=== PATIENT | male | born 1960 | race Caucasian/White ===

== ENCOUNTER 2020-08-14 04:05 | Emergency (ER) | payer MEDICARE, MEDICAID, SELFPAY ==
--- NOTE | ~2020-08-14 | XR_ITS ---
EXAMINATION: XR CHEST CLINICAL INFORMATION: Cough COMPARISON: None TECHNIQUE: Frontal view of the chest was obtained. FINDINGS: Right-sided PICC line terminates over the mid SVC. The lungs are well expanded. There is no focal consolidation, edema, or effusion. No pneumothorax. The cardiomediastinal silhouette is within normal limits. No acute osseous abnormality. XR/XR chest 1V IMPRESSION: No acute pulmonary finding.
[2020-08-14 04:16] VITALS: BP 111/75; PULSE 84; RESP 15; TEMP 36.9; O2SAT 98; BMI 25.0
[2020-08-14 04:24] VITALS: BP 111/67; PULSE 83; O2SAT 97
--- NOTE | 2020-08-14 04:46 | ECG_ITS ---
Test Reason : WEAKNESS Blood Pressure : / mmHG Vent. Rate : 082 BPM Atrial Rate : 082 BPM P-R Int : 188 ms QRS Dur : 078 ms QT Int : 360 ms P-R-T Axes : 069 058 069 degrees QTc Int : 420 ms Normal sinus rhythm Septal infarct , age undetermined Abnormal ECG No previous ECGs available Referred By: Kylie Eldridge Electronically Signed By:KAITLIN DARBY
[2020-08-14 05:04] LABS: Basophils Percent Auto 0.2 % (0-2); Eosinophils Percent Auto 0.2 % (0-4); Hematocrit 34.6 % (42-52); Imm Gran Abs Auto 0.03 X10*3/uL (0.00-0.03); Imm Gran Pct Auto 0.6 % (0.0-0.4); Lymphocytes Absolute Auto 1.9 X10*3/uL (1.2-4.9); MANUAL DIFF FLAG NO; Mean Corpuscular HGB Conc 31.8 g/dl (31.0-36.0); Mean Corpuscular Hemoglobin 32.9 pg (27.0-33.0); Mean Corpuscular Volume 103.6 fL (80-98); Mean Platelet Volume 10.6 fL (9.4-12.4); Monocytes Absolute Auto 0.5 X10*3/uL (0.1-1.2); Monocytes Percent Auto 10.2 % (2-11); Neutrophils Absolute Auto 2.7 X10*3/uL (2.0-8.3); Neutrophils Percent Auto 51.8 % (45-73); Platelet Count 225 X10*3/uL (160-400); Red Blood Count 3.34 X10*6/uL (4.60-5.80); Red Cell Distribution Width 13.2 % (11.0-16.0); White Blood Count 5.2 X10*3/uL (4.8-10.8)
[2020-08-14 05:20] LABS: COVID-19 Test Negative (Negative); IDNOW Serial# 9DD0AD1C
[2020-08-14 05:21] LABS: Lactic Acid 0.9 mmol/L (0.5-2.0)
[2020-08-14 05:29] LABS: B Type Natriuretic Peptide 14 pg/mL (<100)
[2020-08-14 05:33] LABS: Anion Gap 12 (12-20); Blood Urea Nitrogen 18 mg/dL (9-16); Calcium 9.1 mg/dL (8.4-10.2); Carbon Dioxide 29 mmol/L (22-29); Chloride 109 mmol/L (96-108); Creatinine Clr Calc Pharmacy 106.4; Estimated Glomerular Filt Rate > 60; Glucose Random 89 mg/dL (60-115); Sodium 145 mmol/L (135-145)
[2020-08-14 05:35] LABS: Lipase 49 U/L (8-78)
--- NOTE | 2020-08-14 06:07 | ED.GENADULT ---
HPI - General Adult General Chief complaint: General Medical Stated complaint: ? Time Seen by Provider: 08/14/20 04:45 Source: patient, EMS and RN notes reviewed Mode of arrival: EMS Limitations: no limitations History of Present Illness HPI narrative: 59-year-old male for a concern from a longterm resident the patient had copious amount of white foamy and frothy sputum from the patient's mouth. Patient has been coughing with white sputum, patient stated that he has had history of pneumonia in the past, denies any fever, no chest pain, no abdominal pain. Related Data Allergies Allergy/AdvReac Type Severity Reaction Status Date / Time amoxicillin [From Augmentin] Allergy Unknown Verified 08/14/20 04:28 clavulanic acid Allergy Unknown Verified 08/14/20 04:28 [From Augmentin] fluoxetine [From Prozac] Allergy Unknown Verified 08/14/20 04:30 perphenazine Allergy Unknown Verified 08/14/20 04:31 shellfish derived Allergy Unknown Verified 08/14/20 04:31 Review of Systems Review of Systems: All other systems are reviewed and are negative Constitutional: Reports as per HPI and Reports no additional constitutional complaints Eyes: Reports as per HPI and Reports no additional eye complaints Reports system reviewed and no additional complaints, except as documented Cardiovascular: Reports as per HPI and Reports no additional cardiovascular complaints Respiratory: Reports as per HPI and Reports no additional respiratory complaints Gastrointestinal: Reports as per HPI and Reports no additional gastrointestinal complaints Genitourinary: Reports no additional female genitourinary complaints Musculoskeletal: Reports no additional musculoskeletal complaints Skin/Breast: Reports system reviewed and no additional complaints, except as docu Psychiatric: Reports no additional psychiatric complaints Endocrine: Reports no additional endocrine complaints Hematologic/Lymphatic: Reports no additional hematologic/lymphatic complaints Allergic/Immunologic: Reports no additional allergic/immunologic complaints Reports system reviewed and no additional complaints, except as documented and Reports Abnormal speech present [facility] Past Medical History Medical History Bulimia Dementia Epilepsy Schizo-affective schizophrenia, chronic condition Sexually transmitted disease Social History Social History Patient Tobacco Use Status: Former Tobacco user Use of substances other than those prescribed or required for medical reasons: No Advance Directives: No Advance Directives Information Provided: No Physical Exam Vital Signs: Vital Signs: Last Vital Signs Temp 98.4 F 08/14/20 04:16 Pulse 84 08/14/20 04:16 Resp 15 08/14/20 04:16 BP 111/75 08/14/20 04:16 Pulse Ox 98 08/14/20 04:16 Body Mass Index 25.0 Vital signs have been reviewed as appeared to be correct. Blood pressure normal. Heart rate normal. Respiration rate normal. Temperature normal. Oxygen saturation normal. Appearance: Alert. No acute distress. Head: Normal external exam. Normocephalic. Atraumatic. No Bey signs noted. No raccoon eyes noted Eyes: PERRLA. EOMI. Conjunctiva and sclera normal. Eyelids normal. ENT: TM's Normal. Pharynx normal. Uvula midline. Moist mucous membranes. No trismus noted. No drooling noted. No muffled voice noted. Neck: Normal inspection. Neck supple. FROM. No adenopathy. Thyroid Normal. No meningeal signs. No neck mass noted. CVS: Normal heart rate and rhythm. Heart sound normal. No murmurs noted. Pulses normal throughout. Respiratory: No respiratory distress. Painless inspiration. Breath sounds normal. No wheezes/rales/rhonchi noted. Chest nontender. No accessory muscle usage noted or decreased air movement noted. Abdomen: Soft and nontender. Bowel sounds normal in all 4 quadrants. No distention noted. No organomegaly noted. No visible injury noted. Back: No CVA tenderness. Full range of motion noted. Skin: Skin warm and dry. Normal skin color. Normal skin turgor. No rashes/lesions/lacerations noted. Extremities: No lower extremity edema. Extremities exhibit normal range of motion. Extremities nontender. Neuro: No motor deficit. No sensory deficit. Reflexes normal. Course Course Course Narrative: Assessment and plan. 59-year-old male from longterm who was sent for evaluation for copious amount of white foamy and frothy sputum from the mouth with patient history of pneumonia. Chest x-ray/physical exam/labs ruled out pneumonia or any other pathology that explain patient's symptoms and longterm concern. Patient is hemodynamically stable with unremarkable physical exam Medical Decision Making Lab Data Lab results reviewed: Yes I reviewed the patient's lab results. Result diagrams: 08/14/20 04:58 08/14/20 04:58 Labs: Lab Results 08/14/20 08/14/20 08/14/20 Range/Units 04:56 04:58 04:58 WBC 5.2 (4.8-10.8) X10*3/uL RBC 3.34 L (4.60-5.80) X10*6/uL Hgb 11.0 L (14.0-18.0) g/dl Hct 34.6 L (42-52) % MCV 103.6 H (80-98) fL MCH 32.9 (27.0-33.0) pg MCHC 31.8 (31.0-36.0) g/dl RDW 13.2 (11.0-16.0) % Plt Count 225 (160-400) X10*3/uL MPV 10.6 (9.4-12.4) fL Immature Gran % (Auto) 0.6 H (0.0-0.4) % Neut % (Auto) 51.8 (45-73) % Lymph % (Auto) 37.0 (20-40) % [place] % (Auto) 10.2 (2-11) % Eos % (Auto) 0.2 (0-4) % Baso % (Auto) 0.2 (0-2) % Lymph # (Auto) 1.9 (1.2-4.9) X10*3/uL [place] # (Auto) 0.5 (0.1-1.2) X10*3/uL Eos # (Auto) 0.0 (0.0-0.4) X10*3/uL Baso # (Auto) 0.0 (0.0-0.2) X10*3/uL Abs Immat Gran (auto) 0.03 (0.00-0.03) X10*3/uL Absolute Neuts (auto) 2.7 (2.0-8.3) X10*3/uL Absolute Nucleated RBC 0.000 (0.0-0.012) X10*3/uL Nucleated RBC % (auto) 0.0 (0.0-0.2) /100WBC Sodium 145 (135-145) mmol/L Potassium 5.0 (3.3-5.1) mmol/L Chloride 109 H (96-108) mmol/L Carbon Dioxide 29 (22-29) mmol/L Anion Gap 12 (12-20) BUN 18 H (9-16) mg/dL Creatinine 0.80 (0.5-1.4) mg/dL Estim Creat Clear Calc 106.4 Estimated GFR > 60 Random Glucose 89 (60-115) mg/dL Lactic Acid (0.5-2.0) mmol/L Calcium 9.1 (8.4-10.2) mg/dL B-Natriuretic Peptide (<100) pg/mL Lipase (8-78) U/L COVID-19 (TR) Negative (Negative) COVID-19 Clin Com See Note 08/14/20 08/14/20 08/14/20 Range/Units 04:58 04:58 05:02 WBC (4.8-10.8) X10*3/uL RBC (4.60-5.80) X10*6/uL Hgb (14.0-18.0) g/dl Hct (42-52) % MCV (80-98) fL MCH (27.0-33.0) pg MCHC (31.0-36.0) g/dl RDW (11.0-16.0) % Plt Count (160-400) X10*3/uL MPV (9.4-12.4) fL Immature Gran % (Auto) (0.0-0.4) % Neut % (Auto) (45-73) % Lymph % (Auto) (20-40) % [place] % (Auto) (2-11) % Eos % (Auto) (0-4) % Baso % (Auto) (0-2) % Lymph # (Auto) (1.2-4.9) X10*3/uL [place] # (Auto) (0.1-1.2) X10*3/uL Eos # (Auto) (0.0-0.4) X10*3/uL Baso # (Auto) (0.0-0.2) X10*3/uL Abs Immat Gran (auto) (0.00-0.03) X10*3/uL Absolute Neuts (auto) (2.0-8.3) X10*3/uL Absolute Nucleated RBC (0.0-0.012) X10*3/uL Nucleated RBC % (auto) (0.0-0.2) /100WBC Sodium (135-145) mmol/L Potassium (3.3-5.1) mmol/L Chloride (96-108) mmol/L Carbon Dioxide (22-29) mmol/L Anion Gap (12-20) BUN (9-16) mg/dL Creatinine (0.5-1.4) mg/dL Estim Creat Clear Calc Estimated GFR Random Glucose (60-115) mg/dL Lactic Acid 0.9 (0.5-2.0) mmol/L Calcium (8.4-10.2) mg/dL B-Natriuretic Peptide 14 (<100) pg/mL Lipase 49 (8-78) U/L COVID-19 (TR) (Negative) COVID-19 Clin Com Imaging Data Chest x-ray: Radiologist's impression: No acute pulmonary finding. Discharge Plan Discharge Clinical Impression: Cough Dementia Qualifiers: Dementia type: unspecified type Patient Disposition: Xfer LTC Instructions: Dementia (ED) Additional Instructions: X-ray, blood workup, physical exam of the patient not suggesting pneumonia continue with suction of the excessive saliva secretions. Referrals: Dolly Díaz MD [Primary Care Provider] - 2 days Interventions: ED Discharge Assessment Last Done: 08/14/20 05:37
== END 2020-08-14 06:46 ==
PROVIDERS: Emergency Provider Emergency Medicine; PCP Internal Medicine
DX: R05 Cough (principal); F03.90 Unspecified dementia, unspecified severity, without behavioral disturbance, psychotic disturbance, mood disturbance, and anxiety; Z20.822 Contact with and (suspected) exposure to COVID-19
CPT/HCPCS: 36415; 71045; 80048; 83605; 83690; 83880; 85025; 87040; 87635; 93005; 99283; 99284

== ENCOUNTER 2020-09-15 11:30 | Emergency (ER) | payer MEDICARE, MEDICAID, SELFPAY ==
[2020-09-15 11:52] VITALS: BP 110/71; BP 138/76; PULSE 84; PULSE 90; RESP 16; TEMP 36.9; O2SAT 100; O2SAT 96; BMI 28.3
--- NOTE | 2020-09-15 11:53 | ECG_ITS ---
Test Reason : PSYCH Blood Pressure : / mmHG Vent. Rate : 088 BPM Atrial Rate : 088 BPM P-R Int : 168 ms QRS Dur : 080 ms QT Int : 372 ms P-R-T Axes : 076 084 079 degrees QTc Int : 450 ms Normal sinus rhythm Normal ECG When compared with ECG of 14-AUG-2020 04:54, No significant change was found Referred By: Claribel Mcgraw Electronically Signed By:JAZ PATTON MD
[2020-09-15 12:42] LABS: MANUAL DIFF FLAG NO
[2020-09-15 12:51] LABS: Basophils Percent Auto 0.2 % (0-2); Eosinophils Percent Auto 0.2 % (0-4); Hematocrit 36.5 % (42-52); Hemoglobin 11.7 g/dl (14.0-18.0); Imm Gran Abs Auto 0.02 X10*3/uL (0.00-0.03); Imm Gran Pct Auto 0.4 % (0.0-0.4); Lymphocytes Percent Auto 35.3 % (20-40); Mean Corpuscular HGB Conc 32.1 g/dl (31.0-36.0); Mean Corpuscular Volume 99.7 fL (80-98); Mean Platelet Volume 11.6 fL (9.4-12.4); Monocytes Absolute Auto 0.3 X10*3/uL (0.1-1.2); Monocytes Percent Auto 5.6 % (2-11); Neutrophils Absolute Auto 3.2 X10*3/uL (2.0-8.3); Neutrophils Percent Auto 58.3 % (45-73); Platelet Count 233 X10*3/uL (160-400); Red Blood Count 3.66 X10*6/uL (4.60-5.80); Red Cell Distribution Width 13.1 % (11.0-16.0); White Blood Count 5.5 X10*3/uL (4.8-10.8)
[2020-09-15 12:57] LABS: Prothrombin Time 11.1 SEC (9.9-13.0)
[2020-09-15 13:16] LABS: Ethanol < 10 mg/dL
[2020-09-15 13:18] LABS: Magnesium 2.1 mg/dL (1.6-2.6)
[2020-09-15 13:36] LABS: Alanine Aminotransferase 11 U/L (0-40); Albumin Level 4.2 g/dL (3.5-5.0); Alkaline Phosphatase 84 U/L (39-117); Anion Gap 14 (12-20); Aspartate Amino Transferase 15 U/L (5-37); Bilirubin Total 0.4 mg/dL (0.0-1.0); Blood Urea Nitrogen 26 mg/dL (9-16); Calcium 9.6 mg/dL (8.4-10.2); Carbon Dioxide 24 mmol/L (22-29); Chloride 110 mmol/L (96-108); Estimated Glomerular Filt Rate > 60; Glucose Random 112 mg/dL (60-115); Potassium 4.7 mmol/L (3.3-5.1); Sodium 143 mmol/L (135-145); Total Protein 7.1 g/dL (6.5-8.0)
--- NOTE | 2020-09-15 13:49 | ED.PSYCH ---
HPI - Psych General Chief Complaint: Psychiatric Symptoms Stated Complaint: si Time Seen by Provider: 09/15/20 11:52 Source: patient and EMS Mode of arrival: EMS History of Present Illness HPI Narrative: 59-year-old male with a past medical history of dementia, epilepsy, schizoaffective schizophrenia disorder, bulimia with G tube in place with multiple other comorbidities presenting to the ED via EMS after being sent from [facility] in [place] for increased depression with SI statements/attempt where he was found with the call mcmullen cord around his neck. Per correction staff they report that the patient is at baseline. patient immediately had a one-to-one sitter at bedside and he was talking to the one-to-one sitter although when I went to evaluate the patient he pretended that he could not speak or move his hands or legs. He was trying to mouth talk without using any words and put his hands around his neck basically saying that he wanted to choke himself from what I interpreted. Although he was laughing throughout my exam . Once I left the room he started to speak again and started to move all his extremities. MD complaint: suicidal ideation and feels depressed Onset (ago): hour(s) Duration: constant and getting worse History of same: Yes Relieving factors: none Exacerbating factors: none Associated psychiatric symptoms: none Associated symptoms: denies other symptoms Treatments prior to arrival: none If self harm: admits thoughts of self harm, has plan and has acted on plan Related Data Allergies Allergy/AdvReac Type Severity Reaction Status Date / Time amoxicillin [From Augmentin] Allergy Unknown Verified 09/15/20 11:52 clavulanic acid Allergy Unknown Verified 09/15/20 11:52 [From Augmentin] fluoxetine [From Prozac] Allergy Unknown Verified 09/15/20 11:52 perphenazine Allergy Unknown Verified 09/15/20 11:52 shellfish derived Allergy Unknown Verified 09/15/20 11:52 Review of Systems Review of Systems: Constitutional : No Fever, No Chills ENT/Mouth : No Ear Pain, No Nasal Congestion, No sore throat Eyes: No Eye Pain, No Swelling, No Redness Cardiovascular : No Chest Pain, No SOB Respiratory : No Cough, No Sputum, No Dyspnea Gastrointestinal : No ingestions, No Nausea, No Vomiting, No Diarrhea, No Hematochezia, No Melena Genitourinary : No Dysuria, No Urinary Frequency, No Hematuria Musculoskeletal : No Myalgias Skin : No Skin Lesions, No rash Neuro : No Weakness, No Numbness, No Paresthesias, No Dizziness, No Headache Psych : + Anxiety, + Depression, + SI, + thoughts of self injury, No HI, No AVH, Heme/Lymph: No Lymphadenopathy Endocrine : No Polyuria, No Polydipsia Yes all other systems are reviewed and are negative [facility] Past Medical History Attestation statement: The following information was validated with the patient. Medical History Bulimia Dementia Epilepsy Schizo-affective schizophrenia, chronic condition Sexually transmitted disease Social History Social History Patient Tobacco Use Status: Former Tobacco user Advance Directives: Yes Advance Directives Information Provided: Yes Advance Directives on File: No Physical Exam Vital Signs: Vital Signs: Last Vital Signs Temp 98.5 F 09/15/20 11:52 Pulse 84 09/15/20 11:52 Resp 16 09/15/20 11:52 BP 110/71 09/15/20 11:52 Pulse Ox 100 09/15/20 11:52 Body Mass Index 28.3 vital signs have been reviewed as normal and appeared to be correct. Blood pressure normal. Heart rate normal. Respiration rate normal. Temperature normal. Oxygen saturation normal. Appearance: Alert. Oriented X3. No acute distress. Head: Normal external exam. Normocephalic. Atraumatic. Eyes: PERRLA. EOMI. Conjunctiva and sclera normal. Eyelids normal. ENT: Pharynx normal. Uvula midline. Moist mucous membranes. Neck: Normal inspection. Neck supple. FROM. No adenopathy. Thyroid Normal. No meningeal signs. No neck mass noted. CVS: Normal heart rate and rhythm. Heart sound normal. No murmurs noted. Pulses normal throughout. Respiratory: No respiratory distress. Painless inspiration. Breath sounds normal. No wheezes/rales/rhonchi noted. Chest nontender. No accessory muscle usage noted or decreased air movement noted. Abdomen: Soft and nontender. Bowel sounds normal in all 4 quadrants. No distention noted. No organomegaly noted. No visible injury noted. G tube in place. Back: Full range of motion noted. Skin: Skin warm and dry. Normal skin color. Normal skin turgor. No rashes/lesions/lacerations noted. Extremities: No lower extremity edema. Extremities exhibit normal range of motion. Extremities nontender. Neuro: Oriented X 3. No motor deficit. No sensory deficit. Reflexes normal. Psych: Appearance grossly normal, well-kept, mental status normal, speech and movement normal, speech clear, normal affect/mood. Is cooperative. Normal thought process. Normal thought content. Normal good insight. Judgment good. Course Course Course Narrative: 14pm - 59-year-old male Presenting to the ED via EMS after being sent from [facility] [place] for increased depression with SI statement /a temper he was found with call mcmullen cord around his neck although per correction staff this is his baseline and he has done this in the past. although on my exam patient denies any SI/HI/ auditory visual hallucinations or thoughts of self injury is actually smiling and laughing throughout the entire exam very goal orientated. - Labs obtained and patient with a mild baseline anemia similar when compared to prior although improved. BUN 26. Lipase 120. Otherwise all other labs are within normal limits. - Therefore patient is medically cleared at this time placing physician observation because the patient is more time to be evaluated by crisis. At this time patient remains at baseline no focal neuro deficits are noted. Lungs clear to auscultation. CV RRR. Abdomen is soft nontender. Will continue to monitor as patient awakes crisis evaluation. Reevaluation(s) Reevaluation #1: - Labs return and labs at baseline for patient. - Patient was evaluated by the care team And patient continued to deny any SI/HI / auditory visual hallucinations or thoughts of self injury. Therefore patient was cleared medically and by the care team/crisis and we spoke to the retirement facility to the DOA and they are willing to take the patient back to the retirement facility Time: 16:11 [facility] - Psych Medical Records Attestation: I reviewed the patient's medical records. Lab Data Attestation: I reviewed the patient's lab results. Result diagrams: 09/15/20 12:24 09/15/20 12:24 Labs: Lab Results 09/15/20 09/15/20 09/15/20 Range/Units 12:24 12:24 12:24 WBC 5.5 (4.8-10.8) X10*3/uL RBC 3.66 L (4.60-5.80) X10*6/uL Hgb 11.7 L (14.0-18.0) g/dl Hct 36.5 L (42-52) % MCV 99.7 H (80-98) fL MCH 32.0 (27.0-33.0) pg MCHC 32.1 (31.0-36.0) g/dl RDW 13.1 (11.0-16.0) % Plt Count 233 (160-400) X10*3/uL MPV 11.6 (9.4-12.4) fL Immature Gran % (Auto) 0.4 (0.0-0.4) % Neut % (Auto) 58.3 (45-73) % Lymph % (Auto) 35.3 (20-40) % [place] % (Auto) 5.6 (2-11) % Eos % (Auto) 0.2 (0-4) % Baso % (Auto) 0.2 (0-2) % Lymph # (Auto) 2.0 (1.2-4.9) X10*3/uL [place] # (Auto) 0.3 (0.1-1.2) X10*3/uL Eos # (Auto) 0.0 (0.0-0.4) X10*3/uL Baso # (Auto) 0.0 (0.0-0.2) X10*3/uL Abs Immat Gran (auto) 0.02 (0.00-0.03) X10*3/uL Absolute Neuts (auto) 3.2 (2.0-8.3) X10*3/uL Absolute Nucleated RBC 0.000 (0.0-0.012) X10*3/uL Nucleated RBC % (auto) 0.0 (0.0-0.2) /100WBC PT 11.1 (9.9-13.0) SEC INR 1.0 (0.9-1.1) Sodium (135-145) mmol/L Potassium (3.3-5.1) mmol/L Chloride (96-108) mmol/L Carbon Dioxide (22-29) mmol/L Anion Gap (12-20) BUN (9-16) mg/dL Creatinine (0.5-1.4) mg/dL Estim Creat Clear Calc Estimated GFR Random Glucose (60-115) mg/dL Calcium (8.4-10.2) mg/dL Magnesium 2.1 (1.6-2.6) mg/dL Total Bilirubin (0.0-1.0) mg/dL AST (5-37) U/L ALT (0-40) U/L Alkaline Phosphatase (39-117) U/L Total Protein (6.5-8.0) g/dL Albumin (3.5-5.0) g/dL Lipase (8-78) U/L Ethyl Alcohol mg/dL 09/15/20 09/15/20 Range/Units 12:24 12:24 WBC (4.8-10.8) X10*3/uL RBC (4.60-5.80) X10*6/uL Hgb (14.0-18.0) g/dl Hct (42-52) % MCV (80-98) fL MCH (27.0-33.0) pg MCHC (31.0-36.0) g/dl RDW (11.0-16.0) % Plt Count (160-400) X10*3/uL MPV (9.4-12.4) fL Immature Gran % (Auto) (0.0-0.4) % Neut % (Auto) (45-73) % Lymph % (Auto) (20-40) % [place] % (Auto) (2-11) % Eos % (Auto) (0-4) % Baso % (Auto) (0-2) % Lymph # (Auto) (1.2-4.9) X10*3/uL [place] # (Auto) (0.1-1.2) X10*3/uL Eos # (Auto) (0.0-0.4) X10*3/uL Baso # (Auto) (0.0-0.2) X10*3/uL Abs Immat Gran (auto) (0.00-0.03) X10*3/uL Absolute Neuts (auto) (2.0-8.3) X10*3/uL Absolute Nucleated RBC (0.0-0.012) X10*3/uL Nucleated RBC % (auto) (0.0-0.2) /100WBC PT (9.9-13.0) SEC INR (0.9-1.1) Sodium 143 (135-145) mmol/L Potassium 4.7 (3.3-5.1) mmol/L Chloride 110 H (96-108) mmol/L Carbon Dioxide 24 (22-29) mmol/L Anion Gap 14 (12-20) BUN 26 H (9-16) mg/dL Creatinine 0.77 (0.5-1.4) mg/dL Estim Creat Clear Calc 90.0 Estimated GFR > 60 Random Glucose 112 (60-115) mg/dL Calcium 9.6 (8.4-10.2) mg/dL Magnesium (1.6-2.6) mg/dL Total Bilirubin 0.4 (0.0-1.0) mg/dL AST 15 (5-37) U/L ALT 11 (0-40) U/L Alkaline Phosphatase 84 (39-117) U/L Total Protein 7.1 (6.5-8.0) g/dL Albumin 4.2 (3.5-5.0) g/dL Lipase 120 H (8-78) U/L Ethyl Alcohol < 10 mg/dL ECG Data Attestation: I personally reviewed and interpreted this ECG as follows: ECG interpretation date: 09/15/20 ECG interpretation time: 12:04 Interpretation: Normal sinus rhythm and circulated lady with a normal [place] interval normal QRS duration and QT/QTC interval. No acute ischemic changes are noted. Discharge Plan Discharge Clinical Impression: Dementia, Schizo-affective schizophrenia, chronic condition Patient Disposition: er LTC Instructions: Dementia (ED) Referrals: [facility] [Outside] - 2 days
[2020-09-15 13:53] LABS: Lipase 120 U/L (8-78)
--- NOTE | 2020-09-15 14:32 | MHC.CARE ---
Pt is a 59yro single male who arrived to [facility] ED from the SNF he lives in ([facility]) due to reported SI with behavior of wrapping the call mcmullen cord around his neck at the [facility]. Pt was transferred to [facility] from [facility] where he lived since 2005. Pt carries a historical dx of frontotem dementia. Per CARE team call with SW at [facility] ([phone]) Concepcion who was pts SW at [facility] as well. Pt reportedly was sent to [facility] today due to pts behavior and c/o that pt was feeling suicidal. She added the following baseline info for pt who presents with communication issues ( talks in code ) and for several weeks reported that he feels but could not explain how he felt and staff questioned that pt was not medically cleared. Pt admitted to wrapping cord on his neck. CARE did a consult interview with pt to assess risk. Pt was medically cleared, located in room 6 in the ED with a 1:1 present. Pt was resting quietly in bed. Pt appears neatly groomed, reported he had a recent hair cut and trimmed his nails and wearing clean clothes. Pt initially did not speak, and mouthed words and pointed to his tongue and sticking his tongue out. Within a few moments pt was able to speak when t/w suggested when he preferred to speak CARE would return. Pt stated he knew he would come here if he did that referring to his suicidal statements. Pt stated he does not recall where he lives but does remember wrapping the cord on his neck. Pt then denied feeling suicidal and did not intend to end his life. Pt then added that he thinks he is referring to medical issues. Pt presented as fixated on give me an IV . Pt was medically cleared and per ED provider did not require IV fluids. When asked how pt was feeling he stated he feels he needs medical help despite being medically cleared and pt does not recall meeting with the ED provider. When asked about his suicidal thinking or self harm pt stated he does not feel like killing myself and I need my meds through my feeding tube you know that right . Pt denied having thoughts about hurting himself or ending his life and smiled and laughed stating he did that just to get here . Pt appears to present with limited memory recall and could be result of pre-existing dementia diagnosis. Pt denied having thoughts of hurting others and denied aggressive urges. Pt is hoping to return to the SNF, is medically cleared and did not state acute reasons to require referral to crisis assessment based on current presentation and current denial of suicidal ideation, plan or intent. Should pts presentation change or become acute pt can be referred for crisis assessment if needed. CARE team relayed info to CM in effort to support pts goal of returning to SNF and based on current presentation. CM to speak with DON at SNF. Please contact CARE team as needed [phone].
--- NOTE | 2020-09-15 15:49 | MHC.CM.ED ---
Spoke with BARBARA Cervantes of [facility]. Explained patient seen by CARE team and found not to be SI/HI, therefore not requiring a higher level of care. Per Billy, patient can return to the facility. Action BLAlf booked. Med nec with chart. Patient, Leonel MICHAELS and Claribel ALEGRE aware. Continue to monitor for d/c needs.
== END 2020-09-15 20:06 ==
PROVIDERS: Physician Assistant Medical; Emergency Provider Emergency Medicine Emergency Medical Services
DX: F03.90 Unspecified dementia, unspecified severity, without behavioral disturbance, psychotic disturbance, mood disturbance, and anxiety (principal); F20.9 Schizophrenia, unspecified; R45.851 Suicidal ideations; D64.9 Anemia, unspecified; F50.2 Bulimia nervosa; Z68.28 Body mass index [BMI] 28.0-28.9, adult; Z93.1 Gastrostomy status
CPT/HCPCS: 36415; 80053; 82077; 83690; 83735; 85025; 85610; 93005; 99283; 99285

== ENCOUNTER 2021-04-17 23:47 | Inpatient (IN) | payer MEDICARE, MEDICAID, SELFPAY ==
--- NOTE | ~2021-04-17 | XR_ITS ---
EXAMINATION: XR CHEST CLINICAL INFORMATION: Shortness of breath, hypoxia, Covid positive COMPARISON: 08/14/2020 TECHNIQUE: Frontal view of the chest was obtained. FINDINGS: Lung volumes are symmetric. There are mild patchy bibasilar opacities. No evidence of pneumothorax or significant pleural effusion. The cardiomediastinal contour is unremarkable. No acute osseous findings are seen. XR/XR chest 1V IMPRESSION: Mild patchy bibasilar opacities suspicious for sequelae of Covid pneumonia given the clinical history.
--- NOTE | ~2021-04-17 | CT_ITS ---
EXAMINATION: CT ANGIOGRAM OF THE CHEST WITH AND WITHOUT CONTRAST (CT PULMONARY ANGIOGRAM FOR PE) CLINICAL INFORMATION: Reason for Exam r/o PE, covid + COMPARISON: Chest x-ray 04/18/2021 TECHNIQUE: Prior to contrast administration, noncontrast localization images were obtained. Subsequently, multidetector volumetric imaging was performed from the thoracic inlet to below the diaphragms following the administration of 65 mL Omnipaque 350 intravenous contrast. No contrast reaction reported Sagittal, coronal, and MIP oblique sagittal reformatted images were obtained on the CT workstation, uploaded to PACS, and reviewed. This CT examination was performed using dose optimization techniques as appropriate, variously including the following: *Automated exposure control *Adjustment of mA and/or kV according to patient size (this includes techniques or standardized protocols for targeted exams where dose is matched to indication/reason for exam; i.e. extremities or head) *Use of iterative reconstruction technique Total exam dose-length product 462 mGy-cm FINDINGS: QUALITY OF STUDY/CONTRAST BOLUS: Suboptimal. PULMONARY ARTERIES: No central pulmonary embolus is seen. However, there is extensive respiratory motion artifact which significantly limits evaluation of the segmental and subsegmental vasculature bilaterally. THORACIC AORTA: No aneurysm or dissection. LUNG: Detailed parenchymal evaluation is limited due to extensive respiratory motion artifact. There is a region of heterogeneous consolidation in the inferior right upper lobe. Dependent opacities are present in the basilar lower lobes, right greater than left which could represent a combination of atelectasis and consolidation. There is suggestion of somewhat tree-in-bud type nodularity favored to be infectious/inflammatory within the right upper lobe. PLEURA: No pleural effusion or pneumothorax. MEDIASTINUM: The visualized thyroid gland is unremarkable. Mildly prominent bilateral hilar lymph nodes are noted, which may be reactive. Cardiac size is within normal limits; no pericardial effusion. Coronary artery calcifications are present. CHEST WALL/AXILLA: No axillary or internal mammary lymphadenopathy. OSSEOUS STRUCTURES: Scattered degenerative changes are present in the spine. UPPER ABDOMEN: Cholelithiasis is noted. Percutaneous gastrostomy tube is present. No reflux of contrast into the hepatic veins to suggest elevated right heart pressures. CT/CT angio chest PE protocol IMPRESSION: 1. Though no central pulmonary embolus is seen, there is inadequate assessment of the segmental and subsegmental vessels due to extensive respiratory motion artifact, and therefore emboli at these levels cannot be excluded. 2. Regions of opacity in the basilar lower lobes and right middle lobe, at least some of which is favored to reflect consolidation/pneumonia in the setting of Covid positive status. Component of atelectasis may also be present. 3. Coronary artery calcifications. Correlation with cardiac risk factors is recommended. VTE: negative
--- NOTE | ~2021-04-17 | XR_ITS ---
EXAMINATION: XR ABDOMEN KUB CLINICAL INDICATION: PEG tube placement COMPARISON: CTA chest exam 04/18/2021 TECHNIQUE: AP view of the abdomen. FINDINGS: There is a gastrostomy tube visualized in the left upper quadrant. A small probe is seen overlying the pelvis likely within the urinary bladder. The bowel gas pattern is nonspecific. No organomegaly. There is a calcified density in the right upper quadrant consistent with gallstone XR/XR KUB IMPRESSION: A G-tube is seen in the left upper quadrant as seen on CTA chest exam 04/18/2021
--- NOTE | 2021-04-17 23:52 | ECG_ITS ---
Test Reason : SOB Blood Pressure : / mmHG Vent. Rate : 131 BPM Atrial Rate : 000 BPM P-R Int : 000 ms QRS Dur : 068 ms QT Int : 268 ms P-R-T Axes : 000 113 109 degrees QTc Int : 395 ms Artifact in tracing Probable sinus tachycardia Septal infarct , age undetermined Nonspecific ST and T wave abnormality Abnormal ECG When compared with ECG of 15-SEP-2020 12:04, Vent. rate has increased BY [address] and T wave abnormality seen Referred By: Ashtyn Oliveira Electronically Signed By:KAITLIN DARBY
[2021-04-18] VITALS (19 sets, daily range): BP systolic 94–160; BP diastolic 50–80; PULSE 62–140; RESP 10–30; TEMP 36.4–40.2; O2SAT 86–100; BMI 23.6
--- NOTE | 2021-04-18 00:13 | ED_ITS ---
HPI - SOB/Dyspnea General Chief Complaint: Upper Respiratory Symptoms Stated Complaint: sob Time Seen by Provider: 04/17/21 23:48 Source: EMS Mode of arrival: EMS Limitations: altered mental status and other (Advanced dementia) History of Present Illness HPI Narrative: [facility]. Patient is known to be COVID positive. During nursing rounds at the facility, patient was found to be hypoxic, barely arousable. At baseline, patient is nonverbal, but he is usually alert. EMS reports that on their arrival, patient's oxygen saturation was 65% on room air. Patient was started on a non- rebreather, oxygen saturation improved to the low 90s. According to the staff at the [place] [facility], patient had temp Oral fever of 103. Per EMS report, patient has had 2 vaccinations for COVID-19 and a booster MD elicited complaint: shortness of breath Related Data Allergies Allergy/AdvReac Type Severity Reaction Status Date / Time amoxicillin [From Allergy Unknown Verified 09/15/20 11:52 Augmentin] clavulanic acid Allergy Unknown Verified 09/15/20 11:52 [From Augmentin] fluoxetine [From Prozac] Allergy Unknown Verified 09/15/20 11:52 perphenazine Allergy Unknown Verified 09/15/20 11:52 shellfish derived Allergy Unknown Verified 09/15/20 11:52 Review of Systems Verdana 4l Review of Systems: Yes Unobtainable due to mental Verdana 4d condition and Unobtainable due to mental status PMFSH Past Medical History Medical History Bulimia Dementia Epilepsy Schizo-affective schizophrenia, chronic condition Sexually transmitted disease Social History Social History Patient Tobacco Use Status: Former Tobacco user Advance Directives: No Physical Exam Verdana 4l Vital Signs: Verdana 4d Verdana 4d Vital Signs: Verdana 4d Verdana 4Bd Last Vital Signs Verdana 4d Investigation Lieutenant New 4d Investigation Lieutenant New 4d Temp 102.4 F H 04/18/21 02:36 Investigation Lieutenant New 4d Pulse 97 04/18/21 02:13 Investigation Lieutenant New 4d Resp 14 04/18/21 02:13 BP 112/58 L 04/18/21 02:13 Pulse Ox 100 04/18/21 02:13 Oxygen Flow Rate 15 04/18/21 00:05 BMI result Body Mass Index 23.6 Course Course Course Narrative: On arrival, patient's oxygen saturation was low 90s on 15 L. Patient was switched to a high-flow nasal cannula. Oxygen saturation remains above 90%. Per patient's MOLDs form, he is DNR DNI, ok to use CPAP/BiPAP At this time, 02:20, patient's blood pressure is 112 systolic, heart rate 90, temperature 102 degrees. Patient's lactic acid is 2.1 likely secondary to prolonged hypoxia rather than sepsis. Patient's white blood cell count within normal limits, blood pressure stable. Viral infection secondary to COVID suspected. At this time patient will not be given 30 mL/kilogram. Patient did receive 2 L of normal saline. Patient was empirically covered with Levaquin CTA negative for PE I discussed the patient with Dr. Doll, patient being admitted MDM - SOB/Dyspnea Lab Data Result diagrams: 04/18/21 00:16 04/18/21 00:16 Labs: Lab Results 04/18/21 04/18/21 04/18/21 Range/Units 00:16 00:16 00:16 WBC 6.9 (4.8-10.8) X10*3/uL RBC 3.91 L (4.60-5.80) X10*6/uL Hgb 12.7 L (14.0-18.0) g/dl Hct 40.0 L (42.0-52.0) % MCV 102.3 H (80.0-98.0) fL MCH 32.5 (27.0-33.0) pg MCHC 31.8 (31.0-36.0) g/dl RDW 13.8 (11.0-16.0) % Plt Count 151 L (160-400) X10*3/uL MPV 10.9 (9.4-12.4) fL Immature Gran % (Auto) 0.7 H (0.0-0.4) % Neut % (Auto) 70.0 (45-73) % Lymph % (Auto) 21.3 (20-40) % [place] % (Auto) 7.7 (2-11) % Eos % (Auto) 0.0 (0-4) % Baso % (Auto) 0.3 (0-2) % Lymph # (Auto) 1.5 (1.2-4.9) X10*3/uL [place] # (Auto) 0.5 (0.1-1.2) X10*3/uL Eos # (Auto) 0.0 (0.0-0.4) X10*3/uL Baso # (Auto) 0.0 (0.0-0.2) X10*3/uL Abs Immat Gran (auto) 0.05 H (0.00-0.03) X10*3/uL Absolute Neuts (auto) 4.8 (2.0-8.3) x10*3/uL Absolute Nucleated RBC 0.080 H (0.0-0.012) X10*3/uL Nucleated RBC % (auto) 1.2 H (0.0-0.2) /100WBC Smear Tech's Comments VERIFIED D-Dimer High Sensitivty NG/ML Sodium 142 (135-145) mmol/L Potassium 4.2 (3.3-5.1) mmol/L Chloride 109 H (96-108) mmol/L Carbon Dioxide 24 (22-29) mmol/L Anion Gap 13 (12-20) BUN 22 H (9-16) mg/dL Creatinine 1.03 (0.5-1.4) mg/dL Estim Creat Clear Calc 76.7 Estimated GFR > 60 Random Glucose 125 H (60-115) mg/dL Lactic Acid 2.1 H* (0.5-2.0) mmol/L Calcium 8.9 D (8.4-10.2) mg/dL Total Bilirubin 0.4 (0.0-1.0) mg/dL Direct Bilirubin 0.2 (0.0-0.5) mg/dL AST 29 D (5-37) U/L ALT 10 (0-40) U/L Alkaline Phosphatase 61 D (39-117) U/L Troponin I High Sens (<3.5-35.0) ng/L B-Natriuretic Peptide (<100) pg/mL Total Protein 7.3 (6.5-8.0) g/dL Albumin 4.1 (3.5-5.0) g/dL Urine Color Urine Appearance Urine pH (5.0-8.0) Ur Specific [place] (1.005-1.025) Urine Protein (NEG-TRACE) MG/DL Urine Glucose (UA) (NEG) MG/DL Urine Ketones (NEG) MG/DL Urine Blood (NEG) Urine Nitrite (NEG) Ur Leukocyte Esterase (NEG) Urine RBC (0) /HPF Urine WBC (0-4) /HPF Ur Squamous Epith Cells /LPF Urine Bacteria /LPF COVID-19 (TR) (Negative) COVID-19 Clin Com 04/18/21 04/18/21 04/18/21 Range/Units 00:16 00:16 00:16 WBC (4.8-10.8) X10*3/uL RBC (4.60-5.80) X10*6/uL Hgb (14.0-18.0) g/dl Hct (42.0-52.0) % MCV (80.0-98.0) fL MCH (27.0-33.0) pg MCHC (31.0-36.0) g/dl RDW (11.0-16.0) % Plt Count (160-400) X10*3/uL MPV (9.4-12.4) fL Immature Gran % (Auto) (0.0-0.4) % Neut % (Auto) (45-73) % Lymph % (Auto) (20-40) % [place] % (Auto) (2-11) % Eos % (Auto) (0-4) % Baso % (Auto) (0-2) % Lymph # (Auto) (1.2-4.9) X10*3/uL [place] # (Auto) (0.1-1.2) X10*3/uL Eos # (Auto) (0.0-0.4) X10*3/uL Baso # (Auto) (0.0-0.2) X10*3/uL Abs Immat Gran (auto) (0.00-0.03) X10*3/uL Absolute Neuts (auto) (2.0-8.3) x10*3/uL Absolute Nucleated RBC (0.0-0.012) X10*3/uL Nucleated RBC % (auto) (0.0-0.2) /100WBC Smear Tech's Comments D-Dimer High Sensitivty NG/ML Sodium (135-145) mmol/L Potassium (3.3-5.1) mmol/L Chloride (96-108) mmol/L Carbon Dioxide (22-29) mmol/L Anion Gap (12-20) BUN (9-16) mg/dL Creatinine (0.5-1.4) mg/dL Estim Creat Clear Calc Estimated GFR Random Glucose (60-115) mg/dL Lactic Acid (0.5-2.0) mmol/L Calcium (8.4-10.2) mg/dL Total Bilirubin (0.0-1.0) mg/dL Direct Bilirubin (0.0-0.5) mg/dL AST (5-37) U/L ALT (0-40) U/L Alkaline Phosphatase (39-117) U/L Troponin I High Sens 11.6 (<3.5-35.0) ng/L B-Natriuretic Peptide 110 H (<100) pg/mL Total Protein (6.5-8.0) g/dL Albumin (3.5-5.0) g/dL Urine Color Urine Appearance Urine pH (5.0-8.0) Ur Specific [place] (1.005-1.025) Urine Protein (NEG-TRACE) MG/DL Urine Glucose (UA) (NEG) MG/DL Urine Ketones (NEG) MG/DL Urine Blood (NEG) Urine Nitrite (NEG) Ur Leukocyte Esterase (NEG) Urine RBC (0) /HPF Urine WBC (0-4) /HPF Ur Squamous Epith Cells /LPF Urine Bacteria /LPF COVID-19 (TR) Positive A (Negative) COVID-19 Clin Com See Note 04/18/21 04/18/21 Range/Units 00:16 00:23 WBC (4.8-10.8) X10*3/uL RBC (4.60-5.80) X10*6/uL Hgb (14.0-18.0) g/dl Hct (42.0-52.0) % MCV (80.0-98.0) fL MCH (27.0-33.0) pg MCHC (31.0-36.0) g/dl RDW (11.0-16.0) % Plt Count (160-400) X10*3/uL MPV (9.4-12.4) fL Immature Gran % (Auto) (0.0-0.4) % Neut % (Auto) (45-73) % Lymph % (Auto) (20-40) % [place] % (Auto) (2-11) % Eos % (Auto) (0-4) % Baso % (Auto) (0-2) % Lymph # (Auto) (1.2-4.9) X10*3/uL [place] # (Auto) (0.1-1.2) X10*3/uL Eos # (Auto) (0.0-0.4) X10*3/uL Baso # (Auto) (0.0-0.2) X10*3/uL Abs Immat Gran (auto) (0.00-0.03) X10*3/uL Absolute Neuts (auto) (2.0-8.3) x10*3/uL Absolute Nucleated RBC (0.0-0.012) X10*3/uL Nucleated RBC % (auto) (0.0-0.2) /100WBC Smear Tech's Comments D-Dimer High Sensitivty 267 NG/ML Sodium (135-145) mmol/L Potassium (3.3-5.1) mmol/L Chloride (96-108) mmol/L Carbon Dioxide (22-29) mmol/L Anion Gap (12-20) BUN (9-16) mg/dL Creatinine (0.5-1.4) mg/dL Estim Creat Clear Calc Estimated GFR Random Glucose (60-115) mg/dL Lactic Acid (0.5-2.0) mmol/L Calcium (8.4-10.2) mg/dL Total Bilirubin (0.0-1.0) mg/dL Direct Bilirubin (0.0-0.5) mg/dL AST (5-37) U/L ALT (0-40) U/L Alkaline Phosphatase (39-117) U/L Troponin I High Sens (<3.5-35.0) ng/L B-Natriuretic Peptide (<100) pg/mL Total Protein (6.5-8.0) g/dL Albumin (3.5-5.0) g/dL Urine Color YELLOW Urine Appearance CLEAR Urine pH 6.0 (5.0-8.0) Ur Specific [place] 1.010 (1.005-1.025) Urine Protein 1+ H (NEG-TRACE) MG/DL Urine Glucose (UA) NEG (NEG) MG/DL Urine Ketones NEG (NEG) MG/DL Urine Blood TRACE (NEG) Urine Nitrite NEG (NEG) Ur Leukocyte Esterase 3+ H (NEG) Urine RBC 5-9 H (0) /HPF Urine WBC 50-75 H (0-4) /HPF Ur Squamous Epith Cells TRACE /LPF Urine Bacteria 2+ /LPF COVID-19 (TR) (Negative) COVID-19 Clin Com Imaging Data Chest x-ray: Radiologist's impression: FINDINGS: Lung volumes are symmetric. There are mild patchy bibasilar opacities. No evidence of pneumothorax or significant pleural effusion. The cardiomediastinal contour is unremarkable. No acute osseous findings are seen. XR/XR chest 1V IMPRESSION: Mild patchy bibasilar opacities suspicious for sequelae of Covid pneumonia given the clinical history Critical Care Time Critical Care Time Critical Care Time: Yes Total Critical Care Time: 50 Attestation: 50 minutes were spent in direct patient care and stabilization Discharge Plan Discharge Clinical Impression: COVID-19, Hypoxic Patient Disposition: Admitted As Inpatient
[2021-04-18 00:24] LABS: Basophils Percent Auto 0.3 % (0-2); Hemoglobin 12.7 g/dl (14.0-18.0); Imm Gran Abs Auto 0.05 X10*3/uL (0.00-0.03); Imm Gran Pct Auto 0.7 % (0.0-0.4); Lymphocytes Absolute Auto 1.5 X10*3/uL (1.2-4.9); Lymphocytes Percent Auto 21.3 % (20-40); Mean Corpuscular HGB Conc 31.8 g/dl (31.0-36.0); Mean Corpuscular Hemoglobin 32.5 pg (27.0-33.0); Mean Corpuscular Volume 102.3 fL (80.0-98.0); Mean Platelet Volume 10.9 fL (9.4-12.4); Monocytes Absolute Auto 0.5 X10*3/uL (0.1-1.2); Monocytes Percent Auto 7.7 % (2-11); Neutrophils Absolute Auto 4.8 x10*3/uL (2.0-8.3); Platelet Count 151 X10*3/uL (160-400); Red Blood Count 3.91 X10*6/uL (4.60-5.80); Red Cell Distribution Width 13.8 % (11.0-16.0); White Blood Count 6.9 X10*3/uL (4.8-10.8)
[2021-04-18 00:35] LABS: D Dimer High Sensitivity 267 NG/ML
[2021-04-18 00:36] LABS: Appearance Urine CLEAR; Color Urine YELLOW; Glucose Urine UA NEG (NEG); Leukocyte Esterase Urine 3+ (NEG); Nitrite Urine NEG (NEG); UACC Culture Trigger YES; Urine Blood TRACE (NEG); Urine Ketones NEG (NEG); Urine Protein 1+ MG/DL (NEG-TRACE)
[2021-04-18] MEDS: 0.9 % Sodium Chloride 2,000 ML 999 ML IVCONT (00:36)
[2021-04-18 00:37] LABS: MANUAL DIFF FLAG SCAN; NRBC Pct Auto 1.2 /100WBC (0.0-0.2)
[2021-04-18 00:38] LABS: Alanine Aminotransferase 10 U/L (0-40); Albumin Level 4.1 g/dL (3.5-5.0); Alkaline Phosphatase 61 U/L (39-117); Anion Gap 13 (12-20); Aspartate Amino Transferase 29 U/L (5-37); Bilirubin Direct 0.2 mg/dL (0.0-0.5); Bilirubin Total 0.4 mg/dL (0.0-1.0); Blood Urea Nitrogen 22 mg/dL (9-16); Calcium 8.9 mg/dL (8.4-10.2); Carbon Dioxide 24 mmol/L (22-29); Chloride 109 mmol/L (96-108); Creatinine Clr Calc Pharmacy 76.7; Estimated Glomerular Filt Rate > 60; Glucose Random 125 mg/dL (60-115); Potassium 4.2 mmol/L (3.3-5.1); Sodium 142 mmol/L (135-145); Total Protein 7.3 g/dL (6.5-8.0)
[2021-04-18 00:42] LABS: B Type Natriuretic Peptide 110 pg/mL (<100); Lactic Acid 2.1 mmol/L (0.5-2.0)
[2021-04-18 00:42] LABS: WBC Urine 50-75 /HPF (0-4)
[2021-04-18 00:43] LABS: Bacteria Urine 2+ /LPF; Squamous Epithelial Cell Urine TRACE /LPF
[2021-04-18 00:43] LABS: SLIDE REVIEW VERIFIED; Troponin-I High Sensitivity 11.6 ng/L (<3.5-35.0)
[2021-04-18] MEDS: dexAMETHasone sod phosphate 4 MG/ML VIAL 6 MG IVPUSH ×2 (00:43→07:50)
[2021-04-18] MEDS: levoFLOXacin/D5W 500 MG/100 ML PIGGYBACK 100 MG IV (00:43)
[2021-04-18] MEDS: Acetaminophen Supp 650 MG SUPP.RECT PR (00:57)
--- NOTE | 2021-04-18 01:01 | PC.NURSE ---
critical lactic 2.1 report to BRANDO pereira and Provider Dr. Marquez. Medication ordered.
[2021-04-18 01:02] LABS: COVID-19 Test Positive (Negative)
[2021-04-18] MEDS: iohexoL 350 MG/ML 100 ML INFUS..BTL 65 ML IV (02:11)
[2021-04-18 02:20] LABS: Reflex Lactate? Lactic Acid Added
--- NOTE | 2021-04-18 02:46 | P.HPHOSP_ITS ---
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 I spoke to the patient's RN has her at the [facility] -who mentioned that patient mostly sleeps during the night, but the ER today he started all of fever; has been receiving few doses of Ativan with no significant change in his fever; followed by at night after she gave the medications when the [employer] went to check on the patient patient noted to be visibly short of breath; followed by patient oxygenation noted to be 68%; EMS was called in and patient was sent to the hospital for further management. Mentioned that patient is due to get a chest x-ray, blood cultures at the care home. Patient was already started on Z-Kyle. Mentions that patient has most 1 that she is do not resuscitate do not intubate and has a guardian. Per RN patient at baseline not she has had for questions Like pain. Review of all other systems is limited. ER course: Per ER team patient was on non-rebreather on presentation; with oxygen saturation in low 90s; followed with patient was placed on high-flow oxygenation improvement. CT chest was done which showed no evidence of pulmonary embolism but noted COVID-19 pneumonia. Given levofloxacin. Admitted to the hospital for further management [facility] Medical History Bulimia Dementia Epilepsy Schizo-affective schizophrenia, chronic condition Sexually transmitted disease Social History Patient Tobacco Use Status: Former Tobacco user Advance Directives: No Meds Allergies Allergy/AdvReac Type Severity Reaction Status Date / Time amoxicillin [From Allergy Unknown Verified 09/15/20 11:52 Augmentin] clavulanic acid Allergy Unknown Verified 09/15/20 11:52 [From Augmentin] fluoxetine [From Prozac] Allergy Unknown Verified 09/15/20 11:52 perphenazine Allergy Unknown Verified 09/15/20 11:52 shellfish derived Allergy Unknown Verified 09/15/20 11:52 Home Medications Medication Instructions Recorded Confirmed Last Taken Type atorvastatin 10 1 tab FEEDING 04/18/21 04/18/21 Unknown History mg tablet TUBE BEDTIME clonazepam 1 mg 1 tab FEEDING 04/18/21 04/18/21 Unknown History tablet TUBE BID clozapine 100 mg 2.5 tab PO 04/18/21 04/18/21 Unknown History tablet BEDTIME clozapine 25 mg 1 tab FEEDING 04/18/21 04/18/21 Unknown History tablet TUBE DAILY levothyroxine 112 1 tab FEEDING 04/18/21 04/18/21 Unknown History mcg tablet TUBE DAILY lidocaine 5 % 1 patch TOPICAL 04/18/21 04/18/21 Unknown History topical patch DAILY (Lidoderm) lithium carbonate 1 cap FEEDING 04/18/21 04/18/21 Unknown History 300 mg capsule TUBE BID omeprazole 20 mg FEEDING 04/18/21 04/18/21 Unknown History magnesium 10 mg TUBE DAILY oral suspension,delaye d release (Prilosec) trazodone 50 mg 1 tab FEEDING 04/18/21 04/18/21 Unknown History tablet TUBE BEDTIME valproic acid (as 1,000 mg FEEDING 04/18/21 04/18/21 Unknown History sodium salt) 250 TUBE DAILY mg/5 mL oral solution valproic acid (as 2,000 mg FEEDING 04/18/21 04/18/21 Unknown History sodium salt) 250 TUBE BEDTIME mg/5 mL oral solution Physical Exam Verdana 4l Vital Signs and Narrative: Verdana 4d Verdana 4d Vital Signs: Verdana 4d Verdana 4Bd Last Vital Signs Verdana 4d Population Health Manager New 4d Population Health Manager New 4d Temp 102.4 F H 04/18/21 02:36 Population Health Manager New 4d Pulse 97 04/18/21 02:13 Population Health Manager New 4d Resp 14 04/18/21 02:13 BP 112/58 L 04/18/21 02:13 Pulse Ox 100 04/18/21 02:13 Oxygen Flow Rate 15 04/18/21 00:05 BMI result Body Mass Index 23.6 Gen: Appears be in no acute distress. Patient on high-flow oxygen. Blood pressure on the soft side. HEENT: NCAT, Moist mucosa. Pulmonary: Coarse breath sounds. CVS: Normal S1-S2 Abdomen: BS+, Soft, Nontender. Peg tube in place. Peg site appears clear. Extremities: Warm well perfused Neuro: drowsy/ lethargic. Opens his eyes to verbal commands. Not following any commands Currently.. Results Labs CBC and Chem 7: 04/18/21 00:16 04/18/21 00:16 Labs: Laboratory Results - last 24 hr 04/18/21 04/18/21 04/18/21 00:16 00:16 00:16 MCV 102.3 H MCH 32.5 MCHC 31.8 RDW 13.8 Plt Count 151 L MPV 10.9 Immature Gran % (Auto) 0.7 H Neut % (Auto) 70.0 Lymph % (Auto) 21.3 [place] % (Auto) 7.7 Eos % (Auto) 0.0 Baso % (Auto) 0.3 Lymph # (Auto) 1.5 [place] # (Auto) 0.5 Eos # (Auto) 0.0 Baso # (Auto) 0.0 Abs Immat Gran (auto) 0.05 H Absolute Neuts (auto) 4.8 Absolute Nucleated RBC 0.080 H Nucleated RBC % (auto) 1.2 H Smear Tech's Comments VERIFIED D-Dimer High Sensitivty Anion Gap 13 Estim Creat Clear Calc 76.7 Estimated GFR > 60 Random Glucose 125 H Lactic Acid 2.1 H* Calcium 8.9 D Total Bilirubin 0.4 Direct Bilirubin 0.2 AST 29 D ALT 10 Alkaline Phosphatase 61 D Troponin I High Sens B-Natriuretic Peptide Total Protein 7.3 Albumin 4.1 Urine Color Urine Appearance Urine pH Ur Specific [place] Urine Protein Urine Glucose (UA) Urine Ketones Urine Blood Urine Nitrite Ur Leukocyte Esterase Urine RBC Urine WBC Ur Squamous Epith Cells Urine Bacteria COVID-19 (TR) COVID-19 Clin Com 04/18/21 04/18/21 04/18/21 00:16 00:16 00:16 MCV MCH MCHC RDW Plt Count MPV Immature Gran % (Auto) Neut % (Auto) Lymph % (Auto) [place] % (Auto) Eos % (Auto) Baso % (Auto) Lymph # (Auto) [place] # (Auto) Eos # (Auto) Baso # (Auto) Abs Immat Gran (auto) Absolute Neuts (auto) Absolute Nucleated RBC Nucleated RBC % (auto) Smear Tech's Comments D-Dimer High Sensitivty Anion Gap Estim Creat Clear Calc Estimated GFR Random Glucose Lactic Acid Calcium Total Bilirubin Direct Bilirubin AST ALT Alkaline Phosphatase Troponin I High Sens 11.6 B-Natriuretic Peptide 110 H Total Protein Albumin Urine Color Urine Appearance Urine pH Ur Specific [place] Urine Protein Urine Glucose (UA) Urine Ketones Urine Blood Urine Nitrite Ur Leukocyte Esterase Urine RBC Urine WBC Ur Squamous Epith Cells Urine Bacteria COVID-19 (TR) Positive A COVID-19 Clin Com See Note 04/18/21 04/18/21 00:16 00:23 MCV MCH MCHC RDW Plt Count MPV Immature Gran % (Auto) Neut % (Auto) Lymph % (Auto) [place] % (Auto) Eos % (Auto) Baso % (Auto) Lymph # (Auto) [place] # (Auto) Eos # (Auto) Baso # (Auto) Abs Immat Gran (auto) Absolute Neuts (auto) Absolute Nucleated RBC Nucleated RBC % (auto) Smear Tech's Comments D-Dimer High Sensitivty 267 Anion Gap Estim Creat Clear Calc Estimated GFR Random Glucose Lactic Acid Calcium Total Bilirubin Direct Bilirubin AST ALT Alkaline Phosphatase Troponin I High Sens B-Natriuretic Peptide Total Protein Albumin Urine Color YELLOW Urine Appearance CLEAR Urine pH 6.0 Ur Specific [place] 1.010 Urine Protein 1+ H Urine Glucose (UA) NEG Urine Ketones NEG Urine Blood TRACE Urine Nitrite NEG Ur Leukocyte Esterase 3+ H Urine RBC 5-9 H Urine WBC 50-75 H Ur Squamous Epith Cells TRACE Urine Bacteria 2+ COVID-19 (TR) COVID-19 Clin Com Imaging Radiologist's Impressions: Impressions Chest X-Ray 04/18/21 00:13 IMPRESSION: Mild patchy bibasilar opacities suspicious for sequelae of Covid pneumonia given the clinical history. Chest CTA 04/18/21 02:10 IMPRESSION: 1. Though no central pulmonary embolus is seen, there is inadequate assessment of the segmental and subsegmental vessels due to extensive respiratory motion artifact, and therefore emboli at these levels cannot be excluded. 2. Regions of opacity in the basilar lower lobes and right middle lobe, at least some of which is favored to reflect consolidation/pneumonia in the setting of Covid positive status. Component of atelectasis may also be present. 3. Coronary artery calcifications. Correlation with cardiac risk factors is recommended. 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 Admitted to the hospital for following conditions Altered mental status: toxic metabolic encephalopathy. Supportive care. Strict NPO. at baseline patient nods his head to simple questions as per the RN at care home. Currently patient is drowsy lethargic. Exam limited. Patient received IV contrast-unable to do CT head currently. Acute hypoxic respiratory failure: Likely in the setting of COVID-[address] chest showed no evidence of pulmonary embolism. patient also has a history of recurrent aspiration pneumonias. Patient currently on high-flow oxygen. Pulmonology follow-up [place] noninvasive ventilation as needed to maintain oxygen saturation above 90. COVID-19 pneumonia: Patient was COVID-19 vaccinated with Pfizer vaccine in March 2020. continue Decadron Continue Levaquin Id consult History of severe oropharyngeal dysphagia: Patient on atropine drops to hold secretions. 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 -Continued on lithium, Klonopin, Geodon, clozapine via PEG tube. History of cutaneous herpes: Patient on Valtrex via PEG tube. For Diet: Patient on tube feeds Via PEG tube Nutrition consult. At care home patient on Jevity 1.2 KL / 280 mL via PEG -70 cc/hour -off from 1:00 a.m. to 5:00 a.m.. Also receives forearms on thickened water via have table spoon sips per shift if requested. Allergic to sea food. DVT prophylaxis: Lovenox Code status: DNR / DNI. Patient has MOLST form. I spoke to patient's guardian: Chepe Davidander [phone] on phone; expl ained plan of care in detail. Quality Stroke Does the patient have a stroke diagnosis?: No VTE Prior VTE?: No VTE Risk Level:: Medical - moderate - high VTE Device Contraindication: Treatment Not Indicated VTE Drug Contraindication: N/A - Med Ordered
[2021-04-18 02:57] LABS: ~Lactic Acid-LAB USE ONLY 1.1 mmol/L (0.5-2.0)
--- NOTE | 2021-04-18 03:31 | PC.NURSE ---
dr padilla present and made aware of low bp 88/52/64 temp 101.3 request for iv fever gas singer. bp retaken and now 94/53/69
[2021-04-18] MEDS: Enoxaparin Sodium 40 MG/0.4 ML SYRINGE SUBCUT (04:53)
--- NOTE | 2021-04-18 06:32 | PC.NURSE ---
0630 medication not available in [facility] will bring.
[2021-04-18 06:49] LABS: MANUAL DIFF FLAG NO
[2021-04-18 06:53] LABS: Basophils Percent Auto 0.1 % (0-2); Hematocrit 34.3 % (42.0-52.0); Hemoglobin 10.9 g/dl (14.0-18.0); Imm Gran Abs Auto 0.04 X10*3/uL (0.00-0.03); Imm Gran Pct Auto 0.4 % (0.0-0.4); Lymphocytes Absolute Auto 1.2 X10*3/uL (1.2-4.9); Lymphocytes Percent Auto 12.5 % (20-40); Mean Corpuscular HGB Conc 31.8 g/dl (31.0-36.0); Mean Corpuscular Hemoglobin 32.8 pg (27.0-33.0); Mean Corpuscular Volume 103.3 fL (80.0-98.0); Mean Platelet Volume 11.6 fL (9.4-12.4); Monocytes Absolute Auto 0.4 X10*3/uL (0.1-1.2); Monocytes Percent Auto 4.3 % (2-11); NRBC Pct Auto 0.3 /100WBC (0.0-0.2); Neutrophils Absolute Auto 7.7 x10*3/uL (2.0-8.3); Neutrophils Percent Auto 82.7 % (45-73); Platelet Count 151 X10*3/uL (160-400); Red Blood Count 3.32 X10*6/uL (4.60-5.80); Red Cell Distribution Width 13.9 % (11.0-16.0); White Blood Count 9.3 X10*3/uL (4.8-10.8)
[2021-04-18 07:26] LABS: Blood Urea Nitrogen 18 mg/dL (9-16); Creatinine Clr Calc Pharmacy 94.1; Estimated Glomerular Filt Rate > 60; Glucose Random 153 mg/dL (60-115)
[2021-04-18 07:40] LABS: Anion Gap 11 (12-20); Carbon Dioxide 23 mmol/L (22-29); Chloride 116 mmol/L (96-108); Potassium 4.9 mmol/L (3.3-5.1); Sodium 145 mmol/L (135-145)
[2021-04-18] MEDS: cloZAPine 25 MG TABLET G-TUBE (07:50)
[2021-04-18] MEDS: Lidocaine 4 % Patch ADH..PATCH 1 PATCH TRANSDERMA (07:50)
[2021-04-18] MEDS: Lithium Carbonate 300 MG CAPSULE G-TUBE ×2 (07:50→20:49)
[2021-04-18] MEDS: clonazePAM 1 MG TABLET PO ×2 (07:50→20:53)
[2021-04-18] MEDS: Levothyroxine Sodium 112 MCG TABLET G-TUBE (07:50)
[2021-04-18] MEDS: 0.9 % Sodium Chloride Flush 3 ML SYRINGE IVFLUSH ×2 (07:51→17:22)
--- NOTE | 2021-04-18 08:28 | PC.NURSE ---
0730: contact made to day covering hospitalist regarding pt's urine output being 150ml/hr along with NPO status. Questionting at this time need for Maintainence IVF. Awaiting orders at this time.
--- NOTE | 2021-04-18 08:59 | PC.NURSE ---
DNR/DNI found in paperwork. Plan per hospitalist: Bolus fluids throught PEG
--- NOTE | 2021-04-18 10:26 | MHC.CM.PN ---
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 PT IS BED BOUND AND NONVERBAL AT BASELINE PT HAS A LEGAL GUARDIAN, RAHUL HUNG ([phone]) A VM WAS LEFT FOR DILLAN HUNG REVIEWING PTS MEDICARE RIGHTS A COPY WAS EMAILED TO DILLAN HUNG: [email or web address] A COPY WAS ALSO SENT TO [employer] CURRENT DC PLAN IS RETURN TO [facility]IA S
--- NOTE | 2021-04-18 10:37 | P.EN_ITS ---
Event Note Date of Service: 04/18/21 Event Note: 58-year-old with a past medical history seizure disorder bed-bound nonverbal severe dysphagia with recurrent aspiration pneumonias status post PEG tube? 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, long-term care resident; COVID-19 vaccinated with Pfizer vaccine in March of 2020; tested positive for COVID-19 on 04/16/2021; presented to the hospital today with a chief complaint of fever/hypoxia.?Admitted to the hospital for following conditions. vaccinated with Pfizer vaccine in March 2020. toxic metabolic encephalopathy.? Supportive care.? Strict NPO.? at baseline patient nods his head to simple questions as per the RN at half-way.? Currently patient is drowsy lethargic. Exam limited. Acute hypoxic respiratory failure Likely in the setting of COVID-[address] chest showed no evidence of pulmonary embolism. patient also has a history of recurrent aspiration pneumonia Patient currently on high-flow oxygen. Pulmonology follow-up Escalate noninvasive ventilation as needed to maintain oxygen saturation above 90. continue Decadron, Levaquin Id consult History of severe oropharyngeal dysphagia. Patient on atropine drops to hold secretions. Hypothyroidism: Continue levothyroxine Dementia/ neuro syphilis/ his affective disorder Patient is follows with psych as outpatient.? -Continued on lithium, Klonopin, Geodon, clozapine via PEG tube. History of cutaneous herpes: Patient on Valtrex via PEG tube.? For Diet? Patient on tube feeds ?Via PEG tube? Nutrition consult. At half-way patient on Jevity 1.2 KL / 280 mL via PEG -70 cc/hour -off from 1:00 a.m. to 5:00 a.m..? Also receives forearms on thickened water via have table spoon sips per shift if requested.? Allergic to sea food. DVT prophylaxis: Lovenox Code status: DNR / DNI.? Patient has MOLST form. I spoke to??patient's guardian:? Chepe Bhatti Ph-[phone]?on phone; explained plan of care in detail Attending Dr. Gomez
--- NOTE | 2021-04-18 12:06 | MHC.CLN ---
RE: CONSULT HT 70 WT 165# PT IS 99% IBW INDICATES ADEQUATE WT FOR HT BMI 23.7 WNL ESTIMATED NUTRITION NEEDS (ENN): 1886KCALS, 75-97G PROTEIN, 2250-2625ML FLUID R/T FEVER LABS /: BUN 18, RG 153, ALBUMIN 4.1 MEDS: DECADRON, SYNTHROID DIET RX: NPO PT RELIES ON TF FOR NUTRITION SUPPORT; RECOMMEND JEVITY 1.0 CONTINUOUS AT MAX GOAL RATE 75ML/HR WITH 250CC FREE WATER FLUSHES Q SHIFT TO PROVIDE 1908KCALS (25KCALS/KG), 80G PROTEIN (1.06G/KG), 2223CC TOTAL WATER FROM FORMULA AND FLUSHES (30ML/KG) START TF AT 20ML/HR AND INCREASE BY 10ML Q 4HRS UNTIL MAX GOAL IS ACHIEVED MONITOR TOLERANCE, RESIDUALS AND LYTES ADJUST WATER FLUSHES NEEDED R/T FEVER (WATCH SERUM NA)
[2021-04-18] MEDS: cloZAPine 25 MG TABLET 250 MG PO (20:50)
[2021-04-18] MEDS: traZODone HCL 50 MG TABLET G-TUBE (20:53)
--- NOTE | 2021-04-18 22:32 | W.PM.IDCN ---
History of Present Illness Data of Consult Service Date: 04/18/21 Requesting physician: Phoebe Perez Primary Care Provider: Unknown Physician HPI Reason for consult: shortness of breath He presents with lethargy from his home. He has seizure disorder and is bedbound,Gtube. He has had temperature to 103 and hypoxia to 65% He is COVID positive. Review of Systems Review of Systems: Yes Unobtainable due to mental status PMFSH Past Medical History Medical History Acute respiratory failure due to COVID-19 Bulimia Dementia Epilepsy Pneumonia Schizo-affective schizophrenia, chronic condition Sexually transmitted disease Family History Family history: reviewed and not pertinent Social History Social History Household Members: Other Housing: Assisted Living Facility Do you presently have visiting nurse or other home services: Yes Patient Tobacco Use Status: Former Tobacco user Advance Directives Date on File: 04/18/21 service: No Current occupational status: disabled Meds Allergies Allergy/AdvReac Type Severity Reaction Status Date / Time amoxicillin [From Augmentin] Allergy Unknown Verified 09/15/20 11:52 clavulanic acid Allergy Unknown Verified 09/15/20 11:52 [From Augmentin] fluoxetine [From Prozac] Allergy Unknown Verified 09/15/20 11:52 perphenazine Allergy Unknown Verified 09/15/20 11:52 shellfish derived Allergy Unknown Verified 09/15/20 11:52 Active Medications: Current Medications Acetaminophen (Acetaminophen 325 Mg Tablet) 650 mg PO Q6H PRN PRN Reason: Pain, Mild (Pain Scale 1-3) Clonazepam (Clonazepam 1 Mg Tablet) 1 mg PO BID [facility] Last Admin: 04/18/21 20:53 Dose: 1 mg Documented by: Clozapine (Clozapine 25 Mg Tablet) 25 mg G-TUBE DAILY [facility] Last Admin: 04/18/21 07:50 Dose: 25 mg Documented by: Clozapine (Clozapine 25 Mg Tablet) 250 mg PO BEDTIME [facility] Last Admin: 04/18/21 20:50 Dose: 250 mg Documented by: Dexamethasone Sodium Phosphate (Dexamethasone Sod Phosphate 4 Mg/Ml Vial) 6 mg IVPUSH DAILY [facility] Last Admin: 04/18/21 07:50 Dose: 6 mg Documented by: Enoxaparin Sodium (Enoxaparin Sodium 40 Mg/0.4 Ml Syringe) 40 mg SUBCUT Q24H [facility] Last Admin: 04/18/21 04:53 Dose: 40 mg Documented by: Levofloxacin (Levofloxacin 750 Mg Tablet) 750 mg PO Q24H [facility] Levothyroxine Sodium (Levothyroxine Sodium 112 Mcg Tablet) 112 mcg G-TUBE DAILY@0630 [facility] Last Admin: 04/18/21 07:50 Dose: 112 mcg Documented by: Lidocaine (Lidocaine 4 % Patch Adh..Patch) 1 patch TRANSDERMA DAILY [facility] Last Admin: 04/18/21 07:50 Dose: 1 patch Documented by: [place] Carbonate ([place] Carbonate 300 Mg Capsule) 300 mg G-TUBE BID [facility] Last Admin: 04/18/21 20:49 Dose: 300 mg Documented by: Melatonin (Melatonin 3 Mg Tablet) 6 mg PO BEDTIME PRN PRN Reason: Insomnia Morphine Sulfate (Morphine Sulfate 2 Mg/Ml Cartridge) 1 mg IVPUSH Q4H PRN; Protocol PRN Reason: Pain, SOB Omeprazole (Omeprazole 20 Mg/10 Ml Susp.Recon) 20 mg G-TUBE DAILY@629 [facility] Last Admin: 04/18/21 07:50 Dose: 20 mg Documented by: Senna (Sennosides 8.6 Mg Tablet) 17.2 mg PO BEDTIME PRN PRN Reason: Constipation Sodium Chloride (0.9 % Sodium Chloride Flush 3 Ml Syringe) 3 ml IVFLUSH QSHIFT [facility] Last Admin: 04/18/21 17:22 Dose: 3 ml Documented by: Trazodone HCl (Trazodone Hcl 50 Mg Tablet) 50 mg G-TUBE BEDTIME [facility] Last Admin: 04/18/21 20:53 Dose: 50 mg Documented by: Valproic Acid (Valproic Acid (As Sodium Salt) 250 Mg/5 Ml Solution) 1,000 mg G-TUBE DAILY [facility] Last Admin: 04/18/21 07:51 Dose: 1,000 mg Documented by: Valproic Acid (Valproic Acid (As Sodium Salt) 250 Mg/5 Ml Solution) 2,000 mg G-TUBE BEDTIME [facility] Last Admin: 04/18/21 20:54 Dose: 2,000 mg Documented by: Home Medications Medication Instructions Recorded Confirmed Last Taken Type acetaminophen 500 mg tablet 1,000 mg FEEDING TUBE TID 04/18/21 04/18/21 Unknown History atorvastatin 10 mg tablet 1 tab FEEDING TUBE BEDTIME 04/18/21 04/18/21 Unknown History atropine 1 % eye drops 2 drp SUBLINGUAL DAILY@0500 04/18/21 04/18/21 Unknown History cholecalciferol (vitamin D3) 125 50,000 unit FEEDING TUBE QMONTH 04/18/21 04/18/21 04/04/21 History mcg (5,000 unit) tablet (Vitamin D3) clonazepam 1 mg tablet 1 tab FEEDING TUBE BID@1200,1800 04/18/21 04/18/21 Unknown History clozapine 100 mg tablet 2.5 tab FEEDING TUBE BEDTIME 04/18/21 04/18/21 04/18/21 History clozapine 25 mg tablet 1 tab FEEDING TUBE DAILY 04/18/21 04/18/21 Unknown History erythromycin 5 mg/gram (0.5 %) eye 0.5 inch OPHTHALMIC (EYE) QID 04/18/21 04/18/21 Unknown History ointment fluticasone propionate 50 1 spray INTRANASAL DAILY@1200 04/18/21 04/18/21 Unknown History mcg/actuation nasal spray,suspension levothyroxine 112 mcg tablet 1 tab FEEDING TUBE DAILY 04/18/21 04/18/21 Unknown History lidocaine 5 % topical patch 1 patch TOPICAL DAILY 04/18/21 04/18/21 Unknown History (Lidoderm) lithium carbonate 300 mg capsule 1 cap FEEDING TUBE BID 04/18/21 04/18/21 Unknown History omeprazole magnesium 10 mg oral 20 mg FEEDING TUBE DAILY 04/18/21 04/18/21 Unknown History suspension,delayed release (Prilosec) polyethylene glycol 3350 8.5 gram 8.5 g FEEDING TUBE Q OTHER DAY 04/18/21 04/18/21 Unknown History oral powder packet sennosides 8.6 mg tablet (senna) 8.6 mg FEEDING TUBE DAILY@1200 04/18/21 04/18/21 Unknown History trazodone 50 mg tablet 1 tab FEEDING TUBE BEDTIME 04/18/21 04/18/21 Unknown History valacyclovir 500 mg tablet 1 tab FEEDING TUBE DAILY@1200 04/18/21 04/18/21 Unknown History valproic acid (as sodium salt) 250 1,000 mg FEEDING TUBE DAILY 04/18/21 04/18/21 Unknown History mg/5 mL oral solution valproic acid (as sodium salt) 250 2,000 mg FEEDING TUBE BEDTIME 04/18/21 04/18/21 Unknown History mg/5 mL oral solution ziprasidone HCl 80 mg capsule 1 cap BIDWM 04/18/21 04/18/21 Unknown History Physical Exam Vital Signs: Vital Signs: Last Vital Signs Temp 99.2 F 04/18/21 19:12 Pulse 125 H 04/18/21 19:12 Resp 18 04/18/21 21:50 BP 139/76 04/18/21 19:12 Pulse Ox 100 04/18/21 19:12 Oxygen Flow Rate 15 04/18/21 00:05 BMI result Body Mass Index 23.6 Const: General: no acute distress HENMT: Mouth: Normal oral and palatal mucosa present Resp: Effort & Inspection: decreased respiratory effort Cardio: Rate: regular rate Rhythm: regular rhythm GI: Palpation (GI): Soft to palpation and nontender Skin: General skin exam: no rashes or lesions noted Results Labs CBC & Chem 7: 04/22/21 06:30 04/23/21 06:25 Labs: Short CBC 04/18/21 04/18/21 Range/Units 00:16 06:39 WBC 6.9 9.3 (4.8-10.8) X10*3/uL Hgb 12.7 L 10.9 L (14.0-18.0) g/dl Hct 40.0 L 34.3 L (42.0-52.0) % Plt Count 151 L 151 L (160-400) X10*3/uL BMP 04/18/21 04/18/21 00:16 06:39 Sodium 142 145 Potassium 4.2 4.9 Chloride 109 H 116 H Carbon Dioxide 24 23 BUN 22 H 18 H Creatinine 1.03 0.84 Calcium 8.9 D 8.0 L D Liver Function 04/18/21 Range/Units 00:16 Total Bilirubin 0.4 (0.0-1.0) mg/dL Direct Bilirubin 0.2 (0.0-0.5) mg/dL AST 29 D (5-37) U/L ALT 10 (0-40) U/L Alkaline Phosphatase 61 D (39-117) U/L Albumin 4.1 (3.5-5.0) g/dL Urine 04/18/21 Range/Units 00:23 Urine Color YELLOW Urine Appearance CLEAR Urine pH 6.0 (5.0-8.0) Ur Specific [place] 1.010 (1.005-1.025) Urine Protein 1+ H (NEG-TRACE) MG/DL Urine Glucose (UA) NEG (NEG) MG/DL Assessment and Plan (1) COVID-19: He likely has all viral pneumonia There isnt a heavy lobar pneumonia All-Augmentin (2) Hypoxic: Status: Resolved (3) Epilepsy: Plan Would check procalcitonin although think all viral sepsis Would stop Levaquin Continue Dexamethasone Oxygen as needed If high flow Baricitinib likely
[2021-04-19] VITALS (13 sets, daily range): BP systolic 107–160; BP diastolic 71–89; PULSE 75–97; RESP 16–20; TEMP 36.1–36.8; O2SAT 95–100; BMI 23.6
[2021-04-19 00:08] LABS: Procalcitonin 0.92 ng/mL
[2021-04-19] MEDS: 0.9 % Sodium Chloride Flush 3 ML SYRINGE IVFLUSH ×3 (01:12→21:11)
[2021-04-19] MEDS: Enoxaparin Sodium 40 MG/0.4 ML SYRINGE SUBCUT (04:38)
[2021-04-19] MEDS: Levothyroxine Sodium 112 MCG TABLET G-TUBE (06:05)
[2021-04-19] MEDS: dexAMETHasone sod phosphate 4 MG/ML VIAL 6 MG IVPUSH (09:09)
[2021-04-19] MEDS: cloZAPine 25 MG TABLET G-TUBE (09:10)
[2021-04-19] MEDS: Lithium Carbonate 300 MG CAPSULE G-TUBE ×2 (09:10→20:59)
[2021-04-19] MEDS: Lidocaine 4 % Patch ADH..PATCH 1 PATCH TRANSDERMA (09:10)
[2021-04-19] MEDS: clonazePAM 1 MG TABLET PO ×2 (09:10→21:00)
--- NOTE | 2021-04-19 09:46 | P.CONPL_ITS ---
History of Present Illness History of Present Illness Consult date: 04/19/21 Chief complaint: Hypoxia; Covid positive Narrative: This was an inpatient pulmonary consultation. The patient is a 58-year-old with a past medical history seizure disorder bed-bound nonverbal severe dysphagia with recurrent aspiration pneumonias status post PEG tube? 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 vaccine in March of 2020; tested positive for COVID-19 on 04/16/2021; presented to the hospital today with a chief complaint of fever/hypoxia.?In the ER today he started all of fever; has been receiving few doses of Ativan with no significant change in his fever; followed by at night after she gave the medications when the DIAMOND SAW OPERATOR went to check on the patient patient noted to be visibly short of breath; followed by patient oxygenation noted to be 68% patient was on non-rebreather on presentation; with oxygen saturation in low 90s; followed with patient was sushma jimi on high-flow oxygenation improvement.? CT chest was done which showed no evidence of pulmonary embolism but noted COVID-19 pneumonia.? Review of Systems Verdana 4l Review of Systems: Verdana 4d Verdana 4d Constitutional : No Fever, No Chills ENT/Mouth : No Ear Pain, No Nasal Congestion, No sore throat Eyes: No Eye Pain, No Swelling, No Redness Cardiovascular : No Chest Pain, No SOB Respiratory : No Cough, No Sputum, No Dyspnea GastrointestinalGastrointestinal : No ingestions, No Nausea, No Vomiting, No Diarrhea, No Hematochezia, No Melena Genitourinary : No Dysuria, No Urinary Frequency, No Hematuria Musculoskeletal : No Myalgias Skin : No Skin Lesions, No rash Neuro : No Weakness, No Numbness, No Paresthesias, No Dizziness, No Headache Psych : + Anxiety, + Depression, + SI, + thoughts of self injury, No HI, No AVH, Heme/Lymph: No Lymphadenopathy Endocrine : No Polyuria, No Polydipsia Yes all other systems are reviewed and are negative [facility] Past Medical History Medical History (Updated 04/19/21 @ 09:50 by Marco Antonio Perez MD) Acute respiratory failure due to COVID-19 Bulimia Dementia Epilepsy Pneumonia Schizo-affective schizophrenia, chronic condition Sexually transmitted disease Family History Family history: reviewed and not pertinent Social History Social History Household Members: Other Housing: Assisted Living Facility Do you presently have visiting nurse or other home services: Yes Patient Tobacco Use Status: Former Tobacco user Advance Directives Date on File: 04/18/21 service: No Current occupational status: disabled Meds Allergies Allergy/AdvReac Type Severity Reaction Status Date / Time amoxicillin [From Allergy Unknown Verified 09/15/20 11:52 Augmentin] clavulanic acid Allergy Unknown Verified 09/15/20 11:52 [From Augmentin] fluoxetine [From Prozac] Allergy Unknown Verified 09/15/20 11:52 perphenazine Allergy Unknown Verified 09/15/20 11:52 shellfish derived Allergy Unknown Verified 09/15/20 11:52 Active Medications: Current Medications Acetaminophen (Acetaminophen 325 Mg Tablet) 650 mg PO Q6H PRN PRN Reason: Pain, Mild (Pain Scale 1-3) Baricitinib (Baricitinib 2 Mg Tablet) 4 mg PO Q24H [facility] Stop: 05/02/21 09:01 Last Admin: 04/19/21 09:10 Dose: 4 mg Documented by: Clonazepam (Clonazepam 1 Mg Tablet) 1 mg PO BID [facility] Last Admin: 04/19/21 09:10 Dose: 1 mg Documented by: Clozapine (Clozapine 25 Mg Tablet) 25 mg G-TUBE DAILY [facility] Last Admin: 04/19/21 09:10 Dose: 25 mg Documented by: Clozapine (Clozapine 25 Mg Tablet) 250 mg PO BEDTIME [facility] Last Admin: 04/18/21 20:50 Dose: 250 mg Documented by: Dexamethasone Sodium Phosphate (Dexamethasone Sod Phosphate 4 Mg/Ml Vial) 6 mg IVPUSH DAILY [facility] Last Admin: 04/19/21 09:09 Dose: 6 mg Documented by: Enoxaparin Sodium (Enoxaparin Sodium 40 Mg/0.4 Ml Syringe) 40 mg SUBCUT Q24H [facility] Last Admin: 04/19/21 04:38 Dose: 40 mg Documented by: Levothyroxine Sodium (Levothyroxine Sodium 112 Mcg Tablet) 112 mcg G-TUBE DAILY@0630 [facility] Last Admin: 04/19/21 06:05 Dose: 112 mcg Documented by: Lidocaine (Lidocaine 4 % Patch Adh..Patch) 1 patch TRANSDERMA DAILY [facility] Last Admin: 04/19/21 09:10 Dose: 1 patch Documented by: [place] Carbonate ([place] Carbonate 300 Mg Capsule) 300 mg G-TUBE BID [facility] Last Admin: 04/19/21 09:10 Dose: 300 mg Documented by: Melatonin (Melatonin 3 Mg Tablet) 6 mg PO BEDTIME PRN PRN Reason: Insomnia Morphine Sulfate (Morphine Sulfate 2 Mg/Ml Cartridge) 1 mg IVPUSH Q4H PRN; Protocol PRN Reason: Pain, SOB Omeprazole (Omeprazole 20 Mg/10 Ml Susp.Recon) 20 mg G-TUBE DAILY@629 [facility] Last Admin: 04/19/21 06:04 Dose: 20 mg Documented by: Senna (Sennosides 8.6 Mg Tablet) 17.2 mg PO BEDTIME PRN PRN Reason: Constipation Sodium Chloride (0.9 % Sodium Chloride Flush 3 Ml Syringe) 3 ml IVFLUSH QSHIFT [facility] Last Admin: 04/19/21 09:10 Dose: 3 ml Documented by: Trazodone HCl (Trazodone Hcl 50 Mg Tablet) 50 mg G-TUBE BEDTIME [facility] Last Admin: 04/18/21 20:53 Dose: 50 mg Documented by: Valproic Acid (Valproic Acid (As Sodium Salt) 250 Mg/5 Ml Solution) 1,000 mg G- TUBE DAILY [facility] Last Admin: 04/19/21 09:09 Dose: 1,000 mg Documented by: Valproic Acid (Valproic Acid (As Sodium Salt) 250 Mg/5 Ml Solution) 2,000 mg G-TUBE BEDTIME [facility] Last Admin: 04/18/21 20:54 Dose: 2,000 mg Documented by: Home Medications Medication Instructions Recorded Confirmed Last Taken Type acetaminophen 500 1,000 mg FEEDING 04/18/21 04/18/21 Unknown History mg tablet TUBE TID atorvastatin 10 1 tab FEEDING 04/18/21 04/18/21 Unknown History mg tablet TUBE BEDTIME atropine 1 % eye 2 drp SUBLINGUAL 04/18/21 04/18/21 Unknown History drops DAILY@0500 azithromycin 250 250 mg PO 04/18/21 04/18/21 Unknown History mg tablet DAILY@1800 (Zithromax) cholecalciferol 50,000 unit 04/18/21 04/18/21 04/04/21 History (vitamin D3) 125 FEEDING TUBE QMONTH mcg (5,000 unit) tablet (Vitamin D3) clonazepam 1 mg 1 tab FEEDING 04/18/21 04/18/21 Unknown History tablet TUBE BID@1200,1800 clozapine 100 mg 2.5 tab FEEDING 04/18/21 04/18/21 04/18/21 History tablet TUBE BEDTIME clozapine 25 mg 1 tab FEEDING 04/18/21 04/18/21 Unknown History tablet TUBE DAILY erythromycin 5 0.5 inch 04/18/21 04/18/21 Unknown History mg/gram (0.5 %) OPHTHALMIC (EYE) eye QID ointment fluticasone 1 spray 04/18/21 04/18/21 Unknown History propionate 50 INTRANASAL DAILY@1200 mcg/actuation nasal spray,suspension levothyroxine 112 1 tab FEEDING 04/18/21 04/18/21 Unknown History mcg tablet TUBE DAILY lidocaine 5 % 1 patch TOPICAL 04/18/21 04/18/21 Unknown History topical patch DAILY (Lidoderm) lithium carbonate 1 cap FEEDING 04/18/21 04/18/21 Unknown History 300 mg capsule TUBE BID omeprazole 20 mg FEEDING 04/18/21 04/18/21 Unknown History magnesium 10 mg TUBE DAILY oral suspension,delaye d release (Prilosec) polyethylene 8.5 g FEEDING 04/18/21 04/18/21 Unknown History glycol 3350 8.5 TUBE Q OTHER DAY gram oral powder packet sennosides 8.6 mg 8.6 mg FEEDING 04/18/21 04/18/21 Unknown History tablet (senna) TUBE DAILY@1200 trazodone 50 mg 1 tab FEEDING 04/18/21 04/18/21 Unknown History tablet TUBE BEDTIME valacyclovir 500 1 tab FEEDING 04/18/21 04/18/21 Unknown History mg tablet TUBE DAILY@1200 valproic acid (as 1,000 mg FEEDING 04/18/21 04/18/21 Unknown History sodium salt) 250 TUBE DAILY mg/5 mL oral solution valproic acid (as 2,000 mg FEEDING 04/18/21 04/18/21 Unknown History sodium salt) 250 TUBE BEDTIME mg/5 mL oral solution ziprasidone HCl 1 cap BIDWM 04/18/21 04/18/21 Unknown History 80 mg capsule Physical Exam Verdana 4l Vital Signs: Verdana 4d Verdana 4d Vital Signs: Verdana 4d Verdana 4Bd Last Vital Signs Verdana 4d Life Skills Educator New 4d Life Skills Educator New 4d Temp 97.0 F 04/19/21 08:00 Life Skills Educator New 4d Pulse 91 04/19/21 08:00 Life Skills Educator New 4d Resp 20 04/19/21 08:24 BP 127/77 04/19/21 08:00 Pulse Ox 100 04/19/21 08:00 Oxygen Flow Rate 15 04/18/21 00:05 BMI result Body Mass Index 23.6 Const: General: alert Neck: Neck: Yes normal visual inspection, Yes full ROM and Yes no lymphadenopathy Chest: Chest palpation & inspection: normal inspection of the chest Resp: Auscultation: diminished lung sounds Cardio: Rate: regular rate Rhythm: regular rhythm Heart sounds: S1 normal heart sound present and S2 normal heart sound present GI: Palpation (GI): Soft to palpation and nontender Auscultation: normal bowel sounds Skin: General skin exam: rashes and/or lesions noted Results Laboratory Findings CBC and BMP: 04/18/21 06:39 04/18/21 06:39 Abnormal lab findings: Abnormal Labs 04/18/21 04/18/21 04/18/21 00:16 00:16 00:16 RBC 3.91 L Hgb 12.7 L Hct 40.0 L MCV 102.3 H Plt Count 151 L Immature Gran % (Auto) 0.7 H Neut % (Auto) Lymph % (Auto) Abs Immat Gran (auto) 0.05 H Absolute Nucleated RBC 0.080 H Nucleated RBC % (auto) 1.2 H Chloride 109 H Anion Gap BUN 22 H Random Glucose 125 H Lactic Acid 2.1 H* Calcium B-Natriuretic Peptide Urine Protein Ur Leukocyte Esterase Urine RBC Urine WBC COVID-19 (TR) 04/18/21 04/18/21 04/18/21 00:16 00:16 00:23 RBC Hgb Hct MCV Plt Count Immature Gran % (Auto) Neut % (Auto) Lymph % (Auto) Abs Immat Gran (auto) Absolute Nucleated RBC Nucleated RBC % (auto) Chloride Anion Gap BUN Random Glucose Lactic Acid Calcium B-Natriuretic Peptide 110 H Urine Protein 1+ H Ur Leukocyte Esterase 3+ H Urine RBC 5-9 H Urine WBC 50-75 H COVID-19 (TR) Positive A 04/18/21 04/18/21 06:39 06:39 RBC 3.32 L Hgb 10.9 L Hct 34.3 L MCV 103.3 H Plt Count 151 L Immature Gran % (Auto) Neut % (Auto) 82.7 H Lymph % (Auto) 12.5 L Abs Immat Gran (auto) 0.04 H Absolute Nucleated RBC 0.030 H Nucleated RBC % (auto) 0.3 H Chloride 116 H Anion Gap 11 L BUN 18 H Random Glucose 153 H Lactic Acid Calcium 8.0 L D B-Natriuretic Peptide Urine Protein Ur Leukocyte Esterase Urine RBC Urine WBC COVID-19 (TR) Microbiology: Microbiology 04/18/21 00:23 Blood - Venous Blood Culture - Preliminary No growth after 24 hours. 04/18/21 00:23 Blood - Venous Blood Culture - Preliminary No growth after 24 hours. Assessment and Plan (1) COVID-19: Status: Acute (2) Acute respiratory failure due to COVID-19: Status: Acute (3) Pneumonia: Status: Acute Plan continue high-flow to keep pulse ox above 90% Should start Remdisivir continue decadron Procaltonin elevated, agree with antibiotics Procedures Date of Service Date of Service: 04/19/21
--- NOTE | 2021-04-19 09:46 | PM.CNPUL ---
History of Present Illness History of Present Illness Consult date: 04/19/21 Chief complaint: Hypoxia; Covid positive Narrative: This was an inpatient pulmonary consultation. The patient is a 58-year-old with a past medical history seizure disorder bed-bound nonverbal severe dysphagia with recurrent aspiration pneumonias status post PEG tube? 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, osteoarthritis, depression, history of bacteremia, history of L3 osteomyelitis/diskitis, dementia, long-term care resident; COVID-19 vaccinated with [employer] vaccine in March of 2020; tested positive for COVID-19 on 04/16/2021; presented to the hospital today with a chief complaint of fever/hypoxia.?In the ER today he started all of fever; has been receiving few doses of Ativan with no significant change in his fever; followed by at night after she gave the medications when the [employer] went to check on the patient patient noted to be visibly short of breath; followed by patient oxygenation noted to be 68% patient was on non-rebreather on presentation; with oxygen saturation in low 90s; followed with patient was placed on high-flow oxygenation improvement.? CT chest was done which showed no evidence of pulmonary embolism but noted COVID-19 pneumonia.? Review of Systems Review of Systems: Constitutional : No Fever, No Chills ENT/Mouth : No Ear Pain, No Nasal Congestion, No sore throat Eyes: No Eye Pain, No Swelling, No Redness Cardiovascular : No Chest Pain, No SOB Respiratory : No Cough, No Sputum, No Dyspnea Gastrointestinal : No ingestions, No Nausea, No Vomiting, No Diarrhea, No Hematochezia, No Melena Genitourinary : No Dysuria, No Urinary Frequency, No Hematuria Musculoskeletal : No Myalgias Skin : No Skin Lesions, No rash Neuro : No Weakness, No Numbness, No Paresthesias, No Dizziness, No Headache Psych : + Anxiety, + Depression, + SI, + thoughts of self injury, No HI, No AVH, Heme/Lymph: No Lymphadenopathy Endocrine : No Polyuria, No Polydipsia Yes all other systems are reviewed and are negative PMFSH Past Medical History Medical History (Updated 04/19/21 @ 09:50 by Marco Antonio Perez MD) Acute respiratory failure due to COVID-19 Bulimia Dementia Epilepsy Pneumonia Schizo-affective schizophrenia, chronic condition Sexually transmitted disease Family History Family history: reviewed and not pertinent Social History Social History Household Members: Other Housing: Assisted Living Facility Do you presently have visiting nurse or other home services: Yes Patient Tobacco Use Status: Former Tobacco user Advance Directives Date on File: 04/18/21 service: No Current occupational status: disabled Meds Allergies Allergy/AdvReac Type Severity Reaction Status Date / Time amoxicillin [From Augmentin] Allergy Unknown Verified 09/15/20 11:52 clavulanic acid Allergy Unknown Verified 09/15/20 11:52 [From Augmentin] fluoxetine [From Prozac] Allergy Unknown Verified 09/15/20 11:52 perphenazine Allergy Unknown Verified 09/15/20 11:52 shellfish derived Allergy Unknown Verified 09/15/20 11:52 Active Medications: Current Medications Acetaminophen (Acetaminophen 325 Mg Tablet) 650 mg PO Q6H PRN PRN Reason: Pain, Mild (Pain Scale 1-3) Baricitinib (Baricitinib 2 Mg Tablet) 4 mg PO Q24H [facility] Stop: 05/02/21 09:01 Last Admin: 04/19/21 09:10 Dose: 4 mg Documented by: Clonazepam (Clonazepam 1 Mg Tablet) 1 mg PO BID [facility] Last Admin: 04/19/21 09:10 Dose: 1 mg Documented by: Clozapine (Clozapine 25 Mg Tablet) 25 mg G-TUBE DAILY [facility] Last Admin: 04/19/21 09:10 Dose: 25 mg Documented by: Clozapine (Clozapine 25 Mg Tablet) 250 mg PO BEDTIME [facility] Last Admin: 04/18/21 20:50 Dose: 250 mg Documented by: Dexamethasone Sodium Phosphate (Dexamethasone Sod Phosphate 4 Mg/Ml Vial) 6 mg IVPUSH DAILY [facility] Last Admin: 04/19/21 09:09 Dose: 6 mg Documented by: Enoxaparin Sodium (Enoxaparin Sodium 40 Mg/0.4 Ml Syringe) 40 mg SUBCUT Q24H [facility] Last Admin: 04/19/21 04:38 Dose: 40 mg Documented by: Levothyroxine Sodium (Levothyroxine Sodium 112 Mcg Tablet) 112 mcg G-TUBE DAILY@0630 [facility] Last Admin: 04/19/21 06:05 Dose: 112 mcg Documented by: Lidocaine (Lidocaine 4 % Patch Adh..Patch) 1 patch TRANSDERMA DAILY [facility] Last Admin: 04/19/21 09:10 Dose: 1 patch Documented by: [place] Carbonate ([place] Carbonate 300 Mg Capsule) 300 mg G-TUBE BID [facility] Last Admin: 04/19/21 09:10 Dose: 300 mg Documented by: Melatonin (Melatonin 3 Mg Tablet) 6 mg PO BEDTIME PRN PRN Reason: Insomnia Morphine Sulfate (Morphine Sulfate 2 Mg/Ml Cartridge) 1 mg IVPUSH Q4H PRN; Protocol PRN Reason: Pain, SOB Omeprazole (Omeprazole 20 Mg/10 Ml Susp.Recon) 20 mg G-TUBE DAILY@0630 [facility] Last Admin: 04/19/21 06:04 Dose: 20 mg Documented by: Senna (Sennosides 8.6 Mg Tablet) 17.2 mg PO BEDTIME PRN PRN Reason: Constipation Sodium Chloride (0.9 % Sodium Chloride Flush 3 Ml Syringe) 3 ml IVFLUSH QSHIFT [facility] Last Admin: 04/19/21 09:10 Dose: 3 ml Documented by: Trazodone HCl (Trazodone Hcl 50 Mg Tablet) 50 mg G-TUBE BEDTIME [facility] Last Admin: 04/18/21 20:53 Dose: 50 mg Documented by: Valproic Acid (Valproic Acid (As Sodium Salt) 250 Mg/5 Ml Solution) 1,000 mg G-TUBE DAILY [facility] Last Admin: 04/19/21 09:09 Dose: 1,000 mg Documented by: Valproic Acid (Valproic Acid (As Sodium Salt) 250 Mg/5 Ml Solution) 2,000 mg G-TUBE BEDTIME [facility] Last Admin: 04/18/21 20:54 Dose: 2,000 mg Documented by: Home Medications Medication Instructions Recorded Confirmed Last Taken Type acetaminophen 500 mg tablet 1,000 mg FEEDING TUBE TID 04/18/21 04/18/21 Unknown History atorvastatin 10 mg tablet 1 tab FEEDING TUBE BEDTIME 04/18/21 04/18/21 Unknown History atropine 1 % eye drops 2 drp SUBLINGUAL DAILY@0500 04/18/21 04/18/21 Unknown History azithromycin 250 mg tablet 250 mg PO DAILY@1800 04/18/21 04/18/21 Unknown History (Zithromax) cholecalciferol (vitamin D3) 125 50,000 unit FEEDING TUBE QMONTH 04/18/21 04/18/21 04/04/21 History mcg (5,000 unit) tablet (Vitamin D3) clonazepam 1 mg tablet 1 tab FEEDING TUBE BID@1200,1800 04/18/21 04/18/21 Unknown History clozapine 100 mg tablet 2.5 tab FEEDING TUBE BEDTIME 04/18/21 04/18/21 04/18/21 History clozapine 25 mg tablet 1 tab FEEDING TUBE DAILY 04/18/21 04/18/21 Unknown History erythromycin 5 mg/gram (0.5 %) eye 0.5 inch OPHTHALMIC (EYE) QID 04/18/21 04/18/21 Unknown History ointment fluticasone propionate 50 1 spray INTRANASAL DAILY@1200 04/18/21 04/18/21 Unknown History mcg/actuation nasal spray,suspension levothyroxine 112 mcg tablet 1 tab FEEDING TUBE DAILY 04/18/21 04/18/21 Unknown History lidocaine 5 % topical patch 1 patch TOPICAL DAILY 04/18/21 04/18/21 Unknown History (Lidoderm) lithium carbonate 300 mg capsule 1 cap FEEDING TUBE BID 04/18/21 04/18/21 Unknown History omeprazole magnesium 10 mg oral 20 mg FEEDING TUBE DAILY 04/18/21 04/18/21 Unknown History suspension,delayed release (Prilosec) polyethylene glycol 3350 8.5 gram 8.5 g FEEDING TUBE Q OTHER DAY 04/18/21 04/18/21 Unknown History oral powder packet sennosides 8.6 mg tablet (senna) 8.6 mg FEEDING TUBE DAILY@1200 04/18/21 04/18/21 Unknown History trazodone 50 mg tablet 1 tab FEEDING TUBE BEDTIME 04/18/21 04/18/21 Unknown History valacyclovir 500 mg tablet 1 tab FEEDING TUBE DAILY@1200 04/18/21 04/18/21 Unknown History valproic acid (as sodium salt) 250 1,000 mg FEEDING TUBE DAILY 04/18/21 04/18/21 Unknown History mg/5 mL oral solution valproic acid (as sodium salt) 250 2,000 mg FEEDING TUBE BEDTIME 04/18/21 04/18/21 Unknown History mg/5 mL oral solution ziprasidone HCl 80 mg capsule 1 cap BIDWM 04/18/21 04/18/21 Unknown History Physical Exam Vital Signs: Vital Signs: Last Vital Signs Temp 97.0 F 04/19/21 08:00 Pulse 91 04/19/21 08:00 Resp 20 04/19/21 08:24 BP 127/77 04/19/21 08:00 Pulse Ox 100 04/19/21 08:00 Oxygen Flow Rate 15 04/18/21 00:05 BMI result Body Mass Index 23.6 Const: General: alert Neck: Neck: Yes normal visual inspection, Yes full ROM and Yes no lymphadenopathy Chest: Chest palpation & inspection: normal inspection of the chest Resp: Auscultation: diminished lung sounds Cardio: Rate: regular rate Rhythm: regular rhythm Heart sounds: S1 normal heart sound present and S2 normal heart sound present GI: Palpation (GI): Soft to palpation and nontender Auscultation: normal bowel sounds Skin: General skin exam: rashes and/or lesions noted Results Laboratory Findings CBC and BMP: 04/18/21 06:39 04/18/21 06:39 Abnormal lab findings: Abnormal Labs 04/18/21 04/18/21 04/18/21 00:16 00:16 00:16 RBC 3.91 L Hgb 12.7 L Hct 40.0 L MCV 102.3 H Plt Count 151 L Immature Gran % (Auto) 0.7 H Neut % (Auto) Lymph % (Auto) Abs Immat Gran (auto) 0.05 H Absolute Nucleated RBC 0.080 H Nucleated RBC % (auto) 1.2 H Chloride 109 H Anion Gap BUN 22 H Random Glucose 125 H Lactic Acid 2.1 H* Calcium B-Natriuretic Peptide Urine Protein Ur Leukocyte Esterase Urine RBC Urine WBC COVID-19 (TR) 04/18/21 04/18/21 04/18/21 00:16 00:16 00:23 RBC Hgb Hct MCV Plt Count Immature Gran % (Auto) Neut % (Auto) Lymph % (Auto) Abs Immat Gran (auto) Absolute Nucleated RBC Nucleated RBC % (auto) Chloride Anion Gap BUN Random Glucose Lactic Acid Calcium B-Natriuretic Peptide 110 H Urine Protein 1+ H Ur Leukocyte Esterase 3+ H Urine RBC 5-9 H Urine WBC 50-75 H COVID-19 (TR) Positive A 04/18/21 04/18/21 06:39 06:39 RBC 3.32 L Hgb 10.9 L Hct 34.3 L MCV 103.3 H Plt Count 151 L Immature Gran % (Auto) Neut % (Auto) 82.7 H Lymph % (Auto) 12.5 L Abs Immat Gran (auto) 0.04 H Absolute Nucleated RBC 0.030 H Nucleated RBC % (auto) 0.3 H Chloride 116 H Anion Gap 11 L BUN 18 H Random Glucose 153 H Lactic Acid Calcium 8.0 L D B-Natriuretic Peptide Urine Protein Ur Leukocyte Esterase Urine RBC Urine WBC COVID-19 (TR) Microbiology: Microbiology 04/18/21 00:23 Blood - Venous Blood Culture - Preliminary No growth after 24 hours. 04/18/21 00:23 Blood - Venous Blood Culture - Preliminary No growth after 24 hours. Assessment and Plan (1) COVID-19: Status: Acute (2) Acute respiratory failure due to COVID-19: Status: Acute (3) Pneumonia: Status: Acute Plan continue high-flow to keep pulse ox above 90% Should start Remdisivir continue decadron Procaltonin elevated, agree with antibiotics Procedures Date of Service Date of Service: 04/19/21
[2021-04-19 09:55] LABS: Hematocrit 38.1 % (42.0-52.0); Hemoglobin 11.7 g/dl (14.0-18.0); Mean Corpuscular HGB Conc 30.7 g/dl (31.0-36.0); Mean Corpuscular Hemoglobin 31.8 pg (27.0-33.0); Mean Corpuscular Volume 103.5 fL (80.0-98.0); Mean Platelet Volume 11.5 fL (9.4-12.4); Platelet Count 161 X10*3/uL (160-400); Red Blood Count 3.68 X10*6/uL (4.60-5.80); White Blood Count 12.4 X10*3/uL (4.8-10.8)
--- NOTE | 2021-04-19 10:02 | PM.EVENT ---
Event Note Date of Service: 04/19/21 Event Note: Labs ordered this a.m., for claws a role level, lithium level, ammonia level, valproic acid level. optics technical officer aware, RN aware. RN held meds until after lab draw. Provider Dr. Jason alvarado as well.
[2021-04-19 10:15] LABS: Valproate 62.3 mcg/mL (50.0-100.0)
[2021-04-19 10:17] LABS: Ammonia 61 umol/L (13-55)
[2021-04-19 10:25] LABS: Anion Gap 13 (12-20); Blood Urea Nitrogen 24 mg/dL (9-16); Carbon Dioxide 26 mmol/L (22-29); Chloride 117 mmol/L (96-108); Creatinine Clr Calc Pharmacy 109.8; Estimated Glomerular Filt Rate > 60; Glucose Random 121 mg/dL (60-115); Potassium 4.7 mmol/L (3.3-5.1); Sodium 151 mmol/L (135-145)
[2021-04-19 10:29] LABS: Procalcitonin 0.78 ng/mL
[2021-04-19 10:31] LABS: D Dimer High Sensitivity 328 NG/ML
--- NOTE | 2021-04-19 11:59 | HO.PM.IMPN ---
Subjective Subjective Date of Service: 04/19/21 Interval History: seen and examined this AM talking and knows hes in the hospital emotional and started crying, but unable say what was bothering him Physical Exam Vital Signs: Vital Signs: Last Vital Signs Temp 97.3 F 04/19/21 11:46 Pulse 89 04/19/21 11:46 Resp 16 04/19/21 11:46 BP 134/80 04/19/21 11:46 Pulse Ox 100 04/19/21 11:46 Oxygen Flow Rate 15 04/18/21 00:05 BMI result Body Mass Index 23.6 Const: Other: Gen - NAD, Emotional CVS - S1S2, no edema Lungs - dim sounds, comfortable on HFNC, no tachypnea Abd - soft, NT; +BS; PEG in place Neuro - awake and alert, talking; knows hes at a hospital, but not sure why Psych - labile emotionally Objective Data Active Medications Acetaminophen (Acetaminophen 325 Mg Tablet) 650 mg PO Q6H PRN PRN Reason: Pain, Mild (Pain Scale 1-3) Baricitinib (Baricitinib 2 Mg Tablet) 4 mg PO Q24H [facility] Stop: 05/02/21 09:01 Last Admin: 04/19/21 09:10 Dose: 4 mg Documented by: TWYLA Clonazepam (Clonazepam 1 Mg Tablet) 1 mg PO BID [facility] Last Admin: 04/19/21 09:10 Dose: 1 mg Documented by: TWYLA Clozapine (Clozapine 25 Mg Tablet) 25 mg G-TUBE DAILY [facility] Last Admin: 04/19/21 09:10 Dose: 25 mg Documented by: TWYLA Clozapine (Clozapine 25 Mg Tablet) 250 mg PO BEDTIME [facility] Last Admin: 04/18/21 20:50 Dose: 250 mg Documented by: RICCARDO Dexamethasone Sodium Phosphate (Dexamethasone Sod Phosphate 4 Mg/Ml Vial) 6 mg IVPUSH DAILY [facility] Last Admin: 04/19/21 09:09 Dose: 6 mg Documented by: TWYLA Enoxaparin Sodium (Enoxaparin Sodium 40 Mg/0.4 Ml Syringe) 40 mg SUBCUT Q24H [facility] Last Admin: 04/19/21 04:38 Dose: 40 mg Documented by: RICCARDO Levothyroxine Sodium (Levothyroxine Sodium 112 Mcg Tablet) 112 mcg G-TUBE DAILY@0630 [facility] Last Admin: 04/19/21 06:05 Dose: 112 mcg Documented by: RICCARDO Lidocaine (Lidocaine 4 % Patch Adh..Patch) 1 patch TRANSDERMA DAILY [facility] Last Admin: 04/19/21 09:10 Dose: 1 patch Documented by: TWYLA [place] Carbonate ([place] Carbonate 300 Mg Capsule) 300 mg G-TUBE BID [facility] Last Admin: 04/19/21 09:10 Dose: 300 mg Documented by: TWYLA Melatonin (Melatonin 3 Mg Tablet) 6 mg PO BEDTIME PRN PRN Reason: Insomnia Morphine Sulfate (Morphine Sulfate 2 Mg/Ml Cartridge) 1 mg IVPUSH Q4H PRN; Protocol PRN Reason: Pain, SOB Omeprazole (Omeprazole 20 Mg/10 Ml Susp.Recon) 20 mg G-TUBE DAILY@629 [facility] Last Admin: 04/19/21 06:04 Dose: 20 mg Documented by: RICCARDO Senna (Sennosides 8.6 Mg Tablet) 17.2 mg PO BEDTIME PRN PRN Reason: Constipation Sodium Chloride (0.9 % Sodium Chloride Flush 3 Ml Syringe) 3 ml IVFLUSH QSHIFT [facility] Last Admin: 04/19/21 09:10 Dose: 3 ml Documented by: TWYLA Trazodone HCl (Trazodone Hcl 50 Mg Tablet) 50 mg G-TUBE BEDTIME [facility] Last Admin: 04/18/21 20:53 Dose: 50 mg Documented by: RICCARDO Valproic Acid (Valproic Acid (As Sodium Salt) 250 Mg/5 Ml Solution) 1,000 mg G-TUBE DAILY [facility] Last Admin: 04/19/21 09:09 Dose: 1,000 mg Documented by: TWYLA Valproic Acid (Valproic Acid (As Sodium Salt) 250 Mg/5 Ml Solution) 2,000 mg G-TUBE BEDTIME [facility] Last Admin: 04/18/21 20:54 Dose: 2,000 mg Documented by: RICCARDO Labs CBC & Chem 7: 04/19/21 09:27 04/19/21 09:27 Labs: Laboratory Results - last 24 hr 04/18/21 04/19/21 04/19/21 23:25 09:27 09:27 MCV 103.5 H MCH 31.8 MCHC 30.7 L RDW 14.0 Plt Count 161 MPV 11.5 Absolute Nucleated RBC 0.000 Nucleated RBC % (auto) 0.0 D-Dimer High Sensitivty 328 Anion Gap Estim Creat Clear Calc Estimated GFR Random Glucose Calcium Ammonia C-Reactive Protein Procalcitonin 0.92 Valproic Acid [place] 04/19/21 04/19/21 04/19/21 09:27 09:27 09:27 MCV MCH MCHC RDW Plt Count MPV Absolute Nucleated RBC Nucleated RBC % (auto) D-Dimer High Sensitivty Anion Gap 13 Estim Creat Clear Calc 109.8 Estimated GFR > 60 Random Glucose 121 H Calcium 9.0 D Ammonia C-Reactive Protein 14.30 H Procalcitonin 0.78 Valproic Acid 62.3 [place] 04/19/21 04/19/21 09:27 09:28 MCV MCH MCHC RDW Plt Count MPV Absolute Nucleated RBC Nucleated RBC % (auto) D-Dimer High Sensitivty Anion Gap Estim Creat Clear Calc Estimated GFR Random Glucose Calcium Ammonia 61 H C-Reactive Protein Procalcitonin Valproic Acid [place] 0.70 Microbiology Microbiology Results: Microbiology 04/18/21 00:23 Blood Culture - Preliminary Blood - Venous No growth after 24 hours. 04/18/21 00:23 Blood Culture - Preliminary Blood - Venous No growth after 24 hours. Assessment and Plan (1) Acute respiratory failure due to COVID-19: Status: Acute Plan 58-year-old with a past medical history seizure disorder bed-bound repoted nonverbal, but talking this AM, severe dysphagia with recurrent aspiration pneumonias status post PEG tube? 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 vaccinated with Pfizer vaccine in March 2020. Acute hypoxic respiratory failure due to COVID-19 pneumonia on HFNC PCT elevated and some R middle lobe filtrates -- could all be realted to covid, but will empiric give levaquin 5d given O2 requirements (on HFNC) -- start baricitinib ID/Pulm input appreciated Acute toxic/metabolic encephalopathy.? due to above appears to be improving today HyperNa due to decreased intake; start D5W x 1L; increase flushes to q6 hours; repeat SNa tomorrow AM History of severe oropharyngeal dysphagia. Patient on atropine drops to hold secretions. Hypothyroidism synthroid Dementia/ neuro syphilis/ his affective disorder Patient is follows with psych as outpatient.? -Continued on lithium, Klonopin, Geodon, clozapine via PEG tube. History of cutaneous herpes valtrex for prophylaxis at snf, continue DVT pptx, Lovenox DNR/DNI Quality Stroke Does the patient have a stroke diagnosis?: No VTE Prior VTE?: No VTE Risk Level:: Medical - moderate - high VTE Device Contraindication: Treatment Not Indicated VTE Drug Contraindication: N/A - Med Ordered
[2021-04-19 13:15] LABS: MRSA Nasal PCR NEGATIVE (Negative); SA Nasal PCR NEGATIVE (Negative)
[2021-04-19] MEDS: Dextrose 5 % 1,000 ML 80 ML IVCONT (13:18)
[2021-04-19] MEDS: levoFLOXacin/D5W 750 MG/150 ML PIGGYBACK 100 MG IV (14:44)
[2021-04-19] MEDS: cloZAPine 25 MG TABLET 250 MG G-TUBE (20:55)
[2021-04-19] MEDS: Melatonin 3 MG TABLET 6 MG PO (21:00)
[2021-04-19] MEDS: traZODone HCL 50 MG TABLET G-TUBE (21:01)
[2021-04-19] MEDS: Atorvastatin Calcium 10 MG TABLET G-TUBE (21:01)
[2021-04-19] MEDS: Ziprasidone 80 MG CAPSULE G-TUBE (21:02)
[2021-04-19] MEDS: Erythromycin Base 0.5% Oph Oin 1 GM TUBE 1.27 CM EYE-BOTH (21:12)
[2021-04-20] VITALS (8 sets, daily range): BP systolic 111–130; BP diastolic 49–71; PULSE 76–99; RESP 18–20; TEMP 36.2–36.7; O2SAT 90–100
[2021-04-20] MEDS: Enoxaparin Sodium 40 MG/0.4 ML SYRINGE SUBCUT (03:13)
[2021-04-20] MEDS: Levothyroxine Sodium 112 MCG TABLET G-TUBE (06:44)
[2021-04-20 08:03] LABS: Anion Gap 13 (12-20); Blood Urea Nitrogen 26 mg/dL (9-16); Calcium 8.9 mg/dL (8.4-10.2); Carbon Dioxide 27 mmol/L (22-29); Chloride 115 mmol/L (96-108); Creatinine Clr Calc Pharmacy 109.8; Estimated Glomerular Filt Rate > 60; Glucose Random 117 mg/dL (60-115); Potassium 4.5 mmol/L (3.3-5.1); Sodium 150 mmol/L (135-145)
[2021-04-20] MEDS: dexAMETHasone sod phosphate 4 MG/ML VIAL 6 MG IVPUSH (09:41)
[2021-04-20] MEDS: Lidocaine 4 % Patch ADH..PATCH 1 PATCH TRANSDERMA (09:41)
[2021-04-20] MEDS: Lithium Carbonate 300 MG CAPSULE G-TUBE ×2 (09:42→21:43)
[2021-04-20] MEDS: Ziprasidone 80 MG CAPSULE G-TUBE ×2 (09:42→17:32)
[2021-04-20] MEDS: cloZAPine 25 MG TABLET G-TUBE (09:42)
[2021-04-20] MEDS: Acetaminophen 325 MG TABLET 650 MG G-TUBE (09:42)
[2021-04-20] MEDS: clonazePAM 1 MG TABLET PO ×2 (09:42→21:36)
[2021-04-20] MEDS: 0.9 % Sodium Chloride Flush 3 ML SYRINGE IVFLUSH ×2 (09:43→17:32)
[2021-04-20] MEDS: Erythromycin Base 0.5% Oph Oin 1 GM TUBE 1.27 CM EYE-BOTH ×3 (09:43→21:44)
--- NOTE | 2021-04-20 10:52 | P.PNIM_ITS ---
Subjective Subjective Date of Service: 04/20/21 Interval History: seen and examined this AM no new issues reported reports trouble breathing reports chronic generalized pain asked him the month and after thinking about it for some time -- reported I have a lot of brain damage Review of Systems negative except interval history Physical Exam Verdana 4l Vital Signs: Verdana 4d Verdana 4d Vital Signs: Verdana 4d Verdana 4Bd Last Vital Signs Verdana 4d Customer Success Advocate New 4d Customer Success Advocate New 4d Temp 97.2 F 04/20/21 07:45 Customer Success Advocate New 4d Pulse 84 04/20/21 07:45 Customer Success Advocate New 4d Resp 20 04/20/21 08:05 BP 130/71 04/20/21 07:45 Pulse Ox 100 04/20/21 07:45 Oxygen Flow Rate 15 04/18/21 00:05 BMI result Body Mass Index 23.6 Const: Other: Gen - NAD, Emotional CVS - S1S2, no edema Lungs - dim sounds, comfortable on HFNC, no tachypnea Abd - soft, NT; +BS; PEG in place Neuro - awake and alert, talking; oriented to self Psych - labile emotionally Objective Data Active Medications Acetaminophen (Acetaminophen 325 Mg Tablet) 650 mg G-TUBE Q6H PRN PRN Reason: Pain, Mild (Pain Scale 1-3) Last Admin: 04/20/21 09:42 Dose: 650 mg Documented by: JEZ Atorvastatin Calcium (Atorvastatin Calcium 10 Mg Tablet) 10 mg G-TUBE BEDTIME [facility] Last Admin: 04/19/21 21:01 Dose: 10 mg Documented by: RICCARDO Atropine Sulfate (Atropine Sulfate 1 % Oph Erin 2 Ml Bottle) 2 drop SUBLINGUAL DAILY@0500 [facility] Last Admin: 04/20/21 09:44 Dose: Not Given Documented by: JEZ Non-Admin Reason: Med Not Available Baricitinib (Baricitinib 2 Mg Tablet) 4 mg G-TUBE Q24H [facility] Stop: 05/02/21 09:01 Last Admin: 04/20/21 09:42 Dose: 4 mg Documented by: JEZ Clonazepam (Clonazepam 1 Mg Tablet) 1 mg PO BID [facility] Last Admin: 04/20/21 09:42 Dose: 1 mg Documented by: JEZ Clozapine (Clozapine 25 Mg Tablet) 25 mg G-TUBE DAILY [facility] Last Admin: 04/20/21 09:42 Dose: 25 mg Documented by: JEZ Clozapine (Clozapine 25 Mg Tablet) 250 mg G-TUBE BEDTIME [facility] Last Admin: 04/19/21 20:55 Dose: 250 mg Documented by: RICCARDO Dexamethasone Sodium Phosphate (Dexamethasone Sod Phosphate 4 Mg/Ml Vial) 6 mg IVPUSH DAILY [facility] Last Admin: 04/20/21 09:41 Dose: 6 mg Documented by: JEZ Enoxaparin Sodium (Enoxaparin Sodium 40 Mg/0.4 Ml Syringe) 40 mg SUBCUT Q24H [facility] Last Admin: 04/20/21 03:13 Dose: 40 mg Documented by: RICCARDO Erythromycin (Erythromycin Base 0.5% Oph Oin 1 Gm Tube) 1.27 cm EYE-BOTH QID [facility] Last Admin: 04/20/21 09:43 Dose: 1.27 cm Documented by: JEZ Levofloxacin (Levaquin) 750 mg in 150 mls @ 100 mls/hr IV Q24H [facility] Stop: 04/22/21 15:29 Last Infusion: 04/19/21 16:23 Dose: 0 mls/hr Documented by: TWYLA Levothyroxine Sodium (Levothyroxine Sodium 112 Mcg Tablet) 112 mcg G-TUBE DAILY@629 [facility] Last Admin: 04/20/21 06:44 Dose: 112 mcg Documented by: RICCARDO Lidocaine (Lidocaine 4 % Patch Adh..Patch) 1 patch TRANSDERMA DAILY [facility] Last Admin: 04/20/21 09:41 Dose: 1 patch Documented by: JEZ Patrick Carbonate (Patrick Carbonate 300 Mg Capsule) 300 mg G-TUBE BID [facility] Last Admin: 04/20/21 09:42 Dose: 300 mg Documented by: JEZ Melatonin (Melatonin 3 Mg Tablet) 6 mg PO BEDTIME PRN PRN Reason: Insomnia Last Admin: 04/19/21 21:00 Dose: 6 mg Documented by: RICCARDO Morphine Sulfate (Morphine Sulfate 2 Mg/Ml Cartridge) 1 mg IVPUSH Q4H PRN; Protocol PRN Reason: Pain, SOB Omeprazole (Omeprazole 20 Mg/10 Ml Susp.Recon) 20 mg G-TUBE DAILY@30 [facility] Last Admin: 04/20/21 06:44 Dose: 20 mg Documented by: RICCARDO Senna (Sennosides 8.6 Mg Tablet) 17.2 mg PO BEDTIME PRN PRN Reason: Constipation Sodium Chloride (0.9 % Sodium Chloride Flush 3 Ml Syringe) 3 ml IVFLUSH QSHIFT [facility] Last Admin: 04/20/21 09:43 Dose: 3 ml Documented by: JEZ Trazodone HCl (Trazodone Hcl 50 Mg Tablet) 50 mg G-TUBE BEDTIME [facility] Last Admin: 04/19/21 21:01 Dose: 50 mg Documented by: RICCARDO Valacyclovir HCl (Valacycyclovir Hcl 500 Mg Tablet) 500 mg G-TUBE DAILY@1200 [facility] Last Admin: 04/20/21 09:44 Dose: 500 mg Documented by: JEZ Valproic Acid (Valproic Acid (As Sodium Salt) 250 Mg/5 Ml Solution) 1,000 mg G- TUBE DAILY [facility] Last Admin: 04/20/21 09:41 Dose: 1,000 mg Documented by: JEZ Valproic Acid (Valproic Acid (As Sodium Salt) 250 Mg/5 Ml Solution) 2,000 mg G- TUBE BEDTIME [facility] Last Admin: 04/19/21 21:03 Dose: 2,000 mg Documented by: RICCARDO Ziprasidone (Ziprasidone 80 Mg Capsule) 80 mg G-TUBE BIDWM [facility] Last Admin: 04/20/21 09:42 Dose: 80 mg Documented by: JEZ Labs CBC & Chem 7: 04/19/21 09:27 04/20/21 06:53 Labs: Laboratory Results - last 24 hr 04/19/21 04/20/21 11:50 06:53 Anion Gap 13 Estim Creat Clear Calc 109.8 Estimated GFR > 60 Random Glucose 117 H Calcium 8.9 Nasal Screen MRSA (PCR) NEGATIVE Nasal S. aureus Screen NEGATIVE Nasal MRSA/S.aureus Interp SEE NOTE Microbiology Microbiology Results: Microbiology 04/18/21 Unknown Urine Culture - Final Urine Catheterized - Ackerman Catheter Providencia stuartii 04/18/21 00:23 Blood Culture - Preliminary Blood - Venous No growth after 48 hours. 04/18/21 00:23 Blood Culture - Preliminary Blood - Venous No growth after 48 hours. Assessment and Plan (1) Acute respiratory failure due to COVID-19: Status: Acute Plan 58-year-old with a past medical history seizure disorder bed-bound repoted nonverbal, but talking this AM, severe dysphagia with recurrent aspiration pneumonias status post PEG tube? 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 vaccinated with Pfizer vaccine in March 2020. Acute hypoxic respiratory failure due to COVID-19 pneumonia on HFNC - wean as tolerated PCT elevated and some R middle lobe filtrates -- could all be realted to covid, but will empiric give levaquin 5d on baricitinib ID/Pulm input appreciated trend inflammatory biomakers tomorrow Acute toxic/metabolic encephalopathy? due to above ammonia is slightly elevated -- ? related to depakote use (no reported history of liver disease); will give lactulose x 2 doses; reeat tomorrow. HyperNa slight improvement in SNa will give another L D5W; Water flushes in G-tube q6h increased to 300 History of severe oropharyngeal dysphagia. 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 -Continued on lithium, Klonopin, Geodon, clozapine via PEG tube. History of cutaneous herpes valtrex for prophylaxis at snf, continue DVT pptx, Lovenox DNR/DNI Quality Stroke Does the patient have a stroke diagnosis?: No VTE Prior VTE?: No VTE Risk Level:: Medical - moderate - high VTE Device Contraindication: Treatment Not Indicated VTE Drug Contraindication: N/A - Med Ordered
[2021-04-20 11:40] LABS: Ammonia 59 umol/L (13-55)
--- NOTE | 2021-04-20 11:50 | MHC.CM.PN ---
Per ROUNDS discussion, Patient is not yet medically cleared for dc (IV Decadron, IV Levaquin, High Flow O2); returning to LTC @ [facility] is the goal for dc and CM will continue to follow.
--- NOTE | 2021-04-20 12:49 | P.CNPS_ITS ---
History of Present Illness Date of Service: 04/20/21 Chief Complaint: Hypoxia; Covid positive Reason for Consult: Covid19,non-verbal, multiple psychiatric medications. Requesting physician: Phoebe Perez Discussed with referring provider: No (discussed with attending provider, Dr. Turner) Sources of Information: patient interviewed and chart reviewed HPI Narrative: Patient is a 58-year-old male with PMH of seizure disorder, bed-bound, severe dysphagia with recurrent aspiration pneumonias, SP PEG tube. 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 Patient had presented to this hospital with chief complaint of fever/hypoxia. Patient was admitted for further care and treatment. As per chart review, Patient has guardian, Chepe Bhatti. Patient also has a MOLST. Has a DNR/DNI in place. This writer producer requested lab work to be completed yesterday, including clozapine level, valproic acid level, lithium level, ammonia level. EKG dated 04/18/2021 showed QTC of 395. Results from lab work came back as lithium level 0.70, sodium 151, ammonia 61, valproic acid level 62.3. Patient was pleasant upon approach this morning. Resting in bed, in NAD. Supine position. Alert and oriented X2, including self and situation. Able to converse, answered questions appropriately. He describes his mood today as ?I feel okay today ?. Reports, ?better than yesterday ?. States that he misses having Mountain Dew soda. Denies any thoughts of harm to self or others. He states that he used to have frequent SI, but has not had any for some time. He does report having auditory and visual hallucinations at times. He describes them as benign, and is not frightened by them. When asked if he feels safe, he replied yes . He became tearful at 1 p oint, telling me about a brother that , that he misses. He states that at times he feels sad due to fact that he is disabled. Overall though, he reports that he feels his mood is stable, and that his psychiatric medications are working well. Past Psychiatric History: Patient carries diagnosis of schizoaffective disorder, also takes multiple psychiatric medications. Medical Evaluation Reviewed: Yes Personal & Social History: Has several brothers, 1 of which is . Has a guardian. Has an outpatient psychiatric provider. Resides at [facility]. Review of Systems Review of Systems Reports feeling overall improved. Constitutional: Reports as per HPI and Reports no additional constitutional complaints Eyes: Reports as per HPI and Reports no additional eye complaints Reports as per HPI and Reports Normal hearing present Cardiovascular: Reports as per HPI and Reports no additional cardiovascular complaints Respiratory: Reports as per HPI and Reports no additional respiratory complaints Gastrointestinal: Reports as per HPI Genitourinary: Reports as per HPI Musculoskeletal: Reports no additional musculoskeletal complaints and Reports as per HPI Skin/Breast: Reports as per HPI Reports Normal hearing present and Reports Abnormal speech present (garbled at times, although mostly coherent. ) Psychiatric: Reports anxiety, Reports auditory hallucinations and Reports visual hallucinations Comments: Some mood lability, teaful at times. Endocrine: Reports no additional endocrine complaints and Reports as per HPI Hematologic/Lymphatic: Reports no additional hematologic/lymphatic complaints and Reports as per HPI Allergic/Immunologic: Reports as per HPI [facility] Medical History Acute respiratory failure due to COVID-19 Bulimia Dementia Epilepsy Pneumonia Schizo-affective schizophrenia, chronic condition Sexually transmitted disease Family History: Has several brothers, 1 of which is . No other i nformation available. Social History: Long history of chronic schizoaffective disorder, resides at [facility]. Has a guardian. Substance History: Unknown. Trauma History: Unknown. Diagnostics Vital Signs (24Hr): Vital Signs - 24 hr 04/19/21 15:14 04/19/21 16:29 04/19/21 19:11 Temperature 97.0 F 98.0 F Pulse Rate 80 91 Respiratory Rate 20 20 18 Blood Pressure 136/77 134/73 Pulse Oximetry 99 100 04/19/21 21:36 04/19/21 23:02 04/19/21 23:50 Temperature 97.8 F Pulse Rate 83 Respiratory Rate 18 20 20 Blood Pressure 107/71 Pulse Oximetry 100 04/20/21 03:20 04/20/21 04:44 04/20/21 07:45 Temperature 97.5 F 97.2 F Pulse Rate 84 84 Respiratory Rate 18 18 20 Blood Pressure 120/49 L 130/71 Pulse Oximetry 100 100 04/20/21 08:05 04/20/21 11:32 Temperature 97.2 F Pulse Rate 88 Respiratory Rate 20 18 Blood Pressure 111/61 Pulse Oximetry 95 BMI result Verdana 4 Body Mass Index Verdana 4 23.6 Verdana 4 Verdana 4 Labs Results: 04/19/21 09:27 04/20/21 06:53 Labs: Laboratory Results - last 48 hr 04/18/21 04/19/21 04/19/21 23:25 09:27 09:27 WBC 12.4 H RBC 3.68 L Hgb 11.7 L Hct 38.1 L MCV 103.5 H MCH 31.8 MCHC 30.7 L RDW 14.0 Plt Count 161 MPV 11.5 Absolute Nucleated RBC 0.000 Nucleated RBC % (auto) 0.0 D-Dimer High Sensitivty 328 Sodium Potassium Chloride Carbon Dioxide Anion Gap BUN Creatinine Estim Creat Clear Calc Estimated GFR Random Glucose Calcium Ammonia C-Reactive Protein Procalcitonin 0.92 Nasal Screen MRSA (PCR) Nasal S. aureus Screen Nasal MRSA/S.aureus Interp Valproic Acid [place] 04/19/21 04/19/21 04/19/21 09:27 09:27 09:27 WBC RBC Hgb Hct MCV MCH MCHC RDW Plt Count MPV Absolute Nucleated RBC Nucleated RBC % (auto) D-Dimer High Sensitivty Sodium 151 H Potassium 4.7 Chloride 117 H Carbon Dioxide 26 Anion Gap 13 BUN 24 H Creatinine 0.72 Estim Creat Clear Calc 109.8 Estimated GFR > 60 Random Glucose 121 H Calcium 9.0 D Ammonia C-Reactive Protein 14.30 H Procalcitonin 0.78 Nasal Screen MRSA (PCR) Nasal S. aureus Screen Nasal MRSA/S.aureus Interp Valproic Acid 62.3 [place] 04/19/21 04/19/21 04/19/21 09:27 09:28 11:50 WBC RBC Hgb Hct MCV MCH MCHC RDW Plt Count MPV Absolute Nucleated RBC Nucleated RBC % (auto) D-Dimer High Sensitivty Sodium Potassium Chloride Carbon Dioxide Anion Gap BUN Creatinine Estim Creat Clear Calc Estimated GFR Random Glucose Calcium Ammonia 61 H C-Reactive Protein Procalcitonin Nasal Screen MRSA (PCR) NEGATIVE Nasal S. aureus Screen NEGATIVE Nasal MRSA/S.aureus Interp SEE NOTE Valproic Acid [place] 0.70 04/20/21 04/20/21 06:53 11:25 WBC RBC Hgb Hct MCV MCH MCHC RDW Plt Count MPV Absolute Nucleated RBC Nucleated RBC % (auto) D-Dimer High Sensitivty Sodium 150 H Potassium 4.5 Chloride 115 H Carbon Dioxide 27 Anion Gap 13 BUN 26 H Creatinine 0.72 Estim Creat Clear Calc 109.8 Estimated GFR > 60 Random Glucose 117 H Calcium 8.9 Ammonia 59 H C-Reactive Protein Procalcitonin Nasal Screen MRSA (PCR) Nasal S. aureus Screen Nasal MRSA/S.aureus Interp Valproic Acid [place] [facility] Radiology Impressions: ITS Impressions Chest X-Ray 04/18/21 00:13 IMPRESSION: Mild patchy bibasilar opacities suspicious for sequelae of Covid pneumonia given the clinical history. Chest CTA 04/18/21 02:10 IMPRESSION: 1. Though no central pulmonary embolus is seen, there is inadequate assessment of the segmental and subsegmental vessels due to extensive respiratory motion artifact, and therefore emboli at these levels cannot be excluded. 2. Regions of opacity in the basilar lower lobes and right middle lobe, at least some of which is favored to reflect consolidation/pneumonia in the setting of Covid positive status. Component of atelectasis may also be present. 3. Coronary artery calcifications. Correlation with cardiac risk factors is recommended. VTE: negative KUB X-Ray 04/19/21 16:39 IMPRESSION: A G-tube is seen in the left upper quadrant as seen on CTA chest exam 04/18/2021 Mental Status Exam Mental Status Exam Narrative: Well-developed, well-nourished male, in NAD. Resting comfortably, wearing hospital garb. No tics/tremors noted. Grooming, fair. appears fatigued. Able to converse fully during encounter, although speech garbled at times. Reports that he does have auditory and visual hallucinations on a regular basis, but states they are not ?scary ?. Denies any active or passive SI at this time. Patient Appearance: Fatigued, Disheveled and Appropriate Patient Orientation: Person and Situation Level of Consciousness: Awake, Appropriate and Alert Patient Behavior: Appropriate, Cooperative and Anxious Mood Description: Appropriate and Cheerful (describes mood as I feel okay today . better than yesterday . ) Affect Description: Appropriate and Labile (Labile at times, became tearful when speaking of his brother that .) Patient Cognition Impaired: Yes Ability to Follow Directions: Good Speech Pattern: Appropriate, Garbled (Appeared garbled at times, appeared mechanical rather than any other cause.) and Coherent Memory Description: Normal for Patient Hallucinations: Auditory and Visual Delusions: Not Present Thought Process: Intact Thought Content: positive for Intact Depressive Symptoms: Increased Anxiety and Crying Spells (tearful at times, grieving loss of brother) Judgement: Fair Medications Medications Current Medications Acetaminophen (Acetaminophen 325 Mg Tablet) 650 mg G-TUBE Q6H PRN PRN Reason: Pain, Mild (Pain Scale 1-3) Last Admin: 04/20/21 09:42 Dose: 650 mg Documented by: Atorvastatin Calcium (Atorvastatin Calcium 10 Mg Tablet) 10 mg G-TUBE BEDTIME [facility] Last Admin: 04/19/21 21:01 Dose: 10 mg Documented by: Atropine Sulfate (Atropine Sulfate 1 % Ophth Erin 2 Ml Bottle) 2 drop SUBLINGUAL DAILY@0500 [facility] Last Admin: 04/20/21 09:44 Dose: Not Given Documented by: Baricitinib (Baricitinib 2 Mg Tablet) 4 mg G-TUBE Q24H [facility] Stop: 05/02/21 09:01 Last Admin: 04/20/21 09:42 Dose: 4 mg Documented by: Clonazepam (Clonazepam 1 Mg Tablet) 1 mg PO BID [facility] Last Admin: 04/20/21 09:42 Dose: 1 mg Documented by: Clozapine (Clozapine 25 Mg Tablet) 25 mg G-TUBE DAILY [facility] Last Admin: 04/20/21 09:42 Dose: 25 mg Documented by: Clozapine (Clozapine 25 Mg Tablet) 250 mg G-TUBE BEDTIME [facility] Last Admin: 04/19/21 20:55 Dose: 250 mg Documented by: Dexamethasone Sodium Phosphate (Dexamethasone Sod Phosphate 4 Mg/Ml Vial) 6 mg IVPUSH DAILY [facility] Last Admin: 04/20/21 09:41 Dose: 6 mg Documented by: Enoxaparin Sodium (Enoxaparin Sodium 40 Mg/0.4 Ml Syringe) 40 mg SUBCUT Q24H [facility] Last Admin: 04/20/21 03:13 Dose: 40 mg Documented by: Erythromycin (Erythromycin Base 0.5% Oph Oin 1 Gm Tube) 1.27 cm EYE-BOTH QID [facility] Last Admin: 04/20/21 09:43 Dose: 1.27 cm Documented by: Levofloxacin (Levaquin) 750 mg in 150 mls @ 100 mls/hr IV Q24H [facility] Stop: 04/22/21 15:29 Last Infusion: 04/19/21 16:23 Dose: Infused Documented by: Dextrose (D5w) 1,000 mls @ 100 mls/hr IVCONT .Q10H [facility] Stop: 04/20/21 21:14 Lactulose (Lactulose 20 Gm/30 Ml Solution) 20 gm PO BID [facility] Stop: 04/20/21 21:01 Levothyroxine Sodium (Levothyroxine Sodium 112 Mcg Tablet) 112 mcg G-TUBE DAILY@0630 [facility] Last Admin: 04/20/21 06:44 Dose: 112 mcg Documented by: Lidocaine (Lidocaine 4 % Patch Adh..Patch) 1 patch TRANSDERMA DAILY [facility] Last Admin: 04/20/21 09:41 Dose: 1 patch Documented by: [place] Carbonate ([place] Carbonate 300 Mg Capsule) 300 mg G-TUBE BID [facility] Last Admin: 04/20/21 09:42 Dose: 300 mg Documented by: Melatonin (Melatonin 3 Mg Tablet) 6 mg PO BEDTIME PRN PRN Reason: Insomnia Last Admin: 04/19/21 21:00 Dose: 6 mg Documented by: Morphine Sulfate (Morphine Sulfate 2 Mg/Ml Cartridge) 1 mg IVPUSH Q4H PRN; Protocol PRN Reason: Pain, SOB Omeprazole (Omeprazole 20 Mg/10 Ml Susp.Recon) 20 mg G-TUBE DAILY@0630 [facility] Last Admin: 04/20/21 06:44 Dose: 20 mg Documented by: Senna (Sennosides 8.6 Mg Tablet) 17.2 mg PO BEDTIME PRN PRN Reason: Constipation Sodium Chloride (0.9 % Sodium Chloride Flush 3 Ml Syringe) 3 ml IVFLUSH QSHIFT [facility] Last Admin: 04/20/21 09:43 Dose: 3 ml Documented by: Trazodone HCl (Trazodone Hcl 50 Mg Tablet) 50 mg G-TUBE BEDTIME [facility] Last Admin: 04/19/21 21:01 Dose: 50 mg Documented by: Valacyclovir HCl (Valacycyclovir Hcl 500 Mg Tablet) 500 mg G-TUBE DAILY@1200 [facility] Last Admin: 04/20/21 09:44 Dose: 500 mg Documented by: Valproic Acid (Valproic Acid (As Sodium Salt) 250 Mg/5 Ml Solution) 1,000 mg G- TUBE DAILY [facility] Last Admin: 04/20/21 09:41 Dose: 1,000 mg Documented by: Valproic Acid (Valproic Acid (As Sodium Salt) 250 Mg/5 Ml Solution) 2,000 mg G- TUBE BEDTIME [facility] Last Admin: 04/19/21 21:03 Dose: 2,000 mg Documented by: Ziprasidone (Ziprasidone 80 Mg Capsule) 80 mg G-TUBE BIDWM [facility] Last Admin: 04/20/21 09:42 Dose: 80 mg Documented by: Allergies Allergies Allergy/AdvReac Type Severity Reaction Status Date / Time amoxicillin [From Allergy Unknown Verified 09/15/20 11:52 Augmentin] clavulanic acid Allergy Unknown Verified 09/15/20 11:52 [From Augmentin] fluoxetine [From Prozac] Allergy Unknown Verified 09/15/20 11:52 perphenazine Allergy Unknown Verified 09/15/20 11:52 shellfish derived Allergy Unknown Verified 09/15/20 11:52 Assessment & Plan Assessment & Plan (1) Schizo-affective schizophrenia, chronic condition: Status: Acute Code(s): F25.9 - Schizoaffective disorder, unspecified Assessment and Plan: Patient overall appears stable with current medications, appears to be within good behavioral control at this time. [place] level, valproic acid level within normal limits. Clozapine level pending. Ammonia level elevated, which could be contributing towards confusion at times. Patient does have auditory and visual hallucinations. He reports that he has had these intermittently for some time, and does not feel threatened by them in any way. He denies any SI/HI at this time. He reports that he has had suicidal ideation but states he currently does not. He reports that he feels safe. Plan It appears that patient is currently psychiatrically stable at this time. Recommend continuing current medication regimen. This was shared with provider, Dr. Rhett Gomez, directly, while on unit. Thank you for this consultation. If you have any further questions or concerns, please do not hesitate to contact Psychiatry Service. I spent minutes with the patient and/or on the patient floor today, greater than?50% of which was spent counseling/coordinating care.
[2021-04-20] MEDS: Dextrose 5 % 1,000 ML 100 ML IVCONT (13:48)
[2021-04-20] MEDS: Lactulose 20 GM/30 ML SOLUTION PO ×2 (13:49→21:42)
[2021-04-20] MEDS: levoFLOXacin/D5W 750 MG/150 ML PIGGYBACK 100 MG IV (13:49)
--- NOTE | 2021-04-20 14:59 | MHC.CLN ---
F/U TEMP WNL NOTED SERUM NA-D5W PER MD PT RECEIVING JEVITY 1.0 CONTINUOUS AT MAX GOAL RATE 75ML/HR WITH 300CC FREE WATER FLUSHES Q 6HRS PROVIDES 1908KCALS (25KCALS/KG), 80G PROTEIN (1.06G/KG), 2703CC TOTAL WATER FROM FORMULA AND FLUSHES (36ML/KG) MONITOR TOLERANCE, RESIDUALS AND LYTES ADJUST WATER FLUSHES NEEDED (WATCH SERUM NA)
[2021-04-20] MEDS: traZODone HCL 50 MG TABLET G-TUBE (21:42)
[2021-04-20] MEDS: Atorvastatin Calcium 10 MG TABLET G-TUBE (21:43)
[2021-04-20] MEDS: cloZAPine 25 MG TABLET 250 MG G-TUBE (21:44)
[2021-04-21] MEDS: 0.9 % Sodium Chloride Flush 3 ML SYRINGE IVFLUSH ×3 (00:59→16:50)
[2021-04-21 03:08] VITALS: BP 109/67; PULSE 80; RESP 20; TEMP 36.7; O2SAT 99
[2021-04-21] MEDS: Enoxaparin Sodium 40 MG/0.4 ML SYRINGE SUBCUT (04:39)
[2021-04-21] MEDS: Levothyroxine Sodium 112 MCG TABLET G-TUBE (05:47)
[2021-04-21] MEDS: Atropine Sulfate 1 % Ophth Sol 2 ML BOTTLE 2 DROP SUBLINGUAL (05:47)
[2021-04-21 07:19] LABS: Hematocrit 37.3 % (42.0-52.0); Hemoglobin 11.3 g/dl (14.0-18.0); Mean Corpuscular HGB Conc 30.3 g/dl (31.0-36.0); Mean Corpuscular Hemoglobin 32.2 pg (27.0-33.0); Mean Corpuscular Volume 106.3 fL (80.0-98.0); Mean Platelet Volume 11.3 fL (9.4-12.4); Platelet Count 154 X10*3/uL (160-400); Red Blood Count 3.51 X10*6/uL (4.60-5.80)
[2021-04-21 07:31] VITALS: BP 119/72; PULSE 85; RESP 17; TEMP 36.1; O2SAT 92
[2021-04-21 07:37] LABS: Anion Gap 11 (12-20); Blood Urea Nitrogen 22 mg/dL (9-16); C Reactive Protein 1.88 mg/dL (< or = 0.50); Carbon Dioxide 27 mmol/L (22-29); Chloride 115 mmol/L (96-108); Creatinine Clr Calc Pharmacy 108.3; Estimated Glomerular Filt Rate > 60; Glucose Random 104 mg/dL (60-115); Potassium 4.2 mmol/L (3.3-5.1); Sodium 149 mmol/L (135-145)
[2021-04-21 07:48] LABS: D Dimer High Sensitivity < 150 NG/ML
[2021-04-21 07:57] LABS: Procalcitonin 0.17 ng/mL
[2021-04-21] MEDS: dexAMETHasone sod phosphate 4 MG/ML VIAL 6 MG IVPUSH (08:59)
[2021-04-21] MEDS: Erythromycin Base 0.5% Oph Oin 1 GM TUBE 1.27 CM EYE-BOTH ×4 (09:00→21:04)
[2021-04-21] MEDS: cloZAPine 25 MG TABLET G-TUBE (09:04)
[2021-04-21] MEDS: Ziprasidone 80 MG CAPSULE G-TUBE ×2 (09:04→16:49)
[2021-04-21] MEDS: Lidocaine 4 % Patch ADH..PATCH 1 PATCH TRANSDERMA (09:04)
[2021-04-21] MEDS: Lithium Carbonate 300 MG CAPSULE G-TUBE ×2 (09:04→21:04)
[2021-04-21] MEDS: clonazePAM 1 MG TABLET PO ×2 (09:04→21:03)
[2021-04-21 11:38] VITALS: BP 124/82; PULSE 85; RESP 17; TEMP 36.6; O2SAT 97
--- NOTE | 2021-04-21 11:47 | HO.PM.IMPN ---
Subjective Subjective Date of Service: 04/21/21 Review of Systems no new issues reported reports chronic generalized pain asked him the month and after thinking about it for some time -- reported I have a lot of brain damage Physical Exam Vital Signs: Vital Signs: Last Vital Signs Temp 97.9 F 04/21/21 11:38 Pulse 85 04/21/21 11:38 Resp 17 04/21/21 11:38 BP 124/82 04/21/21 11:38 Pulse Ox 97 04/21/21 11:38 Oxygen Flow Rate 15 04/18/21 00:05 BMI result Body Mass Index 23.6 Appearing in no acute distress lung sounds are clear to auscultation heart regular rate rhythm, clear S1, S2 positive bowel sounds, abdomen is soft, nontender neuro patient is alert, chronic slow speech, hx of brain damage Objective Data Active Medications Acetaminophen (Acetaminophen 325 Mg Tablet) 650 mg G-TUBE Q6H PRN PRN Reason: Pain, Mild (Pain Scale 1-3) Last Admin: 04/20/21 09:42 Dose: 650 mg Documented by: JEZ Atorvastatin Calcium (Atorvastatin Calcium 10 Mg Tablet) 10 mg G-TUBE BEDTIME [facility] Last Admin: 04/20/21 21:43 Dose: 10 mg Documented by: NA Atropine Sulfate (Atropine Sulfate 1 % Ophth Erin 2 Ml Bottle) 2 drop SUBLINGUAL DAILY@0500 [facility] Last Admin: 04/21/21 05:47 Dose: 2 drop Documented by: CARLITA Baricitinib (Baricitinib 2 Mg Tablet) 4 mg G-TUBE Q24H [facility] Stop: 05/02/21 09:01 Last Admin: 04/21/21 09:04 Dose: 4 mg Documented by: MINERVA Clonazepam (Clonazepam 1 Mg Tablet) 1 mg PO BID [facility] Last Admin: 04/21/21 09:04 Dose: 1 mg Documented by: MINERVA Clozapine (Clozapine 25 Mg Tablet) 25 mg G-TUBE DAILY [facility] Last Admin: 04/21/21 09:04 Dose: 25 mg Documented by: MINERVA Clozapine (Clozapine 25 Mg Tablet) 250 mg G-TUBE BEDTIME [facility] Last Admin: 04/20/21 21:44 Dose: 250 mg Documented by: NA Dexamethasone Sodium Phosphate (Dexamethasone Sod Phosphate 4 Mg/Ml Vial) 6 mg IVPUSH DAILY [facility] Last Admin: 04/21/21 08:59 Dose: 6 mg Documented by: MINERVA Enoxaparin Sodium (Enoxaparin Sodium 40 Mg/0.4 Ml Syringe) 40 mg SUBCUT Q24H [facility] Last Admin: 04/21/21 04:39 Dose: 40 mg Documented by: CARLITA Erythromycin (Erythromycin Base 0.5% Oph Oin 1 Gm Tube) 1.27 cm EYE-BOTH QID [facility] Last Admin: 04/21/21 09:00 Dose: 1.27 cm Documented by: MINERVA Levofloxacin (Levaquin) 750 mg in 150 mls @ 100 mls/hr IV Q24H [facility] Stop: 04/22/21 15:29 Last Infusion: 04/20/21 17:42 Dose: 0 mls/hr Documented by: NA Levothyroxine Sodium (Levothyroxine Sodium 112 Mcg Tablet) 112 mcg G-TUBE DAILY@629 [facility] Last Admin: 04/21/21 05:47 Dose: 112 mcg Documented by: CARLITA Lidocaine (Lidocaine 4 % Patch Adh..Patch) 1 patch TRANSDERMA DAILY [facility] Last Admin: 04/21/21 09:04 Dose: 1 patch Documented by: MINERVA [place] Carbonate ([place] Carbonate 300 Mg Capsule) 300 mg G-TUBE BID [facility] Last Admin: 04/21/21 09:04 Dose: 300 mg Documented by: MINERVA Melatonin (Melatonin 3 Mg Tablet) 6 mg PO BEDTIME PRN PRN Reason: Insomnia Last Admin: 04/19/21 21:00 Dose: 6 mg Documented by: RICCARDO Morphine Sulfate (Morphine Sulfate 2 Mg/Ml Cartridge) 1 mg IVPUSH Q4H PRN; Protocol PRN Reason: Pain, SOB Omeprazole (Omeprazole 20 Mg/10 Ml Susp.Recon) 20 mg G-TUBE DAILY@629 [facility] Last Admin: 04/21/21 05:47 Dose: 20 mg Documented by: CARLITA Senna (Sennosides 8.6 Mg Tablet) 17.2 mg PO BEDTIME PRN PRN Reason: Constipation Sodium Chloride (0.9 % Sodium Chloride Flush 3 Ml Syringe) 3 ml IVFLUSH QSHIFT [facility] Last Admin: 04/21/21 09:00 Dose: 3 ml Documented by: MINERVA Trazodone HCl (Trazodone Hcl 50 Mg Tablet) 50 mg G-TUBE BEDTIME [facility] Last Admin: 04/20/21 21:42 Dose: 50 mg Documented by: NA Valacyclovir HCl (Valacycyclovir Hcl 500 Mg Tablet) 500 mg G-TUBE DAILY@1200 [facility] Last Admin: 04/20/21 09:44 Dose: 500 mg Documented by: JEZ Valproic Acid (Valproic Acid (As Sodium Salt) 250 Mg/5 Ml Solution) 1,000 mg G-TUBE DAILY [facility] Last Admin: 04/21/21 09:04 Dose: 1,000 mg Documented by: MINERVA Valproic Acid (Valproic Acid (As Sodium Salt) 250 Mg/5 Ml Solution) 2,000 mg G-TUBE BEDTIME [facility] Last Admin: 04/20/21 21:41 Dose: 2,000 mg Documented by: NA Ziprasidone (Ziprasidone 80 Mg Capsule) 80 mg G-TUBE BIDWM [facility] Last Admin: 04/21/21 09:04 Dose: 80 mg Documented by: MINERVA Labs CBC & Chem 7: 04/21/21 06:53 04/21/21 06:53 Labs: Laboratory Results - last 24 hr 04/21/21 04/21/21 04/21/21 06:53 06:53 06:53 MCV 106.3 H MCH 32.2 MCHC 30.3 L RDW 14.0 Plt Count 154 L MPV 11.3 Absolute Nucleated RBC 0.000 Nucleated RBC % (auto) 0.0 D-Dimer High Sensitivty < 150 Anion Gap 11 L Estim Creat Clear Calc 108.3 Estimated GFR > 60 Random Glucose 104 Calcium 9.0 C-Reactive Protein 1.88 H Procalcitonin 04/21/21 04/21/21 06:53 06:53 MCV MCH MCHC RDW Plt Count MPV Absolute Nucleated RBC Nucleated RBC % (auto) D-Dimer High Sensitivty Anion Gap Estim Creat Clear Calc Estimated GFR Random Glucose Calcium C-Reactive Protein Cancelled Procalcitonin 0.17 Microbiology Microbiology Results: Microbiology 04/18/21 Unknown Urine Culture - Final Urine Catheterized - Ackerman Catheter Providencia stuartii Assessment and Plan (1) Acute respiratory failure due to COVID-19: Status: Acute Plan 58-year-old with a past medical history seizure disorder bed-bound repoted nonverbal, but talking this AM, severe dysphagia with recurrent aspiration pneumonias status post PEG tube? 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 vaccinated with Pfizer vaccine in March 2020. Acute hypoxic respiratory failure due to COVID-19 pneumonia weaned off high flow, now on NC empiric Levaquin 5d on baricitinib ID/Pulm rec continue steroids and abx trend inflammatory biomakers tomorrow Acute toxic/metabolic encephalopathy? due to above ammonia trending down ? related to depakote use (no reported history of liver disease);lactulose x 2 doses given HyperNa slight improvement in SNa after D5W Water flushes in G-tube q6h increased to 300 History of severe oropharyngeal dysphagia. 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 -Continued on lithium, Klonopin, Geodon, clozapine via PEG tube. History of cutaneous herpes valtrex for prophylaxis at snf, continue DVT pptx, Lovenox DNR/DNI Attending Dr. Masters Quality Stroke Does the patient have a stroke diagnosis?: No VTE Prior VTE?: No VTE Risk Level:: Medical - moderate - high VTE Device Contraindication: Treatment Not Indicated VTE Drug Contraindication: N/A - Med Ordered
[2021-04-21] MEDS: levoFLOXacin/D5W 750 MG/150 ML PIGGYBACK 100 MG IV (14:20)
[2021-04-21 15:08] VITALS: BP 144/80; PULSE 78; RESP 20; TEMP 36.7; O2SAT 94
[2021-04-21 19:05] VITALS: BP 119/81; PULSE 77; RESP 20; TEMP 36.7; O2SAT 99
[2021-04-21] MEDS: cloZAPine 25 MG TABLET 250 MG G-TUBE (21:03)
[2021-04-21] MEDS: traZODone HCL 50 MG TABLET G-TUBE (21:04)
[2021-04-21] MEDS: Atorvastatin Calcium 10 MG TABLET G-TUBE (21:04)
[2021-04-21 23:28] VITALS: BP 104/73; PULSE 84; RESP 17; TEMP 36.1; O2SAT 99
[2021-04-22] MEDS: 0.9 % Sodium Chloride Flush 3 ML SYRINGE IVFLUSH ×4 (00:24→22:40)
[2021-04-22 03:31] VITALS: BP 136/76; PULSE 86; RESP 18; TEMP 36.4; O2SAT 98
[2021-04-22] MEDS: Levothyroxine Sodium 112 MCG TABLET G-TUBE (05:22)
[2021-04-22] MEDS: Enoxaparin Sodium 40 MG/0.4 ML SYRINGE SUBCUT (05:22)
[2021-04-22] MEDS: Atropine Sulfate 1 % Ophth Sol 2 ML BOTTLE 2 DROP SUBLINGUAL (05:24)
[2021-04-22 07:06] LABS: Hematocrit 36.9 % (42.0-52.0); Hemoglobin 11.3 g/dl (14.0-18.0); Mean Corpuscular HGB Conc 30.6 g/dl (31.0-36.0); Mean Corpuscular Hemoglobin 31.7 pg (27.0-33.0); Mean Corpuscular Volume 103.7 fL (80.0-98.0); Platelet Count 156 X10*3/uL (160-400); Red Blood Count 3.56 X10*6/uL (4.60-5.80); Red Cell Distribution Width 13.5 % (11.0-16.0)
[2021-04-22 07:14] LABS: Anion Gap 10 (12-20); Blood Urea Nitrogen 21 mg/dL (9-16); Calcium 8.8 mg/dL (8.4-10.2); Carbon Dioxide 28 mmol/L (22-29); Chloride 112 mmol/L (96-108); Creatinine Clr Calc Pharmacy 114.6; Estimated Glomerular Filt Rate > 60; Glucose Random 142 mg/dL (60-115); Potassium 4.1 mmol/L (3.3-5.1); Sodium 146 mmol/L (135-145)
[2021-04-22 07:39] VITALS: PULSE 81; RESP 17; TEMP 36.2; O2SAT 98
[2021-04-22] MEDS: Erythromycin Base 0.5% Oph Oin 1 GM TUBE 1.27 CM EYE-BOTH ×4 (09:48→22:39)
[2021-04-22] MEDS: dexAMETHasone sod phosphate 4 MG/ML VIAL 6 MG IVPUSH (09:48)
[2021-04-22] MEDS: Lidocaine 4 % Patch ADH..PATCH 1 PATCH TRANSDERMA (09:49)
[2021-04-22] MEDS: Lithium Carbonate 300 MG CAPSULE G-TUBE ×2 (09:50→22:39)
[2021-04-22] MEDS: Ziprasidone 80 MG CAPSULE G-TUBE ×2 (09:50→16:43)
[2021-04-22] MEDS: clonazePAM 1 MG TABLET PO ×2 (09:50→22:39)
[2021-04-22] MEDS: cloZAPine 25 MG TABLET G-TUBE (09:50)
--- NOTE | 2021-04-22 09:54 | P.PNIM_ITS ---
Subjective Subjective Date of Service: 04/22/21 Review of Systems no new issues reported reports chronic generalized pain asked him the month and after thinking about it for some time -- reported I have a lot of brain damage Physical Exam Verdana 4l Vital Signs: Verdana 4d Verdana 4d Vital Signs: Verdana 4d Verdana 4Bd Last Vital Signs Verdana 4d Spool Fixer New 4d Spool Fixer New 4d Temp 97.1 F 04/22/21 07:39 Spool Fixer New 4d Pulse 81 04/22/21 07:39 Spool Fixer New 4d Resp 17 04/22/21 07:39 BP 136/76 04/22/21 03:31 Pulse Ox 98 04/22/21 07:39 Oxygen Flow Rate 15 04/18/21 00:05 BMI result Body Mass Index 23.6 Appearing in no acute distress lung sounds are clear to auscultation heart regular rate rhythm, clear S1, S2 positive bowel sounds, abdomen is soft, nontender neuro patient is alert x3, no focal deficits Objective Data Active Medications Acetaminophen (Acetaminophen 325 Mg Tablet) 650 mg G-TUBE Q6H PRN PRN Reason: Pain, Mild (Pain Scale 1-3) Last Admin: 04/20/21 09:42 Dose: 650 mg Documented by: JEZ Atorvastatin Calcium (Atorvastatin Calcium 10 Mg Tablet) 10 mg G-TUBE BEDTIME [facility] Last Admin: 04/21/21 21:04 Dose: 10 mg Documented by: SANTIAGO Atropine Sulfate (Atropine Sulfate 1 % Ophth Erin 2 Ml Bottle) 2 drop SUBLINGUAL DAILY@0500 [facility] Last Admin: 04/22/21 05:24 Dose: 2 drop Documented by: CARLITA Baricitinib (Baricitinib 2 Mg Tablet) 4 mg G-TUBE Q24H [facility] Stop: 05/02/21 09:01 Last Admin: 04/22/21 09:50 Dose: 4 mg Documented by: MINERVA Clonazepam (Clonazepam 1 Mg Tablet) 1 mg PO BID [facility] Last Admin: 04/22/21 09:50 Dose: 1 mg Documented by: MINERVA Clozapine (Clozapine 25 Mg Tablet) 25 mg G-TUBE DAILY [facility] Last Admin: 04/22/21 09:50 Dose: 25 mg Documented by: MINERVA Clozapine (Clozapine 25 Mg Tablet) 250 mg G-TUBE BEDTIME [facility] Last Admin: 04/21/21 21:03 Dose: 250 mg Documented by: SANTIAGO Dexamethasone Sodium Phosphate (Dexamethasone Sod Phosphate 4 Mg/Ml Vial) 6 mg IVPUSH DAILY [facility] Last Admin: 04/22/21 09:48 Dose: 6 mg Documented by: MINERVA Enoxaparin Sodium (Enoxaparin Sodium 40 Mg/0.4 Ml Syringe) 40 mg SUBCUT Q24H [facility] Last Admin: 04/22/21 05:22 Dose: 40 mg Documented by: CARLITA Erythromycin (Erythromycin Base 0.5% Oph Oin 1 Gm Tube) 1.27 cm EYE-BOTH QID SC H Last Admin: 04/22/21 09:48 Dose: 1.27 cm Documented by: MINERVA Levofloxacin (Levaquin) 750 mg in 150 mls @ 100 mls/hr IV Q24H [facility] Stop: 04/22/21 15:29 Last Infusion: 04/21/21 16:35 Dose: 0 mls/hr Documented by: MINERVA Levothyroxine Sodium (Levothyroxine Sodium 112 Mcg Tablet) 112 mcg G-TUBE DAILY@30 [facility] Last Admin: 04/22/21 05:22 Dose: 112 mcg Documented by: CARLITA Lidocaine (Lidocaine 4 % Patch Adh..Patch) 1 patch TRANSDERMA DAILY [facility] Last Admin: 04/22/21 09:49 Dose: 1 patch Documented by: MINERVA [place] Carbonate ([place] Carbonate 300 Mg Capsule) 300 mg G-TUBE BID [facility] Last Admin: 04/22/21 09:50 Dose: 300 mg Documented by: MINERVA Melatonin (Melatonin 3 Mg Tablet) 6 mg PO BEDTIME PRN PRN Reason: Insomnia Last Admin: 04/19/21 21:00 Dose: 6 mg Documented by: RICCARDO Morphine Sulfate (Morphine Sulfate 2 Mg/Ml Cartridge) 1 mg IVPUSH Q4H PRN; Protocol PRN Reason: Pain, SOB Omeprazole (Omeprazole 20 Mg/10 Ml Susp.Recon) 20 mg G-TUBE DAILY@0630 [facility] Last Admin: 04/22/21 05:22 Dose: 20 mg Documented by: CARLITA Senna (Sennosides 8.6 Mg Tablet) 17.2 mg PO BEDTIME PRN PRN Reason: Constipation Sodium Chloride (0.9 % Sodium Chloride Flush 3 Ml Syringe) 3 ml IVFLUSH QSHIFT [facility] Last Admin: 04/22/21 09:51 Dose: 3 ml Documented by: MINERVA Trazodone HCl (Trazodone Hcl 50 Mg Tablet) 50 mg G-TUBE BEDTIME [facility] Last Admin: 04/21/21 21:04 Dose: 50 mg Documented by: SANTIAGO Valacyclovir HCl (Valacycyclovir Hcl 500 Mg Tablet) 500 mg G-TUBE DAILY@1200 [facility] Last Admin: 04/21/21 13:00 Dose: 500 mg Documented by: MINERVA Valproic Acid (Valproic Acid (As Sodium Salt) 250 Mg/5 Ml Solution) 1,000 mg G- TUBE DAILY [facility] Last Admin: 04/22/21 09:50 Dose: 1,000 mg Documented by: MINERVA Valproic Acid (Valproic Acid (As Sodium Salt) 250 Mg/5 Ml Solution) 2,000 mg G- TUBE BEDTIME [facility] Last Admin: 04/21/21 21:01 Dose: 2,000 mg Documented by: SANTIAGO Ziprasidone (Ziprasidone 80 Mg Capsule) 80 mg G-TUBE BIDWM [facility] Last Admin: 04/22/21 09:50 Dose: 80 mg Documented by: MINERVA Labs CBC & Chem 7: 04/22/21 06:30 04/22/21 06:30 Labs: Laboratory Results - last 24 hr 04/22/21 04/22/21 06:30 06:30 MCV 103.7 H MCH 31.7 MCHC 30.6 L RDW 13.5 Plt Count 156 L MPV 12.0 Absolute Nucleated RBC 0.000 Nucleated RBC % (auto) 0.0 Anion Gap 10 L Estim Creat Clear Calc 114.6 Estimated GFR > 60 Random Glucose 142 H D Calcium 8.8 Assessment and Plan (1) Acute respiratory failure due to COVID-19: Status: Acute Plan 58-year-old with a past medical history seizure disorder bed-bound repoted nonverbal, but talking this AM, severe dysphagia with recurrent aspiration pneumonias status post PEG tube? 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 vaccinated with Pfizer vaccine in March 2020. Acute hypoxic respiratory failure due to COVID-19 pneumonia weaned off high flow, now on NC empiric Levaquin 5d completed on baricitinib ID/Pulm rec continue steroids and abx Acute toxic/metabolic encephalopathy? due to above ammonia trending down ? related to depakote use (no reported history of liver disease);lactulose x 2 doses given HyperNa slight improvement in SNa after D5W Water flushes in G-tube q6h increased to 300 History of severe oropharyngeal dysphagia. 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 -Continued on lithium, Klonopin, Geodon, clozapine via PEG tube. History of cutaneous herpes valtrex for prophylaxis at snf, continue DISPO [facility] DVT pptx, Lovenox DNR/DNI Attending Dr. Turner Quality Stroke Does the patient have a stroke diagnosis?: No VTE Prior VTE?: No VTE Risk Level:: Medical - moderate - high VTE Device Contraindication: Treatment Not Indicated VTE Drug Contraindication: N/A - Med Ordered
[2021-04-22 11:00] VITALS: BP 121/71; PULSE 86; RESP 19; TEMP 36.9; O2SAT 97
[2021-04-22] MEDS: levoFLOXacin/D5W 750 MG/150 ML PIGGYBACK 100 MG IV (14:30)
[2021-04-22 16:00] VITALS: BP 109/89; PULSE 84; RESP 18; TEMP 36.5; O2SAT 96
[2021-04-22 18:00] VITALS: O2SAT 95
[2021-04-22 19:13] VITALS: BP 101/52; PULSE 82; RESP 16; TEMP 36.5; O2SAT 95
[2021-04-22] MEDS: cloZAPine 25 MG TABLET 250 MG G-TUBE (22:38)
[2021-04-22] MEDS: Atorvastatin Calcium 10 MG TABLET G-TUBE (22:39)
[2021-04-22] MEDS: traZODone HCL 50 MG TABLET G-TUBE (22:39)
[2021-04-22 23:37] LABS: Strep Pneumo Ag urine Not Detected (Not Detected)
[2021-04-23] VITALS: BP 111/64; PULSE 82; RESP 18; TEMP 37.1; O2SAT 92
[2021-04-23 04:00] VITALS: BP 106/58; PULSE 78; RESP 18; TEMP 36.1; O2SAT 94
[2021-04-23] MEDS: Levothyroxine Sodium 112 MCG TABLET G-TUBE (06:29)
[2021-04-23] MEDS: Atropine Sulfate 1 % Ophth Sol 2 ML BOTTLE 2 DROP SUBLINGUAL (06:29)
[2021-04-23] MEDS: Enoxaparin Sodium 40 MG/0.4 ML SYRINGE SUBCUT (06:29)
[2021-04-23 07:14] LABS: Anion Gap 10 (12-20); Blood Urea Nitrogen 21 mg/dL (9-16); Calcium 8.7 mg/dL (8.4-10.2); Carbon Dioxide 27 mmol/L (22-29); Chloride 112 mmol/L (96-108); Creatinine Clr Calc Pharmacy 112.9; Estimated Glomerular Filt Rate > 60; Glucose Random 95 mg/dL (60-115); Potassium 4.2 mmol/L (3.3-5.1); Sodium 145 mmol/L (135-145)
[2021-04-23 07:54] VITALS: BP 117/82; PULSE 76; RESP 18; TEMP 36.5; O2SAT 93
--- NOTE | 2021-04-23 10:15 | P.DS_ITS ---
DS: Providers Provider Date of Service: 04/23/21 Date of admission: 04/18/21 02:40 Primary care physician: Unknown Physician Consults: 04/18/21 02:44 Consult to Infectious Diseases Routine Consulting Provider: Janessa Ordonez Reason for consultation: COVID PNA 04/18/21 05:26 Consult to Pulmonology Routine Consulting Provider: Angela Chairez Reason for consultation: Resp failure; COVID PNA. 04/18/21 16:11 Consult to Psychiatry Routine Consulting Provider: Psych Covering Reason for consultation: covid 19, non verbal, multiple psych medications Has provider been notified: No Attending physician on discharge: Rhett Gomez Discharging clinician: Phoebe Perez DS: Diagnosis Discharge Diagnosis (1) Acute respiratory failure due to COVID-19: Status: Acute (2) Pneumonia: Status: Acute (3) Schizo-affective schizophrenia, chronic condition: Status: Acute DS: Summary Hospital Course Hospital Course: Hp as per admitting provider 58-year-old with a past medical history seizure disorder bed-bound nonverbal severe dysphagia with recurrent aspiration pneumonias status post PEG tube? 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, osteoarthritis, depression, history of bacteremia, history of L3 osteomyelitis/diskitis, dementia, long-term care resident; COVID-19 vaccinated with Pfizer vaccine in March of 2020; tested positive for COVID-19 on 04/16/2021; presented to the hospital today with a chief complaint of fever/hypoxia.?I spoke to the patient's RN has her at the [facility] -who mentioned that patient mostly sleeps during the night, but the ER today he started all of fever; has been receiving few doses of Ativan with no significant change in his fever; followed by at night after she gave the medications when the CUSTOMER CARE COORDINATOR went to check on the patient patient noted to be visibly short of breath; followed by patient oxygenation noted to be 68%; EMS was called in and patient was sent to the hospital for further management.? Mentioned that patient is due to get a chest x-ray, blood cultures at the [facility].? Patient was already started on Z-Kyle.?Mentions that patient has most 1 that she is do not resuscitate do not intubate and has a guardian.?Per RN patient at baseline not she has had for questions ?Like pain.Review of all other systems is limited.?ER course: Per ER team patient was on non-rebreather on presentation; with oxygen saturation in low 90s; followed with patient was placed on high-flow oxygenation improvement.? CT chest was done which showed no evidence of pulmonary embolism but noted COVID-19 pneumonia.? Given levofloxacin.? Admitted to the hospital for further management Acute hypoxic respiratory failure due to COVID-19 pneumonia weaned off high flow, now on NC empiric Levaquin 5d completed on baricitinib while inpatient, no need for outpatient tx, complete total 10 days steroid treatment Acute toxic/metabolic encephalopathy. more awake and aware due to above ammonia trending down ? related to depakote use (no reported history of liver disease);lactulose x 2 doses given HyperNa. improved with IV fluids and GTube flushed UTI cx grew Providencia stuartii continue 7 days of Cefdinir Time Spent with Patient Time attestation: Total time spent providing and/or coordinating discharge services: Discharge coordination time: Greater than 30 minutes Quality: Stroke Does the patient have a stroke diagnosis?: No Physical Exam Vital Signs: Vital Signs: Last Vital Signs Temp 97.7 F 04/23/21 07:54 Pulse 76 04/23/21 07:54 Resp 18 04/23/21 07:54 BP 117/82 04/23/21 07:54 Pulse Ox 93 04/23/21 07:54 Oxygen Flow Rate 15 04/18/21 00:05 BMI result Body Mass Index 23.6 Appearing in no acute distress head is normocephalic atraumatic eyes pupils are PERRLA sclera is anicteric mouth throat mucous membranes are intact and moist neck is supple no lymphadenopathy, no JVD noted lung sounds are clear to auscultation heart regular rate rhythm, clear S1, S2 positive bowel sounds, abdomen is soft, nontender neuro patient is alert x3, no focal deficits, TBI DS: Data Data Completed and Pending Labs on day of discharge: Laboratory Results - last 24 hr 04/19/21 04/23/21 11:50 06:25 Sodium 145 Potassium 4.2 Chloride 112 H Carbon Dioxide 27 Anion Gap 10 L BUN 21 H Creatinine 0.70 Estim Creat Clear Calc 112.9 Estimated GFR > 60 Random Glucose 95 Calcium 8.7 Ur Strep pneumoniae Ag Not Detected Discharge Plan Discharge Anticipated Discharge Date/Time: 04/23/21 10:13 Patient Disposition: Xfer LTC Discharge Diagnosis: Acute hypoxic respiratory failure due to COVID-19 pneumonia Acute toxic/metabolic encephalopathy. Referrals: [facility] [Other] - 1 Week Physician,Unknown J [Primary Care Provider] - 1 Week Discharge Medications: New dexamethasone [Decadron] 6 mg tablet 6 mg feeding tube DAILY Qty: 4 0RF cefdinir 300 mg capsule 300 mg PO BID Qty: 14 0RF Continued atorvastatin 10 mg tablet 1 tab feeding tube BEDTIME 0RF clonazepam 1 mg tablet 1 tab feeding tube BID@1200,1800 0RF clozapine 25 mg tablet 1 tab feeding tube DAILY 0RF clozapine 100 mg tablet 2.5 tab feeding tube BEDTIME 0RF Prilosec 10 mg Susp,Delayed Release For Recon 20 mg feeding tube DAILY 0RF levothyroxine 112 mcg tablet 1 tab feeding tube DAILY 0RF lidocaine [Lidoderm] 5 % Adhesive Patch,Medicated 1 patch TOPICAL DAILY 0RF Rx Instructions: LT KNEE lithium carbonate 300 mg capsule 1 cap feeding tube BID 0RF trazodone 50 mg tablet 1 tab feeding tube BEDTIME 0RF valproic acid (as sodium salt) 250 mg/5 mL solution 1,000 mg feeding tube DAILY 0RF valproic acid (as sodium salt) 250 mg/5 mL solution 2,000 mg feeding tube BEDTIME 0RF cholecalciferol (vitamin D3) [Vitamin D3] 125 mcg (5,000 unit) Tablet 50,000 unit feeding tube QMONTH 0RF Rx Instructions: administer on of ziprasidone HCl 80 mg capsule 1 cap BIDWM 0RF valacyclovir 500 mg tablet 1 tab feeding tube DAILY@1200 0RF atropine 1 % drops 2 drp sublingual DAILY@0500 0RF acetaminophen 500 mg Tablet 1,000 mg feeding tube TID 0RF polyethylene glycol 3350 8.5 gram Powder In Packet 8.5 g feeding tube Q OTHER DAY 0RF sennosides [senna] 8.6 mg Tablet 8.6 mg feeding tube DAILY@1200 0RF erythromycin 5 mg/gram (0.5 %) Ointment 0.5 inch OPHTHALMIC (EYE) QID 0RF Rx Instructions: x 7 days fluticasone propionate 50 mcg/actuation [place],Suspension 1 spray INTRANASAL DAILY@1200 0RF Rx Instructions: administer into each nostril Discontinued azithromycin [Zithromax] 250 mg Tablet 250 mg PO DAILY@1800 0RF Rx Instructions: start on day 2 of therapy Discharge Orders: Discharge Order (Routine); Ordered 04/23/21 Ordered By: Phoebe Perez Diet: advance to usual diet Activity on Discharge: As tolerated Stand Alone Forms: Patient Portal Discharge page Care Plan Goals: Resolution of symptoms Health Concerns: Acute hypoxic respiratory failure due to COVID-19 pneumonia Acute toxic/metabolic encephalopathy. Plan of Treatment: Continue steroids for a few more days no need for anymore antibiotics Assessment: See discharge summary
[2021-04-23] MEDS: 0.9 % Sodium Chloride Flush 3 ML SYRINGE IVFLUSH (10:38)
[2021-04-23] MEDS: Lidocaine 4 % Patch ADH..PATCH 1 PATCH TRANSDERMA (10:39)
[2021-04-23] MEDS: Ziprasidone 80 MG CAPSULE G-TUBE (10:43)
[2021-04-23] MEDS: dexAMETHasone sod phosphate 4 MG/ML VIAL 6 MG IVPUSH (10:43)
[2021-04-23] MEDS: cloZAPine 25 MG TABLET G-TUBE (10:43)
[2021-04-23] MEDS: Erythromycin Base 0.5% Oph Oin 1 GM TUBE 1.27 CM EYE-BOTH (10:44)
[2021-04-23] MEDS: Lithium Carbonate 300 MG CAPSULE G-TUBE (10:45)
--- NOTE | 2021-04-23 11:35 | MHC.CM.PN ---
Patient has been medically cleared for dc to LTC today. Patient will return to LTC at [facility] today at 1 PM, via [facility]. CM has left a detailed message for Guardian/Chepe Tan @ [phone], informing him of the dc plan and addressing IMM (original IMM to be emailed to Guardian and a copy has been placed on the chart).
[2021-04-23 12:00] VITALS: RESP 20
[2021-04-23 12:06] LABS: Norclozapine 196 mcg/L (25-400)
--- NOTE | 2021-04-23 12:18 | MHC.CLN ---
F/U PT PENDING D/C BACK TO SNF TODAY PT RECEIVING JEVITY 1.0 CONTINUOUS AT MAX GOAL RATE 75ML/HR WITH 300CC FREE WATER FLUSHES Q 6HRS PROVIDES 1908KCALS (25KCALS/KG), 80G PROTEIN (1.06G/KG), 2703CC TOTAL WATER FROM FORMULA AND FLUSHES (36ML/KG) MONITOR TOLERANCE, RESIDUALS AND LYTES RECOMMEND DECREASING WATER FLUSHES TO 240ML Q 6HRS FOR MAINTENANCE FLUID GOALS (2463ML TOTAL WATER; 33ML/KG) ADJUST WATER FLUSHES NEEDED (WATCH SERUM NA)
--- NOTE | 2021-04-23 12:36 | MHC.INPTTRAN ---
sky feedings, No residual. 02 now on 4L via N/C. Has occ congested cough. repos for comfort. Denies pain. remains NPO Ackerman patent.
[2021-04-23 13:10] LABS: Clozapine (Clozaril) 1012
--- NOTE | 2021-04-23 15:10 | P.EN_ITS ---
Event Note Date of Service: 04/23/21 Event Note: I was Contacted earlier today by provider Phoebe Perez SAS ADMINISTRATOR, about clozapine level of 1012 on 04/19/2021. Norclozapine level was 196 at that time. Patient has no symptoms of clozapine toxicity at this time. I placed a call to patient's RN at [facility], and instructed them to monitor clozapine levels closely. They stated that they would do so.
[2021-04-23 15:26] VITALS: BP 120/70; PULSE 78; RESP 18; TEMP 36.6; O2SAT 97
== END 2021-04-23 17:30 | DRG 177 ==
LOC: HO.ED 04-18 02:41 → HO.EDOVER 04-18 02:58 → HO.IMC 04-18 15:17
PROVIDERS: Family Medicine; Hospitalist; Internal Medicine; Nurse Practitioner Psychiatric/Mental Health; Admitting Provider Hospitalist; Emergency Provider Emergency Medicine; Visit Provider Nurse Practitioner Acute Care
DX: U07.1 COVID-19 (principal); J12.82 Pneumonia due to coronavirus disease 2019; J96.01 Acute respiratory failure with hypoxia; G92.8 Other toxic encephalopathy; B00.89 Other herpesviral infection; A52.3 Neurosyphilis, unspecified; E87.0 Hyperosmolality and hypernatremia; F25.9 Schizoaffective disorder, unspecified; E03.9 Hypothyroidism, unspecified; F03.90 Unspecified dementia, unspecified severity, without behavioral disturbance, psychotic disturbance, mood disturbance, and anxiety; R13.12 Dysphagia, oropharyngeal phase; G40.909 Epilepsy, unspecified, not intractable, without status epilepticus; Z74.01 Bed confinement status; Z93.1 Gastrostomy status; Z87.440 Personal history of urinary (tract) infections; Z87.891 Personal history of nicotine dependence; Z88.0 Allergy status to penicillin; Z79.51 Long term (current) use of inhaled steroids; Z79.890 Hormone replacement therapy; Z79.899 Other long term (current) drug therapy; Z66 Do not resuscitate
CPT/HCPCS: 36415; 71045; 71275; 74018; 80048; 80076; 80159; 80164; 80178; 81001; 82140; 83605; 83880; 84145; 84484; 85025; 85027; 85379; 86140; 87040; 87086; 87088; 87186; 87635; 87640; 87641; 87899; 93005; 94799; 96361; 96374; 96375; 99285; 99291; J1100; J1650; J1956; Q9967

== ENCOUNTER 2022-10-18 02:20 | Emergency (ER) | payer MEDICARE, MEDICAID, SELFPAY ==
--- NOTE | ~2022-10-18 | XR_ITS ---
EXAMINATION: XR CHEST CLINICAL INFORMATION: Vomiting. Aspiration. COMPARISON: 04/18/2021 TECHNIQUE: Frontal view of the chest was obtained. FINDINGS: Chronic lung markings. Streaky opacities in the lower lungs bilaterally could reflect multifocal infiltrate or aspiration in keeping with the provided history. Normal heart size and pulmonary vascularity. No acute osseous abnormalities. XR/XR chest 1V IMPRESSION: Streaky opacities in the lower lungs bilaterally could reflect multifocal infiltrate or aspiration in keeping with the provided history.
[2022-10-18 02:32] VITALS: BP 101/53; BP 96/50; PULSE 78; PULSE 82; RESP 18; TEMP 36.8; O2SAT 97; O2SAT 98; BMI 24.3
--- OUTSIDE RECORDS SUMMARY | 2022-10-18 03:17 | XMS_ITS | Continuity of Care Document ---
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 Name Role Phone Dolly Díaz MD Primary Care Physician [phone] Encounter [facility] Date(s): 02/08/22 - 02/11/[address] [id number] Discharge Disposition: A-Transfer SNF Attending Physician: Anthony Lainez MD Admitting Physician: Blayne Salazar MD Referring Physician: Not on Staff, Referring MD Allergies, Adverse Reactions, Alerts Substance Reaction Severity Status perphenazine Active Prozac Active Augmentin Active Seafood Active Immunizations Given and Recorded Vaccine Date Status Refusal Reason Influenza Virus Vaccine (oldterm) 1 12/20/19 Recor ded Diphth-Tetanus Toxoids Adsorbed(oldterm) 2 08/26/07 Given pneumococcal 23-valent vaccine 3 03/28/07 Given 1Result Comment: Info from RN at [facility] on 01/06/20 2[facility] cueto,leighann 3Admin Note: info from [facility] Medications acetaminophen 500 mg oral tablet 2 tablet = 1,000 mg, G Tube, 3 times a day, Maintenance, 07/25/20 12:21:00 EDT, Partial fill upon patient request if the prescription is for a schedule II opioid drug. Start Date: 07/25/20 Status: Ordered Artificial Tears preserved solution 2 drops, Eyes, Both, 4 times a day, PRN for dry eyes, Maintenance, 02/07/22 11:10:00 EST, Solution,Partial fill upon patient request if the prescription is for a schedule II opioid drug. Start Date: 02/07/22 Status: Ordered Atropine Sulfate, Ophthalmic 2 drops, Sublingual, Every 15 minutes, PRN secretions, 0 Refills, Maintenance, 11/02/19 0:29:00 EDT Start Date: 11/02/19 Status: Ordered Bactrim DS Tablet 1, tablet, G Tube, 2 times a day, Maintenance, 02/11/22 10:43:00 EST Start Date: 02/11/22 Stop Date: 02/14/22 Status: Ordered bisacodyl 10 mg rectal suppository 1 supp = 10 mg, Rectally, Daily, PRN for constipation, 0 Refills, Maintenance, 08/31/11 6:28:16 EDT, Suppository Start Date: 08/31/11 Status: Ordered clozapine 200 mg oral tablet 1 tablet = 200 mg, G Tube, Daily, in the evening with 50mg tablet for a total dose of 250mg, 0 Refills, Maintenance, 07/25/20 12:23:00 EDT, Partial fill upon patient request if the prescription is for a schedule II opioid drug. Start Date: 07/25/20 Status: Ordered clozapine 25 mg oral tablet 3 tablet = 75 mg, G Tube, Daily in AM, Maintenance, 07/25/20 12:24:00 EDT, Partial fill upon patient request if the prescription is for a schedule II opioid drug. Start Date: 07/25/20 Status: Ordered clozapine 50 mg oral tablet 1 tablet = 50 mg, By Mouth, Daily, in the evening with 200mg tablet for a total dose of 250mg, Maintenance, 02/07/22 11:14:00 EST, Tablet, Partial fill upon patient request if the prescription is fora schedule II opioid drug. Start Date: 02/07/22 Status: Ordered Colace sodium 100 mg oral capsule 100 mg, 1, capsule, G Tube, 2 times a day, Refills 0, Maintenance, 02/11/22 10:43:00 EST, Partial fill upon patient request if the prescription is for a schedule II opioid drug. Start Date: 02/11/22 Status: Ordered Fleet Enema 19 gm-7 gm rectal enema 1 each, Rectally, Once, PRN for constipation, Maintenance, 02/07/22 11:10:00 EST, Enema, Partial fill upon patient request if the prescription is for a schedule II opioid drug. Start Date: 02/07/22 Status: Ordered Geodon 80 mg oral capsule 1 capsule = 80 mg, G Tube, 2 times a day, must give with meal, 0 Refills, Maintenance, 11/02/19 0:51:00 EDT Start Date: 11/02/19 Status: Ordered guaiFENesin 100 mg/5 mL oral liquid 10 mL = 200 mg, G Tube, Every 4 hours, PRN for cough, 0 Refills, Maintenance, 07/24/20 21:36:00 EDT, Liquid, Partial fill upon patient request if the prescription is for a schedule II opioid drug. Start Date: 07/24/20 Status: Ordered KlonoPIN 1 mg oral tablet 1 tablet = 1 mg, G Tube, 2 times a day, 0 Refills, Maintenance, 11/02/19 1:01:00 EDT Start Date: 11/02/19 Status: Ordered levothyroxine 0.1 mg oral tablet 1 tablet = 100 mcg, G Tube, Daily, Maintenance, 02/07/22 10:53:00 EST, Tablet, Partial fill upon patient request if the prescription is for a schedule II opioid drug. Start Date: 02/07/22 Status: Ordered lidocaine 5% topical film 1 patch, Topically, Daily, PRN Pain , Mild, tp LEFT knee. remove after 12 hours, Maintenance, 02/07/22 10:53:00 EST, Film, Partial fill upon patient request if the prescription is for a schedule II opioid drug. Start Date: 02/07/22 Status: Ordered lithium 300 mg oral tablet 1 tablet = 300 mg, G Tube, 2 times a day, Maintenance, 02/07/22 10:54:00 EST, Tablet, Partial fill upon patient request if the prescription is for a schedule II opioid drug. Start Date: 02/07/22 Status: Ordered Milk of Magnesia 8% oral suspension 30 mL = 2.4 Gm, G Tube, Daily, PRN for constipation, Maintenance, 07/25/20 12:41:00 EDT, Suspension, Partial fill upon patient request if the prescription is for a schedule II opioid drug. Start Date: 07/25/20 Status: Ordered Mylanta Liquid 30 mL, G Tube, 4 times a day, as needed for heartburn., 0 Refills, Maintenance, 03/23/18 20:53:16 EST Start Date: 03/23/18 Status: Ordered omeprazole 20 mg oral enteric coated capsule 1 capsule = 20 mg, G Tube, Daily, Maintenance, 02/07/22 10:55:00 EST, EC Capsule, Partial fill uponpatient request if the prescription is for a schedule II opioid drug. Start Date: 02/07/22 Status: Ordered polyethylene glycol 3350 oral powder for reconstitution = 17 Gm, G Tube, Daily at bedtime, dissolve in water before taking, Maintenance, 07/25/20 12:28:00 EDT, REC Powder, Partial fill upon patient request if the prescription is for a schedule II opioid drug. Start Date: 07/25/20 Status: Ordered Preparation H 1 suppository, Rectally, Every 6 hours, PRN Hemorrhoids, Maintenance, 02/07/22 11:07:00 EST, Partial fill upon patient request if the prescription is for a schedule II opioid drug. Start Date: 02/07/22 Status: Ordered Senna 8.6 mg oral tablet 8.6 mg, 1, tablet, G Tube, Daily, Maintenance, 02/07/22 10:56:00 EST, Partial fill upon patient request if the prescription is for a schedule II opioid drug. Start Date: 02/07/22 Status: Ordered Trazodone 1.25 ml/12.5mg, G Tube, Every 6 hours, PRN Agitation, Maintenance, 02/07/22 11:11:00 EST, Partial fill upon patient request if the prescription is for a schedule II opioid drug. Start Date: 02/07/22 Status: Ordered traZODone 100 mg oral tablet 100 mg, 1, tablet, G Tube, Daily at bedtime, Maintenance, 02/07/22 10:57:00 EST, Partial fill upon patient request if the prescription is for a schedule II opioid drug. Start Date: 02/07/22 Status: Ordered valACYclovir 500 mg oral tablet 500 mg, 1, tablet, G Tube, Daily, Refills 0, Maintenance, 04/16/16 19:39:27 EST Start Date: 04/16/16 Status: Ordered valproic acid 250 mg/5 mL oral syrup 40 mL = 2,000 mg, G Tube, Daily at bedtime, Maintenance, 02/07/22 10:58:00 EST, Partial fill upon patient request if the prescription is for a schedule II opioid drug. Start Date: 02/07/22 Status: Ordered valproic acid 250 mg/5 mL oral syrup 20 mL = 1,000 mg, G Tube, Daily, 0 Refills, Maintenance, 07/24/20 21:34:00 EDT, Syrup, Partial fillupon patient request if the prescription is for a schedule II opioid drug. Start Date: 07/24/20 Status: Ordered Vitamin D3 50,000 intl units oral capsule 1 capsule = 50,000 International_Units, G Tube, on the of each month., Maintenance, 07/25/20 12:30:00 EDT, Capsule, Partial fill upon patient request if the prescription is for a schedule II opioid drug. Start Date: 07/25/20 Status: Ordered Problem List Condition Confirmation Course Effective Dates Status H ealth Status Informant Dementia Confirmed Active Gastrostomy tube dependent Confirmed Active Hypothyroidism Confirmed Active Schizoaffective disorder Confirmed Active Seizures Confirmed Active Results Orders for Microbiology Reports Name Date Blood Culture 02/07/22 Blood Culture #2 02/07/22 Urine Culture (URINE CULTURE) 02/07/22 Microbiology Reports TEST:Blood Culture STATUS:Unauthenticated BODY SITE: SOURCE:Blood COLLECTED DATE/TIME:02/07/22 9:05 AM Blood Culture SPECIMEN DESCRIPTION : BLOOD LHAND SPECIAL REQUESTS : NONE CULTURE : NO GROWTH 4 DAYS REPORT STATUS : PRELIMINARY REPORT TEST:Blood Culture, Second Order STATUS:Unauthenticated BODY SITE: SOURCE:Blood COLLECTED DATE/TIME:02/07/22 9:05 AM Blood Culture, Second Order SPECIMEN DESCRIPTION : BLOOD RHAND SPECIAL REQUESTS : NONE CULTURE : NO GROWTH 4 DAYS REPORT STATUS : PRELIMINARY REPORT TEST:Urine Culture STATUS:Auth (Verified) BODY SITE: SOURCE:URINE COLLECTED DATE/TIME:02/07/22 5:37 AM Urine Culture SPECIMEN DESCRIPTION : URINE SPECIAL REQUESTS : NONE CULTURE : >100,000 COL/ML PROVIDENCIA STUARTII This isolate was identified using Maldi-TOF system These AST results were performed on the SHAPEcan ID and AST system REPORT STATUS : FINAL 02/09/2022 ORGANISM >100,000 COL/ML PROVIDENCIA STUARTII This isolate was identified using Maldi-TOF system These AST results were performed on the SHAPEcan ID and AST system METHOD MIN. INHIB. CONC. (MCG/ML) AMIKACIN SUSCEPTIBLE AMPICILLIN RESISTANT AMPICILLIN/SULBACTAM INTERMEDIATE AMOXICILLIN/CLAVULAN RESISTANT CEFAZOLIN RESISTANT CEFTRIAXONE RESISTANT CIPROFLOXACIN RESISTANT ERTAPENEM SUSCEPTIBLE GENTAMICIN RESISTANT LEVOFLOXACIN RESISTANT MEROPENEM SUSCEPTIBLE NITROFURANTOIN RESISTANT PIPERACILLIN/TAZOBAC SUSCEPTIBLE TOBRAMYCIN RESISTANT TRIMETH/SULFAMETHOX SUSCEPTIBLE TETRACYCLINE RESISTANT Radiology Reports * Exam Date Time Procedure Performing Provider Status 02/07/22 12:[address] Abd/Pelvis W/ IV Contrast Only Gertrudis Scheafer; Samy (Verified) Notes: (CT Abd/Pelvis W/ IV Contrast Only) Reason For Exam: LLQ abdominal pain;Other: RESULT: CT Abd/Pelvis W/ IV Contrast Only CT Abd/Pelvis W/ IV Contrast Only Hx of Present Illness: Left abdominal pain. Reason: LLQ abdominal pain; Clinical Question(s): Obstruction. TECHNIQUE: Spiral CT through the abdomen and pelvis with IV contrast formatted in 3 planes. 100 cc of Omnipaque 300 was administered intravenously. This study was performed without oral contrast. Weight-based protocol using automatic tube modulation was used to optimize exposure parameters. CTDIvol Body: 13.33 mGy, DLP Body: 1274 mGy*cm. COMPARISON: Multiple prior exams, most recent CTA chest with abdomen/pelvis 01/05/2020 CT abdomen/pelvis 07/24/2020 FINDINGS: Butter Grader View Findings, Lines and Tubes: None. Visualized Chest: Diffuse tree-in-bud opacities are seen in the left greater than right lung bases.Similar appearance of bibasilar pleural parenchymal scarring. No pleural effusion. The heart is normal in size. No pericardial effusion. Diaphragm: Normal. Liver: Normal. Gallbladder: Cholelithiasis without evidence of acute cholecystitis. Bile ducts: No biliary ductal dilation. Spleen: Normal. Pancreas: Normal. Adrenal glands: Normal. Kidneys and ureters: Similar appearance of known left parapelvic cysts. Unchanged mild prominence of the bilateral ureters. Similar nonspecific mild urothelial enhancement of the left proximal ureter. No marc hydronephrosis, stones, or suspicious masses. Bladder: Urinary bladder is mildly distended with diffuse trabeculation of the urinary bladder wall, unchanged. Reproductive organs: Unchanged prostatomegaly with prominent prostatic urethra also seen on multiple prior examinations. Stomach, small bowel, and large bowel: A G-tube appears well positioned in the stomach. No evidenceof a bowel obstruction. No inflammatory changes. Marked fecal burden throughout the colon with a large stool bolus in the rectum measuring 9.3 cm in diameter. Appendix: No evidence of acute appendicitis. Peritoneum and retroperitoneum: No ascites or pneumoperitoneum. No omental or mesenteric lesions. Lymph nodes: No enlarged lymph nodes. Blood vessels: Normal. No aneurysm. No evidence of venous thrombosis. Abdominal and pelvic wall: Ring-enhancing fluid collection inferior and posterior to the left ischial tuberosity measuring 4.4 x 3.5 x 2.3 cm. Bones: No acute abnormality. IMPRESSION: Marked fecal burden throughout the colon with a large stool bolus in the rectum measuring 9.3 cm indiameter. No evidence of an acute bowel obstruction. Left greater than right diffuse tree-in-bud opacities are nonspecific and can be seen with aspiration or atypical infectious process. Rim-enhancing fluid collection adjacent to the left initial tuberosity, may represent a source of acute infection. Recommend clinical correlation. A critical result message ([place]) has been communicated via the Tekmi system on 02/07/2022 7:04 AM, Message ID [id number]. I have personally reviewed the images and I agree with this report. WSN: [id number] Ordering Physician: Bryant Hi Dictated By: Joaquina Mata DO Dictated Date/Time: 02/07/22 7:04 am Reviewed By: Lionel Rodríguez MD Signed By: Lionel Rodríguez MD Signed Date/Time: 02/07/22 7:09 am Transcribed By: MORENO Transcribed Date/Time: 02/07/22 0:35 am Vital Signs Most recent to oldest [Reference Range]: 1 2 3 Weight 70.57 kg (02/07/22 9:52 PM) Oxygen Saturation [94-100 %] 96 % (02/11/22 12:43 PM) 94 % (02/11/22 7:00 AM) 94 % (02/11/22 4:00 AM) Pulse Rate [55-90 bpm] 97 bpm *H* (02/11/22 12:43 PM) 95 bpm *H* (02/11/22 7:00 AM) 101 bpm *H* (02/11/22 4:00 AM) Blood Pressure [90-138/55-84 mm Hg] 113/65mm Hg (02/11/22 12:43 PM) 109/66mm Hg (02/11/22 7:00 AM) 102/53mm Hg (02/11/22 4:00 AM) Respiratory Rate [16-30 br/min] 20 br/min (02/11/22 12:43 PM) 24 br/min (02/11/22 7:00 AM) 19 br/min (02/11/22 4:00 AM) Temperature [96.8-100.4 DegF] 98.5 DegF (02/11/22 12:43 PM) 98.8 DegF (02/11/22 7:00 AM) 99.7 DegF (02/11/22 4:00 AM) Mode of Delivery (Oxygen) Room air (02/11/22 12:43 PM) Room air (02/11/22 7:00 AM) Room air (02/11/22 4:00 AM) Blood pressure sites Arm, left (02/11/22 12:43 PM) Arm, left (02/11/22 7:00 AM) Arm, left (02/11/22 4:00 AM) Temperature Route Oral (02/11/22 12:43 PM) Oral (02/11/22 7:00 AM) Oral (02/11/22 4:00 AM) Weight Obtained Via Bed scale (02/07/22 9:52 PM) Social History Social History Type Response Smoking Status Former smoker entered on: 02/18/14 Sex Admission evaluation note * Seema ELLIS, Dee Luz: MODIFY, MODIFY, MODIFY, MODIFY, PERFORM, MODIFY, MODIFY, MODIFY Event Display: Admission Note Authored Date: Patient: ??JONATHAN LOPEZ ? Age:??61 Years?Sex:??Male?:??1960?? Chief Complaint/Reason for Consultation Abdominal pain, distenion. History of Present Illness The patient is a 61-year-old male with a past medical history significant for dementia secondary toneurosyphilis, schizoaffective disorder, hypothyroidism, seizure disorder,, anxiety/depression, diabetes, diverticulitis, GERD, G-tube dependency, who presents from [facility],??to the emergency apartment with reported worsening abdominal distention and abdominal pain.?? Due to patient's baseline dementia, he is unable to??provide much by way of history.?? He currently denies abdominal pain, chest pain or shortness of breath.? In the ED, the patient is afebrile with stable vital signs.?Labs are unremarkable.?? CT abdomen and pelvis shows??large stool bolus in the rectum measuring 9.3 cm in diameter, no evidence of an acute bowel obstruction, left greater than right diffuse tree-in-bud opacities, which??are nonspecificand can be seen with aspiration or atypical infectious process, and rim-enhancing fluid collection adjacent to the left ischial tuberosity, which may represent a source of acute infection. Urinalysissuggests UTI.?? Blood cultures are pending.?? The patient was given Cefepime and Vancomycin in the ED,.?? He is admitted for UTI and further evaluation of abnormal CT findings, left ischial tuberosity fluid collection. Review of Systems Unable to obtain due to underlying cognitive impairment.?? Denies any pain. Objective Vital Signs?? Temperature: 98.3 DegF (02/07/22 10:37:00) Temperature Route: Oral (02/07/22 10:37:00) Pulse Rate: 85 bpm (02/07/22 18:39:00) Respiratory Rate: 16 br/min (02/07/22 18:39:00) Systolic Blood Pressure: 118 mm Hg (02/07/22 18:39:00) Diastolic Blood Pressure: 78 mm Hg (02/07/22 18:39:00) Blood pressure sites: Arm, left (02/07/22 18:39:00) Mean Arterial Pressure: 91 mm Hg (02/07/22 18:39:00) Pulse Pressure: 40 mm Hg (02/07/22 18:39:00) Oxygen Saturation: 98 % (02/07/22 18:39:00) Mode of Delivery (Oxygen): Room air (02/07/22 18:39:00) Early Warning Score: 0 (02/07/22 21:23:19) ? Intake/Output? No Data Available ? Physical Exam Constitutional: Alert, in no distress. Mental Status: Oriented to person. Head: Normocephalic. Eyes: Pupils are equal, round and reactive to light. Extraocular muscles intact. Ear, Nose and Throat: Oropharynx clear, mucous membranes moist. Ears and nose without masses, lesions or deformities. Trachea midline. Neck: Supple, Full range of motion. Respiratory: Clear to auscultation. No wheezing, rales or rhonchi. Cardiovascular: S1 S2 regular. No murmurs, rubs or gallops. Gastrointestinal: Abdomen soft, non-tender, distended.?Normal??bowel sounds. No pulsatile mass. No hepatosplenomegaly. Genitourinary: No costovertebral angle tenderness. Neurologic: Cranial nerves II-XII grossly intact. No focal neurological deficits. Flexor plantar response. Moves all extremities spontaneously. Sensation intact bilaterally. Skin: No rashes or lesions. No petechiae or purpura.?? Musculoskeletal: No cyanosis or clubbing. No gross deformities. Normal range of motion. Heme/Lymphatics/Immun: Palpation of neck reveals no swelling or tenderness of neck nodes. Palpationof groin reveals no swelling or tenderness of groin nodes. Psychiatric: Cooperative. Assessment/Plan Assessment:??The patient is a 61-year-old male with a past medical history significant for dementiasecondary to neurosyphilis, schizoaffective disorder, hypothyroidism, seizure disorder,, anxiety/depression, diabetes, diverticulitis, GERD, G-tube dependency, who presents from [facility], to the emergency apartment with reported worsening abdominal distention and abdominal pain. Due to patient's baseline dementia, he is unable to provide much by way of history. He currently denies abdominal pain, chest pain or shortness of breath. ?? In the ED, the patient is afebrile with stable vital signs. Labs are unremarkable. CT abdomen and pelvis shows large stool bolus in the rectum measuring 9.3 cm in diameter, no evidence of an acute bowel obstruction, left greater than right diffuse tree-in-bud opacities, which are nonspecific and can be seen with aspiration or atypical infectious process, and rim-enhancing fluid collection adjacent to the left ischial tuberosity, which may represent a source of acute infection. Urinalysis suggests UTI. Blood cultures are pending. The patient was given Cefepime and Vancomycin in the ED,. He is admitted for UTI and further evaluation of?? abnormal CT findings, left ischial tuberosity fluid collection. ?? Abdominal pain, distension, UTI: CT abdomen and pelvis shows large stool bolus in the rectum measuring 9.3 cm in diameter, no evidence of an acute bowel obstruction, left greater than right diffuse tree-in-bud opacities, which are nonspecific and can be seen with aspiration or atypical infectious process, and rim-enhancing fluid collection adjacent to the left ischial tuberosity, which may represent a source of acute infection.?? Patient passed stool in the ED.?? Clinically, patient does not appear to have pneumonia.?? Patientwas started on Cefepime and Vancomycin in the ED for UTI and rim-enhancing fluid collection adjacent to ischial tuberosity. -Continue Cefepime and Vancomycin pending blood cultures. -Discussed with Ortho, who will see patient tomorrow. -ESR, CRP added on. -May need IR drainage. ?? Hypothyroidism:? Continue levothyroxine ?? Seizures:? Continue valproic acid. ?? Schizoaffective disorder, Anxiety, Depression:? Continue ziprasidone??, lithium, clonazepam, trazadone. Clozapine is nonformulary ?? Diabetes: -Monitor glucose POC every 6 hours. -KWASI based on POC. ?? Diet: Gastrostomy tube dependent:? -Tube feeds ordered. ?? DVT prophylaxis:?? Pneumatic compression boots.?? Heparin S.? Code Status:?? DNR/DNI,?? Noninvasive ventilation??acceptable. ? Discharge Planning:?D'c back to SNF in 2-3 days. ?? Histories Allergies Allergies ?(Active and Proposed Allergies Only) Augmentin? (Severity: Unknown severity, Onset: Unknown) Seafood? (Severity: Unknown severity, Onset: Unknown) Prozac? (Severity: Unknown severity, Onset: Unknown) perphenazine? (Severity: Unknown severity, Onset: Unknown) ? Past Medical History/Problem List Active Problems??(5) Dementia Gastrostomy tube dependent Hypothyroidism Schizoaffective disorder Seizures ? Past Surgical History Esophagogastroduodenoscopy: 04/08/18 ? Social History Tobacco Details:??Former smoker ? Psychosocial History ? Family History No family history recorded. ? Medications Home Medications Acetaminophen (acetaminophen 500 mg oral tablet)?2?tab(s)?1,000?Milligram?G Tube?3 times a day Al Hydroxide/Mg Hydroxide/Simethicone (Mylanta Liquid)?30?Milliliter?G Tube?4 times a day?as needed for heartburn. Atropine Ophthalmic (Atropine Sulfate, Ophthalmic)?2?Drops?Sublingual?Every 15 minutes?PRN secretions Bisacodyl (bisacodyl 10 mg rectal suppository)?1?suppository(ies)?10?Milligram?Rectal ly?Daily?as needed?for constipation Cholecalciferol (Vitamin D3 50,000 intl units oral capsule)?1?capsule?50,000?International Unit?G Tube?on the of each month. Clonazepam (KlonoPIN 1 mg oral tablet)?1?tab(s)?1?Milligram?G Tube?2 times a day Clozapine (clozapine 200 mg oral tablet)?1?tab(s)?200?Milligram?G Tube?Daily?in the evening with 50mg tablet for a total dose of 250mg Clozapine (clozapine 25 mg oral tablet)?3?tab(s)?75?Milligram?G Tube?Daily in AM Clozapine (clozapine 50 mg oral tablet)?1?tab(s)?50?Milligram?By Mouth?Daily?in the evening with 200mg tablet for a total dose of 250mg Guaifenesin (guaiFENesin 100 mg/5 mL oral liquid)?10?Milliliter?200?Milligram?G Tube?Every 4 hours?as needed?for cough Levothyroxine (levothyroxine 0.1 mg oral tablet)?1?tab(s)?100?Microgram?G Tube?Daily Lidocaine Topical (lidocaine 5% topical film)?1?patch(es)?Topically?Daily?as needed?Pain , Mild?tp LEFT knee. remove after 12 hours Ferron (lithium 300 mg oral tablet)?1?tab(s)?300?Milligram?G Tube?2 times a day Milk of Magnesia (Milk of Magnesia 8% oral suspension)?30?Milliliter?2.4?gram?G Tube?Daily?as needed?for constipation mineral oil/petrolatum/phenylephrine topical (Preparation H)?1 suppository?Rectally?Every 6 hours?as needed?Hemorrhoids Ocular Lubricant (Artificial Tears preserved solution)?2?Drops?Eyes, Both?4 times a day?as needed?for dry eyes Omeprazole (omeprazole 20 mg oral enteric coated capsule)?1?capsule?20?Milligram?G Tube?Daily Polyethylene Glycol 3350 (polyethylene glycol 3350 oral powder for reconstitution)?17?gram?G Tube?Daily at bedtime?dissolve in water before taking Senna (Senna 8.6 mg oral tablet)?8.6?Milligram?1?tab(s)?G Tube?Daily Sodium Biphosphate-Sodium Phosphate (Fleet Enema 19 gm-7 gm rectal enema)?1?Each?Rectally?Once?as needed?for constipation Trazodone (traZODone 100 mg oral tablet)?100?Milligram?1?tablet?G Tube?Daily at bedtime Trazodone?1.25 ml/12.5mg?G Tube?Every 6 hours?as needed?Agitation ValACYclovir (valACYclovir 500 mg oral tablet)?500?Milligram?1?tablet?G Tube?Daily Valproic Acid (valproic acid 250 mg/5 mL oral syrup)?20?Milliliter?1,000?Milligram?GTube?Daily Valproic Acid (valproic acid 250 mg/5 mL oral syrup)?40?Milliliter?2,000?Milligram?GTube?Daily at bedtime Ziprasidone (Geodon 80 mg oral capsule)?1?capsule?80?Milligram?G Tube?2 times a day?must give with meal ? Inpatient Medications Medications (26) Active SCHEDULED: (16) Atorvastatin 20 mg Tablet (atorvastatin 20 mg oral tablet) ??20 mg, G Tube, Daily at bedtime Cefepime 2 Gm Inj (Cefepime Extended IVPB) ??2,000 mg, IVPB, Every 8 hours Clonazepam 1 mg Tablet (KlonoPIN 1 mg oral tablet) ??1 mg, G Tube, 2 times a day Clozapine 25 mg Tablet (Clozapine Tablet) ??250 mg, G Tube, Daily at bedtime Clozapine 25 mg Tablet (Clozapine Tablet) ??75 mg, G Tube, Daily Levothyroxine 100 mcg Tablet (levothyroxine 0.1 mg oral tablet) ??100 mcg, G Tube, Daily Ferron 300 mg Tablet (LITHium Tablet) ??300 mg, G Tube, 2 times a day NaCl 0.9% Flush 3ml (NaCL 0.9% Flush) ??3 mL, IV Push, Every 8 hours Polyethylene Glycol 17 Gm Powder (MiraLax Powder) ??17 Gm 1 pack/packet, G Tube, Daily at bedtime Senna Tablet (Senna 8.6 mg oral tablet) ??8.6 mg 1 tablet, G Tube, Daily Trazodone 50 mg Tablet (traZODone 50 mg oral tablet) ??100 mg, G Tube, Daily at bedtime ValACYclovir 500 mg Tablet (valACYclovir 500 mg oral tablet) ??500 mg, G Tube, Daily Valproic Acid 250 mg/5 mL Syrup UD (Valproic Acid Liquid) ??1,000 mg 20 mL, G Tube, Daily Valproic Acid 250 mg/5 mL Syrup UD (Valproic Acid Liquid) ??2,000 mg 40 mL, G Tube, Daily at bedtime Vancomycin 1250 mg Inj (Vancomycin IVPB) ??1.25 Gm, IVPB, Every 12 hours Ziprasidone 80mg Capsule (Geodon 80 mg oral capsule) ??80 mg, G Tube, 2 times a day CONTINUOUS: (0) PRN: (10) Acetaminophen 160 mg/5 mL Susp UD (Acetaminophen 160 mg / 5 mL Liquid) ??1,000 mg 31.25 mL, G Tube,3 times a day Al Hydroxide/Mg Hydroxide/Simethicone (Maalox Plus Liquid) ??30 mL, G Tube, 4 times a day Bisacodyl 10 mg Suppository (Bisacodyl Supp) ??10 mg 1 supp, Rectally, Daily Guaifenesin 200mg/10mL Syrup UD (GuaiFENEsin Liquid) ??200 mg 10 mL, G Tube, Every 4 hours Insulin Lispro 100 units/mL Inj (3mL) (Insulin LISPRO Scale) ??2-10 units, Subcutaneous Injection, Every 6 hours Lidocaine Topical (Lidocaine 5% Topical) ??1 film, Topically, Daily Magnesium Hydroxide 8% Susp UD (Milk of Magnesia Liquid) ??30 mL, G Tube, Daily NaCl 0.9% Flush 3ml (NaCL 0.9% Flush) ??3 mL, IV Push, Every 8 hours Polyvinyl Alcohol 1.4% Opthalmic Solution/Artificial Tears (Artificial Tears 1.4%) ??2 drops, Eyes,Both, 4 times a day Trazodone (traZODone 50 mg oral tablet) ??12.5 mg, G Tube, Every 6 hours ? Results Recent Labs BLOOD COUNT & DIFF WBC 9.0 k/mm3 ()?? 02/06/2022 22:30 RBC 3.39 m/mm3 (Low)?? 02/06/2022 22:30 Hgb 11.0 Gm/dL (Low)?? 02/06/2022 22:30 Hct 35.4 % (Low)?? 02/06/2022 22:30 MCV 104.4 femtoliters (High)?? 02/06/2022 22:30 MCH 32.4 pg ()?? 02/06/2022 22:30 MCHC 31.1 g/dL (Low)?? 02/06/2022 22:30 Platelet Count 216 k/mm3 ()?? 02/06/2022 22:30 RDW-SD 56.0 femtoliters (High)?? 02/06/2022 22:30 MPV 12.5 femtoliters (High)?? 02/06/2022 22:30 Nucleated RBC (Automated) 0.0 #/100 WBC'S ()?? 02/06/2022 22:30 Abs. NRBC 0.0 k/mm3 ()?? 02/06/2022 22:30 Abs. Neut 6.6 k/mm3 ()?? 02/06/2022 22:30 Abs. Lymph 1.8 k/mm3 ()?? 02/06/2022 22:30 Abs. Barron 0.6 k/mm3 ()?? 02/06/2022 22:30 Abs. Eo 0.0 k/mm3 ()?? 02/06/2022 22:30 Abs. Baso 0.0 k/mm3 ()?? 02/06/2022 22:30 Neut % 73.8 % ()?? 02/06/2022 22:30 Lymph % 19.4 % ()?? 02/06/2022 22:30 Barron % 6.1 % ()?? 02/06/2022 22:30 Eos % 0.0 % ()?? 02/06/2022 22:30 Baso % 0.1 % ()?? 02/06/2022 22:30 Imm Gran 0.6 % ()?? 02/06/2022 22:30 Abs. Imm Gran 0.1 k/mm3 ()?? 02/06/2022 22:30 ?? CHEM GENERAL Sodium 143 mmol/L ()?? 02/06/2022 22:30 Potassium 4.9 mmol/L ()?? 02/06/2022 22:30 Chloride 106 mmol/L ()?? 02/06/2022 22:30 Bicarbonate Level 27 mmol/L ()?? 02/06/2022 22:30 Anion Gap 10 ()?? 02/06/2022 22:30 Glucose Level 88 mg/dL ()?? 02/06/2022 22:30 Glucose, POC 88 mg/dL ()?? 02/07/2022 17:36 BUN 25 mg/dL (High)?? 02/06/2022 22:30 Creatinine-Blood 0.7 mg/dL ()?? 02/06/2022 22:30 Estimated GFR Creatinine 102 ML/MIN/1.73 M2 ()?? 02/06/2022 22:30 Calcium 9.5 mg/dL ()?? 02/06/2022 22:30 Calcium, Ionized pH Corrected 1.25 mmol/L ()?? 02/06/2022 22:30 Magnesium 2.5 mg/dL (High)?? 02/06/2022 22:30 Protein, Total 6.7 Gm/dL ()?? 02/06/2022 22:30 Albumin 3.8 Gm/dL ()?? 02/06/2022 22:30 AG Ratio 1.3 ()?? 02/06/2022 22:30 Alkaline Phosphatase 80 units/L ()?? 02/06/2022 22:30 Lipase 47 units/L ()?? 02/06/2022 22:30 AST (SGOT) 23 units/L ()?? 02/06/2022 22:30 ALT (SGPT) 7 units/L ()?? 02/06/2022 22:30 Bilirubin, Total 0.2 mg/dL ()?? 02/06/2022 22:30 Lactate 0.7 mmol/L ()?? 02/07/2022 20:06 ?? ENDOCRINE/TUMOR MARKER TSH 0.32 uIU/mL (Low)?? 02/06/2022 22:30 Free T4 1.08 ng/dL ()?? 02/06/2022 22:30 ?? HEME OTHER Sed Rate 23 mm/hr (High)?? 02/07/2022 20:55 Hold Lavender Top SPECIMEN DISCARDED AFTER 24 HOURS. ()?? 02/07/2022 20:06 ?? UA/URINALYSIS Appear/Color, Urine LIGHT YELLOW ()?? 02/07/2022 05:05 Specific Neely, Urine 1.027 ()?? 02/07/2022 05:05 pH, Urine 8.0 ()?? 02/07/2022 05:05 Albumin, Urine NEGATIVE ()?? 02/07/2022 05:05 Glucose, Urine NEGATIVE ()?? 02/07/2022 05:05 Ketones, Urine NEGATIVE ()?? 02/07/2022 05:05 Bilirubin, Urine NEGATIVE ()?? 02/07/2022 05:05 Hemoglobin, Urine NEGATIVE ()?? 02/07/2022 05:05 Nitrite, Urine POSITIVE (Abnormal)?? 02/07/2022 05:05 Leukocyte, Urine 3+ (Abnormal)?? 02/07/2022 05:05 Urobilinogen NORMAL mg/dL ()?? 02/07/2022 05:05 WBC's, Urine 70 /HPF (High)?? 02/07/2022 05:05 RBC's, Urine 1 /HPF ()?? 02/07/2022 05:05 Bacteria SLIGHT HPF (Abnormal)?? 02/07/2022 05:05 Squamous Epith <1 /HPF ()?? 02/07/2022 05:05 Hold Urine Culture Testing available 48 hours from time of collection. ()?? 02/07/2022 05:05 ?? VIROLOGY COVID-19 by RT-PCR NEGATIVE ()?? 02/06/2022 22:11 ? Hospital Progress note * Heather Corea RN: PERFORM, SIGN, VERIFY Event Display: Progress Note Hospital Authored Date: Patient: JONATHAN LOPEZ Age: 61 years Sex: Male : 1960 Associated Diagnoses: None Author: Heather Corea RN Pt alert and oriented to person only. Bolus tube feeding, water and medications administered per order. Pt left floor at this time to go to S3 to be discharged back to SNF. No complaints of pain and no questions or concerns voiced from pt. * Jessica Pascal RN: PERFORM, SIGN, VERIFY Event Display: Progress Note Hospital Authored Date: Patient: JONATHAN LOPEZ Age: 61 years Sex: Male : 1960 Associated Diagnoses: None Author: Jessica Pascal RN Findings Narrative/Incidental Pt is alert, oriented to self. Denies pain. VSS. Follows commands appropriately. Tolerating tube feeds overnight. [place] cath draining conc yellow urine. He is resting comfortably. Wet prod cough noted. Rounding hourly to ensure needs met and safety maintained. . * Annamarie Francois: PERFORM, SIGN, VERIFY Event Display: Progress Note Hospital Authored Date: Patient: JONATHAN LOPEZ Age: 61 years Sex: Male : 1960 Associated Diagnoses: None Author: Annamarie Francois Findings Pt oriented to self only, appropriate and follows commands. Tube feeds/water flushes completed Q6. Pt tolerated bolus tube feeds, no N/V. Continues to have productive cough - remains afebrile, no CXRindicated per MD when made aware. Inc of bowel and bladder, multiple BM this shift. Bilat heels blanchable, mepliex drsg applied and BLE floated on pillows. T/R frequently - offloading w pillows, z-guard applied w inc care. Bed alarm remains on w the wheels locked in the lowest position, safety rounds frequently performed. Note * Lillian Sol RN: PERFORM Event Display: Discharge/Transfer Note Hospital Authored Date: [id number] Nursing Discharge Note Entered On: 02/11/2022 13:14 EST Performed On: 02/11/2022 13:13 EST by Lillian Sol RN Nursing Discharge Note 2 Discharge Time : 02/11/2022 13:15 EST Discharge Level of Care at Discharge : [facility] facility Discharge Nursing Homes/Rehab Facilities : [facility] Patient Left Unit Via : Ambulance Patient Accompanied Off Unit with : Ambulance/Chair Van Personnel Handover Given to Transport Personnel : Yes DC Instructions Provided & Signed by Pt : Yes Patient Understands D/C Instructions : Yes Patient Instructions Discharge Signed : Yes Discharge Comments : Iv dc'd with the tip intact Did Pt have Specialty Bed or Wound Vac : No Lillian Sol RN - 02/11/2022 13:13 EST * Anthony Lainez MD: PERFORM Event Display: Discharge/Transfer Note Hospital Authored Date: [id number] Patient: ??JONATHAN LOPEZ ? Age:??61 Years?Sex:??Male?:??1960?? Patient Information Discharge Location: Primary Care Physician: Dolly Díaz MD Admit Date/Time: 02/08/22 11:25 Discharge Disposition Discharge Disposition: Custodial Facility/Rehab Discharge Diagnosis ??Abdomen pain due to constipation and UTI Urinary tract infection Constipation due to slow transit Left hip fluid collection History of hypothyroidism?? history of seizure ?? _ Discharge Medications Acetaminophen (acetaminophen 500 mg oral tablet)?2?tab(s)?1,000?Milligram?G Tube?3 times a day Al Hydroxide/Mg Hydroxide/Simethicone (Mylanta Liquid)?30?Milliliter?G Tube?4 times a day?as needed for heartburn. Atropine Ophthalmic (Atropine Sulfate, Ophthalmic)?2?Drops?Sublingual?Every 15 minutes?PRN secretions Bisacodyl (bisacodyl 10 mg rectal suppository)?1?suppository(ies)?10?Milligram?Rectal ly?Daily?as needed?for constipation Cholecalciferol (Vitamin D3 50,000 intl units oral capsule)?1?capsule?50,000?International Unit?G Tube?on the of each month. Clonazepam (KlonoPIN 1 mg oral tablet)?1?tab(s)?1?Milligram?G Tube?2 times a day Clozapine (clozapine 200 mg oral tablet)?1?tab(s)?200?Milligram?G Tube?Daily?in the evening with 50mg tablet for a total dose of 250mg Clozapine (clozapine 25 mg oral tablet)?3?tab(s)?75?Milligram?G Tube?Daily in AM Clozapine (clozapine 50 mg oral tablet)?1?tab(s)?50?Milligram?By Mouth?Daily?in the evening with 200mg tablet for a total dose of 250mg Docusate (Colace sodium 100 mg oral capsule)?100?Milligram?1?capsule?G Tube?2 times a day Guaifenesin (guaiFENesin 100 mg/5 mL oral liquid)?10?Milliliter?200?Milligram?G Tube?Every 4 hours?as needed?for cough Levothyroxine (levothyroxine 0.1 mg oral tablet)?1?tab(s)?100?Microgram?G Tube?Daily Lidocaine Topical (lidocaine 5% topical film)?1?patch(es)?Topically?Daily?as needed?Pain , Mild?tp LEFT knee. remove after 12 hours Ferron (lithium 300 mg oral tablet)?1?tab(s)?300?Milligram?G Tube?2 times a day Milk of Magnesia (Milk of Magnesia 8% oral suspension)?30?Milliliter?2.4?gram?G Tube?Daily?as needed?for constipation mineral oil/petrolatum/phenylephrine topical (Preparation H)?1 suppository?Rectally?Every 6 hours?as needed?Hemorrhoids Ocular Lubricant (Artificial Tears preserved solution)?2?Drops?Eyes, Both?4 times a day?as needed?for dry eyes Omeprazole (omeprazole 20 mg oral enteric coated capsule)?1?capsule?20?Milligram?G Tube?Daily Polyethylene Glycol 3350 (polyethylene glycol 3350 oral powder for reconstitution)?17?gram?G Tube?Daily at bedtime?dissolve in water before taking Senna (Senna 8.6 mg oral tablet)?8.6?Milligram?1?tab(s)?G Tube?Daily Sodium Biphosphate-Sodium Phosphate (Fleet Enema 19 gm-7 gm rectal enema)?1?Each?Rectally?Once?as needed?for constipation Sulfamethoxazole/Trimethoprim (Bactrim DS Tablet)?1?tablet?G Tube?2 times a day?for 3?Days Trazodone (traZODone 100 mg oral tablet)?100?Milligram?1?tablet?G Tube?Daily at bedtime Trazodone?1.25 ml/12.5mg?G Tube?Every 6 hours?as needed?Agitation ValACYclovir (valACYclovir 500 mg oral tablet)?500?Milligram?1?tablet?G Tube?Daily Valproic Acid (valproic acid 250 mg/5 mL oral syrup)?20?Milliliter?1,000?Milligram?GTube?Daily Valproic Acid (valproic acid 250 mg/5 mL oral syrup)?40?Milliliter?2,000?Milligram?GTube?Daily at bedtime Ziprasidone (Geodon 80 mg oral capsule)?1?capsule?80?Milligram?G Tube?2 times a day?must give with meal ? Medications Started Colace, Bactrim Medications Discontinued ?? None? Doses Changed None??none?? Allergies Allergies ?(Active and Proposed Allergies Only) Augmentin? (Severity: Unknown severity, Onset: Unknown) Seafood? (Severity: Unknown severity, Onset: Unknown) Prozac? (Severity: Unknown severity, Onset: Unknown) perphenazine? (Severity: Unknown severity, Onset: Unknown) ? PCP Follow-Up/Heads-Up ??follow-up on severe constipation, UTI Hospital Course ? 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 Due to patient's baseline dementia,??unable to obtain more history.?? On admission??,??denies abdominal pain, chest pain or shortness of breath.?? Found to have??UTI,?? severe constipation??by CT abdomen??and Ring-enhancing fluid collection inferior and posterior to the left ischial tuberosity measuring 4.4 x 3.5 x 2.3 cm??by CT abdomen. ??Patient ??treated with antibiotic,??status post??digital ??disimpaction, currently??moving bowels well. ??Patient had 2 episodes of vomiting yesterday,??resolved completely?? . ??Currently awake, not in pain or distress, on G-tube feeding boluses. ??No signs of aspiration pneumonia,??no fever, no leukocytosis.? Patient being discharged back to his facility??with??Bactrim for UTI and Colace for constipation, no home ??medication changes.??just ??Called his legal guardian,RAHUL HUNG??went to voice message,, left message with an update??after discharge plan to short-term rehab,??waiting for callback. ? Abdominal pain, distension???resolved Urinary tract infection- PROVIDENCIA STUARTII? Severe constipation???status post digital disimpaction???02/08 CT abdomen and pelvis shows large stool bolus in the rectum measuring 9.3 cm in diameter, no evidence of an acute bowel obstruction,?? Clinically, patient does not appear to have pneumonia.? started on Cefepime and Vancomycin in the ED for UTI and rim-enhancing fluid collection adjacent toischial tuberosity-until Ortho consult Constipation resolved, had multiple bowel movements in last 24 hours???02/09 Per Ortho,??no septic arthritis on left hip Antibiotic downgraded to Bactrim per sensitivity-total completed 4 days of antibiotic inpatient Good bowel movements with stool softeners Plan: Continue 3 more days of Bactrim to complete total 7 days of antibiotic Continue stool softeners ? Fluid collection to left hip:??Most likely??chronic CT abdomen???Ring-enhancing fluid collection inferior and posterior to the left ischial tuberosity measuring 4.4 x 3.5 x 2.3 cm??by CT abdomen No fever, not looking septic, ??no leukocytosis on admission CRP 1.8, ESR 23 Does not look like??acute??infection??clinically?? Blood culture negative Ortho consult -``This does not appear to be a septic etiology. ??Could possibly be an ischial bursitis. ??No treatment necessary at this time``-02/08 Plan: No??treatment per Ortho, no need of needle aspiration unless??clinical sign of septic arthritis WBAT LLE ? Hypothyroidism:? Continue levothyroxine TSH???0.32,??slightly low. ?? Follow-up??TSH in??6 weeks ?? Seizures:? Continue valproic acid??1 g in a.m., 2 g p.m. ?? Schizoaffective disorder, Anxiety, Depression:? Continue ziprasidone??, lithium, clonazepam, trazadone. Clozapine? Diabetes: Listed as diabetes on history and physical,but not on any medications [id number] all over, less than 180 No need of sliding scale ? Diet: Gastrostomy tube dependent:? Dysphagia WBC slightly went up???14-5, most likely aspiration-02/09 Aspiration precaution No fever, no leukocytosis,??no sign of aspiration??pneumonia WBC back to normal?? continue G-tube feeding as before ? Objective Assessment and Plan ? Vital Signs?? Temperature: 99.7 DegF (02/11/22 04:00:00) Temperature Route: Oral (02/11/22 04:00:00) Pulse Rate:??101 bpm??High (02/11/22 04:00:00) Respiratory Rate: 19 br/min (02/11/22 04:00:00) Systolic Blood Pressure: 102 mm Hg (02/11/22 04:00:00) Diastolic Blood Pressure:??53 mm Hg??Low (02/11/22 04:00:00) Blood pressure sites: Arm, left (02/11/22 04:00:00) Pulse Pressure: 41 mm Hg (02/10/22 16:00:00) Oxygen Saturation: 94 % (02/11/22 04:00:00) Mode of Delivery (Oxygen): Room air (02/11/22 04:00:00) Early Warning Score: 3 (02/11/22 05:59:53) ? . Physical Exam ?? General:?dementia, awake, not in?? acute cardiopulmonary distress.?? Gurgly?? throat-?? Good cough reflex, currently n.p.o.??does not know his location ?Respiratory:??Bilateral crackles at the bases, better on??gurgly throat,??on room air ?Cardiovascular:??Heart sounds normal. Regular rate and rhythm, no murmurs ?Gastrointestinal:??Abdomen soft, non-tender, non-distended. Normal bowel sounds.?? G-tube in place ?Genitourinary:??Status post digital disimpaction???02/08, ??crushed a ball of??stool in the rectum ?Neurologic:??Demented, follows command,??cranial nerves II-XII grossly intact. No focal neurological deficits.?Skin:??No rashes or lesions. No edema. ?Musculoskeletal:??No cyanosis or clubbing. No gross deformities. Consultants none Pending Results Add On Lab Order ordered on 02/07/2022 Blood Culture ordered on 02/07/2022 Blood Culture #2 ordered on 02/07/2022 COVID-19 (2019 Novel Coronavirus) PCR ordered on 02/11/2022 Hold Gel Top Tube ordered on 02/07/2022 Follow-Up Appointments Added Follow Up ?Time Frame ?Comments Dolly Díaz MD?1 to 2 weeks?Follow-up with PCP/??MD at the facility for constipation, UTI as needed Post Discharge Care Diet: Tube feeding Activity: ?? HOB 30 to 45 Degrees Code Status: ?? No Resuscitation Condition: Stable Prognosis: Fair Discharge ?02/11/22 10:46:00 EST Discharge Prescriptions ?Written, ??02/11/22 10:46:00 EST Home Health Face to Face ^[facility] Results Discharge Labs BLOOD COUNT & DIFF WBC 8.9 k/mm3 ()?? 02/10/2022 08:42 RBC 3.52 m/mm3 (Low)?? 02/10/2022 08:42 Hgb 11.5 Gm/dL (Low)?? 02/10/2022 08:42 Hct 36.5 % (Low)?? 02/10/2022 08:42 MCV 103.7 femtoliters (High)?? 02/10/2022 08:42 MCH 32.7 pg ()?? 02/10/2022 08:42 MCHC 31.5 g/dL (Low)?? 02/10/2022 08:42 Platelet Count 221 k/mm3 ()?? 02/10/2022 08:42 RDW-SD 55.1 femtoliters (High)?? 02/10/2022 08:42 MPV 11.8 femtoliters ()?? 02/10/2022 08:42 Nucleated RBC (Automated) 0.0 #/100 WBC'S ()?? 02/10/2022 08:42 Abs. NRBC 0.0 k/mm3 ()?? 02/10/2022 08:42 Abs. Neut 3.3 k/mm3 ()?? 02/08/2022 07:13 Abs. Lymph 1.5 k/mm3 ()?? 02/08/2022 07:13 Abs. Barron 0.4 k/mm3 ()?? 02/08/2022 07:13 Abs. Eo 0.0 k/mm3 ()?? 02/08/2022 07:13 Abs. Baso 0.0 k/mm3 ()?? 02/08/2022 07:13 Neut % 63.1 % ()?? 02/08/2022 07:13 Lymph % 28.8 % ()?? 02/08/2022 07:13 Barron % 7.3 % ()?? 02/08/2022 07:13 Eos % 0.0 % ()?? 02/08/2022 07:13 Baso % 0.2 % ()?? 02/08/2022 07:13 Imm Gran 0.6 % ()?? 02/08/2022 07:13 Abs. Imm Gran 0.0 k/mm3 ()?? 02/08/2022 07:13 ?? CHEM GENERAL Sodium 145 mmol/L ()?? 02/10/2022 08:42 Potassium 4.3 mmol/L ()?? 02/10/2022 08:42 Chloride 113 mmol/L (High)?? 02/10/2022 08:42 Bicarbonate Level 25 mmol/L ()?? 02/10/2022 08:42 Anion Gap 7 ()?? 02/10/2022 08:42 Glucose Level 88 mg/dL ()?? 02/06/2022 22:30 Glucose, POC 156 mg/dL (High)?? 02/11/2022 05:55 BUN 25 mg/dL (High)?? 02/06/2022 22:30 Creatinine-Blood 0.5 mg/dL (Low)?? 02/09/2022 08:50 Estimated GFR Creatinine 113 ML/MIN/1.73 M2 ()?? 02/09/2022 08:50 Calcium 9.5 mg/dL ()?? 02/06/2022 22:30 Calcium, Ionized pH Corrected 1.25 mmol/L ()?? 02/06/2022 22:30 Magnesium 2.5 mg/dL (High)?? 02/06/2022 22:30 Protein, Total 6.7 Gm/dL ()?? 02/06/2022 22:30 Albumin 3.8 Gm/dL ()?? 02/06/2022 22:30 AG Ratio 1.3 ()?? 02/06/2022 22:30 Alkaline Phosphatase 80 units/L ()?? 02/06/2022 22:30 Lipase 47 units/L ()?? 02/06/2022 22:30 AST (SGOT) 23 units/L ()?? 02/06/2022 22:30 ALT (SGPT) 7 units/L ()?? 02/06/2022 22:30 Bilirubin, Total 0.2 mg/dL ()?? 02/06/2022 22:30 Lactate 0.7 mmol/L ()?? 02/07/2022 20:06 C-Reactive Protein 1.2 mg/dL (High)?? 02/10/2022 08:42 ? ENDOCRINE/TUMOR MARKER TSH 0.32 uIU/mL (Low)?? 02/06/2022 22:30 Free T4 1.08 ng/dL ()?? 02/06/2022 22:30 ?? HEME OTHER Sed Rate 83 mm/hr (High)?? 02/09/2022 08:50 Hold Lavender Top SPECIMEN DISCARDED AFTER 24 HOURS. ()?? 02/07/2022 20:06 ?? UA/URINALYSIS Appear/Color, Urine LIGHT YELLOW ()?? 02/07/2022 05:05 Specific Neely, Urine 1.027 ()?? 02/07/2022 05:05 pH, Urine 8.0 ()?? 02/07/2022 05:05 Albumin, Urine NEGATIVE ()?? 02/07/2022 05:05 Glucose, Urine NEGATIVE ()?? 02/07/2022 05:05 Ketones, Urine NEGATIVE ()?? 02/07/2022 05:05 Bilirubin, Urine NEGATIVE ()?? 02/07/2022 05:05 Hemoglobin, Urine NEGATIVE ()?? 02/07/2022 05:05 Nitrite, Urine POSITIVE (Abnormal)?? 02/07/2022 05:05 Leukocyte, Urine 3+ (Abnormal)?? 02/07/2022 05:05 Urobilinogen NORMAL mg/dL ()?? 02/07/2022 05:05 WBC's, Urine 70 /HPF (High)?? 02/07/2022 05:05 RBC's, Urine 1 /HPF ()?? 02/07/2022 05:05 Bacteria SLIGHT HPF (Abnormal)?? 02/07/2022 05:05 Squamous Epith <1 /HPF ()?? 02/07/2022 05:05 Hold Urine Culture Testing available 48 hours from time of collection. ()?? 02/07/2022 05:05 ?? VIROLOGY COVID-19 by RT-PCR NEGATIVE ()?? 02/06/2022 22:11 ? Microbiology ?? COVID-19 (Novel Coronavirus), Rapid PCR?? Completed?? Source: Nasal Body Site: Nose Collected Dt/Tm: 02/06/2022 22:11 Last Updated Dt/Tm: 02/07/2022 00:03 ? Imaging(s) ?CT Abd/Pelvis W/ IV Contrast Only ?? 02/07/2022 00:10??by Lionel Rodríguez MD ? Marked fecal burden throughout the colon with a large stool bolus in the rectum measuring 9.3 cm indiameter. No evidence of an acute bowel obstruction. ?? Left greater than right diffuse tree-in-bud opacities are nonspecific and can be seen with aspiration or atypical infectious process. ?? Rim-enhancing fluid collection adjacent to the left initial tuberosity, may represent a source of acute infection. Recommend clinical correlation. ? 35_ minutes spent on discharge * Mara Bullard RN: PERFORM, SIGN, VERIFY Event Display: Case Management Discharge Plan Authored Date: Patient: JONATHAN LOPEZ Age: 61 years Sex: Male : 1960 Associated Diagnoses: None Author: Mara Bullard RN Discharge Plan Case Management Discharge Plan : Case Management Discharge Plan Data 02/11/2022 10:56 EST Discharge Level of Care at Discharge [facility] facility Discharge Nursing Homes/Rehab Facilities [facility] Discharge Transportation Arranged [facility] [address] [facility] [phone] Discharge Arranged Transport Date/Time 02/11/2022 13:00 Mode of Transportation Arranged Ambulance Name of Agency #1 [facility] Agency Clinical Transformation Specialist #1 intake Service Categories #1 Occupational Therapy, Physical Therapy, Custodial Service Comments #1 An ambulance has been arranged through [facility] to transport patient to [facility] today @ 1pm Name of Person Notified of Transfer Patient's legal guardian Lillian Mahajan RN: PERFORM Event Display: Patient Education/Instruction Authored Date: [id number] Inpatient Adult Discharge Instructions [address] [address] Name: JONATHAN LOPEZ : 1960 Visit: 02/08/2022 11:25:00 Current Date: 02/11/2022 12:36 Account: [id number] Inpatient Adult Discharge Instructions We would like to thank you for allowing us to assist you with your healthcare needs. The following includes patient education materials and information regarding your injury/illness. Our entire staffstrives to provide an excellent experience for our patients and their families. PLEASE ENSURE YOU FOLLOW-UP PER THE INSTRUCTIONS BELOW! ?? YOUR OPINION IS IMPORTANT TO US! Please complete the survey you may receive by mail or email. Your feedback will be used to make improvements to the healthcare experiences of our patients and their families. Surveys are administered by [employer] ?? If further treatment with your primary care physician or another doctor is recommended, it is important for you to keep the appointment. Call your primary care physician or return to the Emergency Department immediately if your condition worsens, fails to improve, or new symptoms develop. If you need to find a doctor, you can call [facility] [employer] for a referral at [phone] or toll free at [phone] or log in to [email or web address].. ?? You can view and manage your care through the patient portal or by using a health care clyde of your choosing. [employer] is a website that allows you to securely view your medical information including your hospital discharge summary, office visit summaries, medications and follow-up visits. You can also request appointments, renew medications, and request access to your medical information using a health care clyde of your choosing, or just ask a question. You can enroll at [email or web address] or register during your next office visit. You have been discharged from [facility], Patient Care Unit: S3. If you have any questions regarding these instructions after you leave, please call us and we will be happy to assist you. [facility] Your Care Team Attending Physician Migel BEY, Anthony Consulting Providers Toribio BEY, Anthony Cerda MD Discharging Providers Anthony Lainez MD Reason for Admission Abdominal pain, distenion. Your Diagnosis UTI ABDOMINAL PAIN Tests Performed Below is a partial list of the tests performed during your hospitalization. You may have had other tests and procedures not included in this list. Please discuss all test results with your provider. C-REACTIVE PROTEIN CBC w/ Differential COMPLETE BLOOD COUNT Comprehensive Metabolic Panel COVID-19 (Novel Coronavirus), Rapid PCR Creatinine CRP ELECTROLYTES ESR FREE T4 GLUCOSE POC HOLD LAVENDER TUBE Ionized Calcium Lactate Level Lipase Lytes Mg Level TSH with T4 Reflex (Adults Only) Urinalysis w/hold for Urine Culture CT Abd/Pelvis W/ IV Contrast Only Primary Care Provider Dolly Díaz MD Advance Directive Health Care Proxy on File Yes - MOLST No qualifying data available. Discharge Vitals Temperature: 98.8 DegF Weight: 70.57 kg Pulse Rate:??95 bpm??High ?? Respiratory Rate: 24 br/min ?? Systolic Blood Pressure: 109 mm Hg ?? Diastolic Blood Pressure: 66 mm Hg ?? Oxygen Saturation: 94 % ?? Studies Pending All tests and labs ordered during this hospital stay have been completed unless listed below. Please discuss all pending results with your provider listed above in these instructions. ?? Add On Lab Order Blood Culture Blood Culture #2 COVID-19 (2019 Novel Coronavirus) PCR Hold Gel Top Tube (HOLD GEL TUBE) What to do next Instructions From Your Doctor Discharge Orders Diet:??Tube feeding Activity:?? HOB 30 to 45 Degrees Code Status:?? No Resuscitation Condition:??Stable Prognosis:??Fair You Need to Schedule the Following Appointments Follow Up with??Dolly Díaz MD When??Within 1 to 2 weeks Why: Follow-up with PCP/??MD at the facility for constipation, UTI as needed Where: [address] [place] [address] [place] [address]- Discharge Medications JONATHAN LOPEZ :1960 Visit Date:02/08/2022 Medications: Please continue your medications until treatment is completed or stopped by your provider. Medications not listed below should be discontinued. Discuss any questions related to medications with your provider. What How Much When Instructions Next Dose New Docusate (Colace sodium 100 mg oral capsule) 1 capsule Gastrostomy/PEG Tube Twice a day 02/11 PM New Sulfamethoxazole/ Trimethoprim (Bactrim DS Tablet) 1 tab(s) Gastrostomy/PEG Tube Twice a day Duration: 3 Days 02/11 PM Unchanged Acetaminophen (acetaminophen 500 mg oral tablet) 2 tab(s) Gastrostomy/PEG Tube 3 times a day 02/11 PM Unchanged Al Hydroxide/ Mg Hydroxide/ Simethicone (Mylanta Liquid) 30 Milliliter Gastrostomy/PEG Tube 4 times a day as needed for heartburn. ?? as needed Unchanged Atropine Ophthalmic (Atropine Sulfate, Ophthalmic) 2 Drops Sublingual Every 15 minutes PRN secretions ?? as needed Unchanged Bisacodyl (bisacodyl 10 mg rectal suppository) 1 suppository(ies) Per rectum Daily as needed for for constipation as needed Unchanged Cholecalciferol (Vitamin D3 50,000 intl units oral capsule) 1 capsule Gastrostomy/PEG Tube on the of each month. ?? regular schedule Unchanged Clonazepam (KlonoPIN 1 mg oral tablet) 1 tab(s) Gastrostomy/PEG Tube Twice a day 02/11 PM Unchanged Clozapine (clozapine 200 mg oral tablet) 1 tab(s) Gastrostomy/PEG Tube Daily in the evening with 50mg tablet for a total dose of 250mg ?? 02/11 evening Unchanged Clozapine (clozapine 25 mg oral tablet) 3 tab(s) Gastrostomy/PEG Tube Daily in the morning 02/12 AM Unchanged Clozapine (clozapine 50 mg oral tablet) 1 tab(s) Oral Daily in the evening with 200mg tablet for a total dose of 250mg ?? 02/11 evening Unchanged Guaifenesin (guaiFENesin 100 mg/ 5 mL oral liquid) 10 Milliliter Gastrostomy/PEG Tube Every 4 hours as needed for for cough as needed Unchanged Levothyroxine (levothyroxine 0.1 mg oral tablet) 1 tab(s) Gastrostomy/PEG Tube Daily 02/12 AM Unchanged Lidocaine Topical (lidocaine 5% topical film) 1 patch(es) Topically Daily as needed for Pain , Mild tp LEFT knee. remove after 12 hours ?? as needed Unchanged Ferron (lithium 300 mg oral tablet) 1 tab(s) Gastrostomy/PEG Tube Twice a day 02/11 PM Unchanged Milk of Magnesia (Milk of Magnesia 8% oral suspension) 30 Milliliter Gastrostomy/PEG Tube Daily as needed for for constipation as needed Unchanged mineral oil/ petrolatum/ phenylephrine topical (Preparation H) 1 suppository Per rectum Every 6 hours as needed for Hemorrhoids as needed Unchanged Ocular Lubricant (Artificial Tears preserved solution) 2 Drops Both eyes 4 times a day as needed for for dry eyes as needed Unchanged Omeprazole (omeprazole 20 mg oral enteric coated capsule) 1 capsule Gastrostomy/PEG Tube Daily 02/12 AM Unchanged Polyethylene Glycol 3350 (polyethylene glycol 3350 oral powder for reconstitution) 17 gram Gastrostomy/PEG Tube Daily at Bedtime dissolve in water before taking ?? 02/11 at bedtime Unchanged Senna (Senna 8.6 mg oral tablet) 1 tab(s) Gastrostomy/PEG Tube Daily 02/12 AM Unchanged Sodium Biphosphate-Sodium Phosphate (Fleet Enema 19 gm-7 gm rectal enema) 1 Each Per rectum Once as needed for for constipation as needed Unchanged Trazodone 1.25 ml/12.5mg Gastrostomy/PEG Tube Every 6 hours as needed for Agitation as needed Unchanged Trazodone (traZODone 100 mg oral tablet) 1 tab(s) Gastrostomy/PEG Tube Daily at Bedtime 02/11 at bedtime Unchanged ValACYclovir (valACYclovir 500 mg oral tablet) 1 tab(s) Gastrostomy/PEG Tube Daily 02/12 AM Unchanged Valproic Acid (valproic acid 250 mg/ 5 mL oral syrup) 20 Milliliter Gastrostomy/PEG Tube Daily 02/12 AM Unchanged Valproic Acid (valproic acid 250 mg/ 5 mL oral syrup) 40 Milliliter Gastrostomy/PEG Tube Daily at Bedtime 02/11 at bedtime Unchanged Ziprasidone (Geodon 80 mg oral capsule) 1 capsule Gastrostomy/PEG Tube Twice a day must give with meal ?? 02/11 PM Test Results Below is a partial list of the most recent Laboratory test results done prior to this discharge. You may have had other tests and procedures not included in this list. Please discuss all test resultswith your provider. C-REACTIVE PROTEIN (02/10/2022) ???C-Reactive Protein - 1.2 mg/dL CBC w/ Differential (02/08/2022) ???WBC - 5.2 k/mm3???RBC - 3.32 m/mm3???Hgb - 10.9 Gm/dL???Hct - 35.0 %???MCV - 105.4 femtoliters???MCH - 32.8 pg???MCHC - 31.1 g/dL???Platelet Count - 196 k/mm3???RDW-SD - 56.8 femtoliters???MPV - 11.8 femtoliters???Nucleated RBC (Automated) - 0.0 #/100 WBC'S???Abs. NRBC - 0.0 k/mm3???Abs. Neut - 3.3 k/mm3???Abs. Lymph - 1.5 k/mm3???Abs. Barron - 0.4 k/mm3???Abs. Eo - 0.0 k/mm3???Abs. Baso - 0.0 k/mm3???Neut % - 63.1 %???Lymph % - 28.8 %???Barron % - 7.3 %???Eos % - 0.0 %???Baso % - 0.2 %???Imm Gran - 0.6 %???Abs. Imm Gran - 0.0 k/mm3 COMPLETE BLOOD COUNT (02/10/2022) ???WBC - 8.9 k/mm3???RBC - 3.52 m/mm3???Hgb - 11.5 Gm/dL???Hct - 36.5 %???MCV - 103.7 femtoliters???MCH - 32.7 pg???MCHC - 31.5 g/dL???Platelet Count - 221 k/mm3???RDW-SD - 55.1 femtoliters???MPV - 11.8 femtoliters???Nucleated RBC (Automated) - 0.0 #/100 WBC'S???Abs. NRBC - 0.0 k/mm3 Comprehensive Metabolic Panel (02/06/2022) ???Sodium - 143 mmol/L???Potassium - 4.9 mmol/L???Chloride - 106 mmol/L???Bicarbonate Level - 27 mmol/L???Anion Gap - 10???Glucose Level - 88 mg/dL???BUN - 25 mg/dL???Creatinine-Blood - 0.7 mg/dL???Estimated GFR Creatinine - 102 ML/MIN/1.73 M2???Calcium - 9.5 mg/dL???Protein, Total - 6.7 Gm/dL???Alb umin - 3.8 Gm/dL???AG Ratio - 1.3???Alkaline Phosphatase - 80 units/L???AST (SGOT) - 23 units/L???ALT (SGPT) - 7 units/L???Bilirubin, Total - 0.2 mg/dL COVID-19 (Novel Coronavirus), Rapid PCR (02/06/2022) ???COVID-19 by RT-PCR - NEGATIVE Creatinine (02/09/2022) ???Creatinine-Blood - 0.5 mg/dL???Estimated GFR Creatinine - 113 ML/MIN/1.73 M2 CRP (02/09/2022) ???C-Reactive Protein - 1.6 mg/dL ELECTROLYTES (02/10/2022) ???Sodium - 145 mmol/L???Potassium - 4.3 mmol/L???Chloride - 113 mmol/L???Bicarbonate Level - 25 mmol/L???Anion Gap - 7 ESR (02/09/2022) ???Sed Rate - 83 mm/hr FREE T4 (02/06/2022) ???Free T4 - 1.08 ng/dL GLUCOSE POC (02/11/2022) ???Glucose, POC - 163 mg/dL HOLD LAVENDER TUBE (02/07/2022) ???Hold Lavender Top - SPECIMEN DISCARDED AFTER 24 HOURS. Ionized Calcium (02/06/2022) ???Calcium, Ionized pH Corrected - 1.25 mmol/L Lactate Level (02/07/2022) ???Lactate - 0.7 mmol/L Lipase (02/06/2022) ???Lipase - 47 units/L Lytes (02/09/2022) ???Sodium - 137 mmol/L???Potassium - 4.6 mmol/L???Chloride - 98 mmol/L???Bicarbonate Level - 28 mmol/L???Anion Gap - 11 Mg Level (02/06/2022) ???Magnesium - 2.5 mg/dL TSH with T4 Reflex (Adults Only) (02/06/2022) ???TSH - 0.32 uIU/mL Urinalysis w/hold for Urine Culture (02/07/2022) ???Appear/Color, Urine - LIGHT YELLOW???Specific Neely, Urine - 1.027???pH, Urine - 8.0???Albumin, Urine - NEGATIVE???Glucose, Urine - NEGATIVE???Ketones, Urine - NEGATIVE???Bilirubin, Urine - NEGATIVE???Hemoglobin, Urine - NEGATIVE???Nitrite, Urine - POSITIVE???Leukocyte, Urine - 3+???Urobilinogen - NORMAL? ?WBC's, Urine - 70 /HPF? ?RBC's, Urine - 1 /HPF? ?Bacteria - SLIGHT? ?Squamous Epith - <1 /HPF???Hold Urine Culture - Testing available 48 hours from time of collection. Allergies (NKA means No Known Allergies) Augmentin Prozac Seafood perphenazine Problems Active Problems??(5) Dementia?? Gastrostomy tube dependent?? Hypothyroidism?? Schizoaffective disorder?? Seizures?? Education Materials Below is the list of Educational Leaflet Providered with your Discharge Instructions. Valuables and Belongings I fully understand and agree that [facility] accepts no responsibility for all my personal property including clothing, toilet articles, radios, jewelry, dentures, hearing aids, rings, money, or any other property that is in my possession or is brought to me after admission. I understand certain valuables may be placed in a hospital safe for a short period of time. I understand that the hospital is not liable for loss or damage due to accident, fire, or other natural occurrence while said property is in the safe. I accept full responsibility for any personal property that I keep with me, and will not hold the hospital responsible in case of loss or disappearance. I acknowledge that i have been encouraged to send valuables and belongings home. ?? No Valuables/Belongings: No valuables/belongings present Review of Valuable and Belonging List: With patient Date for Pt to Sign Valuables/Belongings: 02/07/22 21:51:00 ?? Other Discharge Information ? Case Management Discharge Plan?? Discharge Plan?? Discharge Agency Information?? Discharge Level of Care at Discharge: [facility] facility Name of Agency #1: [facility] Discharge Transportation Arranged: [facility] [id number] [phone] Agency Clinical Transformation Specialist #1: intake Mode of Transportation Arranged: Ambulance Service Categories #1: Occupational Therapy, Physical Therapy, Custodial Discharge Arranged Transport Date/Time: 02/11/22 13:00:00 Service Comments #1: An ambulance has been arranged through [facility] to transport patient to [facility] today @ 1pm Discharge Nursing Homes/Rehab Facilities: [facility] Name of Person Notified of Transfer: Patient's legal guardian Rahul ?? Pulmonary Rehab Status?? Pulmonary Rehab Discharge Status?? Respiratory Rate: 24 br/min ? Common Emergency Awareness Tips IS IT A STROKE? Act FAST and Check for these signs: FACE Does the face look uneven? ARM Does one arm drift down? SPEECH Does their speech sound strange? TIME Call at any sign of stroke ?? Heart Attack Signs Chest discomfort: Most heart attacks involve discomfort in the center of the chest and lasts more than a few minutes, or goes away and comes back. It can feel like uncomfortable pressure, squeezing, fullness or pain. Discomfort in upper body: Symptoms can include pain or discomfort in one or both arms, back, neck, jaw or stomach. Shortness of breath: With or without discomfort. Other signs: Breaking out in a cold sweat, nausea, or lightheaded. Remember, MINUTES DO MATTER. If you experience any of these heart attack warning signs, call to get immediate medical attention! ?? Smoking can increase your chances of developing chronic health problems and can cause harmful effects to other family members in your house. If you smoke, you are strongly encouraged to quit. Please call [employer] [facility] at [phone] or [phone] (9470) or log in to [email or web address] for referrals to smoking cessation programs. ?? The National Suicide Prevention Hotline is available 07/10 if you or someone you know needs to find a reason to keep living. By calling 3-854-522-[employer] (7898) you'll be connected to a skilled, trained counselor at a crisis center in your area. INPATIENT DISCHARGE INSTRUCTIONS SIGNATURE PAGE JONATHAN LOPEZ Location:[facility] Registration Date and Time:02/08/2022 11:25 EST Primary Care Physician: Bre BEY Dolly, I JONATHAN LOPEZ, have received the above patient education materials/instructions and have verbalized understanding. If ambulance or transport services are being used I further acknowledge being given a choice of service. ?? If you need to contact me, please call me at this number: . Patient/Binder Lockstitch Name: Patient/Binder Lockstitch Signature: Relationship to Patient: Witness Name/Signature: Date: * Annamarie Francois: PERFORM Event Display: Discharge/Transfer Note Hospital Authored Date: [id number] Discharge Planning Nursing Entered On: 02/10/2022 11:25 EST Performed On: 02/10/2022 11:25 EST by Annamarie Francois Discharge Planning Nursing Anticipated discharge : [facility] facility Annamarie Francois - 02/10/2022 11:[address] Abdomen and Pelvis W contrast IV * HUMAIRA Osman S: Lionel Barrios MD: VERIFY Mata DO Joaquina: SIGN Event Display: Result: Authored Date: [id number] CT Abd/Pelvis W/ IV Contrast Only Hx of Present Illness: Left abdominal pain. Reason: LLQ abdominal pain; Clinical Question(s): Obstruction. TECHNIQUE: Spiral CT through the abdomen and pelvis with IV contrast formatted in 3 planes. 100 cc of Omnipaque 300 was administered intravenously. This study was performed without oral contrast. Weight-based protocol using automatic tube modulation was used to optimize exposure parameters. CTDIvol Body: 13.33 mGy, DLP Body: 1274 mGy*cm. COMPARISON: Multiple prior exams, most recent CTA chest with abdomen/pelvis 01/05/2020 CT abdomen/pelvis 07/24/2020 FINDINGS: Butter Grader View Findings, Lines and Tubes: None. Visualized Chest: Diffuse tree-in-bud opacities are seen in the left greater than right lung bases.Similar appearance of bibasilar pleural parenchymal scarring. No pleural effusion. The heart is normal in size. No pericardial effusion. Diaphragm: Normal. Liver: Normal. Gallbladder: Cholelithiasis without evidence of acute cholecystitis. Bile ducts: No biliary ductal dilation. Spleen: Normal. Pancreas: Normal. Adrenal glands: Normal. Kidneys and ureters: Similar appearance of known left parapelvic cysts. Unchanged mild prominence of the bilateral ureters. Similar nonspecific mild urothelial enhancement of the left proximal ureter. No marc hydronephrosis, stones, or suspicious masses. Bladder: Urinary bladder is mildly distended with diffuse trabeculation of the urinary bladder wall, unchanged. Reproductive organs: Unchanged prostatomegaly with prominent prostatic urethra also seen on multiple prior examinations. Stomach, small bowel, and large bowel: A G-tube appears well positioned in the stomach. No evidenceof a bowel obstruction. No inflammatory changes. Marked fecal burden throughout the colon with a large stool bolus in the rectum measuring 9.3 cm in diameter. Appendix: No evidence of acute appendicitis. Peritoneum and retroperitoneum: No ascites or pneumoperitoneum. No omental or mesenteric lesions. Lymph nodes: No enlarged lymph nodes. Blood vessels: Normal. No aneurysm. No evidence of venous thrombosis. Abdominal and pelvic wall: Ring-enhancing fluid collection inferior and posterior to the left ischial tuberosity measuring 4.4 x 3.5 x 2.3 cm. Bones: No acute abnormality. IMPRESSION: Marked fecal burden throughout the colon with a large stool bolus in the rectum measuring 9.3 cm indiameter. No evidence of an acute bowel obstruction. Left greater than right diffuse tree-in-bud opacities are nonspecific and can be seen with aspiration or atypical infectious process. Rim-enhancing fluid collection adjacent to the left initial tuberosity, may represent a source of acute infection. Recommend clinical correlation. A critical result message ([place]) has been communicated via the [employer] system on 02/07/2022 7:04 AM, Message ID [id number]. I have personally reviewed the images and I agree with this report. WSN: [id number] Ordering Physician: Bryant Hi Dictated By: Joaquina Mata DO Dictated Date/Time: 02/07/22 7:04 am Reviewed By: Lionel Rodríguez MD Signed By: Lionel Rodríguez MD Signed Date/Time: 02/07/22 7:09 am Transcribed By: MORENO Transcribed Date/Time: 02/07/22 0:35 am Patient Care team information Care Team Personnel Name: Miroslava Batres Position: [facility] RN Member Role: Primary Care Nurse Name: Verónica Dougherty RN Position: S RN Member Role: Primary Care Nurse Name: Jonathan Youssef RN Position: [facility] RN Supv Member Role: Primary Care Nurse Name: Angelica Matthews Position: S RN Member Role: Primary Care Nurse Name: Megan Emery RN Position: S RN Member Role: Primary Care Nurse Name: Aliyah May Position: S RN Member Role: Primary Care Nurse Name: Kristen Nunes RN Position: S RN Member Role: Primary Care Nurse Name: Heather Corea RN Position: S RN Member Role: Primary Care Nurse Name: Yoselin Aragon RN Position: S RN Member Role: Primary Care Nurse Name: Dolly Díaz MD Position: S Outreach Member Role: PCP Address: Address: [address] [place] [address] [place], [place] [address] Name: *Kei VICK Attending Position: [facility] ED Medicine Name: Clemencia Alcala RN Position: [facility] ED RN W/OE and Tasks Member Role: Patient Care Provider Name: Miriam Aguilar Position: [facility] ED TA [facility] Member Role: Track Repair Supervisor Name: Tess Wagner RN Position: [facility] ED RN W/OE and Tasks Member Role: Patient Care Provider Care Team Related Persons Name: CHAS [place]OPEZ Address: [place] [address] Name: ANDREW LOPEZ Name: RAHUL HUNG Address: home [address] [place] [address]
--- OUTSIDE RECORDS SUMMARY | 2022-10-18 03:17 | XMS_ITS | Continuity of Care Document ---
Author Name Unknown Organization [facility] ter Address [address] [place] [id number]- Care Team Providers Care Manufacturing Technology Professor Name Role Phone Dolly Díaz MD Primary Care Physician Encounter [facility] Date(s): 08/24/21 - 08/24/[address] [address]- Encounter Diagnosis Dislodged gastrostomy tube(Final) - 08/24/21 Discharge Disposition: A-Transfer SNF Attending Physician: Timbo Buckner DO Admitting Physician: Timbo Buckner DO Referring Physician: Not on Staff, Referring MD Allergies, Adverse Reactions, Alerts Substance Reaction Severity Status perphenazine Active Prozac Active Augmentin Active Seafood Active Immunizations Given and Recorded Vaccine Date Status Refusal Reason Influenza Virus Vaccine (oldterm) 1 12/20/19 Recor ded Diphth-Tetanus Toxoids Adsorbed(oldterm) 2 08/26/07 Given pneumococcal 23-valent vaccine 3 03/28/07 Given 1Result Comment: Info from RN at [facility] on 01/06/20 [facility] 3Admin Note: info from [facility] Medications acetaminophen 500 mg oral tablet 2 tablet = 1,000 mg, G Tube, 3 times a day, Maintenance, 07/25/20 12:21:00 EDT, Partial fill upon patient request if the prescription is for a schedule II opioid drug. Start Date: 07/25/20 Status: Ordered Atropine Sulfate, Ophthalmic 2 drops, Sublingual, Every 15 minutes, PRN secretions, 0 Refills, Maintenance, 11/02/19 0:29:00 EDT Start Date: 11/02/19 Status: Ordered bisacodyl 10 mg rectal suppository 1 supp = 10 mg, Rectally, Daily, PRN for constipation, # 10 supp, 0 Refills, Maintenance, 08/31/11 6:28:16 EDT, Suppository Start Date: 08/31/11 Status: Ordered ceftriaxone 2 gm injectable powder for injection = 2 Gm, IV Infusion, Daily, # 76 each, 0 Refills, Maintenance, 07/27/20 13:59:00 EDT, Partial fill upon patient request if the prescription is for a schedule II opioid drug. Start Date: 07/27/20 Status: Ordered clozapine 200 mg oral tablet 1 tablet = 200 mg, G Tube, Daily, in the evening with 25mg tablet., 0 Refills, Maintenance, 07/25/20 12:23:00 EDT, Partial fill upon patient request if the prescription is for a schedule II opioid drug. Start Date: 07/25/20 Status: Ordered clozapine 25 mg oral tablet 1 tablet = 25 mg, G Tube, Daily, in the evening with 200mg tablet., Maintenance, 07/25/20 12:24:00 EDT, Partial fill upon patient request if the prescription is for a schedule II opioid drug. Start Date: 07/25/20 Status: Ordered FIRST Omeprazole 2 mg/mL oral suspension 10 mL = 20 mg, G Tube, Daily, Maintenance, 07/25/20 12:25:00 EDT, Partial fill upon patient requestif the prescription is for a schedule II opioid drug. Start Date: 07/25/20 Status: Ordered Flonase 50 mcg/inh nasal spray 1 sprays, Nares, Both, 2 times a day, PRN Congestion, # 16 Gm, 0 Refills, Maintenance, 05/10/14 4:59:41 EST, [place] Start Date: 05/10/14 Status: Ordered Geodon 80 mg oral capsule 1 capsule = 80 mg, G Tube, 2 times a day, must give with meal, 0 Refills, Maintenance, 11/02/19 0:51:00 EDT Start Date: 11/02/19 Status: Ordered guaiFENesin 100 mg/5 mL oral liquid 10 mL = 200 mg, G Tube, Every 4 hours, PRN for cough, # 600 mL, 0 Refills, Maintenance, 07/24/20 21:36:00 EDT, Liquid, Partial fill upon patient request if the prescription is for a schedule II opioid drug. Start Date: 07/24/20 Status: Ordered HydroCORTisone 2.5% Topical 1 application, Topically, 3 times a day, PRN Other, hemmorhoids, (apply in a thin film to the affected skin and rub in gently and completely), # 20 Gm, 0 Refills, Maintenance, 08/31/11 13:59:16 EDT, Cream Start Date: 08/31/11 Status: Ordered KlonoPIN 1 mg oral tablet 1 tablet = 1 mg, G Tube, 2 times a day, 0 Refills, Maintenance, 11/02/19 1:01:00 EDT Start Date: 11/02/19 Status: Ordered levothyroxine 112 mcg (0.112 mg) oral capsule 1 capsule = 112 mcg, G Tube, Daily, # 30 capsule, 0 Refills, Maintenance, 05/10/14 3:05:53 EST, Capsule Start Date: 05/10/14 Status: Ordered lithium 300 mg oral capsule 1 capsule = 300 mg, G Tube, 2 times a day, 0 Refills, Maintenance, 07/24/20 21:33:00 EDT, Capsule, Partial fill upon patient request if the prescription is for a schedule II opioid drug. Start Date: 07/24/20 Status: Ordered Milk of Magnesia 8% oral suspension 30 mL = 2.4 Gm, By Mouth, Daily at bedtime, PRN for constipation, Maintenance, 07/25/20 12:41:00 EDT, Suspension, Partial fill upon patient request if the prescription is for a schedule II opioid drug. Start Date: 07/25/20 Status: Ordered MiraLax = 8.5 Gm, G Tube, Every 48 hours, 0 Refills, Maintenance, 05/10/14 3:30:35 EST Start Date: 05/10/14 Status: Ordered Mylanta Liquid 30 mL, G Tube, 4 times a day, as needed for heartburn., 0 Refills, Maintenance, 03/23/18 20:53:16 EST Start Date: 03/23/18 Status: Ordered Peridex 0.12% liquid 15 mL = 0.018 Gm, By Mouth, 2 times a day, # 473 mL, 0 Refills, Maintenance, 10/18/19 20:44:00 EDT,Liquid Start Date: 10/18/19 Status: Ordered polyethylene glycol 3350 oral powder for reconstitution = 17 Gm, G Tube, Daily, dissolve in water before taking, Maintenance, 07/25/20 12:28:00 EDT, REC Powder, Partial fill upon patient request if the prescription is for a schedule II opioid drug. Start Date: 07/25/20 Status: Ordered Senokot Tablet 8.6 mg, G Tube, Daily, Refills 0, Tot. Refills 0, Maintenance, 10/30/06 13:44:10 EDT Start Date: 10/30/06 Status: Ordered valACYclovir 500 mg oral tablet 500 mg, 1, tablet, G Tube, Daily, Refills 0, Maintenance, 04/16/16 19:39:27 EST Start Date: 04/16/16 Status: Ordered valproic acid 250 mg/5 mL oral syrup 25 mL = 1,250 mg, G Tube, 2 times a day, # 1,350 mL, 0 Refills, Maintenance, 07/24/20 21:34:00 EDT,[place], Partial fill upon patient request if the prescription is for a schedule II opioid drug. Start Date: 07/24/20 Status: Ordered vancomycin 1 g/200 mL-NaCl 0.9% intravenous solution = 1 Gm, IV Infusion, Every 12 hours, # 74 each, 0 Refills, Maintenance, 07/28/20 10:37:00 EDT, Partial fill upon patient request if the prescription is for a schedule II opioid drug. Start Date: 07/28/20 Status: Ordered Viokace 10,440 units-39,150 units-39,150 units oral tablet 1 tablet, G Tube, Every 4 hours, as needed for clogging., Maintenance, 07/25/20 12:42:00 EDT, Partial fill upon patient request if the prescription is for a schedule II opioid drug. Start Date: 07/25/20 Status: Ordered Vitamin D3 50,000 intl units oral capsule 1 capsule = 50,000 International_Units, G Tube, on the of each month., Maintenance, 07/25/20 12:30:00 EDT, Capsule, Partial fill upon patient request if the prescription is for a schedule II opioid drug. Start Date: 07/25/20 Status: Ordered Problem List Condition Effective Dates Status Health Status Inform ant Dementia(Confirmed) Active Gastrostomy tube dependent(Confirmed) Active Hypothyroidism(Confirmed) Active Schizoaffective disorder(Confirmed) Active Seizures(Confirmed) Active Results Radiology Reports * Exam Date Time Procedure Performing Provider Status 08/24/21 11:02 AM Abdomen Comp Inc Dec ub and/or Erect Leyla Lombardi; Samy (Verified) Notes: (Abdomen Comp Inc Decub and/or Erect) Reason For Exam: Localization Films RESULT: Abdomen Comp Inc Decub and/or Erect Abdomen Comp Inc Decub and/or Erect 1 view INDICATION/CLINICAL QUESTION: Hx of Present Illness: pt with 22 Fr g tube completely out. no abd pain on palpation. site on mid abdomen clean and dry.; Reason: Localization Films; Clinical Question(s): Other:; Confirm G-tube Placement; Special Instructions: Contrast via GT COMPARISON: None TECHNIQUE: 20 cc Omnipaque contrast was injected through the gastrostomy tube. AP and crosstable lateral radiograph of the abdomen are obtained. FINDINGS: Normal bowel gas pattern. No evidence of obstruction. Contrast injected through the gastrostomy tube appears to outline gastric folds compatible with intraluminal placement. Some layering contrast parallel to the spine on lateral projection is favored to be within the duodenum. No evidence of pneumoperitoneum. No acute bone findings. IMPRESSION: Contrast injected through the gastrostomy tube appears to outline gastric folds compatible with intraluminal placement. Some contrast appears to be within the duodenum on lateral projection. WSN: [id number] Ordering Physician: Sonido Espinal Dictated By: Chris Cleary MD Dictated Date/Time: 08/24/21 1:07 pm Reviewed By: Chris Cleary MD Signed By: Chris Cleary MD Signed Date/Time: 08/24/21 1:07 pm Transcribed By: MORENO Transcribed Date/Time: 08/24/21 1:05 pm Vital Signs Most recent to oldest [Reference Range]: 1 2 Oxygen Saturation [94-100 %] 100 % (08/24/21 3:00 PM) 97 % (08/24/21 10:01 AM) Pulse Rate [55-90 bpm] 95 bpm *H* (08/24/21 3:00 PM) 77 bpm (08/24/21 10:01 AM) Blood Pressure [90-138/55-84 mm Hg] 104/ 76mm Hg (08/24/21 3:00 PM) 91/78mm Hg (08/24/21 10:01 AM) Respiratory Rate [16-30 br/min] 18 br/mi n (08/24/21 3:00 PM) 16 br/min (08/24/21 10:01 AM) Temperature [96.8-100.4 DegF] 97.4 DegF (08/24/21 10:01 AM) Liters per Minute 0 L/min (08/24/21 10:01 AM) Mode of Delivery (Oxygen) Room air (08/24/21 3:00 PM) Room air (08/24/21 10:01 AM) Blood pressure sites Arm, left (08/24/21 10:01 AM) Temperature Route Oral (08/24/21 10:01 AM) Social History Social History Type Response Smoking Status Former smoker entered on: 02/18/14 Sex
--- OUTSIDE RECORDS SUMMARY | 2022-10-18 03:17 | XMS_ITS | Continuity of Care Document ---
Author Name Unknown Organization [facility] ter Address [address] [place] [id number]- Care Team Providers Care Wedger And Gluer Name Role Phone Dolly Díaz MD Primary Care Physician [phone] Encounter [facility] [place] Date(s): 07/25/20 - 07/28/[address] [address] Discharge Disposition: A-Transfer SNF Attending Physician: Angela Neely MD Admitting Physician: Ernst Seth MD Referring Physician: Not on Staff, Referring MD Allergies, Adverse Reactions, Alerts Substance Reaction Severity Status perphenazine Active Prozac Active Augmentin Active Seafood Active Immunizations Given and Recorded Vaccine Date Status Refusal Reason Influenza Virus Vaccine (oldterm) 1 12/20/19 Recor ded Diphth-Tetanus Toxoids Adsorbed(oldterm) 2 08/26/07 Given pneumococcal 23-valent vaccine 3 03/28/07 Given 1Result Comment: Info from RN at [facility] on 01/06/20 2[facility],leighann 3Admin Note: info from [facility] Medications acetaminophen 500 mg oral tablet [...] Gm, 0 Refills, Maintenance, 05/10/14 4:59:41 EST, [place] Start Date: 05/10/14 Status: Ordered Geodon 80 [...] Active Schizoaffective disorder(Confirmed) Active Seizures(Confirmed) Active Results Orders for Microbiology Reports Name Date Blood Culture 07/24/20 Blood Culture #2 07/24/20 Urine Culture 07/24/20 Microbiology Reports TEST:Blood Culture, Second Order STATUS:Unauthenticated BODY SITE: SOURCE:Blood COLLECTED DATE/TIME:07/24/20 12:13 PM Blood Culture, Second Order SPECIMEN DESCRIPTION : BLOOD RAC SPECIAL REQUESTS : NONE CULTURE : NO GROWTH 4 DAYS REPORT STATUS : PRELIMINARY REPORT TEST:Urine Culture STATUS:Auth (Verified) BODY SITE: SOURCE:URINE COLLECTED DATE/TIME:07/24/20 12:05 PM Urine Culture SPECIMEN DESCRIPTION : URINE STRAIGHT CATH. SPECIAL REQUESTS : NONE CULTURE : NO GROWTH 3 DAYS REPORT STATUS : FINAL 07/27/2020 TEST:Blood Culture STATUS:Unauthenticated BODY SITE: SOURCE:Blood COLLECTED DATE/TIME:07/24/20 10:25 AM Blood Culture SPECIMEN DESCRIPTION : BLOOD L HAND SPECIAL REQUESTS : NONE CULTURE : NO GROWTH 4 DAYS REPORT STATUS : PRELIMINARY REPORT Radiology Reports * Exam Date Time Procedure Performing Provider Status 07/24/20 10:56 AM Chest Portable Juanita Pride; Auth (V erified) Notes: (Chest Portable) Reason For Exam: Fever RESULT: Chest Portable Chest Portable Hx of Present Illness: Fever, n v; Reason: Fever; Clinical Question(s): Pneumonia COMPARISON: Chest radiograph 01/05/2020. FINDINGS: LINES AND TUBES: None. LUNGS AND PLEURA: Clear lungs. Normal pulmonary vascularity. No pleural effusion. No pneumothorax. HEART, MEDIASTINUM AND INDIA: Heart is normal in size. Normal upper mediastinal and hilar contour. BONES AND SOFT TISSUES: No acute abnormality. IMPRESSION: No acute abnormality. WSN: [id number] Ordering Physician: Alcon Dudley Dictated By: Agueda Thomas MD Dictated Date/Time: 07/24/20 11:08 a Reviewed By: Agueda Thomas MD Signed By: Agueda Thomas MD Signed Date/Time: 07/24/20 11:08 am Transcribed By: MORENO Transcribed Date/Time: 07/24/20 11:08 am Vital Signs Most recent to oldest [Reference Range]: 1 2 3 Weight 79.1 kg (07/24/20 7:53 PM) Oxygen Saturation [94-100 %] 94 % (07/28/20 4:00 PM) 96 % (07/28/20 7:00 AM) 97 % (07/28/20 3:28 AM) Pulse Rate [55-90 bpm] 71 bpm (07/28/20 4:00 PM) 70 bpm (07/28/20 7:00 AM) 70 bpm (07/28/20 3:28 AM) Blood Pressure [90-138/55-84 mm Hg] 110/69mm Hg (07/28/20 4:00 PM) 109/67mm Hg (07/28/20 7:00 AM) 148/63mm Hg *H* (07/28/20 3:28 AM) Respiratory Rate [16-30 br/min] 19 br/min (07/28/20 4:00 PM) 19 br/min (07/28/20 7:00 AM) 21 br/min (07/28/20 3:28 AM) Temperature [96.8-100.4 DegF] 98.3 DegF (07/28/20 4:00 PM) 98.5 DegF (07/28/20 7:00 AM) 98.6 DegF (07/28/20 3:28 AM) Liters per Minute 4 L/min (07/24/20 7:53 PM) 4 L/min (07/24/20 5:57 PM) 4.5 L/min (07/24/20 12:41 PM) Mode of Delivery (Oxygen) Room air (07/28/20 4:00 PM) Room air (07/28/20 7:00 AM) Room air (07/28/20 3:28 AM) Blood pressure sites Arm, left (07/28/20 4:00 PM) Arm, left (07/28/20 7:00 AM) Arm, left (07/28/20 3:28 AM) Temperature Route Axillary (07/28/20 4:00 PM) Axillary (07/28/20 7:00 AM) Axillary (07/28/20 3:28 AM) Weight Obtained Via Bed scale (07/24/20 7:53 PM) Social History Social History Type Response Smoking Status Former smoker entered on: 02/18/14 Sex
--- OUTSIDE RECORDS SUMMARY | 2022-10-18 03:17 | XMS_ITS | Continuity of Care Document ---
Author Name Unknown Organization [facility] Address [address] [place] [address]- Care Team Providers Care Dietitian Chief Name Role Phone Dolly Díaz MD Primary Care Physician [phone] Encounter [facility] Date(s): 11/11/19 - 11/11/[address] [address]- [facility] [phone] Discharge Disposition: Transfer Housing Case Manager Care Attending Physician: Nathanael Chambers MD Admitting Physician: Nathanael Chambers MD Referring Physician: Not on Staff, Referring MD Allergies, Adverse Reactions, Alerts Substance Reaction Severity Status perphenazine Active Prozac Active Augmentin Active Seafood Active Immunizations Given and Recorded Vaccine Date Status Refusal Reason Diphth-Tetanus Toxoids Adsorbed(oldterm) 1 08/26/07 Given pneumococcal 23-valent vaccine 2 03/28/07 Given 1Admin Note: [facility] sherley cueto,rn 2Admin Note: info from [facility] Medications Acetaminophen = 1,000 mg, G Tube, 3 times a day, 0500/1200/1800, 0 Refills, Maintenance, 05/10/14 4:11:51 EST Start Date: 05/10/14 Status: Ordered Acidophilus oral tablet, chewable G Tube, 2 times a day, started 10/26/2019, 0 Refills, Maintenance, 11/02/19 0:28:00 EDT Start Date: 11/02/19 Stop Date: 11/16/19 Status: Ordered Atropine Sulfate, Ophthalmic Sublingual, Every 15 minutes, PRN secretions, 0 Refills, Maintenance, 11/02/19 0:29:00 EDT Start Date: 11/02/19 Status: Ordered bisacodyl 10 mg rectal suppository 1 supp = 10 mg, Rectally, Daily, PRN for constipation, # 10 supp, 0 Refills, Maintenance, 08/31/11 6:28:16 EDT, Suppository Start Date: 08/31/11 Status: Ordered Jorge Soap Enema Jorge Soap Enema, 1 enema, Rectally, Daily, PRN Constipation, Refills 0, Maintenance, If no results from Fleet enema, 09/18/17 19:49:20 EDT, Compound Start Date: 09/18/17 Status: Ordered ChlorproMAZINE = 125 mg, G Tube, 3 times a day, 0 Refills, Maintenance, 10/18/19 21:13:00 EDT Start Date: 10/18/19 Status: Ordered chlorproMAZINE 100 mg oral tablet See Instructions, 1 tablet via gtube daily at noon, 0 Refills, Maintenance, 11/02/19 0:36:00 EDT Start Date: 11/02/19 Status: Ordered chlorproMAZINE 25 mg oral tablet 3 tablet = 75 mg, G Tube, Daily in AM, # 270 tablet, 0 Refills, Maintenance, 10/18/19 20:59:00 EDT,Tablet Start Date: 10/18/19 Status: Ordered cholecalciferol oral tablet = 50,000 units, G Tube, Every 30 days, given on the of the , 0 Refills, Maintenance, 10/18/19 21:05:00 EDT Start Date: 10/18/19 Status: Ordered Clozapine See Instructions, 225 mg G Tube Daily in evening, 0 Refills, Maintenance, 09/18/17 19:05:41 EDT Start Date: 09/18/17 Status: Ordered Clozapine See Instructions, 250mg via gtube in AM, 0 Refills, Maintenance, 11/02/19 0:43:00 EDT Start Date: 11/02/19 Status: Ordered Fleet Enema 19 gm-7 gm rectal enema 133 mL, Rectally, Once, PRN as needed for constipation, 0 Refills, Maintenance, 11/02/19 0:46:00 EDT Start Date: 11/02/19 Status: Ordered Flonase 50 mcg/inh nasal spray 1 sprays, Nares, Both, 2 times a day, PRN Congestion, # 16 Gm, 0 Refills, Maintenance, 05/10/14 4:59:41 EST, [place] Start Date: 05/10/14 Status: Ordered Geodon 80 mg oral capsule 1 capsule = 80 mg, G Tube, 2 times a day, must give with meal, 0 Refills, Maintenance, 11/02/19 0:51:00 EDT Start Date: 11/02/19 Status: Ordered Guaifenesin 10 mL, G Tube, Every 4 hours, PRN as needed for congestion, 0 Refills, Maintenance, 06/27/16 14:05:03 EDT Start Date: 06/27/16 Status: Ordered Hemorrhoid Supp PE-Shark liver oil-[place] Butter 0.25-3-85.5% Hemorrhoid Supp PE-Shark liver oil-[place] Butter 0.25-3-85.5%, 1, supp, Rectally, Every 6 hours, PRNPain, Refills 0, Maintenance, Hemorrhoids, 09/18/17 19:56:21 EDT, Compound Start Date: 09/18/17 Status: Ordered HydroCORTisone 2.5% Topical 1 application, Topically, 3 times a day, PRN Other, hemmorhoids, (apply in a thin film to the affected skin and rub in gently and completely), # 20 Gm, 0 Refills, Maintenance, 08/31/11 13:59:16 EDT, Cream Start Date: 08/31/11 Status: Ordered KlonoPIN 1 mg oral tablet 1 tablet = 1 mg, By Mouth, 2 times a day, 0 Refills, Maintenance, 11/02/19 1:01:00 EDT Start Date: 11/02/19 Status: Ordered levothyroxine 112 mcg (0.112 mg) oral capsule 1 capsule = 112 mcg, G Tube, Daily, # 30 capsule, 0 Refills, Maintenance, 05/10/14 3:05:53 EST, Capsule Start Date: 05/10/14 Status: Ordered [place] See Instructions, 8 meq/5ml give 5ml via gtube two times daily, Refills 0, Maintenance, 09/18/17 19:35:14 EDT, Instructions Replace Required Details Start Date: 09/18/17 Status: Ordered MiraLax = 17 Gm, G Tube, Daily, 0 Refills, Maintenance, 05/10/14 3:30:35 EST Start Date: 05/10/14 Status: Ordered MiraLax Powder 8.5 gram, G Tube, Every 48 hours, PRN Constipation, 0 Refills, Maintenance, 11/11/17 2:36:11 EDT Start Date: 11/11/17 Status: Ordered Mylanta Liquid 30 mL, G Tube, 4 times a day, PRN Dyspepsia, 0 Refills, Maintenance, 03/23/18 20:53:16 EST Start Date: 03/23/18 Status: Ordered omeprazole 2 mg/mL oral suspension 10 mL = 20 mg, G Tube, Daily, 0 Refills, Maintenance, 10/18/19 21:01:00 EDT Start Date: 10/18/19 Status: Ordered pancrelipase 3000 units-10,000 units-14,000 units oral delayed release capsule 1 capsule, G Tube, Every 4 hours, PRN Line/Tube Patency, mix with 5ml sodium bicarbonate, administer via Gtube, 0 Refills, Maintenance, 10/18/19 20:53:00 EDT Start Date: 10/18/19 Status: Ordered Peridex 0.12% liquid 15 mL = 0.018 Gm, By Mouth, 2 times a day, # 473 mL, 0 Refills, Maintenance, 10/18/19 20:44:00 EDT,Liquid Start Date: 10/18/19 Status: Ordered Senokot Tablet 8.6 mg, G [...] 2 times a day, 0 Refills, Maintenance, 10/18/19 20:46:00 EDT Start Date: 10/18/19 Status: Ordered Problem List Condition Effective Dates Status Health Status Inform ant Dementia(Confirmed) Active Hypothyroidism(Confirmed) Active Seizures(Confirmed) Active Results Radiology Reports * Exam Date Time Procedure Performing Provider Status 11/11/19 1:03 PM Chest Portable Kiki Barksdale; Samy (Verified) Notes: (Chest Portable) Reason For Exam: Cough RESULT: Chest Portable Chest Portable INDICATION: Cough. Clinical Question(s): Pneumonia COMPARISON: Multiple priors most recent 11/01/2019. FINDINGS: LINES AND TUBES: None. LUNGS AND PLEURA: COPD changes. Mild left basilar scarring and/or atelectasis unchanged. No pleural effusion. No pneumothorax. HEART, MEDIASTINUM AND INDIA: Heart is normal in size. Normal mediastinal and hilar contour. BONES AND SOFT TISSUES: No acute abnormality. IMPRESSION: No acute abnormality. WSN: [id number] Ordering Physician: Frederick Owens Dictated By: Livan Riley MD Dictated Date/Time: 11/11/19 1:15 pm Reviewed By: Livan Riley MD Signed By: Livan Riley MD Signed Date/Time: 11/11/19 1:15 pm Transcribed By: MORENO Transcribed Date/Time: 11/11/19 1:14 pm Vital Signs Most recent to oldest [Reference Range]: 1 2 3 Height 84 cm (11/11/19 6:50 PM) 84 cm (11/11/19 6:31 PM) 84 cm (11/11/19 5:15 PM) Weight 177.8 kg (11/11/19 6:50 PM) 177.8 kg (11/11/19 6:31 PM) 177.8 kg (11/11/19 5:15 PM) Oxygen Saturation [94-100 %] 93 % *L* (11/11/19 6:50 PM) 98 % (11/11/19 5:15 PM) 100 % (11/11/19 3:02 PM) Pulse Rate [55-90 bpm] 89 bpm (11/11/19 6:50 PM) 88 bpm (11/11/19 6:31 PM) 92 bpm *H* (11/11/19 5:15 PM) Body Mass Index [18.5-24.99] 251.98 *>HHI* (11/11/19 6:50 PM) 251.98 *>HHI* (11/11/19 6:31 PM) 251.98 *>HHI* (11/11/19 5:15 PM) Blood Pressure [90-138/55-84 mm Hg] 113/92mm Hg (11/11/19 6:50 PM) 122/81mm Hg (11/11/19 6:31 PM) 113/80mm Hg (11/11/19 5:15 PM) Respiratory Rate [16-30 br/min] 12 br/min *L* (11/11/19 6:50 PM) 18 br/min (11/11/19 6:31 PM) 18 br/min (11/11/19 5:15 PM) Temperature [96.8-100.4 DegF] 98 DegF (11/11/19 6:50 PM) 98.3 DegF (11/11/19 5:15 PM) 98.5 DegF (11/11/19 3:02 PM) Liters per Minute 1.5 L/min (11/11/19 12:40 PM) 1.5 L/min (11/11/19 12:40 PM) Mode of Delivery (Oxygen) Room air (11/11/19 6:50 PM) Room air (11/11/19 5:15 PM) Room air (11/11/19 3:02 PM) Blood pressure sites Arm, left (11/11/19 6:50 PM) Arm, left (11/11/19 6:31 PM) Arm, left (11/11/19 5:15 PM) Temperature Route Oral (11/11/19 6:50 PM) Oral (11/11/19 5:15 PM) Oral (11/11/19 3:02 PM) Dry Weight 177.8 kg (11/11/19 6:50 PM) 177.8 kg (11/11/19 6:31 PM) 177.8 kg (11/11/19 5:15 PM) Weight Obtained Via Patient/family state d (11/11/19 12:40 PM) Social History Social History Type Response Smoking Status Former smoker entered on: 02/18/14 Sex
--- OUTSIDE RECORDS SUMMARY | 2022-10-18 03:17 | XMS_ITS | Continuity of Care Document ---
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 Name Role Phone Dolly Díaz MD Primary Care Physician [phone] [place] [facility] [place] - 08/15/[address] [address]- [facility] [phone] Encounter Diagnosis Dislodged gastrostomy tube(Final) - 08/15/19 Discharge Disposition: A-D/C Home Attending Physician: Linden Swanson DO Admitting Physician: Linden Swanson DO Referring Physician: Not on Staff, Referring MD Allergies, Adverse Reactions, Alerts Substance Reaction Severity Status perphenazine Active Prozac Active Augmentin Active Seafood Active Immunizations Given and Recorded Vaccine Date Status Refusal Reason Diphth-Tetanus Toxoids Adsorbed(oldterm) 1 08/26/07 Given pneumococcal 23-valent vaccine 2 03/28/07 Given [facility] 2Admin Note: info from [facility] Medications Acetaminophen = 1,000 mg, By Mouth, 3 times a day, 0500/1200/1800, 0 Refills, Maintenance, 05/10/14 4:11:51 EST Start Date: 05/10/14 Status: Ordered albuterol 0.083% inhalation solution 3 mL = 2.5 mg, Inhalation, Every 4 hours, PRN for wheezing, # 25 each, 0 Refills, Maintenance, 05/10/14 4:39:21 EST, Solution Start Date: 05/10/14 Status: Ordered bisacodyl 10 mg rectal suppository 1 supp = 10 mg, Rectally, Daily, PRN for constipation, # 10 supp, 0 Refills, Maintenance, 08/31/11 6:28:16 EDT, Suppository Start Date: 08/31/11 Status: Ordered bisacodyl 5 mg oral delayed release tablet 1 tablet = 5 mg, By Mouth, Daily, PRN for constipation, # 20 tablet, 0 Refills, Maintenance, 11/26/17 16:58:15 EDT, EC Tablet Start Date: 11/26/17 Status: Ordered Jorge Soap Enema Jorge Soap Enema, 1 enema, Rectally, Daily, PRN Constipation, Refills 0, Maintenance, If no results from Fleet enema, 09/18/17 19:49:20 EDT, Compound Start Date: 09/18/17 Status: Ordered chlorproMAZINE 100 mg oral tablet 1 tablet = 100 mg, By Mouth, 2 times a day, # 180 tablet, 0 Refills, Maintenance, 11/26/17 16:26:48EDT, Tablet Start Date: 11/26/17 Status: Ordered chlorproMAZINE 200 mg oral tablet 1 tablet = 200 mg, By Mouth, Daily at bedtime, 0 Refills, Maintenance, 11/26/17 16:28:47 EDT Start Date: 11/26/17 Status: Ordered Clonazepam = 1 mg, By Mouth, 2 times a day, 0 Refills, Maintenance, 06/27/16 14:06:11 EDT Start Date: 06/27/16 Status: Ordered Clozapine = 250 mg, By Mouth, Daily in AM, 0 Refills, Maintenance, 11/26/17 16:46:28 EDT Start Date: 11/26/17 Status: Ordered Clozapine = 225 mg, By Mouth, Daily, at 1800, 0 Refills, Maintenance, 09/18/17 19:05:41 EDT Start Date: 09/18/17 Status: Ordered Depakote Sprinkles 125 mg oral enteric coated capsule 9 capsule = 1,125 mg, By Mouth, 2 times a day, at 0900 & 18:00, # 270 capsule, 0 Refills, Maintenance, 04/16/16 15:30:55 EST, EC Capsule Start Date: 04/16/16 Status: Ordered Fleet Enema 19 gm-7 gm rectal enema 1 each, Rectally, Once, PRN for constipation, # 133 mL, 0 Refills, Maintenance, 03/23/18 20:46:35 EST, Enema Start Date: 03/23/18 Status: Ordered Flonase 50 mcg/inh nasal spray 1 sprays, Nares, Both, 2 times a day, PRN Congestion, # 16 Gm, 0 Refills, Maintenance, 05/10/14 4:59:41 EST, [place] Start Date: 05/10/14 Status: Ordered fludrocortisone 0.1 mg oral tablet 2 tablet = 0.2 mg, By Mouth, Daily, at 9 :00, 0 Refills, Maintenance, 08/31/11 6:15:35 EDT Start Date: 08/31/11 Status: Ordered Guaifenesin 10 mL, By Mouth, Every 4 hours, PRN as needed for congestion, 0 Refills, Maintenance, 06/27/16 14:05:03 EDT Start Date: 06/27/16 Status: Ordered Hemorrhoid Supp PE-Shark liver oil-[place] Butter 0.25-3-85.5% Hemorrhoid Supp PE-Shark liver oil-[place] Butter 0.25-3-85.5%, 1, supp, Rectally, Every 6 [...] EDT, Cream Start Date: 08/31/11 Status: Ordered lactulose 10 gm/15 ml oral syrup 30 mL = 20 Gm, By Mouth, Daily, at 9 :00, 0 Refills, Maintenance, 08/31/11 14:00:38 EDT Start Date: 08/31/11 Status: Ordered Lasix 20 mg oral tablet 20 mg, By Mouth, Daily, Refills 0, Maintenance, 04/12/18 9:22:40 EST Start Date: 04/12/18 Status: Ordered levothyroxine 112 mcg (0.112 mg) oral capsule 1 capsule = 112 mcg, By Mouth, Daily, # 30 capsule, 0 Refills, Maintenance, 05/10/14 3:05:53 EST, Capsule Start Date: 05/10/14 Status: Ordered [place] 150 mg, By Mouth, Daily in AM, Refills 0, Maintenance, 09/18/17 19:35:14 EDT Start Date: 09/18/17 Status: Ordered loratadine 10 mg oral tablet 1 tablet = 10 mg, By Mouth, Daily, PRN Congestion, 0 Refills, Maintenance, 08/31/11 14:05:31 EDT Start Date: 08/31/11 Status: Ordered Milk of Magnesia 30 mL, By Mouth, Daily, PRN constipation, 0 Refills, Maintenance, 07/25/16 21:32:07 EDT Start Date: 07/25/16 Status: Ordered MiraLax = 17 Gm, By Mouth, Daily in AM, 0 Refills, Maintenance, 05/10/14 3:30:35 EST Start Date: 05/10/14 Status: Ordered MiraLax Powder 8.5 gram, By Mouth, Daily at bedtime, 0 Refills, Maintenance, 11/11/17 2:36:11 EDT Start Date: 11/11/17 Status: Ordered Mylanta Liquid 30 mL, By Mouth, 4 times a day, PRN Dyspepsia, 0 Refills, Maintenance, 03/23/18 20:53:16 EST Start Date: 03/23/18 Status: Ordered predniSONE 20 mg oral tablet = 40 mg, By Mouth, Daily in AM, 0 Refills, Maintenance, 04/12/18 9:22:45 EST, Tablet Start Date: 04/12/18 Status: Ordered PriLOSEC OTC 20 mg oral delayed release tablet 1 tablet = 20 mg, By Mouth, Daily, 0 Refills, Maintenance, 11/11/17 2:37:54 EDT Start Date: 11/11/17 Status: Ordered Senokot Tablet 8.6 mg, By Mouth, 2 times a day, Refills 0, Tot. Refills 0, Maintenance, 10/30/06 13:44:10 EDT Start Date: 10/30/06 Status: Ordered valACYclovir 500 mg oral tablet 500 mg, 1, tablet, By Mouth, Daily in AM, Refills 0, Maintenance, 04/16/16 19:39:27 EST Start Date: 04/16/16 Status: Ordered ziprasidone 80 mg oral capsule 1 capsule = 80 mg, By Mouth, 2 times a day, at 0900/1800, 0 Refills, Maintenance, 08/31/11 6:19:08 EDT Start Date: 08/31/11 Status: Ordered Problem List Condition Effective Dates Status Health Status Inform ant Dementia(Confirmed) Active Hypothyroidism(Confirmed) Active Seizures(Confirmed) Active Results Radiology Reports * Exam Date Time Procedure Performing Provider Status 08/15/19 4:53 AM Abdomen AP Masloski , Jon; Auth ( Verified) Notes: (Abdomen AP) Reason For Exam: Localization Films RESULT: XR Abdomen AP Abdomen AP supine, 2 consecutive views at 0448 and 0504 INDICATION: G-tube replacement . COMPARISON: 05/14/2019 FINDINGS: The 1st AP supine view shows G-tube projecting over the antrum.. Normal gas pattern. Cholelithiasisis unchanged. The 2nd film shows contrast injection confirming that the balloon is inflated in the antrum and contrast filled the proximal duodenum. There is no evidence of peritoneal contamination. No evidence of pneumoperitoneum. Clear lung bases and no acute bone findings. IMPRESSION: G-tube appropriately positioned. WSN: [id number] Ordering Physician: Linden Swanson Dictated By: Pramod Campbell MD Dictated Date/Time: 08/15/19 11:47 a Reviewed By: Pramod Campbell MD Signed By: Pramod Campbell MD Signed Date/Time: 08/15/19 11:47 am Transcribed By: MORENO Transcribed Date/Time: 08/15/19 11:42 am * Exam Date Time Procedure Performing Provider Status 08/15/19 5:08 AM Abdomen AP Shyamski Jon; Auth ( Verified) Notes: (Abdomen AP) Reason For Exam: Localization Films RESULT: XR Abdomen AP Abdomen AP supine, 2 consecutive views at 0448 and 0504 INDICATION: G-tube replacement . COMPARISON: 05/14/2019 FINDINGS: The 1st AP supine view shows G-tube projecting over the antrum.. Normal gas pattern. Cholelithiasisis unchanged. The 2nd film shows contrast injection confirming that the balloon is inflated in the antrum and contrast filled the proximal duodenum. There is no evidence of peritoneal contamination. No evidence of pneumoperitoneum. Clear lung bases and no acute bone findings. IMPRESSION: G-tube appropriately positioned. WSN: [id number] Ordering Physician: Linden Swanson Dictated By: Pramod Campbell MD Dictated Date/Time: 08/15/19 11:47 a Reviewed By: Pramod Campbell MD Signed By: Pramod Campbell MD Signed Date/Time: 08/15/19 11:47 am Transcribed By: MORENO Transcribed Date/Time: 08/15/19 11:42 am Vital Signs Most recent to oldest [Reference Range]: 1 2 Height 178 cm (08/15/19 6:01 AM) 178 cm (08/15/19 4:27 AM) Weight 77.5 kg (08/15/19 6:01 AM) 77.5 kg (08/15/19 4:27 AM) Oxygen Saturation [94-100 %] 97 % (08/15/19 4:27 AM) Pulse Rate [55-90 bpm] 78 bpm (08/15/19 4:27 AM) Blood Pressure [90-138/55-84 mm Hg] 118/ 71mm Hg (08/15/19 4:27 AM) Respiratory Rate [16-30 br/min] 16 br/mi n (08/15/19 4:27 AM) Temperature [96.8-100.4 DegF] 97.9 DegF (08/15/19 4:27 AM) Mode of Delivery (Oxygen) Room air (08/15/19 4:27 AM) Blood pressure sites Arm, right (08/15/19 4:27 AM) Temperature Route Oral (08/15/19 4:27 AM) Dry Weight 77.5 kg (08/15/19 6:01 AM) 77.5 kg (08/15/19 4:27 AM) Social History Social History Type Response Smoking Status Former smoker entered on: 02/18/14 Sex
--- OUTSIDE RECORDS SUMMARY | 2022-10-18 03:17 | XMS_ITS | Continuity of Care Document ---
Author Name Unknown Organization [facility] ter Address [address] [place] [address]- Care Team Providers Care Pattern Carrier Name Role Phone Dolly Díaz MD Primary Care Physician [place] [facility] [place]22 - 04/30/[address] [address]- Encounter Diagnosis UTI (urinary tract infection)(Final) - 04/30/22 Hypotension(Final) - 04/30/22 Altered mental state(Final) - 04/30/22 Discharge Disposition: A-Transfer SNF Attending Physician: Kaykay Baig MD Admitting Physician: Kaykay Baig MD Referring Physician: Not on Staff, Referring MD Allergies, Adverse Reactions, Alerts Substance Reaction Severity Status perphenazine Active Prozac Active Augmentin Active Seafood Active Immunizations Given and Recorded Vaccine Date Status Refusal Reason Influenza Virus Vaccine (oldterm) 1 12/20/19 Recor ded Diphth-Tetanus Toxoids Adsorbed(oldterm) 2 08/26/07 Given pneumococcal 23-valent vaccine 3 03/28/07 Given 1Result Comment: Info from RN at [facility] on 01/06/20 2Admin Note: [facility] sherley cueto,leighann 3Admin Note: info from [facility] Medications acetaminophen 500 mg oral tablet 2 tablet = 1,000 mg, G Tube, 3 times a day, Maintenance, 07/25/20 12:21:00 EDT, ; Start Date: 07/25/20 Status: Ordered Acidophilus 1 tablet, By Mouth, 2 times a day, 02/11/22 to 02/16/22, Maintenance, 02/12/22 12:46:00 EST, ; Start Date: 02/12/22 Status: Ordered Artificial Tears preserved solution 2 drops, Eyes, Both, 4 times a day, PRN for dry eyes, 0.2--0.2-1%, Maintenance, 02/07/22 11:10:00 EST, Solution, ; Start Date: 02/07/22 Status: Ordered Atropine Sulfate, Ophthalmic 2 drops, Sublingual, Every 15 minutes, PRN SECRETIONS, 0 Refills, Maintenance, 11/02/19 0:29:00 EDT Start Date: 11/02/19 Status: Ordered Bactrim DS 800 mg-160 mg oral tablet 1 tablet, By Mouth, 2 times a day, for 7 days, # 14 tablet, 0 Refills, Acute 05/07/22 4:14:00 EST, 04/30/22 4:14:00 EST, Tablet, [id number], Partial fill upon patient request if the prescription is for a schedule II opioid drug., 1 tab... Start Date: 04/30/22 Stop Date: 05/07/22 Status: Ordered bisacodyl 10 mg rectal suppository 1 supp = 10 mg, Rectally, Daily, PRN for constipation, Maintenance, 02/12/22 12:55:00 EST, Suppository, ; Start Date: 02/12/22 Status: Ordered Clozapine = 175 mg, G Tube, Daily at bedtime, 0 Refills, Maintenance, 02/25/22 10:54:00 EST, Tablet, Partial fill upon patient request if the prescription is for a schedule II opioid drug. Start Date: 02/25/22 Status: Ordered clozapine 50 mg oral tablet 1 tablet = 50 mg, By Mouth, Daily in AM, 0 Refills, Maintenance, 02/25/22 10:55:00 EST, Tablet, Partial fill upon patient request if the prescription is for a schedule II opioid drug. Start Date: 02/25/22 Status: Ordered Colace sodium 100 mg oral capsule 100 mg, 1, capsule, G Tube, 2 times a day, Refills 0, Maintenance, 02/11/22 10:43:00 EST, ; Start Date: 02/11/22 Status: Ordered Fleet Enema 19 gm-7 gm rectal enema 1 each, Rectally, Once, PRN for constipation, Maintenance, 02/07/22 11:10:00 EST, Enema, ; Start Date: 02/07/22 Status: Ordered Geodon 80 mg oral capsule 1 capsule = 80 mg, G Tube, 2 times a day, must give with meal, 0 Refills, Maintenance, 11/02/19 0:51:00 EDT Start Date: 11/02/19 Status: Ordered guaiFENesin 100 mg/5 mL oral liquid 10 mL = 200 mg, G Tube, Every 4 hours, PRN for cough, 0 Refills, Maintenance, 07/24/20 21:36:00 EDT, Liquid, ; Start Date: 07/24/20 Status: Ordered H2O FLUSH H2O FLUSH, 225, mL, 4 times a day, Maintenance, Before Jevity 9am, 1pm, 5pm & 9pm, 02/12/22 12:51:00 EST, Supply Start Date: 02/12/22 Status: Ordered JEVITY JEVITY, 1.2 Bolus Feed, Maintenance, Prior to each feed, 02/12/22 12:48:00 EST, Supply Start Date: 02/12/22 Status: Ordered JEVITY JEVITY, 400, mL, 4 times a day, Maintenance, 9am, 1pm, 5pm & 9pm, 02/12/22 12:49:00 EST, Supply Start Date: 02/12/22 Status: Ordered KlonoPIN 0.5 mg oral tablet 1 tablet = 0.5 mg, G Tube, 2 times a day, 0 Refills, Maintenance, 02/25/22 10:54:00 EST, Tablet, Partial fill upon patient request if the prescription is for a schedule II opioid drug. Start Date: 02/25/22 Status: Ordered levothyroxine 0.1 mg oral tablet 1 tablet = 100 mcg, G Tube, Daily, Maintenance, 02/07/22 10:53:00 EST, Tablet, ; Start Date: 02/07/22 Status: Ordered lidocaine 5% topical film 1 patch, Topically, Daily, PRN Pain , Mild, tp LEFT knee. remove after 12 hours, Maintenance, 02/07/22 10:53:00 EST, Film, ; Start Date: 02/07/22 Status: Ordered lithium 300 mg oral tablet 1 tablet = 300 mg, G Tube, 2 times a day, Maintenance, 02/07/22 10:54:00 EST, Tablet, ; Start Date: 02/07/22 Status: Ordered Miconazole 2% Topical Ointment 1 applicator, Topically, Every 12 hours, 0 Refills, Maintenance, Ointment Start Date: 02/25/22 Status: Ordered Milk of Magnesia 8% oral suspension 30 mL = 2.4 Gm, G Tube, Daily, PRN for constipation, Maintenance, 07/25/20 12:41:00 EDT, Suspension, ; Start Date: 07/25/20 Status: Ordered Mylanta Liquid 30 mL, G Tube, Every 6 hours, PRN as needed for indigestion, 0 Refills, Maintenance, 03/23/18 20:53:16 EST Start Date: 03/23/18 Status: Ordered Narcan 4 mg/0.1 mL nasal spray = 4 mg, Naris, Left, Once, PRN as needed, Maintenance, 02/12/22 12:57:00 EST, ; Start Date: 02/12/22 Status: Ordered Narcan Inj = 1 mg, Intramuscular, Once, PRN as needed, Maintenance, 02/12/22 12:58:00 EST, Injection, ; Start Date: 02/12/22 Status: Ordered nystatin 753159 u/ml oral suspension 4 mL = 400,000 units, Swish and Spit, 4 times a day, 0 Refills, Maintenance, 02/25/22 10:56:00 EST,Suspension, Partial fill upon patient request if the prescription is for a schedule II opioid drug. Start Date: 02/25/22 Stop Date: 03/01/22 Status: Ordered omeprazole 20 mg oral enteric coated capsule 1 capsule = 20 mg, G Tube, Daily, 12PM, Maintenance, 02/07/22 10:55:00 EST, EC Capsule, ; Start Date: 02/07/22 Status: Ordered Polyethylene Glycol Powder 1 pack/packet = 17 Gm, G Tube, 2 times a day, 0 Refills, Maintenance, 02/25/22 10:52:00 EST, Powder, Partial fill upon patient request if the prescription is for a schedule II opioid drug. Start Date: 02/25/22 Status: Ordered Preparation H 1 suppository, Rectally, Every 6 hours, PRN Hemorrhoids, 0.25-88.44%, Maintenance, 02/07/22 11:07:00 EST, ; Start Date: 02/07/22 Status: Ordered Senna 8.6 mg oral tablet 8.6 mg, 1, tablet, G Tube, 2 times a day, # 50 tablet, Refills 0, Tot. Refills 0, Maintenance, 02/25/22 10:53:00 EST, Do Not Route, Tablet, Partial fill upon patient request if the prescription is for a schedule II opioid drug. Start Date: 02/25/22 Status: Ordered traZODone 100 mg oral tablet 100 mg, 1, tablet, G Tube, Daily at bedtime, Maintenance, 02/07/22 10:57:00 EST, ; Start Date: 02/07/22 Status: Ordered valACYclovir 500 mg oral tablet 500 mg, 1, tablet, G Tube, Daily, Refills 0, Maintenance, 04/16/16 19:39:27 EST Start Date: 04/16/16 Status: Ordered valproic acid 250 mg/5 mL oral syrup 40 mL = 2,000 mg, G Tube, Daily at bedtime, Maintenance, 02/07/22 10:58:00 EST, ; Start Date: 02/07/22 Status: Ordered valproic acid 250 mg/5 mL oral syrup 20 mL = 1,000 mg, G Tube, Daily in AM, 0 Refills, Maintenance, 07/24/20 21:34:00 EDT, Syrup, ; Start Date: 07/24/20 Status: Ordered Vitamin D3 50,000 intl units oral capsule 1 capsule = 50,000 International_Units, G Tube, on the of each month., Maintenance, 07/25/20 12:30:00 EDT, Capsule, ; Start Date: 07/25/20 Status: Ordered Problem List Condition Confirmation Course Effective Dates Status H ealt Status Informant Dementia Confirmed Active Gastrostomy tube dependent Confirmed Active Hypothyroidism Confirmed Active Schizoaffective disorder Confirmed Active Seizures Confirmed Active Results Radiology Reports * Exam Date Time Procedure Performing Provider Status 04/29/22 11:45 PM Chest 2 Views Frontal and Lat Kiki Chávez; Auth (Verified) Notes: (Chest 2 Views Frontal and Lat) Reason For Exam: Pleuritic Pain RESULT: Chest 2 Views Frontal and Lat Chest 2 Views Frontal and Lat INDICATION: AMS; Reason: Pleuritic Pain; Clinical Question(s): Atelectasis COMPARISON: Multiple priors, most recent 02/17/2022. FINDINGS: LINES AND TUBES: None. LUNGS AND PLEURA: Increased ill-defined nodular opacity in the lung bases, left more than right. No pleural effusion. No pneumothorax. HEART, MEDIASTINUM AND INDIA: Heart is normal in size. Normal mediastinal and hilar contour. BONES AND SOFT TISSUES: No acute abnormality. IMPRESSION: Increased nodular opacity in the lung bases, could be atelectasis, aspiration, atypical/viral pneumonia, or combination of these processes. I have personally reviewed the images and I agree with this report. WSN: [id number] Ordering Physician: Hansel Celestin Dictated By: Leah Caballero DO Dictated Date/Time: 04/29/22 11:54 p Reviewed By: Trace Ortez MD Signed By: Trace Ortez MD Signed Date/Time: 04/29/22 11:59 pm Transcribed By: MORENO Transcribed Date/Time: 04/29/22 11:47 pm Vital Signs Most recent to oldest [Reference Range]: 1 2 3 Oxygen Saturation [94-100 %] 96 % (04/30/22 5:24 AM) 97 % (04/30/22 1:20 AM) 98 % (04/29/22 10:33 PM) Pulse Rate [55-90 bpm] 89 bpm (04/30/22 5:24 AM) 74 bpm (04/30/22 1:20 AM) 72 bpm (04/29/22 10:33 PM) Blood Pressure [90-138/55-84 mm Hg] 102/74mm Hg (04/30/22 5:24 AM) 117/57mm Hg (04/30/22 1:20 AM) 100/60mm Hg (04/29/22 10:33 PM) Respiratory Rate [16-30 br/min] 18 br/min (04/30/22 5:24 AM) 18 br/min (04/30/22 1:20 AM) 18 br/min (04/29/22 10:33 PM) Temperature [96.8-100.4 DegF] 98.6 DegF (04/30/22 1:20 AM) 98.0 DegF (04/29/22 8:19 PM) Mode of Delivery (Oxygen) Room air (04/30/22 5:24 AM) Room air (04/30/22 1:20 AM) Room air (04/29/22 10:33 PM) Blood pressure sites Arm, right (04/30/22 1:20 AM) Arm, right (04/29/22 8:19 PM) Temperature Route Oral (04/30/22 1:20 AM) Oral (04/29/22 8:19 PM) Social History Social History Type Response Smoking Status Former smoker entered on: 02/18/14 Sex Note * Willow Moreira DO: PERFORM Event Display: Patient Education Leaflets Authored Date: [id number] Urinary Tract Infections in Men ?? [id number] Urinary Tract Infections in Men Urinary tract infections (UTIs) are most often caused by bacteria that invade the urinary tract. The bacteria may come from outside the body. Or they may travel from the skin outside the rectum into the urethra. The urethra is the tube that carries urine from the bladder out of the body. Pain in oraround the urinary tract is a common symptom for most UTIs. Woman more commonly get UTIs than men. That???s because their urethra is shorter. Older men get UTIs more commonly than younger because older men may have an enlarged prostate. A UTI in a male is usually a sign that something is wrong with their urinary system. Using a catheter also increases the risk for UTI. Most UTIs are treated with antibiotics. These kill the bacteria. How long you need to take them depends on the type of infection. Take antibiotics exactly as directed until all of the medicine is gone. If you don't, the infection may not go away and may become harder to treat in the future. Gender words are used here to talk about anatomy and health risk. Please use this information in a way that works best for you and your provider as you talk about your care. Home care The lifestyle changes below will help get rid of your current infection. They may also help preventfuture UTIs: ??? Drink plenty of fluids, such as water, juice, or other caffeine-free drinks. This helps flush bacteria out of your system. ??? Empty your bladder when you feel the urge to urinate and before going to sleep. Urine that stays in your bladder makes an infection more likely. ??? If youare uncircumcised, pull the foreskin back and wash under the foreskin each time you take a bath or shower. ?? Follow-up care Follow up with your healthcare provider, or as advised if your symptoms continue after finishing all of the antibiotic medicine. Your healthcare provider may do tests to make sure the infection has cleared. If needed, more treatment can be started. ?? When to get medical advice Call your healthcare provider right away if any of the following occur: ??? Frequent urination ??? Pain or burning when passing urine ??? Weak urine stream ??? Feeling that you can't empty your bladder ??? Fever of 100.4??F (38??C) or higher , or as directed by your healthcare provider ??? Urine that looks dark, cloudy, or reddish in color. This may mean that blood is in the urine. ??? Urine smells bad ??? Feeling pain even when not urinating ??? Tiredness ??? Pain in the belly (abdomen) area below the bellybutton, or in the back or side, below the ribs ??? Nausea or vomiting ??? Have a strong urge to urinate, but only a small amount of urine is passed (dribbling) ??? Feeling confused or very tired (in older adults) ?? Last Reviewed Date: 2022 ?? [employer]. All rights reserved. This information is not intended as a substitute for professional medical care. Always follow your healthcare professional's instructions. ?? * Willow Moreira DO: PERFORM Event Display: Patient Education Leaflets Authored Date: [id number] Urinary Retention (Female) ?? [id number] Urinary Retention (Female) Urinary retention means you are having trouble urinating. In some cases you may not be able to passany urine at all. This condition occurs even though your bladder is full. Causes For girls and women, the most common cause of urinary retention is a bladder infection. Certain medicines can also cause this problem. So can changes in the body, such as uterine prolapse and severe constipation. ?? Symptoms Some people have no symptoms. For others, common symptoms include: ??? Bladder or lower-belly pain or fullness ??? Belly swelling ??? Nausea or vomiting ??? Back pain ??? Frequent urination ??? Feeling that the bladder is still full after urinating ??? Not being able to control the release of urine(incontinence) ?? Treatment This condition is treated by putting a tube (catheter) into the bladder to drain the urine. This gives relief right away. The catheter may need to stay in place for a few days. The catheter has a balloon on the tip. This is inflated after the catheter is put in the bladder. This prevents the catheter from falling out. ?? Home care ??? If you were given antibiotics to treat a bladder infection, take them until they are used up. Or take them until your healthcare provider tells you to stop. It's important to finish theantibiotics even if you feel better. This is to make sure your infection has cleared. ??? If a catheter was left in place, it's important to keep bacteria from getting into the collection bag. Don't disconnect the catheter from the collection bag. ??? Use a leg band to secure the drainage tube so it does not pull on the catheter. Drain the collection bag when it becomes full, using the drain spout at the bottom of the bag. ??? Don't pull on or try to take out your catheter. This will harm your u rethra. The catheter must be removed by a healthcare provider. ?? Follow-up care Follow up with your healthcare provider, or as advised. If a catheter was left in place, it can often be removed in 3 to 7 days. Some conditions require that the catheter stays in longer. Your provider will tell you when to come back to have the catheter removed. ?? When to get medical advice Call your healthcare provider right away if any of these occur: ??? Fever of 100.4??F (38??C) or higher, or as directed by your provider ??? Bladder or lower-belly pain or fullness ??? Belly swelling, nausea, vomiting, or back pain ??? Blood or urine leakage around the catheter ??? Bloody urine coming from the catheter (if a new symptom) ??? Weakness, dizziness, or fainting ??? Confusion or change in normal level of alertness ??? If you have a catheter, see your provider if the catheter: o Falls out o Stops draining for 6 hours ?? Last Reviewed Date: 2022 ?? 3320-3225 [employer]. All rights reserved. This information is not intended as a substitute for professional medical care. Always follow your healthcare professional's instructions. ?? * BHSPowerscribe , CIS S: TRANSCRIBE Trace Ortez MD: VERIFY Leah Caballero DO P: SIGN Event Display: Result: Authored Date: [id number] Chest 2 Views Frontal and Lat INDICATION: AMS; Reason: Pleuritic Pain; Clinical Question(s): Atelectasis COMPARISON: Multiple priors, most recent 02/17/2022. FINDINGS: LINES AND TUBES: None. LUNGS AND PLEURA: Increased ill-defined nodular opacity in the lung bases, left more than right. No pleural effusion. No pneumothorax. HEART, MEDIASTINUM AND INDIA: Heart is normal in size. Normal mediastinal and hilar contour. BONES AND SOFT TISSUES: No acute abnormality. IMPRESSION: Increased nodular opacity in the lung bases, could be atelectasis, aspiration, atypical/viral pneumonia, or combination of these processes. I have personally reviewed the images and I agree with this report. WSN: [id number] Ordering Physician: Hansel Celestin Dictated By: Leah Caballero DO Dictated Date/Time: 04/29/22 11:54 p Reviewed By: Trace Ortez MD Signed By: Trace Ortez MD Signed Date/Time: 04/29/22 11:59 pm Transcribed By: MORENO Transcribed Date/Time: 04/29/22 11:47 pm Patient Care team information Care Team Personnel Name: Gisel [facility] Position: S RN Member Role: Primary Care Nurse Name: Verónica Dougherty RN Position: S RN Member Role: Primary Care Nurse Name: Jonathan Youssef RN Position: S RN Supv Member Role: Primary Care Nurse Name: Lissette Joy RN Position: S RN Member Role: Primary Care Nurse Name: Angelica Matthews Position: S RN Member Role: Primary Care Nurse Name: Pat Fink RN Position: S RN Member Role: Primary Care Nurse Name: Susan Lassiter RN Position: S RN Member Role: Primary Care Nurse Name: Aliyah May Position: S RN Member Role: Primary Care Nurse Name: Crystal Caballero RN Position: [facility] RN Member Role: Primary Care Nurse Name: Kristen Nunes RN Position: [facility] RN Member Role: Primary Care Nurse Name: Kalyani Chilel RN Position: [facility] RN Member Role: Primary Care Nurse Name: Yoselin Aragon RN Position: [facility] RN Member Role: Primary Care Nurse Name: Dolly Díaz MD Position: [facility] Outreach Member Role: PCP Address: Address: [address] [place] [address] [place] [address]- [place] Name: Rahul Ford RN Position: [facility] RN Member Role: Primary Care Nurse Name: Clemencia Alcala RN Position: [facility] ED RN W/OE and Tasks Member Role: Patient Care Provider Name: Kaykay Baig MD Position: [facility] ED Medicine MD Member Role: ED Attending Physician Address: Address: [address] [place] [address]- [place] Name: Andria Conroy [place] Position: [facility] ED TA [facility] Member Role: Treasury Analyst Name: Willow Moreira DO Position: [facility] Resident Member Role: ED Resident Address: Address: [address] [place] [address]- [place] Care Team Related Persons Name: CHAS LOPEZ Address: [address] [place] [address] Name: ANDREW LOPEZ Name: RAHUL HUNG Address: home [address] [place] [address]
--- OUTSIDE RECORDS SUMMARY | 2022-10-18 03:17 | XMS_ITS | Continuity of Care Document ---
Author Name Unknown Organization [facility] Address [address] [place] [address]- Care Team Providers Care Label Cutter Name Role Phone Dolly Díaz MD Primary Care Physician [phone] [place] [facility] [place]/22/20 - 09/21/20 [facility] [address] [place] [address]- Attending Physician: AdmNgoc sands Admitting Physician: Admtr, Ar8 Referring Physician: Admtr, Ar8 Allergies, Adverse Reactions, Alerts Substance Reaction Severity Status perphenazine Active Prozac Active Augmentin Active Seafood Active Immunizations Given and Recorded Vaccine Date Status Refusal Reason Influenza Virus Vaccine (oldterm) 1 12/20/19 Recor ded Diphth-Tetanus Toxoids Adsorbed(oldterm) 2 08/26/07 Given pneumococcal 23-valent vaccine 3 03/28/07 Given 1Result Comment: Info from RN at [facility] on 01/06/20 2Admin Note: [facility] health lab sherley cueto rn 3Admin Note: info from [facility] [place] Medications acetaminophen 500 mg oral tablet 2 [...] Gm, 0 Refills, Maintenance, 05/10/14 4:59:41 EST, [place] Start Date: 05/10/14 Status: Ordered Geodon 80 [...] Hypothyroidism(Confirmed) Active Schizoaffective disorder(Confirmed) Active Seizures(Confirmed) Active Social History Social History Type Response Smoking Status Former smoker entered on: 02/18/14 Sex
--- OUTSIDE RECORDS SUMMARY | 2022-10-18 03:17 | XMS_ITS | Continuity of Care Document ---
Author Name Unknown Organization [facility] Address [address] [place] [address]- Care Team Providers Care Human Services Manager Name Role Phone Dolly Díaz MD Primary Care Physician [place] [facility] [place] 04/11/22 [facility] [address] [place] [address]- Attending Physician: Ngoc Birch Admitting Physician: AdmtrNgoc Referring Physician: Admtr, Ar8 Allergies, Adverse Reactions, Alerts Substance Reaction Severity Status perphenazine Active Prozac Active Augmentin Active Seafood Active Immunizations Given and Recorded Vaccine Date Status Refusal Reason Influenza Virus Vaccine (oldterm) 1 12/20/19 Recor ded Diphth-Tetanus Toxoids Adsorbed(oldterm) 2 08/26/07 Given pneumococcal 23-valent vaccine 3 03/28/07 Given 1Result Comment: Info from RN at [facility] on 01/06/20 2Admin Note: [facility].public health lab sherley cueto rn 3Admin Note: info from [facility] Medications acetaminophen 500 mg oral tablet [...] ; Start Date: 02/12/22 Status: Ordered nystatin 386792 u/ml oral suspension 4 mL = 400,000 [...] Schizoaffective disorder Confirmed Active Seizures Confirmed Active Social History Social History Type Response Smoking Status Former smoker entered on: 02/18/14 Sex Note * Event Display: Non BH Lab Results Authored Date: * Event Display: Non [facility] Lab Results Authored Date: * Event Display: Non [facility] Lab Results Authored Date: Patient Care team information Care Team Personnel Name: Gisel Barbaraa Position: [facility] RN Member Role: Primary Care Nurse Name: Verónica Dougherty RN Position: [facility] RN Member Role: Primary Care Nurse Name: Jonathan Youssef RN Position: [facility] RN Supyvonne Member Role: Primary Care Nurse Name: Lissette Joy RN Position: [facility] RN Member Role: Primary Care Nurse Name: Angelica Matthews Position: S RN Member Role: Primary Care Nurse Name: Pat Fink RN Position: S RN Member Role: Primary Care Nurse Name: Susan Lassiter RN Position: S RN Member Role: Primary Care Nurse Name: Aliyah May Position: S RN Member Role: Primary Care Nurse Name: Crystal Caballero RN Position: [facility] RN Member Role: Primary Care Nurse Name: Kristen Nunes RN Position: S RN Member Role: Primary Care Nurse Name: Kalyani Chilel RN Position: S RN Member Role: Primary Care Nurse Name: Yoselin Aragon RN Position: S RN Member Role: Primary Care Nurse Name: Dolly Díaz MD Position: S Outreach Member Role: PCP Address: Address: [address] [place] [address] [place], [place] [address] Name: Rahul Ford RN Position: S RN Member Role: Primary Care Nurse Care Team Related Persons Name: CHAS LOPEZ Address: home [address] [place] [address] Name: ANDREW LOPEZ Name: RAHUL HUNG Address: home [address] [place] [address]
--- OUTSIDE RECORDS SUMMARY | 2022-10-18 03:17 | XMS_ITS | Continuity of Care Document ---
Author Name Unknown Organization [facility] Address [address] [place] [address]- Care Team Providers Care Ice Handler Name Role Phone Dolly Díaz MD Primary Care Physician [phone] [place] [facility] [place]18[place] - 10/25/[address] [address]- [facility] [phone] Encounter Diagnosis UTI (urinary tract infection)(Final) - 10/18/19 Discharge Disposition: Transfer Longterm Care Attending Physician: Charbel Rangel MD Admitting Physician: Joyce Andres MD Referring Physician: Not on Staff, Referring MD Allergies, Adverse Reactions, Alerts Substance Reaction Severity Status perphenazine Active Prozac Active Augmentin Active Seafood Active Immunizations Given and Recorded Vaccine Date Status Refusal Reason Diphth-Tetanus Toxoids Adsorbed(oldterm) 1 08/26/07 Given pneumococcal 23-valent vaccine 2 03/28/07 Given 1Admin Note: [facility] sherley cueto,rn 2Admin Note: info from [facility] Medications Acetaminophen = 1,000 mg, G Tube, 3 times a day, 0500/1200/1800, 0 Refills, Maintenance, 05/10/14 4:11:51 EST Start Date: 05/10/14 Status: Ordered Avelox 400 mg oral tablet 1 tablet = 400 mg, By Mouth, Daily, for 7 days, # 7 tablet, 0 Refills, Acute 11/01/19 13:33:00 EDT,10/25/19 13:33:00 EDT, Tablet Start Date: 10/25/19 Stop Date: 11/01/19 Status: Ordered bisacodyl 10 mg rectal suppository [...] Ordered ChlorproMAZINE = 125 mg, G Tube, Daily at supper, 0 Refills, Maintenance, 10/18/19 21:13:00 EDT Start Date: 10/18/19 Status: Ordered chlorproMAZINE 100 mg oral tablet 1 tablet = 100 mg, By Mouth, Daily before lunch, # 180 tablet, 0 Refills, Maintenance, 11/26/17 16:26:48 EDT, Tablet Start Date: 11/26/17 Status: Ordered chlorproMAZINE 25 mg oral tablet 3 tablet = 75 mg, G Tube, Daily, at 0500, # 270 tablet, 0 Refills, Maintenance, 10/18/19 20:59:00 EDT, Tablet Start Date: 10/18/19 Status: Ordered cholecalciferol oral tablet = 50,000 units, G Tube, Every 30 days, given on the of the month, 0 Refills, Maintenance, 10/18/19 21:05:00 EDT Start Date: 10/18/19 Status: Ordered Clozapine = 250 mg, By Mouth, Daily in AM, 0 Refills, Maintenance, 11/26/17 16:46:28 EDT Start Date: 11/26/17 Status: Ordered Clozapine = 225 mg, By Mouth, Daily, at 1800, 0 Refills, Maintenance, 09/18/17 19:05:41 EDT Start Date: 09/18/17 Status: Ordered Depakote Sprinkles 125 mg oral enteric coated capsule 9 capsule = 1,125 mg, 2 times a day, at 0900 & [...] Gm, 0 Refills, Maintenance, 05/10/14 4:59:41 EST, [place] Start Date: 05/10/14 Status: Ordered Guaifenesin 10 mL, By Mouth, Every 4 hours, PRN as needed for congestion, 0 Refills, Maintenance, 06/27/16 14:05:03 EDT Start Date: 06/27/16 Status: Ordered Hemorrhoid Supp PE-Shark liver oil-[place] Butter 0.25-3-85.5% Hemorrhoid Supp PE-Shark liver oil-[place] Butter 0.25-3-85.5%, 1, supp, Rectally, Every 6 [...] EDT, Cream Start Date: 08/31/11 Status: Ordered levothyroxine 112 mcg (0.112 mg) oral capsule 1 capsule = 112 mcg, G Tube, Daily, # 30 capsule, 0 Refills, Maintenance, 05/10/14 3:05:53 EST, Capsule Start Date: 05/10/14 Status: Ordered [place] 300 mg, G Tube, 2 times a day, Refills 0, Maintenance, 09/18/17 19:35:14 EDT Start Date: 09/18/17 Status: Ordered MiraLax = 17 Gm, By Mouth, Daily in AM, 0 Refills, Maintenance, 05/10/14 3:30:35 EST Start Date: 05/10/14 Status: Ordered MiraLax Powder 8.5 gram, By Mouth, Every 48 hours, 0 Refills, Maintenance, 11/11/17 2:36:11 EDT Start Date: 11/11/17 Status: Ordered Mylanta Liquid 30 mL, G Tube, 4 times a day, PRN Dyspepsia, 0 Refills, Maintenance, 03/23/18 20:53:16 EST Start Date: 03/23/18 Status: Ordered Mylanta Liquid 200-200-20, G Tube, Every 6 hours, 0 Refills, Maintenance, 10/18/19 20:51:00 EDT Start Date: 10/18/19 Status: Ordered omeprazole 2 mg/mL oral suspension [...] Ordered Senokot Tablet 8.6 mg, G Tube, 2 times a day, Refills 0, Tot. Refills 0, Maintenance, 10/30/06 13:44:10 EDT Start Date: 10/30/06 Status: Ordered valACYclovir 500 mg oral tablet 500 mg, 1, tablet, G Tube, Daily in AM, Refills 0, Maintenance, 04/16/16 19:39:27 EST Start Date: 04/16/16 Status: Ordered valproic acid 250 mg/5 mL oral syrup 25 mL = 1,250 mg, G Tube, 2 times a day, 0 Refills, Maintenance, 10/18/19 20:46:00 EDT Start Date: 10/18/19 Status: Ordered Problem List Condition Effective Dates Status Health Status Inform ant Dementia(Confirmed) Active Hypothyroidism(Confirmed) Active Seizures(Confirmed) Active Results Orders for Microbiology Reports Name Date Urine Culture (URINE CULTURE) 10/18/19 Blood Culture 10/18/19 Blood Culture #2 10/18/19 Microbiology Reports TEST:Urine Culture STATUS:Auth (Verified) BODY SITE: SOURCE:URINE COLLECTED DATE/TIME:10/18/19 10:47 AM Urine Culture SPECIMEN DESCRIPTION : URINE SPECIAL REQUESTS : NONE CULTURE : >100,000 COL/ML STREPTOCOCCUS VIRIDANS SPECIES. SUSCEPTIBILITY TESTING NOT ROUTINELY PERFORMED ON THIS ISOLATE. REPORT STATUS : FINAL 10/22/2019 TEST:Blood Culture, Second Order STATUS:Auth (Verified) BODY SITE: SOURCE:Blood COLLECTED DATE/TIME:10/18/19 10:20 AM Blood Culture, Second Order SPECIMEN DESCRIPTION : BLOOD R HAND SPECIAL REQUESTS : NONE CULTURE : NO GROWTH 5 DAYS. REPORT STATUS : FINAL 10/23/2019 TEST:Blood Culture STATUS:Auth (Verified) BODY SITE: SOURCE:Blood COLLECTED DATE/TIME:10/18/19 10:15 AM Blood Culture SPECIMEN DESCRIPTION : BLOOD SPECIAL REQUESTS : NONE CULTURE : NO GROWTH 5 DAYS. REPORT STATUS : FINAL 10/23/2019 Radiology Reports * Exam Date Time Procedure Performing Provider Status 10/19/19 8:12 AM Chest Portable Kiki Barksdale; Auth ( Verified) Notes: (Chest Portable) Reason For Exam: Cough RESULT: Chest Portable Chest Portable AP sitting at 8:13 AM REASON: Cough; Clinical Question(s): Aspiration; Hx of Present Illness: found unresponsive this morning, remains so on arrival, 82% r a w audible insp exp gurgling, COMPARISON: 10/18/2019 FINDINGS: LINES AND TUBES: Right internal jugular central venous catheter tip projects in the SVC. LUNGS AND PLEURA: Low lung volumes with mild basilar atelectasis. Lungs are otherwise clear with no definite consolidation. No pleural effusion. No pneumothorax. HEART, MEDIASTINUM AND [place]IA: Heart is normal in size. Normal mediastinal and hilar contour. BONES AND SOFT TISSUES: No acute abnormality. IMPRESSION: Low lung volumes with mild bibasilar atelectasis. WSN: [id number] Ordering Physician: Jeramy Andrea Dictated By: Chris Lainez MD Dictated Date/Time: 10/19/19 10:03 a Reviewed By: Chris Lainez MD Signed By: Chris Lainez MD Signed Date/Time: 10/19/19 10:03 am Transcribed By: MORENO Transcribed Date/Time: 10/19/19 10:02 am * Exam Date Time Procedure Performing Provider Status 10/18/19 2:25 PM Chest Portable Barbara Casper; Samy (Ve rified) Notes: (Chest Portable) Reason For Exam: Other:;Unresponsive, Line/Tube Placement RESULT: Chest Portable Chest Portable Reason: Other:; Unresponsive, Line Tube Placement; Clinical Question(s): Other:; Confirm Position, Assess for Complication; Hx of Present Illness: found unresponsive this morning, remains so on arrival, 82% r a w audible insp exp gurgling, hypotensive, tachycardic, tachypneic, +gtube, ?aspiration, normally A O responsive, hx schizophrenia PNA COMPARISON: 10/18/2019 FINDINGS: Right IJ central venous catheter tip projects at the distal SVC or cavoatrial junction. No acute cardiopulmonary process IMPRESSION: Right IJ central venous catheter as above. No evidence of pneumothorax. No acute cardiopulmonary process. WSN: [id number] Ordering Physician: Maria Isabel Leroy Dictated By: Drew Whitlock MD Dictated Date/Time: 10/18/19 2:34 pm Reviewed By: Drew Whitlock MD Signed By: Drew Whitlock MD Signed Date/Time: 10/18/19 2:34 pm Transcribed By: MORENO Transcribed Date/Time: 10/18/19 2:31 pm * Exam Date Time Procedure Performing Provider Status 10/18/19 10:57 AM Chest Portable Barbara Casper; Samy (V erified) Notes: (Chest Portable) Reason For Exam: Found this morning unresponsive and is still unresponsive RESULT: Chest Portable Chest Portable Reason: Found this morning unresponsive and is still unresponsive; Clinical Question(s): CHF COMPARISON: Prior chest radiographs, most recently April 09, 2018. FINDINGS: LINES AND TUBES: None. LUNGS AND PLEURA: Pulmonary vascularity is within normal limits. No pleural effusion. No pneumothorax. Patchy retrocardiac opacity is unchanged from prior studies. HEART, MEDIASTINUM AND INDIA: Heart is normal in size. Normal mediastinal and hilar contour. BONES AND SOFT TISSUES: No acute abnormality. IMPRESSION: 1. No acute abnormality. 2. Unchanged patchy retrocardiac opacity likely representing chronic atelectasis or scarring. Underlying consolidation is not entirely excluded. WSN: [id number] Ordering Physician: Maria Isabel Leroy Dictated By: Nathanael Spear MD Dictated Date/Time: 10/18/19 11:00 a Reviewed By: Nathanael Spear MD Signed By: Nathanael Spear MD Signed Date/Time: 10/18/19 11:00 am Transcribed By: CSTom Transcribed Date/Time: 10/18/19 10:58 am Vital Signs Most recent to oldest [Reference Range]: 1 2 3 Height 178 cm (10/25/19 3:21 PM) 178 cm (10/25/19 11:13 AM) 178 cm (10/25/19 7:35 AM) Weight 79.4 kg (10/25/19 4:55 AM) 81.5 kg (10/25/19 2:43 AM) 81.6 kg (10/24/19 3:32 AM) Oxygen Saturation [94-100 %] 95 % (10/25/19 3:21 PM) 93 % *L* (10/25/19 11:13 AM) 96 % (10/25/19 7:35 AM) Pulse Rate [55-90 bpm] 91 bpm *H* (10/25/19 3:21 PM) 95 bpm *H* (10/25/19 11:13 AM) 92 bpm *H* (10/25/19 7:35 AM) Body Mass Index [18.5-24.99] 26.29 *H* (10/18/19 5:10 PM) 24.46 (10/18/19 1:43 PM) 24.46 (10/18/19 11:29 AM) Blood Pressure [90-138/55-84 mm Hg] 93/60mm Hg (10/25/19 3:21 PM) 105/70mm Hg (10/25/19 11:13 AM) 115/64mm Hg (10/25/19 7:35 AM) Respiratory Rate [16-30 br/min] 16 br/min (10/25/19 3:21 PM) 18 br/min (10/25/19 11:13 AM) 18 br/min (10/25/19 7:35 AM) Temperature [96.8-100.4 DegF] 98.2 DegF (10/25/19 3:21 PM) 97.8 DegF (10/25/19 11:13 AM) 98.1 DegF (10/25/19 7:35 AM) Liters per Minute 1.5 L/min (10/25/19 7:35 AM) 0 L/min (10/24/19 11:36 PM) 1 L/min (10/24/19 8:09 PM) Mode of Delivery (Oxygen) Room air (10/25/19 3:21 PM) Room air (10/25/19 11:13 AM) Nasal cannula (10/25/19 7:35 AM) Blood pressure sites Arm, left (10/25/19 3:21 PM) Arm, left (10/25/19 11:13 AM) Arm, left (10/25/19 7:35 AM) Temperature Route Oral (10/25/19 3:21 PM) Oral (10/25/19 11:13 AM) Oral (10/25/19 7:35 AM) Dry Weight 83.3 kg (10/18/19 5:10 PM) 77.5 kg (10/18/19 1:43 PM) 77.5 kg (10/18/19 11:29 AM) Weight Obtained Via Bed scale (10/25/19 4:55 AM) Bed scale (10/25/19 2:43 AM) Bed scale (10/24/19 3:32 AM) Dry Weight Obtained Via Bed scale (10/18/19 5:10 PM) Mobility assistance Partial assistance (10/25/19 3:00 AM) Immobile (10/21/19 9:00 AM) Wheelchair: assist (10/18/19 8:00 PM) Social History Social History Type Response Smoking Status Former smoker entered on: 02/18/14 Sex
--- OUTSIDE RECORDS SUMMARY | 2022-10-18 03:18 | XMS_ITS | Continuity of Care Document ---
Author Name Unknown Organization [facility] Address [address] [place] [address]- Care Team Providers Care External Grinder Tender Name Role Phone Dolly Díaz MD Primary Care Physician [place] [facility] [place] 11/03/[address] [address]- [facility] [phone] Encounter Diagnosis Altered mental status(Final) - 11/01/19 Discharge Disposition: Transfer to [facility] Facility Attending Physician: Peng Lake DO Admitting Physician: Kelsy Singletary MD Referring Physician: Not on Staff, Referring MD Allergies, Adverse Reactions, Alerts Substance Reaction Severity Status perphenazine Active Prozac Active Augmentin Active Seafood Active Immunizations Given and Recorded Vaccine Date Status Refusal Reason Diphth-Tetanus Toxoids Adsorbed(oldterm) 1 08/26/07 Given pneumococcal 23-valent vaccine 2 03/28/07 Given 1Admin Note: [facility].public health lab sherley cueto,rn 2Admin Note: info from [facility] Medications Acetaminophen = 1,000 mg, G [...] Gm, 0 Refills, Maintenance, 05/10/14 4:59:41 EST, [place] Start Date: 05/10/14 Status: Ordered Geodon 80 [...] 06/27/16 Status: Ordered Hemorrhoid Supp PE-Shark liver oil-[place] Butter 0.25-3-85.5% Hemorrhoid Supp PE-Shark liver oil-[place] Butter 0.25-3-85.5%, 1, supp, Rectally, Every 6 [...] EST, Capsule Start Date: 05/10/14 Status: Ordered [place] See Instructions, 8 meq/5ml give 5ml via [...] 2:36:11 EDT Start Date: 11/11/17 Status: Ordered moxifloxacin 400 mg oral tablet 1 tablet = 400 mg, G Tube, Daily, for 7 days, # 7 tablet, 0 Refills, Acute 11/10/19 14:12:00 EDT, 11/03/19 14:12:00 EDT, Tablet, [place] #[id number], 177.8, cm, 11/03/19 12:30:00 EDT, Height, 84, kg, 11/01/19 23:33:00 EDT, Dry Weight Start Date: 11/03/19 Stop Date: 11/10/19 Status: Ordered Mylanta Liquid 30 mL, G [...] for Microbiology Reports Name Date Blood Culture 11/01/19 Blood Culture #2 11/01/19 Microbiology Reports TEST:Blood Culture STATUS:Unauthenticated BODY SITE: SOURCE:Blood COLLECTED DATE/TIME:11/01/19 10:00 AM Blood Culture SPECIMEN DESCRIPTION : BLOOD R HAND SPECIAL REQUESTS : NONE CULTURE : NO GROWTH AFTER 48 HOURS REPORT STATUS : PRELIMINARY REPORT TEST:Blood Culture, Second Order STATUS:Unauthenticated BODY SITE: SOURCE:Blood COLLECTED DATE/TIME:11/01/19 10:00 AM Blood Culture, Second Order SPECIMEN DESCRIPTION : BLOOD R HAND SPECIAL REQUESTS : NONE CULTURE : NO GROWTH AFTER 48 HOURS REPORT STATUS : PRELIMINARY REPORT Radiology Reports * Exam Date Time Procedure Performing Provider Status 11/01/19 10:29 AM Chest Portable Kiki Barksdale; Auth (Verified) Notes: (Chest Portable) Reason For Exam: Shortness of Breath RESULT: Chest Portable Chest Portable Hx of Present Illness: weakness and change in mental status per [facility] staff; Reason: Shortness of Breath; Clinical Question(s): CHF COMPARISON: 10/19/2019. Additional studies reviewed. FINDINGS: LINES AND TUBES: None. Right IJ central line removed. LUNGS AND PLEURA: Hypoinflation. The right lung remains clear except for minor atelectasis at the base. There is mildpredominantly interstitial opacity in the lower left lung, no longer following a linear pattern suggestive of discoid atelectasis, but mildly improved. Normal pulmonary vascularity. No pleural effusion. No pneumothorax. HEART, MEDIASTINUM AND INDIA: Heart is normal in size. Normal mediastinal and hilar contour. BONES AND SOFT TISSUES: No acute abnormality. Healed deformity posterolateral right seventh rib. IMPRESSION: Mildly improving mild interstitial opacity in the left lung base, favored to reflect pneumonia and/or atelectasis. WSN: [id number] Ordering Physician: Maria Isabel Leroy Dictated By: Chris Lin MD Dictated Date/Time: 11/01/19 10:43 a Reviewed By: Chris Lin MD Signed By: Chris Lin MD Signed Date/Time: 11/01/19 10:43 am Transcribed By: MORENO Transcribed Date/Time: 11/01/19 10:36 am Vital Signs Most recent to oldest [Reference Range]: 1 2 3 Height 177.8 cm (11/03/19 3:21 PM) 177.8 cm (11/03/19 12:30 PM) 177.8 cm (11/03/19 7:32 AM) Weight 79 kg (11/02/19 12:24 AM) 84 kg (11/01/19 11:33 PM) 84 kg (11/01/19 11:30 PM) Oxygen Saturation [94-100 %] 98 % (11/03/19 3:21 PM) 97 % (11/03/19 12:30 PM) 99 % (11/03/19 7:32 AM) Pulse Rate [55-90 bpm] 92 bpm *H* (11/03/19 3:21 PM) 80 bpm (11/03/19 12:30 PM) 90 bpm (11/03/19 7:32 AM) Body Mass Index [18.5-24.99] 24.99 (11/02/19 12:24 AM) 26.57 *H* (11/01/19 11:33 PM) 26.57 *H* (11/01/19 11:30 PM) Blood Pressure [90-138/55-84 mm Hg] 103/76mm Hg (11/03/19 3:21 PM) 125/67mm Hg (11/03/19 12:30 PM) 123/72mm Hg (11/03/19 7:32 AM) Respiratory Rate [16-30 br/min] 16 br/min (11/03/19 3:21 PM) 18 br/min (11/03/19 12:30 PM) 18 br/min (11/03/19 7:32 AM) Temperature [96.8-100.4 DegF] 98.3 DegF (11/03/19 3:21 PM) 98.2 DegF (11/03/19 12:30 PM) 98.9 DegF (11/03/19 7:32 AM) Liters per Minute 0 L/min (11/03/19 12:30 PM) 0 L/min (11/03/19 7:32 AM) 0 L/min (11/03/19 3:39 AM) Mode of Delivery (Oxygen) Room air (11/03/19 3:21 PM) Room air (11/03/19 12:30 PM) Room air (11/03/19 7:32 AM) Blood pressure sites Arm, left (11/03/19 3:21 PM) Arm, left (11/03/19 12:30 PM) Arm, right (11/03/19 7:32 AM) Temperature Route Oral (11/03/19 3:21 PM) Oral (11/03/19 12:30 PM) Oral (11/03/19 7:32 AM) Dry Weight 84 kg (11/01/19 11:33 PM) 84 kg (11/01/19 11:30 PM) 84 kg (11/01/19 1:39 PM) Weight Obtained Via Bed scale (11/02/19 12:24 AM) Bed scale (11/01/19 9:46 AM) Dry Weight Obtained Via Bed scale (11/01/19 9:46 AM) Social History Social History Type Response Smoking Status Former smoker entered on: 02/18/14 Sex
--- OUTSIDE RECORDS SUMMARY | 2022-10-18 03:18 | XMS_ITS | Continuity of Care Document ---
Author Name Unknown Organization [facility] Address [address] [place] [address]- Care Team Providers Care Cob Sawyer Name Role Phone Dolly Díaz MD Primary Care Physician Encounter [facility] [place] Date(s): 05/14/19 - 05/14/[address] [address]- [facility] [phone] Discharge Disposition: A-D/C Home Attending Physician: Kelechi BEY, Admitting Physician: Kelechi BEY, Referring Physician: Not on Staff, Referring MD Allergies, Adverse Reactions, Alerts Substance Reaction Severity Status perphenazine Active Prozac Active Augmentin Active Seafood Active Immunizations Given and Recorded Vaccine Date Status Refusal Reason Diphth-Tetanus Toxoids Adsorbed(oldterm) 1 08/26/07 Given pneumococcal 23-valent vaccine 2 03/28/07 Given 1Admin Note: [facility] lab sherley cueto,rn 2Admin Note: info from [facility] Medications Acetaminophen = 1,000 mg, By Mouth, [...] Gm, 0 Refills, Maintenance, 05/10/14 4:59:41 EST, [place] Start Date: 05/10/14 Status: Ordered fludrocortisone 0.1 mg oral tablet 2 tablet = 0.2 mg, By Mouth, Daily, at 9 :00, 0 Refills, Maintenance, 08/31/11 6:15:35 EDT Start Date: 08/31/11 Status: Ordered Guaifenesin 10 mL, By Mouth, Every 4 hours, PRN as needed for congestion, 0 Refills, Maintenance, 06/27/16 14:05:03 EDT Start Date: 06/27/16 Status: Ordered Hemorrhoid Supp PE-Shark liver oil-[place] Butter 0.25-3-85.5% Hemorrhoid Supp PE-Shark liver oil-[place] Butter 0.25-3-85.5%, 1, supp, Rectally, Every 6 [...] Capsule Start Date: 05/10/14 Status: Ordered [place] 150 mg, By Mouth, Daily in AM, [...] Exam Date Time Procedure Performing Provider Status 05/14/19 2:42 PM Abdomen AP Segun , Bree; Auth (Ve rified) Notes: (Abdomen AP) Reason For Exam: fluoro g-tube study;Other: RESULT: XR Abdomen AP XR Abdomen AP Reason: Other:; fluoro g-tube study; Clinical Question(s): Other:; replaced gtube; Hx of Present Illness: [facility] COMPARISON: None. FINDINGS: G2 distal tip is in stomach. 50 mL of Isovue 300 seen layering in the stomach. No extravasation. Normal bowel gas pattern. No abnormal stool retention. No abnormal calcifications. No acute bony abnormalities. IMPRESSION: Well-positioned G-tube. No acute abnormality. WSN: [id number] Dictated By: Chris Luna MD Dictated Date/Time: 05/14/19 3:16 pm Reviewed By: Chris Luna MD Signed By: Chris Luna MD Signed Date/Time: 05/14/19 3:16 pm Transcribed By: MORENO Transcribed Date/Time: 05/14/19 3:15 pm Vital Signs Most recent to oldest [Reference Range]: 1 Height 165 cm (05/14/19 12:40 PM) Weight 70.5 kg (05/14/19 12:40 PM) Oxygen Saturation [94-100 %] 99 % (05/14/19 12:40 PM) Pulse Rate [55-90 bpm] 77 bpm (05/14/19 12:40 PM) Blood Pressure [90-138/55-84 mm Hg] 118/ 74mm Hg (05/14/19 12:40 PM) Respiratory Rate [16-30 br/min] 18 br/mi n (05/14/19 12:40 PM) Temperature [96.8-100.4 DegF] 97.1 DegF (05/14/19 12:40 PM) Mode of Delivery (Oxygen) Room air (05/14/19 12:40 PM) Blood pressure sites Arm, right (05/14/19 12:40 PM) Temperature Route Oral (05/14/19 12:40 PM) Dry Weight 70.5 kg (05/14/19 12:40 PM) Social History Social History Type Response Smoking Status Former smoker entered on: 02/18/14 Sex
--- OUTSIDE RECORDS SUMMARY | 2022-10-18 03:18 | XMS_ITS | Continuity of Care Document ---
Author Name Unknown Organization [facility] Address [address] [place] [address]- Care Team Providers Care Creative Services Producer Name Role Phone Dolly Díaz MD Primary Care Physician [phone] [facility] [place] - 01/07/[address] [id number] [phone] Discharge Disposition: Transfer to [facility] Facility Attending Physician: Mirian Sherwood MD Admitting Physician: Evie BEY, Guanako Luz Referring Physician: Not on Staff, Referring MD Allergies, Adverse Reactions, Alerts Substance Reaction Severity Status perphenazine Active Prozac Active Augmentin Active Seafood Active Immunizations Given and Recorded Vaccine Date Status Refusal Reason Influenza Virus Vaccine (oldterm) 1 12/20/19 Recor ded Diphth-Tetanus Toxoids Adsorbed(oldterm) 2 08/26/07 Given pneumococcal 23-valent vaccine 3 03/28/07 Given 1Result Comment: Info from RN at [facility] on 01/06/20 [facility] 3Admin Note: info from [facility] Medications Atropine Sulfate, Ophthalmic Sublingual, Every 15 minutes, [...] Refills 0, Maintenance, If no results from Jacqui enema, 09/18/17 19:49:20 EDT, Compound Start Date: 09/18/17 Status: Ordered ChlorproMAZINE = 125 mg, G Tube, 3 times a day, 0 Refills, Maintenance, 10/18/19 21:13:00 EDT Start Date: 10/18/19 Status: Ordered chlorproMAZINE 25 mg oral tablet [...] Gm, 0 Refills, Maintenance, 05/10/14 4:59:41 EST, [place] Start Date: 05/10/14 Status: Ordered Geodon 80 mg oral capsule 1 capsule = 80 mg, G Tube, 2 times a day, must give with meal, 0 Refills, Maintenance, 11/02/19 0:51:00 EDT Start Date: 11/02/19 Status: Ordered Hemorrhoid Supp PE-Shark liver oil-[place] Butter 0.25-3-85.5% Hemorrhoid Supp PE-Shark liver oil-[place] Butter 0.25-3-85.5%, 1, supp, Rectally, Every 6 [...] 1:01:00 EDT Start Date: 11/02/19 Status: Ordered levoFLOXacin 750 mg oral tablet 1 tablet = 750 mg, G Tube, Every 24 hours, for 4 days, # 4 tablet, 0 Refills, Acute 01/11/20 11:21:00 EDT, 01/07/20 11:21:00 EDT, Tablet, [id number], 177.8, cm, 01/07/20 8:11:00 EDT, Height, 83.3, kg, 01/06/20 12:44:00 EDT, Dry Weight Start Date: 01/07/20 Stop Date: 01/11/20 Status: Ordered levothyroxine 112 mcg (0.112 mg) oral capsule 1 capsule = 112 mcg, G Tube, Daily, # 30 capsule, 0 Refills, Maintenance, 05/10/14 3:05:53 EST, Capsule Start Date: 05/10/14 Status: Ordered [place] See Instructions, 8 meq/5ml give 5ml via [...] for Microbiology Reports Name Date Blood Culture 01/05/20 Blood Culture #2 01/05/20 Urine Culture (URINE CULTURE) 01/05/20 Microbiology Reports TEST:Blood Culture STATUS:Unauthenticated BODY SITE: SOURCE:Blood COLLECTED DATE/TIME:01/05/20 10:55 AM Blood Culture SPECIMEN DESCRIPTION : BLOOD RTARM SPECIAL REQUESTS : NONE CULTURE : NO GROWTH AFTER 48 HOURS REPORT STATUS : PRELIMINARY REPORT TEST:Blood Culture, Second Order STATUS:Unauthenticated BODY SITE: SOURCE:Blood COLLECTED DATE/TIME:01/05/20 10:55 AM Blood Culture, Second Order SPECIMEN DESCRIPTION : BLOOD RTARM SPECIAL REQUESTS : NONE CULTURE : NO GROWTH AFTER 48 HOURS REPORT STATUS : PRELIMINARY REPORT TEST:Urine Culture STATUS:Auth (Verified) BODY SITE: SOURCE:URINE COLLECTED DATE/TIME:01/05/20 10:16 AM Urine Culture SPECIMEN DESCRIPTION : URINE CLEAN CATCH/MIDSTREAM SPECIAL REQUESTS : NONE CULTURE : NO GROWTH REPORT STATUS : FINAL 01/06/2020 Radiology Reports * Exam Date Time Procedure Performing Provider Status 01/05/20 11:04 AM Chest Portable Barbara Casper; Auth (Verified) Notes: (Chest Portable) Reason For Exam: This morning fever, respiratory distress, AMS Hx Aspiration pneumonia and G-tube RESULT: Chest Portable Chest Portable Hx of Present Illness: fever, alt ms, diff breathing onset this morning. Responds to painful stimulus, history aspiration pneumonia, and g tube; Reason: This morning fever, respiratory distress, AMS Hx Aspiration pneumonia and G- tube; Clinical Question(s): CHF COMPARISON: 06/11/2019. FINDINGS: LINES AND TUBES: Monitoring leads project over the left lower chest. LUNGS AND PLEURA: Clear lungs. Normal pulmonary vascularity. No pleural effusion. No pneumothorax. HEART, MEDIASTINUM AND [place]: Heart is normal in size. Normal mediastinal and hilar contour. BONES AND SOFT TISSUES: No acute abnormality. IMPRESSION: No acute abnormality. WSN: [id number] Ordering Physician: Mian Morales Dictated By: Lionel Rodríguez MD Dictated Date/Time: 01/05/20 11:13 a Reviewed By: Lionel Rodríguez MD Signed By: Lionel Rodríguez MD Signed Date/Time: 01/05/20 11:13 am Transcribed By: MORENO Transcribed Date/Time: 01/05/20 11:11 am Vital Signs Most recent to oldest [Reference Range]: 1 2 3 Height 177.8 cm (01/07/20 11:24 AM) 177.8 cm (01/07/20 7:30 AM) 177.8 cm (01/07/20 4:23 AM) Weight 82.1 kg (01/07/20 4:24 AM) 76.7 kg (01/06/20 12:42 PM) 76.7 kg (01/06/20:29 AM) Oxygen Saturation [94-100 %] 100 % (01/07/20:24 AM) 94 % (01/07/20:30 AM) 96 % (01/07/20: AM) Pulse Rate [55-90 bpm] 105 bpm *H* (01/07/20:24 AM) 83 bpm (01/07/20:30 AM) 92 bpm *H* (01/07/20: AM) Body Mass Index [18.5-24.99] 24.26 (01/06/20 12:42 PM) 24.26 (01/06/20 12:29 AM) Blood Pressure [90-138/55-84 mm Hg] 148/61mm Hg *H* (01/07/20:24 AM) 101/56mm Hg (01/07/20:30 AM) 111/64mm Hg (01/07/20: AM) Respiratory Rate [16-30 br/min] 18 br/min (01/07/20:24 AM) 23 br/min (01/07/20:30 AM) 21 br/min (01/07/20: AM) Temperature [96.8-100.4 DegF] 98.2 DegF (01/07/20:24 AM) 97.7 DegF (01/07/20:30 AM) 98.3 DegF (01/07/20: AM) Liters per Minute 0 L/min (01/07/20:24 AM) 0 L/min (01/06/20 7:41 PM) 0 L/min (01/06/20 3:36 PM) Mode of Delivery (Oxygen) Room air (01/07/20:24 AM) Room air (01/07/20:30 AM) Room air (01/07/20: AM) Blood pressure sites Arm, right (01/07/20 11:24 AM) Arm, right (01/07/20 7:30 AM) Arm, right (01/07/20: AM) Temperature Route Oral (10/23/20 11:24 AM) Oral (01/07/20 7:30 AM) Oral (01/07/20 4:23 AM) Dry Weight 83.3 kg (01/06/20 12:42 PM) 79 kg (01/05/20 10:27 AM) Weight Obtained Via Bed scale (01/07/20 4:24 AM) Bed scale (01/06/20 12:42 PM) Bed scale (01/06/20 12:29 AM) Dry Weight Obtained Via Patient/family s tated (01/06/20 12:42 PM) Social History Social History Type Response Smoking Status Former smoker entered on: 02/18/14 Sex
--- OUTSIDE RECORDS SUMMARY | 2022-10-18 03:18 | XMS_ITS | Continuity of Care Document ---
Author Name Unknown Organization [facility] Address [address] [place] [id number] Care Team Providers Care Rn Prior Authorization Name Role Phone Dolly Díaz MD Primary Care Physician Encounter [facility] [place] Date(s): 02/11/22 - 02/25/[address] [id number]- Encounter Diagnosis Fever(Final) - 02/11/22 Altered mental status(Final) - 02/11/22 Respiratory distress(Final) - 02/11/22 Hypotension(Final) - 02/11/22 Discharge Disposition: A-Transfer SNF Attending Physician: Dulce Mcrae MD Admitting Physician: Kostas Larose MD Referring Physician: Not on Staff, Referring MD Allergies, Adverse Reactions, Alerts Substance Reaction Severity Status perphenazine Active Prozac Active Augmentin Active Seafood Active Immunizations Given and Recorded Vaccine Date Status Refusal Reason Influenza Virus Vaccine (oldterm) 1 12/20/19 Recor ded Diphth-Tetanus Toxoids Adsorbed(oldterm) 2 08/26/07 Given pneumococcal 23-valent vaccine 3 03/28/07 Given 1Result Comment: Info from RN at [facility] on 01/06/20 2Admin Note: [facility] sherley cueto,leighann 3Admin Note: info from [facility] Medications acetaminophen 500 mg oral tablet 2 [...] ; Start Date: 02/12/22 Status: Ordered nystatin 702544 u/ml oral suspension 4 mL = 400,000 [...] for Microbiology Reports Name Date Blood Culture 02/17/22 Blood Culture #2 02/17/22 Urine Culture (URINE CULTURE) 02/11/22 Blood Culture 02/11/22 Blood Culture #2 02/11/22 Microbiology Reports TEST:Blood Culture STATUS:Auth (Verified) BODY SITE: SOURCE:Blood COLLECTED DATE/TIME:02/17/22 9:09 AM Blood Culture SPECIMEN DESCRIPTION : BLOOD LHAND SPECIAL REQUESTS : NONE CULTURE : NO GROWTH 5 DAYS. REPORT STATUS : FINAL 02/22/2022 TEST:Blood Culture, Second Order STATUS:Auth (Verified) BODY SITE: SOURCE:Blood COLLECTED DATE/TIME:02/17/22 9:04 AM Blood Culture, Second Order SPECIMEN DESCRIPTION : BLOOD RHAND SPECIAL REQUESTS : NONE CULTURE : NO GROWTH 5 DAYS. REPORT STATUS : FINAL 02/22/2022 TEST:Urine Culture STATUS:Auth (Verified) BODY SITE: SOURCE:URINE COLLECTED DATE/TIME:02/11/22 11:05 PM Urine Culture SPECIMEN DESCRIPTION : URINE SPECIAL REQUESTS : NONE CULTURE : NO GROWTH REPORT STATUS : FINAL 02/13/2022 TEST:Blood Culture STATUS:Auth (Verified) BODY SITE: SOURCE:Blood COLLECTED DATE/TIME:02/11/22 9:44 PM Blood Culture SPECIMEN DESCRIPTION : BLOOD LT AC SPECIAL REQUESTS : NONE CULTURE : NO GROWTH 5 DAYS. REPORT STATUS : FINAL 02/16/2022 TEST:Blood Culture, Second Order STATUS:Auth (Verified) BODY SITE: SOURCE:Blood COLLECTED DATE/TIME:02/11/22 9:44 PM Blood Culture, Second Order SPECIMEN DESCRIPTION : BLOOD RT FOREARM SPECIAL REQUESTS : NONE CULTURE : NO GROWTH 5 DAYS. REPORT STATUS : FINAL 02/16/2022 Radiology Reports * Exam Date Time Procedure Performing Provider Status 02/25/22 7:29 AM Abdomen AP Traci Dos Santos; Sukh ut (Verified) Notes: (Abdomen AP) Reason For Exam: Constipation RESULT: XR Abdomen AP XR Abdomen AP 1 view INDICATION/CLINICAL QUESTION: Reason: Constipation; Clinical Question(s): Constipation; Assess for resolution of stool ball COMPARISON: 02/24/2022. FINDINGS: The previously moderate stool burden in the rectum has resolved. There is moderately distended urinary bladder projecting over the pelvis. Normal bowel gas pattern throughout the abdomen and pelvis seen. There is a gastrostomy tube projecting over the upper abdomen midline in location. No evidence of pneumoperitoneum. No organomegaly, masses or calcifications. No acute bone findings. There are mild degenerative changes involving the lower lumbosacral spine. Remodeling changes again noted involving the left acetabulum and iliac bone which could reflect a remote injury. IMPRESSION: Decreasing stool burden in the rectum with no evidence of small or large bowel distention seen. WSN: [id number] Ordering Physician: La Gomez Dictated By: Jason Logan MD, V Dictated Date/Time: 02/25/22 1:39 pm Reviewed By: Jason Logan MD, V Signed By: Jason Logan MD, V Signed Date/Time: 02/25/22 1:39 pm Transcribed By: MORENO Transcribed Date/Time: 02/25/22 1:33 pm * Exam Date Time Procedure Performing Provider Status 02/24/22 9:37 AM Abdomen AP Kasia Archibald; Auth (Verif ied) Notes: (Abdomen AP) Reason For Exam: Constipation RESULT: XR Abdomen AP XR Abdomen AP INDICATION: Reason: Constipation; Clinical Question(s): Constipation; Resolution of constipation. Age 61 years COMPARISON: 08/24/2021. Correlation is made with CT abdomen/pelvis dated 02/20/2022. FINDINGS: G-tube in place. No evidence of bowel obstruction or pneumoperitoneum. Formed stool in mildly distended rectum with caliber measuring 8.2 cm. Right hemiabdomen and pelvis were partially excluded. Degenerative changes in the spine and hip joints. IMPRESSION: Constipation with distended rectum. Please correlate for evidence of stercoral colitis. A critical result message (Bryan) has been communicated via the Ask The Doctor system on 02/24/2022 9:48 AM, Message ID [id number]. WSN: [id number] Ordering Physician: La Gomez Dictated By: Jessica Coronado MD Dictated Date/Time: 02/24/22 9:48 am Reviewed By: Jessica Coronado MD Signed By: Jessica Coronado MD Signed Date/Time: 02/24/22 9:48 am Transcribed By: MORENO Transcribed Date/Time: 02/24/22 9:45 am * Exam Date Time Procedure Performing Provider Status 02/20/22 7:[address] Abd/Pelvis W/ IV Contrast Only WarrenAisha barrera; Auth (Verified) Notes: (CT Abd/Pelvis W/ IV Contrast Only) Reason For Exam: F/U left ischeal abcess;Other: RESULT: CT Abd/Pelvis W/ IV Contrast Only CT Abd/Pelvis W/ IV Contrast Only Reason: Other:; F U left ischeal abcess; Clinical Question(s): Abscess; Order Comment: TECHNIQUE: Spiral CT through the abdomen and pelvis with IV contrast formatted in 3 planes. 100 cc of Omnipaque 300 was administered intravenously. This study was performed without oral contrast. Weight-based protocol using automatic tube modulation was used to optimize exposure parameters. CTDIvol Body: 17.00 mGy, DLP Body: 1006 mGy*cm. COMPARISON: CT abdomen and pelvis 02/12/2022. FINDINGS: Missile Inspector Preflight View Findings, Lines and Tubes: Gastrostomy tube in stomach. Visualized Chest: Persistent patchy opacities at the lung bases, in the right middle lobe, and in the lingula, with increased consolidative opacity in the left lower lobe. Trace left pleural effusion. Diaphragm: Normal. Liver: Normal. Gallbladder: Cholelithiasis. Bile ducts: No biliary ductal dilation. Spleen: Upper normal size with no focal lesions.. Pancreas: Normal. Adrenal glands: Normal. Kidneys and ureters: No hydronephrosis, stones, or suspicious masses. Small hypodensities that are too small to characterize are noted, requiring no dedicated follow up. Septated left parapelvic cystagain noted. Bladder: Thickened trabeculated wall with multiple diverticula. Reproductive organs: Cystic foci in the central prostate. Stomach, small bowel, and large bowel: There is again a large stool burden in the colon with large amount of stool in the rectum which is distended up to approximately 3.8 cm, improved. There is improved rectal wall thickening. No bowel obstruction. Appendix: Normal. Peritoneum and retroperitoneum: No ascites or pneumoperitoneum. No omental or mesenteric lesions. Lymph nodes: No enlarged lymph nodes. Blood vessels: Mild vascular calcifications but no aneurysm. No evidence of venous thrombosis. Abdominal and pelvic wall: There has been decrease in size of the peripherally enhancing hypodensity adjacent to the left tissue tuberosity, now 3.6 x 1.9 cm, previously 4 x 3 cm. There are few scattered areas of subcutaneous gas in the anterior abdominal wall, probably injection sites. Bones: Remodeling changes again noted involving the left acetabulum and iliac bone which could reflect remote injury. IMPRESSION: Decrease in size of the abscess adjacent to the left fascial tuberosity. Worsening left lower lobe airspace disease suspicious for pneumonia. Improved stercoral colitis though there is still a large stool burden within the rectum. There are again cystic foci in the central prostate gland which probably reflect TURP defect. WSN: [id number] Ordering Physician: Tena Recinos Dictated By: Agueda Thomas MD Dictated Date/Time: 02/21/22 7:54 am Reviewed By: Agueda Thomas MD Signed By: Agueda Thomas MD Signed Date/Time: 02/21/22 7:54 am Transcribed By: MORENO Transcribed Date/Time: 02/21/22 7:41 am * Exam Date Time Procedure Performing Provider Status 02/18/22 9:11 PM US Doppler Ext Lower Venous Bilat Katharine Naylor; Auth (Verified) Notes: (US Doppler Ext Lower Venous Bilat) Reason For Exam: Unexplained fever;Other: RESULT: US Doppler Ext Lower Venous Bilat US Doppler Ext Lower Venous Bilat Reason: Other:; Unexplained fever; Clinical Question(s): Thrombosis COMPARISON: None IMAGING TECHNIQUE: Ultrasound of the veins from the groin through the calf was performed using grayscale, color, and spectral Doppler ultrasound assessing for complete compressibility and normal flowcharacteristics. FINDINGS: RIGHT LOWER EXTREMITY: Common femoral vein: Patent. No thrombosis. Femoral vein: Patent. No thrombosis. Popliteal vein: Patent. No thrombosis. Gastrocnemius veins: The visualized portions are patent without evidence of thrombosis. Peroneal veins: The visualized portions are patent without evidence of thrombosis. Posterior tibial veins: The visualized portions are patent without evidence of thrombosis. LEFT LOWER EXTREMITY: Common femoral vein: Patent. No thrombosis. Femoral vein: Patent. No thrombosis. Popliteal vein: Patent. No thrombosis. Gastrocnemius veins: The visualized portions are patent without evidence of thrombosis. Peroneal veins: The visualized portions are patent without evidence of thrombosis. Posterior tibial veins: The visualized portions are patent without evidence of thrombosis. OTHER FINDINGS: IMPRESSION: No evidence of deep venous thrombosis. WSN: [id number] Ordering Physician: La Gomez Dictated By: Chris Luna MD Dictated Date/Time: 02/18/22 9:25 pm Reviewed By: Chris Luna MD Signed By: Chris Luna MD Signed Date/Time: 02/18/22 9:25 pm Transcribed By: MORENO Transcribed Date/Time: 02/18/22 9:25 pm * Exam Date Time Procedure Performing Provider Status 02/17/22 9:29 AM Chest Portable Traci Dos Santos; Auth (Verified) Notes: (Chest Portable) Reason For Exam: Shortness of Breath RESULT: Chest Portable AP upright portable chest dated February 17, 2022 at 0913 hours. Comparison films are from February 11, 2022. HISTORY: Shortness of breath. FINDINGS: The cardiac silhouette is within normal limits for size. Hilar and mediastinal structuresare unremarkable. The left lower lobe shows increased attenuation consistent with atelectasis or pneumonia and associated pleural effusion. Less significant is opacity at the right lower lobe also consistent with atelectasis or pneumonia and associated pleural effusion. IMPRESSION: No significant interval change on the left. Interval worsening of aeration at the right lung base consistent with atelectasis, pneumonia, pleural effusion, or any combination. Examination [id number]. Thank you for allowing me to participate in the care of this patient. WSN: [id number] Ordering Physician: Tex Walters Dictated By: Kenneth Caraballo MD Dictated Date/Time: 02/17/22 10:44 a Reviewed By: Kenneth Caraballo MD Signed By: Kenneth Caraballo MD Signed Date/Time: 02/17/22 10:44 am Transcribed By: MORENO Transcribed Date/Time: 02/17/22 10:44 am * Exam Date Time Procedure Performing Provider Status 02/12/22 5:[address] Abd/Pelvis W/ IV Contrast Only Colon , Aisha; Auth (Verified) Notes: (CT Abd/Pelvis W/ IV Contrast Only) Reason For Exam: sepsis,;Other: RESULT: CT Abd/Pelvis W/ IV Contrast Only CT Abd/Pelvis W/ IV Contrast Only Reason: sepsis,; Clinical Question(s): Abscess; ? fecal impaction colitis, L left ischial tuberosity infection abscess; Order Comment: TECHNIQUE: Spiral CT through the abdomen and pelvis with IV contrast formatted in 3 planes. 100 cc of Omnipaque 300 was administered intravenously. This study was performed without oral contrast. Weight-based protocol using automatic tube modulation was used to optimize exposure parameters. CTDIvol Body: 14.30 mGy, DLP Body: 889 mGy*cm. COMPARISON: 02/06/2022. FINDINGS: Missile Inspector Preflight View Findings, Lines and Tubes: G-tube terminates in the stomach lumen. Visualized Chest: Patchy opacities at the lung bases with interval worsening in the lower lobes andlingula. No pleural or pericardial effusion. Diaphragm: Normal. Liver: Normal. Gallbladder: Cholelithiasis without evidence of acute cholecystitis.. Bile ducts: No biliary ductal dilation. Spleen: Borderline splenic size measuring 13.2 cm in long axis. Pancreas: Normal. Adrenal glands: Normal. Kidneys and ureters: No hydronephrosis, stones, or suspicious masses. Mildly complex septated parapelvic cyst in the left kidney upper pole measures up to 4.4 cm. Additional subcentimeter hypodensities in both kidneys are too small to characterize by CT. Bladder: Severely trabeculated bladder wall with multiple diverticuli. Reproductive organs: Cystic foci in the central prostate gland are unchanged. The largest measures 2.2 cm. Stomach, small bowel, and large bowel: Persistent large stool burden throughout the colon. Transverse diameter of the rectum measures 9.2 cm, previously 9.3 cm. There is circumferential wall thickening in the rectum with perirectal fat stranding and trace amount of free fluid. No evidence of bowel obstruction. Appendix: Normal. Peritoneum and retroperitoneum: Trace free fluid in the pelvis. There is no pneumoperitoneum. No omental or mesenteric lesions. Lymph nodes: No enlarged lymph nodes. Blood vessels: Mild vascular calcifications but no aneurysm. No evidence of venous thrombosis. Abdominal and pelvic wall: Small foci of subcutaneous gas in the anterior abdominal wall, likely injection related. There is a peripherally enhancing irregular shaped hypodensity adjacent to the leftischial tuberosity, which measures 4 x 3 cm. Decreased from 4.4 x 3.5 cm previously. Bones: No acute abnormality. Bone remodeling in the left acetabulum and left iliac bone, likely sequela of remote injuries. IMPRESSION: 1. Persistent severe constipation and stercoral colitis in the rectosigmoid colon. 2. Worsening airspace disease in the lungs suggesting developing bronchopneumonia. 3. Slight interval decrease in size of the abscess adjacent to the left ischial tuberosity. 4. Cystic foci in the prostate gland could represent TURP defect but prostate abscesses cannot be excluded. 5. Additional stable chronic findings. A critical result message (Bryan) has been communicated via the Ask The Doctor system on 02/12/2022 6:00 PM, Message ID [id number]. WSN: [id number] Ordering Physician: Diana Frias Dictated By: Jessica Coronado MD Dictated Date/Time: 02/12/22 6:00 pm Reviewed By: Jessica Coronado MD Signed By: Jessica Coronado MD Signed Date/Time: 02/12/22 6:00 pm Transcribed By: MORENO Transcribed Date/Time: 02/12/22 5:46 pm * Exam Date Time Procedure Performing Provider Status 02/11/22 9:48 PM Chest Portable Gomez , Altaf; Auth ( Verified) Notes: (Chest Portable) Reason For Exam: Shortness of Breath RESULT: Chest Portable Chest Portable Reason: Shortness of Breath; Clinical Question(s): Pneumonia COMPARISON: 07/24/2020. FINDINGS: LINES AND TUBES: None. LUNGS AND PLEURA: Linear opacities at the left lung base likely represent atelectasis. The right lung is clear. Normal pulmonary vascularity. No pleural effusion. No pneumothorax. HEART, MEDIASTINUM AND INDIA: Heart is normal in size. Normal mediastinal and hilar contour. BONES AND SOFT TISSUES: No acute abnormality. IMPRESSION: No acute abnormality. WSN: [id number] Ordering Physician: Melissa Lee Dictated By: Jessica Coronado MD Dictated Date/Time: 02/11/22 10:04 p Reviewed By: Jessica Coronado MD Signed By: Jessica Coronado MD Signed Date/Time: 02/11/22 10:04 pm Transcribed By: MORENO Transcribed Date/Time: 02/11/22 10:03 pm Vital Signs Most recent to oldest [Reference Range]: 1 2 3 Height 178 cm (02/25/22 10:45 AM) 178 cm (02/24/22 8:43 PM) 178 cm (02/24/22 4:07 PM) Weight 68.7 kg (02/24/22 8:54 AM) 68.5 kg (02/23/22 8:03 AM) 68.9 kg (02/19/22 7:14 AM) Oxygen Saturation [94-100 %] 98 % (02/25/22 10:45 AM) 95 % (02/24/22 8:43 PM) 98 % (02/24/22 4:07 PM) Pulse Rate [55-90 bpm] 79 bpm (02/25/22 10:45 AM) 71 bpm (02/24/22 8:43 PM) 67 bpm (02/24/22 4:07 PM) Body Mass Index [18.5-24.99 kg/m2] 22.6 kg/m2 (02/13/22 2:10 PM) Blood Pressure [90-138/55-84 mm Hg] 143/56mm Hg *H* (02/25/22 10:45 AM) 103/67mm Hg (02/24/22 8:43 PM) 104/70mm Hg (02/24/22 4:07 PM) Respiratory Rate [16-30 br/min] 18 br/min (02/25/22 10:45 AM) 18 br/min (02/24/22 8:43 PM) 16 br/min (02/24/22 4:07 PM) Temperature [96.8-100.4 DegF] 97.8 DegF (02/25/22 10:45 AM) 97.2 DegF (02/24/22 8:43 PM) 97.8 DegF (02/24/22 4:07 PM) Liters per Minute 3 L/min (02/21/22 5:27 PM) 3 L/min (02/21/22 11:51 AM) 3 L/min (02/20/22 9:15 PM) Mode of Delivery (Oxygen) Room air (02/25/22 10:45 AM) Room air (02/24/22 8:43 PM) Room air (02/24/22 4:07 PM) Blood pressure sites Arm, left (02/25/22 10:45 AM) Arm, left (02/24/22 8:43 PM) Arm, left (02/24/22 4:07 PM) Temperature Route Oral (02/25/22 10:45 AM) Oral (02/24/22 8:43 PM) Oral (02/24/22 4:07 PM) Dry Weight 71.6 kg (02/13/22 2:10 PM) Weight Obtained Via Bed scale (02/24/22 8:54 AM) Bed scale (02/23/22 8:03 AM) Bed scale (02/19/22 7:14 AM) Dry Weight Obtained Via Bed scale (02/13/22 2:10 PM) Social History Social History Type Response Smoking Status Former smoker entered on: 02/18/14 Sex Note * Sudhir Yi: PERFORM Event Display: Discharge/Transfer Note Hospital Authored Date: [id number] Nursing Discharge Note Entered On: 02/25/2022 14:24 EST Performed On: 02/25/2022 14:24 EST by Sudhir Yi Nursing Discharge Note 2 Discharge Time : 02/25/2022 16:57 EST Patient Left Unit Via : Ambulance Patient Accompanied Off Unit with : Ambulance/Chair Van Personnel Handover Given to Transport Personnel : Yes DC Instructions Provided & Signed by Pt : Yes Patient Understands D/C Instructions : Unable Patient Instructions Discharge Signed : No Did Pt have Specialty Bed or Wound Vac : No Sudhir Yi - 02/25/2022 16:57 EST Discharge Level of Care at Discharge : correction facility Discharge Nursing Homes/Rehab Facilities : [facility], [facility] Kassidy Sudhir - 02/25/2022 14:24 EST * Tena Recinos MD F: PERFORM Event Display: Discharge/Transfer Note Hospital Authored Date: [id number] Patient: ??JONATHAN LOPEZ ? Age:??61 Years?Sex:??Male?:??1960?? Patient Information Discharge Location: Primary Care Physician: Dolly Díaz MD Admit Date/Time: 02/11/22 23:13 Discharge Disposition Discharge Disposition: Long Term Facility/Rehab Discharge Diagnosis Altered mental status (R41.82) Fever (R50.9) Hypotension (I95.9) Respiratory distress (R06.03) Sepsis Most likely due to abscess on ischial tuberosity Hyperactive/Hypoactive Delirium Hypernatremia Chronic constipation Stercoral Colitis _ Discharge Medications Acetaminophen (acetaminophen 500 mg oral tablet)?2?tab(s)?1,000?Milligram?G Tube?3 times a day Al Hydroxide/Mg Hydroxide/Simethicone (Mylanta Liquid)?30?Milliliter?G Tube?Every 6 hours?as needed?as needed for indigestion Atropine Ophthalmic (Atropine Sulfate, Ophthalmic)?2?Drops?Sublingual?Every 15 minutes?as needed?SECRETIONS Bisacodyl (bisacodyl 10 mg rectal suppository)?1?suppository(ies)?10?Milligram?Rectal ly?Daily?as needed?for constipation Cefepime 2g every 8 hours until March 11 Cholecalciferol (Vitamin D3 50,000 intl units oral capsule)?1?capsule?50,000?International Unit?G Tube?on the of each month. Clonazepam (KlonoPIN 0.5 mg oral tablet)?1?tab(s)?0.5?Milligram?G Tube?2 times a day Clozapine?175?Milligram?G Tube?Daily at bedtime Clozapine (clozapine 50 mg oral tablet)?1?tab(s)?50?Milligram?By Mouth?Daily in AM Docusate (Colace sodium 100 mg oral capsule)?100?Milligram?1?capsule?G Tube?2 times a day Guaifenesin (guaiFENesin 100 mg/5 mL oral liquid)?10?Milliliter?200?Milligram?G Tube?Every 4 hours?as needed?for cough Lactobacillus Acidophilus (Acidophilus)?1?tab(s)?By Mouth?2 times a day?02/11/22 to 02/16/22 Levothyroxine (levothyroxine 0.1 mg oral tablet)?1?tab(s)?100?Microgram?G Tube?Daily Lidocaine Topical (lidocaine 5% topical film)?1?patch(es)?Topically?Daily?as needed?Pain , Mild?tp LEFT knee. remove after 12 hours [place] (lithium 300 mg oral tablet)?1?tab(s)?300?Milligram?G Tube?2 times a day Miconazole Topical (Miconazole 2% Topical Ointment)?1?applicator?Topically?Every 12 hours Milk of Magnesia (Milk of Magnesia 8% oral suspension)?30?Milliliter?2.4?gram?G Tube?Daily?as needed?for constipation mineral oil/petrolatum/phenylephrine topical (Preparation H)?1 suppository?Rectally?Every 6 hours?as needed?Hemorrhoids?0.25-88.44% Miscellaneous Rx (JEVITY)?1.2 Bolus Feed?Prior to each feed Miscellaneous Rx (JEVITY)?400?Milliliter?4 times a day?9am, 1pm, 5pm & 9pm Miscellaneous Rx (H2O FLUSH)?225?Milliliter?4 times a day?Before Jevity 9am, 1pm, 5pm & 9pm nalOXONE (Narcan 4 mg/0.1 mL nasal spray)?4?Milligram?Naris, Left?Once?as needed?as needed nalOXONE (Narcan Inj)?1?Milligram?Intramuscular?Once?as needed?as needed Nystatin (nystatin 141147 u/ml oral suspension)?4?Milliliter?400,000?unit(s)?Swish and Spit?4 times a day?for 4?Days Ocular Lubricant (Artificial Tears preserved solution)?2?Drops?Eyes, Both?4 times a day?as needed?for dry eyes?0.2--0.2-1% Omeprazole (omeprazole 20 mg oral enteric coated capsule)?1?capsule?20?Milligram?G Tube?Daily?12PM Polyethylene Glycol 3350 (Polyethylene Glycol Powder)?1?pack/packet?17?gram?G Tube?2 times a day Senna (Senna 8.6 mg oral tablet)?8.6?Milligram?1?tab(s)?G Tube?2 times a day Sodium Biphosphate-Sodium Phosphate (Fleet Enema 19 gm-7 gm rectal enema)?1?Each?Rectally?Once?as needed?for constipation Trazodone (traZODone 100 mg oral tablet)?100?Milligram?1?tablet?G Tube?Daily at bedtime ValACYclovir (valACYclovir 500 mg oral tablet)?500?Milligram?1?tablet?G Tube?Daily Valproic Acid (valproic acid 250 mg/5 mL oral syrup)?20?Milliliter?1,000?Milligram?GTube?Daily in AM Valproic Acid (valproic acid 250 mg/5 mL oral syrup)?40?Milliliter?2,000?Milligram?GTube?Daily at bedtime Ziprasidone (Geodon 80 mg oral capsule)?1?capsule?80?Milligram?G Tube?2 times a day?must give with meal ? Medications Started Cefepime 2g every 8 hours until March 11 Nystatin (nystatin 959674 u/ml oral suspension)?4?Milliliter?400,000?unit(s)?Swish and Spit?4 times a day?for 4?Days Medications Discontinued None Doses Changed Clonazepam (KlonoPIN 0.5 mg oral tablet)?1?tab(s)?0.5?Milligram?G Tube?2 times a day Clozapine?175?Milligram?G Tube?Daily at bedtime Clozapine (clozapine 50 mg oral tablet)?1?tab(s)?50?Milligram?By Mouth?Daily in AM Senna (Senna 8.6 mg oral tablet)?8.6?Milligram?1?tab(s)?G Tube?2 times a day Allergies Allergies ?(Active and Proposed Allergies Only) Augmentin? (Severity: Unknown severity, Onset: Unknown) Seafood? (Severity: Unknown severity, Onset: Unknown) Prozac? (Severity: Unknown severity, Onset: Unknown) perphenazine? (Severity: Unknown severity, Onset: Unknown) ? PCP Follow-Up/Heads-Up Sepsis in the setting of possible ischial tuberosity abscess -Empiric treatment with cefepime for 4 weeks given unable to obtain biopsy -Other sources of infection could have been pneumonia (chronic aspiration) or stable prostate abscess -Cefepime 2g q8h until March 11 -Weekly CBC w/ diff, Cr, BUN, ESR, CRP to be sent to ID office (fax below) ?? Altered Mental Status -could have been in the setting of infection vs delirium vs psych medications -Changes: Clonazepam (KlonoPIN 0.5 mg oral tablet)?1?tab(s)?0.5?Milligram?G Tube?2 times a day, Clozapine?175?Milligram?G Tube?Daily at bedtime, and Clozapine (onuidmdpu13 mg oral tablet)?1?tab(s)?50?Milligram?By Mouth?Daily in AM ?? Constipation Patient was extremely constipated with concern for stercoral colitis Aggressive multimodal bowel regiment should be continued outpatient Be aware of liquid stools as these could be encopresis secondary to constipation ?? Future Appointments Friday 10:30 AM EST ?? 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 ?? Patient presented to the ED on 02/12 from [place] [facility] due to altered mental status, hypoxia and concern for sepsis. In the ED he was found to be febrile. Initial blood work-up was largely unremarkable except for mild hypernatremia with sodium of 147. EKG showed sinus tachycardia and chest x-ray non-acute. CT scan showed persistent severe constipation and stercoral colitis in the rectosigmoid colon, worsening airspace disease in the lungs suggesting developing bronchopneumonia, slight interval decrease in size of the abscess adjacent to the left ischial tuberosity compared to CT on prior admission, and a cystic foci in the prostate gland??thought to??represent TURP defect vs prostatic abscess. Patient was started on cefepime for sepsis of unclear origin and??admitted for further work up of infection.??Urology was consulted and??did not believe that that??a prostatic abscess was the cause of the sepsis, especially given UA reassuring against infection. Patient's respiratory status remained stable making??pneumonia unlikely. He was treated for stercoral colitis and chronic constipation with an aggressive bowel regiment??with intermittent loose stools -??C. diff testing negative.??Repeat CT abd/pelvis showed decrease in size of fluid collection adjacent to ischial tuberosity makingabscess the most likely source for infection. Given risks of anesthesia with patient's overall clinical picture and improvement in in abscess size, drainage of abscess??not pursued and ID recommendedcontinuing for a total of 4 weeks of empiric antibiotics. ?? 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 Recommendations ??? Continue cefepime IV 2 g every 8 hours??via PICC??through Mar 11 ??? Follow up with ID on Mar 12 - Please obtain weekly CBC w/ diff, Cr, BUN, ESR, CRP to be sent to ID office (fax below) - Will need interval CT abdomen and pelvis in 4 weeks ?OPAT Script ??Indication/s: Osteomyelitis ??Antimicrobial/s: Cefepime ??Planned duration: 4 weeks ??Start date: 02/12 ??End date: March 11 ??Vascular access: PICC line ??Monitoring labs (test/frequency): Weekly CBC with differential, creatinine, BUN, K, ESR, CRP ??Imaging needed before outpt f/u visit: Repeat scan CT abdomen pelvis in 4 weeks ??Suggested outpt f/u visit: Yes in 3 weeks ?? ID office: ? Hyper/Hypoactive delirium?? Suspect multifactorial in setting of acute illness, multiple changes in location (had just been hospitalized), dehydration, and sedating psych medications Increased risk with h/o dementia 2/2 neurosyphilis At baseline patient is oriented to person and place, and loves to tell stories Now alert oriented to person. Asking to go home ?? Recommendations: - Delirium precautions, frequent reorientation, bed by window if possible, decreased evening time wakening - Changes to home psych medications decrease clozaril to 50m ing the am and 175mg at bed time decrease Klonopin to 0.5mg BID ?? Hypernatremia??- Resolved Suspect 2/2 insensible losses in setting of acute illness ?? Recommendations: - Gtube free water flushes of 400ml every 6 hours - Please obtain BMP in 1 week to asses electrolytes ?? Chronic Constipation Stercoral Colitis Diarrhea Recent admission for stercoral colitis - ongoing stool burden on repeat CT x2 this admission Had diarrhea (C. diff negative) which was thought to be encopresis given ongoing stool burden ?? Recommendations ??? Aggressive multimodal bowel regiment ??? Continue to monitor stool output daily - Be aware of liquid stools as these could be encopresis secondary to constipation ? Chronic medical conditions: Pressure??ulcer: miconazole ointment daily Hypothyroidism: Continue home??levothyroxine Seizures: Continue valproic acid 1 g in a.m., 2 g p.m. Schizoaffective disorder, Anxiety, Depression: medication changes as above Diabetes: resume home regimen ? Objective Vital Signs?? Temperature: 97.2 DegF (02/24/22 20:43:00) Temperature Route: Oral (02/24/22 20:43:00) Pulse Rate: 71 bpm (02/24/22 20:43:00) Respiratory Rate: 18 br/min (02/24/22 20:43:00) Systolic Blood Pressure: 103 mm Hg (02/24/22 20:43:00) Diastolic Blood Pressure: 67 mm Hg (02/24/22 20:43:00) Blood pressure sites: Arm, left (02/24/22 20:43:00) Mean Arterial Pressure: 79 mm Hg (02/24/22 20:43:00) Pulse Pressure: 36 mm Hg (02/24/22 20:43:00) Oxygen Saturation: 95 % (02/24/22 20:43:00) Mode of Delivery (Oxygen): Room air (02/24/22 20:43:00) Early Warning Score: 7 (02/25/22 12:20:02) ? . Physical Exam Vital Signs (24 hrs) Last Charted?? Minimum?? Maximum?? Resp Rate?? 18?? 02/24/2022 20:43?? 16?? 02/24/2022 16:07 ?? 18?? 02/24/2022 20:43?? SBP?? 103?? 02/24/2022 20:43?? 103?? 02/24/2022 20:43 ?? 104?? 02/24/2022 16:07?? DBP?? 67?? 02/24/2022 20:43?? 67?? 02/24/2022 20:43 ?? 70?? 02/24/2022 16:07? General Appearance: The patient is in NAD. Eyes: EOMI. FRANCES. No scleral icterus. ENT: ??MM moist. White discharge on tongue.?? Cardiovascular: RRR S1 and S2 heard with no M/R/G. No JVD. Respiratory: ??Upper airway rhonchi bilaterally. No wheezing. Good air movement throughout both lungs. GI: Soft. Nontender and nondistended. Normal bowel sounds present throughout abdomen. ??No rebound tenderness or other findings suggestive of an acute abdomen.?? MS: ??No edema or erythema in the lower extremities. No wounds seen on the feet. Peripheral sensation intact.? Neuro:?Slow speech production Psych: Alert and oriented x1, at baseline. Appropriate and pleasant. Lines: PICC line in place Consultants [facility] Infectious [facility] Urology [facility] Psychiatry Palliative Care Pending Results None Patient Education Titles Abscess (Antibiotic Treatment Only)?? Discharge Instructions for Hypernatremia?? Constipation (Adult)?? Follow-Up Appointments Added Follow Up ?Time Frame ?Comments Dolly Díaz?1-2 day: call to discuss follow up visit?Please call your primary care provider to discuss a follow up appointment after your recent hospitalization. Patient Instructions You came to the??hospital??with altered mental status.?? You had some changes in your electrolytes??which showed that??you were??dehydrated. ??You were treated with??IV fluids??and free water bolusesthrough your??G-tube. ?He also had signs??of infection. ??You are treated with antibiotics.?? A CT scan showed that??youhad??an infection??near your hip bone.?? You were treated with IV antibiotics??which will continue after you discharge for a total of 4 weeks of antibiotics.??You had??PICC line placed to help give you the antibiotics.??You will follow-up with Infectious Disease??on??March 12??at 10:30 AM.?? Gilbertowill need weekly lab work:??CBC with differential,??creatinine,??BUN, K,??ESR, CRP and follow up CTabdomen and pelvis in 4 weeks. ?? You were also constipated when you came into the hospital. You had an aggressive bowel regiment to help remove the stool. You were started on a bowel regiment to help soften your bowel movements at home. Please continue taking the bowel medications when you leave the hospital to prevent constipation. ?? You were also found to have an abscess on your prostate that Urology examined. At this time, they are not concerned about this as the abscess is very small. ?? You were also seen by Psychiatry who recommended changing some of your psychiatric medications. Your Clozaril was decreased to 50mg in the am and 175mg in the evening. Your Klonopin was also decreased to 0.5mg BID. ?? If you have difficulty breathing, chest pain, dizziness, fever of 100.8, altered mental status??or any other symptoms that are concerning to you, please return to the hospital. Home Health Face to Face ^HomeHealthFTF Results Discharge Labs BACTERIOLOGY MRSA PCR Result Negative, MRSA target DNA not detected. ()?? 02/12/2022 06:25 S Aureus ??PCR Result Negative, SA target DNA not detected. ()?? 02/12/2022 06:25 ?? BLOOD COUNT & DIFF WBC 4.8 k/mm3 ()?? 02/24/2022 05:35 RBC 3.04 m/mm3 (Low)?? 02/24/2022 05:35 Hgb 9.7 Gm/dL (Low)?? 02/24/2022 05:35 Hct 31.7 % (Low)?? 02/24/2022 05:35 MCV 104.3 femtoliters (High)?? 02/24/2022 05:35 MCH 31.9 pg ()?? 02/24/2022 05:35 MCHC 30.6 g/dL (Low)?? 02/24/2022 05:35 Platelet Count 194 k/mm3 ()?? 02/24/2022 05:35 RDW-SD 52.8 femtoliters (High)?? 02/24/2022 05:35 MPV 12.3 femtoliters ()?? 02/24/2022 05:35 Nucleated RBC (Automated) 0.0 #/100 WBC'S ()?? 02/24/2022 05:35 Abs. NRBC 0.0 k/mm3 ()?? 02/24/2022 05:35 Abs. Neut 6.5 k/mm3 ()?? 02/18/2022 00:10 Abs. Lymph 1.7 k/mm3 ()?? 02/18/2022 00:10 Abs. [place] 0.6 k/mm3 ()?? 02/18/2022 00:10 Abs. Eo 0.0 k/mm3 ()?? 02/18/2022 00:10 Abs. Baso 0.0 k/mm3 ()?? 02/18/2022 00:10 Neut % 73.0 % ()?? 02/18/2022 00:10 Lymph % 19.4 % ()?? 02/18/2022 00:10 [place] % 6.3 % ()?? 02/18/2022 00:10 Eos % 0.1 % ()?? 02/18/2022 00:10 Baso % 0.1 % ()?? 02/18/2022 00:10 Imm Gran 1.1 % ()?? 02/18/2022 00:10 Abs. Imm Gran 0.1 k/mm3 ()?? 02/18/2022 00:10 ?? CARDIAC Nt-Probnp 203 pg/mL (High)?? 02/11/2022 21:44 High Sensitivity Troponin (HSTnT) 22 ng/L (High)?? 02/11/2022 23:40 ?? CHEM GENERAL Sodium 146 mmol/L (High)?? 02/25/2022 00:07 Potassium 4.7 mmol/L ()?? 02/25/2022 00:07 Chloride 109 mmol/L (High)?? 02/25/2022 00:07 Bicarbonate Level 27 mmol/L ()?? 02/25/2022 00:07 Anion Gap 10 ()?? 02/25/2022 00:07 Glucose Level 136 mg/dL (High)?? 02/24/2022 05:35 Glucose, POC 86 mg/dL ()?? 02/25/2022 12:11 BUN 22 mg/dL ()?? 02/25/2022 00:07 Creatinine-Blood 0.7 mg/dL ()?? 02/25/2022 00:07 Estimated GFR Creatinine 103 ML/MIN/1.73 M2 ()?? 02/25/2022 00:07 Calcium 9.1 mg/dL ()?? 02/24/2022 05:35 Calcium, Ionized pH Corrected 1.32 mmol/L ()?? 02/14/2022 01:17 Phosphorus 4.1 mg/dL ()?? 02/22/2022 06:37 Magnesium 2.3 mg/dL ()?? 02/25/2022 00:07 Protein, Total 5.6 Gm/dL (Low)?? 02/15/2022 04:08 Albumin 3.0 Gm/dL (Low)?? 02/15/2022 04:08 AG Ratio 1.3 ()?? 02/11/2022 21:44 Alkaline Phosphatase 61 units/L ()?? 02/15/2022 04:08 AST (SGOT) 14 units/L ()?? 02/15/2022 04:08 ALT (SGPT) 10 units/L ()?? 02/15/2022 04:08 Bilirubin, Total 0.2 mg/dL ()?? 02/15/2022 04:08 Bilirubin, Direct <0.2 mg/dL ()?? 02/15/2022 04:08 Bilirubin, Indirect Direct bilirubin is less than the measureable limit. Therefore, indirect mg/dL ()?? 02/15/2022 04:08 Lactate 1.4 mmol/L ()?? 02/12/2022 00:00 ?? HEME OTHER Hold Lavender Top SPECIMEN DISCARDED AFTER 24 HOURS. ()?? 02/17/2022 09:04 Hold Blue Top SPECIMEN DISCARDED AFTER 4 HOURS. ()?? 02/12/2022 05:30 ?? MISC. CHEMISTRY Procalcitonin 0.19 ng/mL ()?? 02/12/2022 05:30 Hold Gel Top SPECIMEN DISCARDED AFTER 1 WEEK ()?? 02/15/2022 04:08 ?? SEROLOGY INF DISEASE C.difficile Toxin Negative. C.Difficile bacterial antigen and toxin not detected. A (N)?? 02/17/2022 11:50 Legionella pneumophila Antigen NEGATIVE ()?? 02/20/2022 06:55 ?? TOXICOLOGY/TDM [place] Level 0.5 mmol/L (Low)?? 02/23/2022 05:59 Valproic Level 46.4 mg/L (Low)?? 02/23/2022 05:59 ?? UA/URINALYSIS Appear/Color, Urine YELLOW ()?? 02/11/2022 23:05 Specific [place], Urine 1.017 ()?? 02/11/2022 23:05 pH, Urine 6.5 ()?? 02/11/2022 23:05 Albumin, Urine TRACE (Abnormal)?? 02/11/2022 23:05 Glucose, Urine NEGATIVE ()?? 02/11/2022 23:05 Ketones, Urine NEGATIVE ()?? 02/11/2022 23:05 Bilirubin, Urine NEGATIVE ()?? 02/11/2022 23:05 Hemoglobin, Urine NEGATIVE ()?? 02/11/2022 23:05 Nitrite, Urine NEGATIVE ()?? 02/11/2022 23:05 Leukocyte, Urine 1+ (Abnormal)?? 02/11/2022 23:05 Urobilinogen NORMAL mg/dL ()?? 02/11/2022 23:05 WBC's, Urine 15 /HPF (High)?? 02/11/2022 23:05 RBC's, Urine 1 /HPF ()?? 02/11/2022 23:05 Hold Urine Culture Testing available 48 hours from time of collection. ()?? 02/11/2022 23:05 ?? VIROLOGY Influenza A PCR NEGATIVE ()?? 02/11/2022 21:50 Influenza B PCR NEGATIVE ()?? 02/11/2022 21:50 RSV PCR NEGATIVE ()?? 02/11/2022 21:50 Adenovirus by PCR NEGATIVE ()?? 02/11/2022 21:50 Coronavirus 229E by PCR (not COVID-19) NEGATIVE ()?? 02/11/2022 21:50 Coronavirus HKU1 by PCR (not COVID-19) NEGATIVE ()?? 02/11/2022 21:50 Coronavirus NL63 by PCR (not COVID-19) NEGATIVE ()?? 02/11/2022 21:50 Coronavirus OC43 by PCR (not COVID-19) NEGATIVE ()?? 02/11/2022 21:50 Human Metapneumovirus by PCR NEGATIVE ()?? 02/11/2022 21:50 Rhinovirus/Enterovirus by PCR NEGATIVE ()?? 02/11/2022 21:50 Influenza A by PCR NEGATIVE ()?? 02/11/2022 21:50 Influenza B by PCR NEGATIVE ()?? 02/11/2022 21:50 Parainfluenza 1 by PCR NEGATIVE ()?? 02/11/2022 21:50 Parainfluenza 2 by PCR NEGATIVE ()?? 02/11/2022 21:50 Parainfluenza 3 by PCR NEGATIVE ()?? 02/11/2022 21:50 Parainfluenza 4 by PCR NEGATIVE ()?? 02/11/2022 21:50 RSV by PCR NEGATIVE ()?? 02/11/2022 21:50 Bordetella Pertussis by PCR NEGATIVE ()?? 02/11/2022 21:50 Chlamydophila Pneumoniae by PCR NEGATIVE ()?? 02/11/2022 21:50 Mycoplasma Pneumoniae by PCR NEGATIVE ()?? 02/11/2022 21:50 COVID-19 by RT-PCR NEGATIVE ()?? 02/23/2022 17:15 COVID-19 PCR Specimen Source NASAL ()?? 02/21/2022 11:45 COVID-19 PCR Result NEGATIVE ()?? 02/21/2022 11:45 COVID-19 (SARS-CoV-2) by PCR NEGATIVE ()?? 02/11/2022 21:50 Bordetella Parapertussis by PCR NEGATIVE ()?? 02/11/2022 21:50 ? Microbiology ?? Blood Culture?? Completed?? Source: Blood Body Site: ?? Collected Dt/Tm: 02/11/2022 21:40 Last Updated Dt/Tm: 02/11/2022 21:40 ?SPECIMEN DESCRIPTION : BLOOD LT ACSPECIAL REQUESTS : NONECULTURE : NO GROWTH 5 DAYS.REPORT STATUS : FINAL 02/16/2022 Blood Culture #2?? Completed?? Source: Blood Body Site: ?? Collected Dt/Tm: 02/11/2022 21:40 Last Updated Dt/Tm: 02/11/2022 21:40 ?SPECIMEN DESCRIPTION : BLOOD RT FOREARMSPECIAL REQUESTS : NONECULTURE : NO GROWTH 5 DAYS.REPORTSTATUS : FINAL 02/16/2022 Blood Culture?? Completed?? Source: Blood Body Site: ?? Collected Dt/Tm: 02/17/2022 09:01 Last Updated Dt/Tm: 02/17/2022 09:01 ?SPECIMEN DESCRIPTION : BLOOD ??LHANDSPECIAL REQUESTS : NONECULTURE : NO GROWTH 5 DAYS.REPORT STATUS : FINAL 02/22/2022 Blood Culture #2?? Completed?? Source: Blood Body Site: ?? Collected Dt/Tm: 02/17/2022 09:01 Last Updated Dt/Tm: 02/17/2022 09:01 ?SPECIMEN DESCRIPTION : BLOOD RHANDSPECIAL REQUESTS : NONECULTURE : NO GROWTH 5 DAYS.REPORT STATUS : FINAL 02/22/2022 C. difficile Rapid Toxin Assay?? Completed?? Source: Stool Body Site: ?? Collected Dt/Tm: 02/17/2022 11:50 Last Updated Dt/Tm: 02/17/2022 20:57 COVID-19 (2019 Novel Coronavirus) PCR?? Completed?? Source: Nasal Body Site: Nose Collected Dt/Tm: 02/18/2022 11:15 Last Updated Dt/Tm: 02/18/2022 22:08 COVID-19 (2019 Novel Coronavirus) PCR?? Completed?? Source: Nasal Body Site: Nose Collected Dt/Tm: 02/21/2022 11:46 Last Updated Dt/Tm: 02/22/2022 02:22 ? Imaging(s) ?Chest Portable ?? 02/17/2022 09:29??by Kenneth Caraballo MD ?AP upright portable chest dated February 17, 2022 at 0913 hours. Comparison films are from February 11, 2022. ?? HISTORY: Shortness of breath. ?? FINDINGS: The cardiac silhouette is within normal limits for size. Hilar and mediastinal structuresare unremarkable. The left lower lobe shows increased attenuation consistent with atelectasis or pneumonia and associated pleural effusion. Less significant is opacity at the right lower lobe also consistent with atelectasis or pneumonia and associated pleural effusion. ?? IMPRESSION: ?? No significant interval change on the left. ?? Interval worsening of aeration at the right lung base consistent with atelectasis, pneumonia, pleural effusion, or any combination. ?US Doppler Ext Lower Venous Bilat ?? 02/18/2022 21:11??by Chris Luna MD ?US Doppler Ext Lower Venous Bilat ?? Reason: Other:; Unexplained fever; Clinical Question(s): Thrombosis ?? COMPARISON: None ?? IMAGING TECHNIQUE: Ultrasound of the veins from the groin through the calf was performed using grayscale, color, and spectral Doppler ultrasound assessing for complete compressibility and normal flowcharacteristics. ?? FINDINGS: ?? RIGHT LOWER EXTREMITY: ?? Common femoral vein: Patent. No thrombosis. ?? Femoral vein: Patent. No thrombosis. ?? Popliteal vein: Patent. No thrombosis. ?? Gastrocnemius veins: The visualized portions are patent without evidence of thrombosis. ?? Peroneal veins: The visualized portions are patent without evidence of thrombosis. ?? Posterior tibial veins: The visualized portions are patent without evidence of thrombosis. ?? LEFT LOWER EXTREMITY: ?? Common femoral vein: Patent. No thrombosis. ?? Femoral vein: Patent. No thrombosis. ?? Popliteal vein: Patent. No thrombosis. ?? Gastrocnemius veins: The visualized portions are patent without evidence of thrombosis. ?? Peroneal veins: The visualized portions are patent without evidence of thrombosis. ?? Posterior tibial veins: The visualized portions are patent without evidence of thrombosis. ?? OTHER FINDINGS: ?? IMPRESSION: ?? No evidence of deep venous thrombosis. ?CT Abd/Pelvis W/ IV Contrast Only ?? 02/20/2022 19:06??by Agueda Thomas MD ?CT Abd/Pelvis W/ IV Contrast Only ?? Reason: Other:; F U left ischeal abcess; Clinical Question(s): Abscess; Order Comment: ?? TECHNIQUE: Spiral CT through the abdomen and pelvis with IV contrast formatted in 3 planes. 100 cc of Omnipaque 300 was administered intravenously. This study was performed without oral contrast. Weight-based protocol using automatic tube modulation was used to optimize exposure parameters. ?? CTDIvol Body: 17.00 mGy, DLP Body: 1006 mGy*cm. ? COMPARISON: CT abdomen and pelvis 02/12/2022. ?? FINDINGS: ?? Missile Inspector Preflight View Findings, Lines and Tubes: Gastrostomy tube in stomach. ?? Visualized Chest: Persistent patchy opacities at the lung bases, in the right middle lobe, and in the lingula, with increased consolidative opacity in the left lower lobe. Trace left pleural effusion. ?? Diaphragm: Normal. ?? Liver: Normal. ?? Gallbladder: Cholelithiasis. ?? Bile ducts: No biliary ductal dilation. ?? Spleen: Upper normal size with no focal lesions.. ?? Pancreas: Normal. ?? Adrenal glands: Normal. ?? Kidneys and ureters: No hydronephrosis, stones, or suspicious masses. Small hypodensities that are too small to characterize are noted, requiring no dedicated follow up. Septated left parapelvic cystagain noted. ?? Bladder: Thickened trabeculated wall with multiple diverticula. ?? Reproductive organs: Cystic foci in the central prostate. ?? Stomach, small bowel, and large bowel: There is again a large stool burden in the colon with large amount of stool in the rectum which is distended up to approximately 3.8 cm, improved. There is improved rectal wall thickening. No bowel obstruction. ?? Appendix: Normal. ?? Peritoneum and retroperitoneum: No ascites or pneumoperitoneum. No omental or mesenteric lesions. ?? Lymph nodes: No enlarged lymph nodes. ?? Blood vessels: Mild vascular calcifications but no aneurysm. No evidence of venous thrombosis. ?? Abdominal and pelvic wall: There has been decrease in size of the peripherally enhancing hypodensity adjacent to the left tissue tuberosity, now 3.6 x 1.9 cm, previously 4 x 3 cm. There are few scattered areas of subcutaneous gas in the anterior abdominal wall, probably injection sites. ?? Bones: Remodeling changes again noted involving the left acetabulum and iliac bone which could reflect remote injury. ?? IMPRESSION: ?? Decrease in size of the abscess adjacent to the left fascial tuberosity. Worsening left lower lobe airspace disease suspicious for pneumonia. Improved stercoral colitis though there is still a large stool burden within the rectum. There are again cystic foci in the central prostate gland which probably reflect TURP defect. ? Tena Recinos MD [facility]- PGY1 Pager #[phone] ?? Patient was seen and discussed with ??Thor ? 30 minutes spent on discharge * Dayanara Prado: PERFORM, SIGN, VERIFY Event Display: Case Management Discharge Plan Authored Date: Patient: JONATHAN LOPEZ Age: 61 years Sex: Male : 1960 Associated Diagnoses: None Author: Dayanara Prado Discharge Plan Case Management Discharge Plan : Case Management Discharge Plan Data 02/25/2022 14:10 EST Discharge Level of Care at Discharge correction facility Discharge Nursing Homes/Rehab Facilities [facility] Discharge Transportation Arranged [facility] [address] [place] [address] Discharge Arranged Transport Date/Time 02/25/2022 16:00 Mode of Transportation Arranged Ambulance Name of Agency #1 [facility] Agency Ticket Worker #1 Admissions: Service Categories #1 Physical Therapy, Long Term Service Comments #1 You have been setup to return to [facility] for long-term care. If youhave any questions, please contact the facility at: * Sudhir Yi: PERFORM Event Display: Patient Education/Instruction Authored Date: [id number] Inpatient Adult Discharge Instructions [address] [address] Name: JONATHAN LOPEZ : 1960 Visit: 02/11/2022 23:13:00 Current Date: 02/25/2022 14:26 Account: [id number] Inpatient Adult Discharge Instructions We would like [...] and their families. Surveys are administered by [employer] ?? If further treatment with your primary care physician or another doctor is recommended, it is important for you to keep the appointment. Call your primary care physician or return to the Emergency Department immediately if your condition worsens, fails to improve, or new symptoms develop. If you need to find a doctor, you can call [facility] [employer] for a referral at [phone] or toll free at [phone]) or log in to [email or web address].. ?? You can view and manage your care through the patient portal or by using a health care clyde of your choosing. [employer] is a website that allows you to securely view your medical information including your hospital discharge summary, office visit summaries, medications and follow-up visits. You can also request appointments, renew medications, and request access to your medical information using a health care clyde of your choosing, or just ask a question. You can enroll at [email or web address] or register during your next office visit. You have been discharged from [facility], Patient Care Unit: S2. If you have any questions regarding these instructions after you leave, please call us and we will be happy to assist you. [facility] Your Care Team Attending Physician Thor BEY, Dulce Consulting Providers Louis BEY, Lori Aquino MD, Kenneth Mari; Jaskaran BEY, Dell; Toño BEY, Mian Donovan Discharging Providers Grisel BEY, Tena To Reason for Admission SEE DEEPAK LEVEL 1 Sheet Your Diagnosis Fever Altered mental status Respiratory distress Hypotension Tests Performed Below is a partial list of the tests performed during your hospitalization. You may have had other tests and procedures not included in this list. Please discuss all test results with your provider. ALT AST Basic Metabolic Panel BUN CBC CBC w/ Differential Cdiff Rapid Toxin Assay Comprehensive Metabolic Panel COVID-19 (NOVEL CORONAVIRUS), PCR COVID-19, RSV, and Flu A/B, Rapid PCR Creatinine Depakote Level Electrolytes GLUCOSE POC High??Sensitivity??Troponin T HOLD BLUE TUBE HOLD GEL TUBE HOLD LAVENDER TUBE Ionized Calcium Lactate Level Legionella Antigen Urine LFT's [facility] Level Lytes Magnesium Level Mg Level MRSA PCR Nasal Swab PHOSPHORUS ProBNP PROCALCITONIN, SERUM RESP PATH PANEL W/COVID-19 Troponin T, High Sensitivity UA W/HOLD FOR CULTURE FOR [facility] ER ONLY CT Abd/Pelvis W/ IV Contrast Only CXR Portable Doppler Ext Lower Venous Bilat (US) KUB Portable Chest Primary Care Provider Bre BEY [facility] Advance Directive Health Care Proxy on File Yes - MOLST No qualifying data available. Discharge Vitals Temperature: 97.2 DegF Height: 178 cm Pulse Rate: 71 bpm Weight: 68.7 kg Respiratory Rate: 18 br/min Body Mass Index: 22.6 kg/m2 Systolic Blood Pressure: 103 mm Hg Body surface area: 1.88 Diastolic Blood Pressure: 67 mm Hg ?? Oxygen Saturation: 95 % ?? Studies Pending All tests and labs ordered during this hospital stay have been completed unless listed below. Please discuss all pending results with your provider listed above in these instructions. ?? AFB Culture w/ AFB Smear, Nonrespiratory (Culture AFB w/ AFB Smear, Nonrespiratory) Add On Lab Order COVID-19 (2019 Novel Coronavirus) PCR Fungal Culture, Nonrespiratory Sterile Body Fluid Culture W/ Gram Smear (Culture Sterile Body Fluid w/ Gram Smear) What to do next Instructions From Your Doctor You came to the??hospital??with altered mental status.?? You had some changes in your electrolytes??which showed that??you were??dehydrated. ??You were treated with??IV fluids??and free water bolusesthrough your??G-tube. ?He also had signs??of infection. ??You are treated with antibiotics.?? A CT scan showed that??youhad??an infection??near your hip bone.?? You were treated with IV antibiotics??which will continue after you discharge for a total of 4 weeks of antibiotics.??You had??PICC line placed to help give you the antibiotics.??You will follow-up with Infectious Disease??on??March 12??at 10:30 AM.?? Alexeill need weekly lab work:??CBC with differential,??creatinine,??BUN, K,??ESR, CRP and follow up CTabdomen and pelvis in 4 weeks. ?? You were also constipated when you came into the hospital. You had an aggressive bowel regiment to help remove the stool. You were started on a bowel regiment to help soften your bowel movements at home. Please continue taking the bowel medications when you leave the hospital to prevent constipation. ?? You were also found to have an abscess on your prostate that Urology examined. At this time, they are not concerned about this as the abscess is very small. ?? You were also seen by Psychiatry who recommended changing some of your psychiatric medications. Your Clozaril was decreased to 50mg in the am and 175mg in the evening. Your Klonopin was also decreased to 0.5mg BID. ?? For your G tube feeds, please continue with 400cc free water boluses every 5 hours. ?? If you have difficulty breathing, chest pain, dizziness, fever of 100.8, altered mental status??or any other symptoms that are concerning to you, please return to the hospital. Discharge Orders Scheduled Follow-Up Appointments Friday 10:30 AM EST ?? With: Crystal Eastman MD Where: [facility] [address] [place] [address]- You Need to Schedule the Following Appointments Follow Up with??Dolly Díaz When??Within 1-2 day: call to discuss follow up visit Why: Please call your primary care provider to discuss a follow up appointment after your recent hospitalization. Where: [address] [place] [address] [place] [address]- Business (1) Discharge Medications JONATHAN LOPEZ :1960 Visit Date:02/11/2022 Medications: Please continue your medications until treatment is completed or stopped by your provider. Medications not listed below should be discontinued. Discuss any questions related to medications with your provider. What How Much When Instructions Next Dose New Miconazole Topical (Miconazole 2% Topical Ointment) 1 applicator Topically Every 12 hours 02/25/22 9pm New Nystatin (nystatin 826621 u/ ml oral suspension) 4 Milliliter Swish and Spit 4 times a day Duration: 4 Days 02/25/22 9pm Changed Al Hydroxide/ Mg Hydroxide/ Simethicone (Mylanta Liquid) 30 Milliliter Gastrostomy/PEG Tube Every 6 hours as needed for as needed for indigestion As needed Changed Atropine Ophthalmic (Atropine Sulfate, Ophthalmic) 2 Drops Sublingual Every 15 minutes as needed for SECRETIONS As needed Changed Bisacodyl (bisacodyl 10 mg rectal suppository) 1 suppository(ies) Per rectum Daily as needed for for constipation As needed Changed Clonazepam (KlonoPIN 0.5 mg oral tablet) 1 tab(s) Gastrostomy/PEG Tube Twice a day 02/25/22 9pm Changed Clozapine 175 Milligram Gastrostomy/PEG Tube Daily at Bedtime 02/25/22 9pm Changed Clozapine (clozapine 50 mg oral tablet) 1 tab(s) Oral Daily in the morning 02/26/22 9am Changed Ocular Lubricant (Artificial Tears preserved solution) 2 Drops Both eyes 4 times a day as needed for for dry eyes 0.2--0.2-1% ?? As needed Changed Omeprazole (omeprazole 20 mg oral enteric coated capsule) 1 capsule Gastrostomy/PEG Tube Daily 12PM ?? 02/26/22 12pm Changed Polyethylene Glycol 3350 (Polyethylene Glycol Powder) 17 gram Gastrostomy/PEG Tube Twice a day 02/25/22 9pm Changed Senna (Senna 8.6 mg oral tablet) 1 tab(s) Gastrostomy/PEG Tube Twice a day 02/25/22 9pm Changed Trazodone (traZODone 100 mg oral tablet) 1 tab(s) Gastrostomy/PEG Tube Daily at Bedtime 02/25/22 9pm Changed Valproic Acid (valproic acid 250 mg/ 5 mL oral syrup) 20 Milliliter Gastrostomy/PEG Tube Daily in the morning Changed Valproic Acid (valproic acid 250 mg/ 5 mL oral syrup) 40 Milliliter Gastrostomy/PEG Tube Daily at Bedtime 02/25/22 9pm Changed mineral oil/ petrolatum/ phenylephrine topical (Preparation H) 1 suppository Per rectum Every 6 hours as needed for Hemorrhoids 0.25-88.44% ?? As needed Unchanged Acetaminophen (acetaminophen 500 mg oral tablet) 2 tab(s) Gastrostomy/PEG Tube 3 times a day 02/25/22 9pm Unchanged Cholecalciferol (Vitamin D3 50,000 intl units oral capsule) 1 capsule Gastrostomy/PEG Tube on the of each month. ?? per schedule Unchanged Docusate (Colace sodium 100 mg oral capsule) 1 capsule Gastrostomy/PEG Tube Twice a day 02/25/22 9pm Unchanged Guaifenesin (guaiFENesin 100 mg/ 5 mL oral liquid) 10 Milliliter Gastrostomy/PEG Tube Every 4 hours as needed for for cough As needed Unchanged Lactobacillus Acidophilus (Acidophilus) 1 tab(s) Oral Twice a day to ?? 02/25/22 9pm Unchanged Levothyroxine (levothyroxine 0.1 mg oral tablet) 1 tab(s) Gastrostomy/PEG Tube Daily 02/26/22 7am Unchanged Lidocaine Topical (lidocaine 5% topical film) 1 patch(es) Topically Daily as needed for Pain , Mild tp LEFT knee. remove after 12 hours ?? As needed Unchanged [facility] (lithium 300 mg oral tablet) 1 tab(s) Gastrostomy/PEG Tube Twice a day 02/25/22 9pm Unchanged Milk of Magnesia (Milk of Magnesia 8% oral suspension) 30 Milliliter Gastrostomy/PEG Tube Daily as needed for for constipation As needed Unchanged Miscellaneous Rx (H2O FLUSH) 225 Milliliter 4 times a day Before Jevity 9am, 1pm, 5pm & 9pm ?? 02/25/22 9pm Unchanged Miscellaneous Rx (JEVITY) 400 Milliliter 4 times a day 9am, 1pm, 5pm & 9pm ?? 02/25/22 9pm Unchanged Miscellaneous Rx (JEVITY) 1.2 Bolus Feed Prior to each feed ?? prior to feed Unchanged nalOXONE (Narcan 4 mg/ 0.1 mL nasal spray) 4 Milligram Naris, Left Once as needed for as needed As needed Unchanged nalOXONE (Narcan Inj) 1 Milligram Intramuscular Once as needed for as needed As needed Unchanged Sodium Biphosphate-Sodium Phosphate (Fleet Enema 19 gm-7 gm rectal enema) 1 Each Per rectum Once as needed for for constipation As needed Unchanged ValACYclovir (valACYclovir 500 mg oral tablet) 1 tab(s) Gastrostomy/PEG Tube Daily 02/26/22 9am Unchanged Ziprasidone (Geodon 80 mg oral capsule) 1 capsule Gastrostomy/PEG Tube Twice a day must give with meal ?? 02/25/22 9pm ?? What How Much When Comments Stop Taking Sulfamethoxazole/ Trimethoprim (Bactrim DS Tablet) 1 tab(s) Gastrostomy/PEG Tube Twice a day Duration: 3 Days Test Results Below is a partial list of the most recent Laboratory test results done prior to this discharge. You may have had other tests and procedures not included in this list. Please discuss all test resultswith your provider. ALT (02/13/2022) ???ALT (SGPT) - 12 units/L AST (02/13/2022) ???AST (SGOT) - 23 units/L Basic Metabolic Panel (02/24/2022) ???Sodium - 145 mmol/L???Potassium - 4.4 mmol/L???Chloride - 109 mmol/L???Bicarbonate Level - 27 mmol/L???Anion Gap - 9???Glucose Level - 136 mg/dL???BUN - 27 mg/dL???Creatinine-Blood - 0.7 mg/dL???Estimated GFR Creatinine - 105 ML/MIN/1.73 M2???Calcium - 9.1 mg/dL BUN (02/25/2022) ???BUN - 22 mg/dL CBC (02/24/2022) ???WBC - 4.8 k/mm3???RBC - 3.04 m/mm3???Hgb - 9.7 Gm/dL???Hct - 31.7 %???MCV - 104.3 femtoliters???MCH - 31.9 pg???MCHC - 30.6 g/dL???Platelet Count - 194 k/mm3???RDW-SD - 52.8 femtoliters???MPV - 12.3 femtoliters???Nucleated RBC (Automated) - 0.0 #/100 WBC'S???Abs. NRBC - 0.0 k/mm3 CBC w/ Differential (02/18/2022) ???WBC - 8.9 k/mm3???RBC - 3.00 m/mm3???Hgb - 9.6 Gm/dL???Hct - 31.6 %???MCV - 105.3 femtoliters???MCH - 32.0 pg???MCHC - 30.4 g/dL???Platelet Count - 236 k/mm3???RDW-SD - 55.6 femtoliters???MPV - 11.8 femtoliters???Nucleated RBC (Automated) - 0.0 #/100 WBC'S???Abs. NRBC - 0.0 k/mm3???Abs. Neut - 6.5 k/mm3???Abs. Lymph - 1.7 k/mm3???Abs. [place] - 0.6 k/mm3???Abs. Eo - 0.0 k/mm3???Abs. Baso - 0.0 k/mm3???Neut % - 73.0 %???Lymph % - 19.4 %???[place] % - 6.3 %???Eos % - 0.1 %???Baso % - 0.1 %???Imm Gran - 1.1 %???Abs. Imm Gran - 0.1 k/mm3 Cdiff Rapid Toxin Assay (02/17/2022) ???C.difficile Toxin - Negative. C.Difficile bacterial antigen and toxin not detected. A Comprehensive Metabolic Panel (02/11/2022) ???Sodium - 147 mmol/L???Potassium - 4.8 mmol/L???Chloride - 112 mmol/L???Bicarbonate Level - 24 mmol/L???Anion Gap - 11???Glucose Level - 108 mg/dL???BUN - 22 mg/dL???Creatinine-Blood - 0.7 mg/dL???Estimated GFR Creatinine - 102 ML/MIN/1.73 M2???Calcium - 8.9 mg/dL???Protein, Total - 6.4 Gm/dL???Al bumin - 3.6 Gm/dL???AG Ratio - 1.3???Alkaline Phosphatase - 78 units/L???AST (SGOT) - 25 units/L???ALT (SGPT) - 7 units/L???Bilirubin, Total - 0.2 mg/dL COVID-19 (NOVEL CORONAVIRUS), PCR (02/23/2022) ???COVID-19 by RT-PCR - NEGATIVE COVID-19, RSV, and Flu A/B, Rapid PCR (02/11/2022) ???Influenza A PCR - NEGATIVE???Influenza B PCR - NEGATIVE???RSV PCR - NEGATIVE???COVID-19 PCR Specimen Source - NASAL???COVID-19 PCR Result - NEGATIVE Creatinine (02/25/2022) ???Creatinine-Blood - 0.7 mg/dL???Estimated GFR Creatinine - 103 ML/MIN/1.73 M2 Depakote Level (02/23/2022) ???Valproic Level - 46.4 mg/L Electrolytes (02/14/2022) ???Sodium - 156 mmol/L???Potassium - 3.6 mmol/L???Chloride - 122 mmol/L???Bicarbonate Level - 24 mmol/L???Anion Gap - 10 GLUCOSE POC (02/25/2022) ???Glucose, POC - 86 mg/dL High??Sensitivity??Troponin T (02/11/2022) ???High Sensitivity Troponin (HSTnT) - 26 ng/L HOLD BLUE TUBE (02/12/2022) ???Hold Blue Top - SPECIMEN DISCARDED AFTER 4 HOURS. HOLD GEL TUBE (02/15/2022) ???Hold Gel Top - SPECIMEN DISCARDED AFTER 1 WEEK HOLD LAVENDER TUBE (02/17/2022) ???Hold Lavender Top - SPECIMEN DISCARDED AFTER 24 HOURS. Ionized Calcium (02/14/2022) ???Calcium, Ionized pH Corrected - 1.32 mmol/L Lactate Level (02/12/2022) ???Lactate - 1.4 mmol/L Legionella Antigen Urine (02/20/2022) ???Legionella pneumophila Antigen - NEGATIVE LFT's (02/15/2022) ???Protein, Total - 5.6 Gm/dL???Albumin - 3.0 Gm/dL???Alkaline Phosphatase - 61 units/L???AST (SGOT) - 14 units/L? ?ALT (SGPT) - 10 units/L? ?Bilirubin, Total - 0.2 mg/dL? ?Bilirubin, Direct - <0.2 mg/dL???Bilirubin, Indirect - Direct bilirubin is less than the measureable limit. Therefore, indirect [facility] Level (02/23/2022) ???[facility] Level - 0.5 mmol/L Lytes (02/25/2022) ???Sodium - 146 mmol/L???Potassium - 4.7 mmol/L???Chloride - 109 mmol/L???Bicarbonate Level - 27 mmol/L???Anion Gap - 10 Magnesium Level (02/24/2022) ???Magnesium - 2.1 mg/dL Mg Level (02/25/2022) ???Magnesium - 2.3 mg/dL MRSA PCR Nasal Swab (02/12/2022) ???MRSA PCR Result - Negative, MRSA target DNA not detected.???S Aureus PCR Result - Negative, SA target DNA not detected. PHOSPHORUS (02/22/2022) ???Phosphorus - 4.1 mg/dL ProBNP (02/11/2022) ???Nt-Probnp - 203 pg/mL PROCALCITONIN, SERUM (02/12/2022) ???Procalcitonin - 0.19 ng/mL RESP PATH PANEL W/COVID-19 (02/11/2022) ???Adenovirus by PCR - NEGATIVE???Coronavirus 229E by PCR (not COVID-19) - NEGATIVE???Coronavirus HKU1 by PCR (not COVID-19) - NEGATIVE???Coronavirus NL63 by PCR (not COVID-19) - NEGATIVE???Coronavirus OC43 by PCR (not COVID-19) - NEGATIVE???Human Metapneumovirus by PCR - NEGATIVE???Rhinovirus/Enterovirus by PCR - NEGATIVE???Influenza A by PCR - NEGATIVE???Influenza B by PCR - NEGATIVE???Parainfluenza 1 by PCR - NEGATIVE???Parainfluenza 2 by PCR - NEGATIVE???Parainfluenza 3 by PCR - NEGATIVE???Parainfluenza 4 by PCR - NEGATIVE???RSV by PCR - NEGATIVE???Bordetella Pertussis by PCR - NEGATIVE??? Chlamydophila Pneumoniae by PCR - NEGATIVE???Mycoplasma Pneumoniae by PCR - NEGATIVE???COVID-19 (SARS-CoV-2) by PCR - NEGATIVE???Bordetella Parapertussis by PCR - NEGATIVE Troponin T, High Sensitivity (02/11/2022) ???High Sensitivity Troponin (HSTnT) - 22 ng/L UA W/HOLD FOR CULTURE FOR [facility] ER ONLY (02/11/2022) ???Appear/Color, Urine - YELLOW???Specific [place], Urine - 1.017???pH, Urine - 6.5???Albumin, Urine - TRACE???Glucose, Urine - NEGATIVE???Ketones, Urine - NEGATIVE???Bilirubin, Urine - NEGATIVE???Hemoglobin, Urine - NEGATIVE???Nitrite, Urine - NEGATIVE???Leukocyte, Urine - 1+???Urobilinogen - NORMAL???WBC's, Urine - 15 /HPF???RBC's, Urine - 1 /HPF???Hold Urine Culture - Testing available 48 hours from time of collection. Allergies (NKA means No Known Allergies) Augmentin Prozac Seafood perphenazine Problems Active Problems??(5) Dementia?? Gastrostomy tube dependent?? Hypothyroidism?? Schizoaffective disorder?? Seizures?? Education Materials Below is the list of Educational Leaflet Providered with your Discharge Instructions. Abscess (Antibiotic Treatment Only)?? Discharge Instructions for Hypernatremia?? Constipation (Adult)?? Valuables and Belongings I fully understand and agree that [facility] accepts no responsibility for all my personal [...] patient Date for Pt to Sign Valuables/Belongings: 02/13/22 14:12:00 ?? Other Discharge Information ?? Wound Assessment?? Wound Assessment?? Wound Location I: Buttocks, Right Wound I, Present on Admission: Yes Wound Location II: Scrotal Wound II, Present on Admission: Yes ?? Case Management Discharge Plan?? Discharge Plan?? Discharge Agency Information?? Discharge Level of Care at Discharge: correction facility Name of Agency #1: [facility] Discharge Transportation Arranged: [facility] [address] [place] [address] ??[phone] Agency Ticket Worker #1: Admissions: Mode of Transportation Arranged: Ambulance Service Categories #1: Physical Therapy, Long Term Discharge Arranged Transport Date/Time: 02/25/22 16:00:00 Service Comments #1: You have been setup to ??return to [facility] for long-term care. If you have any questions, please contact the facility at: Discharge Nursing Homes/Rehab Facilities: [facility] ? Pulmonary Rehab Status?? Pulmonary Rehab Discharge Status?? Respiratory Rate: 18 br/min ? Common Emergency Awareness Tips IS [...] are strongly encouraged to quit. Please call [facility] at [phone] or 9-624-250AnchorFree ([phone]) or log in to [email or web address] for referrals to smoking cessation programs. ?? The National Suicide Prevention Hotline is available 07/10 if you or someone you know needs to find a reason to keep living. By calling 5-252-334-EcoloCap (2934) you'll be connected to a skilled, trained counselor at a crisis center in your area. INPATIENT DISCHARGE INSTRUCTIONS SIGNATURE PAGE JONATHAN LOPEZ Location:[facility] Registration Date and Time:02/11/2022 23:13 [facility] Primary Care Physician: Bre BEY [facility], I JOHN JONATHAN, have received the above patient education materials/instructions and have verbalized understanding. If ambulance or transport services are being used I further acknowledge being given a choice of service. ?? If you need to contact me, please call me at this number: . Patient/Medical Program Specialist Name: Patient/Medical Program Specialist Signature: Relationship to Patient: Witness Name/Signature: Date: * Chiqui Arreola: PERFORM Event Display: Procedures Invasive Line Authored Date: [id number] Vascular Access Insertion Entered On: 02/22/2022 10:52 EST Performed On: 02/22/2022 10:50 EST by Chiqui Arreola Vascular Access Insertion Date of Vascular Access Insertion : 02/22/2022 EST Procedure Location Vascular Access : IV Room W4 Person recording insertion : Tie In Machine Operator Tie In Machine Operator of Vascular Access : Chiqui Arreola Occupation of Vascular Access Tie In Machine Operator : Registered nurse Was seal skinner a member of PICC/IV Team : Yes Chiqui Arreola - 02/22/2022 10:50 EST Procedural Comments Risk Factors and Labs Reviewed : Yes Anticoagulation Therapy : No Antiplatelet Therapy : No Chiqui Arreola - 02/22/2022 10:50 EST Was vascular access order placed : Yes Vascular Access Type : Central line Time Out Performed : Yes Time Out Data : Patient identified, Site verified, Procedure verified, Consent signed, RN attendance Reason for Vascular Access Insertion : Medication requires use of vascular access Suspected Vascular Access Infection : No, the access was not exchanged over a guide wire Vascular Access Procedure Check : Consent obtained Hand Hygiene prior to insertion : Yes Maximal sterile barriers used : Mask, Sterile gown, Large sterile full body drape, Sterile gloves, Ultrasound sterile cover, Cap Sterile Field Maintained : Yes Skin Preparation : Chlorhexidine (CHG) Skin Prep dry at first skin puncture : Yes Antimicrobial coated catheter used : No Successful central line placement : Yes Vascular Access Catheter Type : PICC line Vascular Access Insertion Site : Other: right upper extremity basilic vein Vascular Access Insertion Side : Right Vascular Access Catheter Size : 4fr Vascular Access Catheter Length : 39cm Vessel Identified By : Ultrasound Vascular Access Insertion Circumstance : Non-emergent Vascular Access Catheter Securement : Sutureless (Statlock) Vascular Access Dressing : Occlusive Follow-up CXR : Not applicable CXR Comment : tip confirmed at bedside with Sherlock 3CG technology Chiqui Arreola - 02/22/2022 10:50 EST DCP GENERIC CODE Suture needles : 0 [place] : 3 Scalpels : 1 Clamps : 0 Guide Wires : 1 Chiqui Arreola - 02/22/2022 10:50 EST Complications during Insertion : None Tolerated CLIP procedure well : Yes Insertion Attempts : 1 Vascular Access Device QA : BARD CT PICC SL 4Fr @39cm Vascular Access Device Lot Number : [id number] Vascular Access Device Code : [id number] Vascular Access Device Expiration Date : 03/16/2023 EST Vascular Access Insertion Comments : mid arm circumference 10cm above AC Fossa-37cm Chiqui Arreola - 02/22/2022 10:50 EST * Tena Recinos MD F: PERFORM, SIGN, VERIFY Event Display: Patient Education Handout Authored Date: [id number] * Tena Recinos MD F: PERFORM Event Display: Patient Education Leaflets Authored Date: Abscess (Antibiotic Treatment Only) ?? [id number] Abscess (Antibiotic Treatment Only) An abscess happens when bacteria get trapped under the skin and start to grow. Pus forms inside theabscess as the body reacts to the bacteria. An abscess can happen with an insect bite, ingrown hair, blocked oil gland, pimple, cyst, or puncture wound. It is sometimes call a boil. In the early stages, your wound may be red and sore. For this stage, you may get antibiotics. If the abscess doesn't get better with antibiotics, it will need to be drained with a small cut. Home care These tips will help you care for your abscess at home: ??? Soak the wound in hot water or apply hot packs (small towel soaked in hot water) to the area for 20 minutes at a time. Do this 3 to 4 timesa day, or as instructed. Use a new towel each time. Wash the towels afterward because they may be contaminated with bacteria after use. ??? Don't cut, squeeze, or pop the boil yourself. ??? Put antibiotic cream or ointment on the skin 3 to 4 times a day, unless something else was prescribed. Some ointments include an antibiotic plus a pain reliever. ??? If your healthcare provider prescribed antibiotics, don't stop taking them until you have finished the medicine, or you are told to stop. ??? You may use an qumy-ren-qkkoymj pain medicine to control pain, unless another pain medicine was prescribed. Talk with your provider before taking these medicines if you have chronic liver or kidney disease or ever had a stomach ulcer or??digestive bleeding. ?? Follow-up care Follow up with your healthcare provider, or as advised. Check your wound each day for signs that the infection may be getting worse (see below). ?? When to get medical advice Call your healthcare provider right away if any of these occur: ??? An increase in redness or swelling ??? Red streaks in the skin leading away from the abscess ??? An increase in local pain or swelling ??? Fever of 100.4??F (38??C) or higher, or as directed by your provider ??? Pus or fluid comingfrom the abscess ??? Boil returns after getting better ?? Last Reviewed Date: 2021 ?? [id number] The [employer]. All rights reserved. This information is not intended as a substitute for professional medical care. Always follow your healthcare professional's instructions. ?? * Grisel BEY, Tena F: PERFORM Event Display: Patient Education Leaflets Authored Date: [id number] Discharge Instructions for Hypernatremia ?? [id number] Discharge Instructions for Hypernatremia You have been diagnosed with hypernatremia. This means you have??too much sodium (salt) in your blood. It can be caused by eating too much salt. But it's more often due to fluid loss. Loss of too much fluid can occur if the kidneys excrete too much urine. Fluid loss can also be caused by extreme sweating. This can happen during hot weather or exercise. It can be caused by diarrhea or vomiting. Itcan also be caused if you don't drink enough water. If not treated right away, it can cause a seizure or a loss of consciousness. It can also lead to .?? Symptoms include: ??? Extreme thirst ??? Fatigue ??? Confusion ??? Low blood pressure Diet changes Limit all foods that are high in sodium, including:? Canned soups ??? Canned beans ??? Frozen dinners ??? Commercially prepared tomato sauce and spaghetti sauce ??? Pizza ??? Potato and corn chips ??? Salted pretzels and crackers ??? Olives ??? Pickles ??? Sauerkraut ??? Soy sauce ??? Cottage, [place], or feta??cheeses ??? Canned chili and stew ??? Lunch meats ??? Processed meats, such as hot dogs and salami ??? Instant hot cereal ??? Quick breads made with baking soda or baking powder, including pancakes, biscuits, and waffles ??? Packaged dessert mixes ?? Other??home care ??? Drink more fluids as advised. ??? Have your sodium levels checked as often as advised by your provider. This is very important if you are taking a diuretic. This is a medicine that helps flush water from the body. ??? Replace your body fluids after vomiting or diarrhea. Ask your provider for the best way to do this. ??? Tell your provider about all medicines and dietary supplements you take. These include both prescribed and awmp-yck-kthumlj medicines. Some of these can raise sodium levels. ??? Take all medicine as??directed. ?? Follow-up care Follow up with your healthcare provider, or as advised. ??They will need to watch your condition closely. You may need extra care if you have a condition that causes your hypernatremia. ?? When to call your healthcare provider Call your provider right away if any of these occur: ??? Muscle twitching, spasms, or cramps ??? Fatigue ??? Confusion ??? Seizures ??? Loss of consciousness or fainting ??? Dizziness or lightheadedness ?? Last Reviewed Date: 2021 ?? [employer]. All rights reserved. This information is not intended as a substitute for professional medical care. Always follow your healthcare professional's instructions. ?? * Grisel BEY, Tena To: PERFORM Event Display: Patient Education Leaflets Authored Date: [id number] Constipation (Adult) ?? [id number] Constipation (Adult) Constipation means that you have bowel movements that are less frequent than usual. Stools often become very hard and difficult to pass. Constipation is very common. At some point in life, it affects almost everyone. Since everyone's bowel habits are different, what is constipation to one person may not be to another. Your healthcare provider may do tests to diagnose constipation. It depends on what??they??find when evaluating you. Symptoms of constipation include: ??? Abdominal pain ??? Bloating ??? Vomiting ??? Painful bowel movements ??? Itching, swelling, bleeding, or pain around the anus Causes Constipation can have many causes. These include: ??? Diet low in fiber ??? Too much dairy ??? Not drinking enough liquids ??? Lack of exercise or physical activity (especially true for older adults)??? Changes in lifestyle or daily routine, including , aging, work, and travel ??? Frequent use or misuse of laxatives ??? Ignoring the urge to have a bowel movement or delaying it until later ??? Medicines, such as certain prescription pain medicines, iron supplements, antacids, certain antidepressants, and calcium supplements ??? Diseases like irritable bowel syndrome, bowel obstructions, stroke, diabetes, thyroid disease, Parkinson disease, hemorrhoids, and colon cancer ?? Complications Possible complications of constipation can include: ??? Hemorrhoids ??? Rectal bleeding from hemorrhoids or anal fissures??(skin tears) ??? Hernias ??? Chronic constipation ??? Fecal impaction, a severe form of constipation in which a large amount of hard stool is in your rectum that you can't pass??? Bowel obstruction or perforation ?? Home care All treatment should be done after talking with your healthcare provider. This is especially true if you have another medical problem, are taking prescription medicines, or are an older adult. Treatment most often involves lifestyle changes. You may also need medicines. Your healthcare provider will tell you which will work best for you. Follow the advice below to help avoid this problem in the future. ?? Lifestyle changes These lifestyle changes can help prevent constipation: ??? Diet. Eat a high- fiber diet, with fresh fruit and vegetables, and reduce dairy intake, meats, and processed foods ??? Fluids. It's importantto get enough fluids each day. Drink plenty of water when you eat more fiber. If you are on diet that limits the amount of fluid you can have, talk about this with your healthcare provider. ??? Regular exercise. Check with your healthcare provider first. ?? Medicines Take any medicines as directed. Some laxatives are safe to use only every now and then. Others can be taken on a regular basis. While laxatives don't cause bowel dependence, they are treating the symptoms. So your constipation may return if you don't make other changes. Talk with your healthcare provider or pharmacist if you have questions. Prescription pain medicines can cause constipation. If you are taking this kind of medicine, ask your healthcare provider if you should also take a stool softener. Medicines you may take to treat constipation include: ??? Fiber supplements ??? Stool softeners ???Laxatives ??? Enemas ??? Rectal suppositories ?? Follow-up care Follow up with your healthcare provider if symptoms don't get better in the next few days. You may need to have more tests or see a specialist. ?? Call 911 Call 911 if any of these occur: ??? Trouble breathing ??? Stiff, rigid abdomen that is severely painful to touch ??? Large amount of blood in the stool ??? Confusion ??? Fainting or loss of consciousness ??? Rapid heart rate ??? Chest pain ?? When to seek medical advice Call your healthcare provider right away if any of these occur: ??? Fever of 100.4??F (38??C) or higher, or as directed by your healthcare provider ??? Failure to resume normal bowel movements ??? Pain in your abdomen or back gets worse ??? Nausea or vomiting ??? Swelling in your abdomen ??? Small amount of blood in the stool ??? Black, tarry stool ??? Involuntary weight loss ??? Weakness ?? Last Reviewed Date: 2021 ?? [id number] The Status[employer]. All rights reserved. This information is not intended as a substitute for professional medical care. Always follow your healthcare professional's instructions. ?? * Event Display: Cardiac Rhythm Strips Authored Date: Admission evaluation note * Hina BEY, Kylie Luz: PERFORM, MODIFY, MODIFY Event Display: Admission Note Authored Date: Patient: ??JONATHAN LOPEZ ? Age:??61 Years?Sex:??Male?:??1960?? Chief Complaint/Reason for Consultation SEE DEEPAK LEVEL 1 Sheet altered mental status History of Present Illness ??61-year-old male with a past medical history significant for dementia secondary to neurosyphilis,schizoaffective disorder, hypothyroidism, seizure disorder,, anxiety/depression, diabetes, diverticulitis, GERD, G-tube dependency, recent admission/discharged to SNF 02/07 - 02/11/2022 with abd pain/ UTI & constipation requiring disimpaction who presents from [facility],??to the emergency apartment with a concern of altered mental status.?? The nursing staff at the SNF??was concerned that he was less responsive than usual??when he just arrived??to the facility.?? Therefore, they called??the ambulance.?? He was hypoxic to the EMS??and was partially responsive??to noxious stimuli, then??his oxygen improved??with bagging the patient??to 90s.?? Upon presentation to the ER, the patient was He was hemodynamically stable with blood pressure of 111/69, temperature of 100.6. ??Initial blood work-up was??largely unremarkable??except for mild hyponatremia??with sodium of 147.?EKG was obtained showed sinus tachycardia with a heart rate of 102. ??Chest x-ray was also obtained without acute cardiopulmonary abnormalities. He was started on cefepime and vancomycin for concern of??HAP Review of Systems Could not be obtained as the patient is nonverbal Objective ? Vital Signs?? Temperature: 98.4 DegF (02/12/22 01:36:00) Temperature Route: Oral (02/12/22 01:36:00) Pulse Rate:??96 bpm??High (02/12/22 01:36:00) Respiratory Rate: 23 br/min (02/12/22 01:36:00) Systolic Blood Pressure: 134 mm Hg (02/12/22 01:36:00) Diastolic Blood Pressure:??90 mm Hg??High (02/12/22 01:36:00) Blood pressure sites: Arm, left (02/12/22 01:36:00) Mean Arterial Pressure: 81 mm Hg (02/11/22 12:43:00) Pulse Pressure: 44 mm Hg (02/12/22 01:36:00) Oxygen Saturation: 97 % (02/12/22 01:36:00) Liters per Minute: 6 L/min (02/12/22 01:36:00) Mode of Delivery (Oxygen): Nasal cannula (02/12/22 01:36:00) Early Warning Score: 5 (02/12/22 01:38:17) ? Intake/Output? No Data Available ? Physical Exam General:?dementia, awake, not in?? acute cardiopulmonary distress.?? Gurgly?? throat-?? Good cough reflex, currently n.p.o.??does not know his location ?Respiratory:??Bilateral crackles at the bases, gurgling sounds,??on room air ?Cardiovascular:??Heart sounds normal. Regular rate and rhythm, no murmurs ?Gastrointestinal:??Abdomen soft, non-tender, non-distended. Normal bowel sounds.?? G-tube in place ?Genitourinary:??Status post digital disimpaction???02/08, ??crushed a ball of??stool in the rectum ?Neurologic:??Demented, follows command,??cranial nerves II-XII grossly intact. No focal neurological deficits.?Skin:??No rashes or lesions. No edema. ?Musculoskeletal:??No cyanosis or clubbing. No gross deformities. Assessment/Plan Diagnoses Altered mental status ??(R41.82) Fever ??(R50.9) Hypotension ??(I95.9) Respiratory distress ??(R06.03) ? 61-year-old male with a past medical history significant for dementia secondary to neurosyphilis, schizoaffective disorder, hypothyroidism, seizure disorder,, anxiety/depression, diabetes, diverticulitis, GERD, G-tube dependency, recent admission/discharged to SNF 02/07 - 02/11/2022 with abd pain/UTI & constipation requiring disimpaction who presents from [facility]??who is being admitted to the??medical floor for further management of??sepsis ? Sepsis Low blood pressure Decreased responsiveness/altered mental status Meeting sepsis criteria??(low-grade fever??and tachycardia) Started on??cefepime and vancomycin??due to concern of??HAP. ??However chest x-ray??without??consolidation. Continue IV antibiotics for now will obtain??procalcitonin??and MRSA nares??to help with de-escalation of antibiotics Continue IV??fluids Follow-up blood cultures I feel the patient is near baseline??absence of chest x-ray findings,??absence of leukocytosis, normal lactic acid)??and would need??goals of care discussion with??HCP??for??end-of-life??care ? Hypothyroidism:? Continue levothyroxine ?? Seizures:? Continue valproic acid??1 g in a.m., 2 g p.m. ?? Schizoaffective disorder, Anxiety, Depression:? Continue ziprasidone??, lithium, clonazepam, trazadone, ??and??clozapine? Diabetes: Does not seem to be on any medication We will hold off sliding scale for now, continue [id number] ? Diet: Gastrostomy tube dependent:? Dysphagia Aspiration precaution No fever, no leukocytosis,??no sign of aspiration??pneumonia WBC back to normal?? continue G-tube feeding as before ? DVT prophylaxis:??Lovenox.? Code Status:?? DNR/DNI,?? Noninvasive ventilation??acceptable. ?? Histories Allergies Allergies ?(Active and Proposed Allergies Only) Augmentin? (Severity: Unknown severity, Onset: Unknown) Seafood? (Severity: Unknown severity, Onset: Unknown) Prozac? (Severity: Unknown severity, Onset: Unknown) perphenazine? (Severity: Unknown severity, Onset: Unknown) ? Past Medical History/Problem List Active Problems??(5) Dementia Gastrostomy tube dependent Hypothyroidism Schizoaffective disorder Seizures ? Past Surgical History Esophagogastroduodenoscopy: 04/08/18 ? Social History Tobacco Details:??Former smoker ? Family History No family history recorded. [...] Mild?tp LEFT knee. remove after 12 hours [facility] (lithium 300 mg oral tablet)?1?tab(s)?300?Milligram?G Tube?2 times [...] times a day?must give with meal ? Results Recent Labs BLOOD COUNT & DIFF WBC 6.0 k/mm3 ()?? 02/11/2022 21:44 RBC 3.61 m/mm3 (Low)?? 02/11/2022 21:44 Hgb 11.6 Gm/dL (Low)?? 02/11/2022 21:44 Hct 37.4 % (Low)?? 02/11/2022 21:44 MCV 103.6 femtoliters (High)?? 02/11/2022 21:44 MCH 32.1 pg ()?? 02/11/2022 21:44 MCHC 31.0 g/dL (Low)?? 02/11/2022 21:44 Platelet Count 213 k/mm3 ()?? 02/11/2022 21:44 RDW-SD 54.4 femtoliters (High)?? 02/11/2022 21:44 MPV 11.6 femtoliters ()?? 02/11/2022 21:44 Nucleated RBC (Automated) 0.0 #/100 WBC'S ()?? 02/11/2022 21:44 Abs. NRBC 0.0 k/mm3 ()?? 02/11/2022 21:44 Abs. Neut 3.9 k/mm3 ()?? 02/11/2022 21:44 Abs. Lymph 1.8 k/mm3 ()?? 02/11/2022 21:44 Abs. [place] 0.4 k/mm3 ()?? 02/11/2022 21:44 Abs. Eo 0.0 k/mm3 ()?? 02/11/2022 21:44 Abs. Baso 0.0 k/mm3 ()?? 02/11/2022 21:44 Neut % 64.0 % ()?? 02/11/2022 21:44 Lymph % 29.1 % ()?? 02/11/2022 21:44 [place] % 5.8 % ()?? 02/11/2022 21:44 Eos % 0.2 % ()?? 02/11/2022 21:44 Baso % 0.2 % ()?? 02/11/2022 21:44 Imm Gran 0.7 % ()?? 02/11/2022 21:44 Abs. Imm Gran 0.0 k/mm3 ()?? 02/11/2022 21:44 ?? CARDIAC Nt-Probnp 203 pg/mL (High)?? 02/11/2022 21:44 High Sensitivity Troponin (HSTnT) 22 ng/L (High)?? 02/11/2022 23:40 ?? CHEM GENERAL Sodium 147 mmol/L (High)?? 02/11/2022 21:44 Potassium 4.8 mmol/L ()?? 02/11/2022 21:44 Chloride 112 mmol/L (High)?? 02/11/2022 21:44 Bicarbonate Level 24 mmol/L ()?? 02/11/2022 21:44 Anion Gap 11 ()?? 02/11/2022 21:44 Glucose Level 108 mg/dL (High)?? 02/11/2022 21:44 Glucose, POC 111 mg/dL (High)?? 02/11/2022 21:39 BUN 22 mg/dL ()?? 02/11/2022 21:44 Creatinine-Blood 0.7 mg/dL ()?? 02/11/2022 21:44 Estimated GFR Creatinine 102 ML/MIN/1.73 M2 ()?? 02/11/2022 21:44 Calcium 8.9 mg/dL ()?? 02/11/2022 21:44 Protein, Total 6.4 Gm/dL ()?? 02/11/2022 21:44 Albumin 3.6 Gm/dL ()?? 02/11/2022 21:44 AG Ratio 1.3 ()?? 02/11/2022 21:44 Alkaline Phosphatase 78 units/L ()?? 02/11/2022 21:44 AST (SGOT) 25 units/L ()?? 02/11/2022 21:44 ALT (SGPT) 7 units/L ()?? 02/11/2022 21:44 Bilirubin, Total 0.2 mg/dL ()?? 02/11/2022 21:44 Lactate 1.4 mmol/L ()?? 02/12/2022 00:00 ?? HEME OTHER Hold Lavender Top SPECIMEN DISCARDED AFTER 24 HOURS. ()?? 02/11/2022 21:44 Hold Blue Top SPECIMEN DISCARDED AFTER 4 HOURS. ()?? 02/11/2022 21:44 ?? UA/URINALYSIS Appear/Color, Urine YELLOW ()?? 02/11/2022 23:05 Specific [place], Urine 1.017 ()?? 02/11/2022 23:05 pH, Urine 6.5 ()?? 02/11/2022 23:05 Albumin, Urine TRACE (Abnormal)?? 02/11/2022 23:05 Glucose, Urine NEGATIVE ()?? 02/11/2022 23:05 Ketones, Urine NEGATIVE ()?? 02/11/2022 23:05 Bilirubin, Urine NEGATIVE ()?? 02/11/2022 23:05 Hemoglobin, Urine NEGATIVE ()?? 02/11/2022 23:05 Nitrite, Urine NEGATIVE ()?? 02/11/2022 23:05 Leukocyte, Urine 1+ (Abnormal)?? 02/11/2022 23:05 Urobilinogen NORMAL mg/dL ()?? 02/11/2022 23:05 WBC's, Urine 15 /HPF (High)?? 02/11/2022 23:05 RBC's, Urine 1 /HPF ()?? 02/11/2022 23:05 Hold Urine Culture Testing available 48 hours from time of collection. ()?? 02/11/2022 23:05 ?? VIROLOGY Influenza A PCR NEGATIVE ()?? 02/11/2022 21:50 Influenza B PCR NEGATIVE ()?? 02/11/2022 21:50 RSV PCR NEGATIVE ()?? 02/11/2022 21:50 COVID-19 by RT-PCR NEGATIVE ()?? 02/11/2022 11:15 COVID-19 PCR Specimen Source NASAL ()?? 02/11/2022 21:50 COVID-19 PCR Result NEGATIVE ()?? 02/11/2022 21:50 ? EKG study * Event Display: EKG Authored Date: * Event Display: EKG Authored Date: * Event Display: ECG 12-Lead Authored Date: Please click on pdf link to open report * Event Display: ECG 12-Lead Authored Date: Ventricular Rate: 102 BPM Atrial Rate: 102 BPM P-R Interval: 160 ms QRS Duration: 76 ms Q-T Interval: 358 ms QTC Calculation(Bazett): 466 ms P Zamora: 54 degrees R Zamora: 25 degrees T Zamora: 82 degrees Sinus tachycardia Otherwise normal ECG When compared with ECG of 24-JUL-2020 11:23, QT has lengthened Confirmed by ALANNA NEGRON DO ([id number]) on 02/16/2022 12:46:47 PM [place]: ALANNA NEGRON DO [facility] Progress note * Tena Matute: PERFORM, SIGN, VERIFY Event Display: Progress Note Hospital Authored Date: Patient: JONATHAN LOPEZ Age: 61 years Sex: Male : 1960 Associated Diagnoses: None Author: Tena Matute Findings Narrative/Incidental no significant overnight events. see cis and biophysical for more information. bed in lowest and locked position with bed alarm on and call mcmullen in reach. . * Nay Barney: VERIFY, PERFORM, SIGN Event Display: Progress Note Hospital Authored Date: Patient: JONATHAN OLPEZ Age: 61 years Sex: Male : 1960 Associated Diagnoses: None Author: Nay Barney Findings Nursing Data Vital Signs : VITAL SIGNS SECTION 02/24/2022 16:07 EST Temperature 97.8 DegF Temperature Route Oral Pulse Rate 67 bpm Respiratory Rate 16 br/min Systolic Blood Pressure 104 mm Hg Diastolic Blood Pressure 70 mm Hg Blood pressure sites Arm, left Mean Arterial Pressure 81 mm Hg Pulse Pressure 34 mm Hg Oxygen Saturation 98 % Mode of Delivery (Oxygen) Room air . Narrative/Incidental Patient alert to self and place, slightly confused and forgetful. Patient able to make needs known,no reports of pain throughout shift. Lung sounds diminished/coarse, no signs of respiratory distress. CPT done via bed. G tube site intact, tube patent. Tube feeds and water boluses on hold per provider order. Patient recieving GoLytely through G tube as ordered, currently at 300 cc/hr. Patient hadmultiple small smear bowel movements, no large bowel movement yet this shift. Skin care performed as ordered, nystatin applied to tongue as ordered. D5LR running at 75 cc/hr as ordered. Safety measures in place, continuing to monitor patient safety and comfort.. * Jason BEY, La Santos: MODIFY, PERFORM Event Display: Progress Note Hospital Authored Date: Patient: ??JONATHAN LOPEZ ? Age:??61 Years?Sex:??Male?:??1960?? Subjective Large BM after enema last night, multiple BMs since Patient feeling well this AM and wants to go home KUB ordered this AM to evaluate for improved stool but continues to have large stool ball ?? Review of Systems Negative for chest pain, shortness of breath, abdominal pain, nausea / vomiting Objective Vital Signs?? Temperature: 97.6 DegF (02/24/22 11:30:00) Temperature Route: Oral (02/24/22 11:30:00) Pulse Rate: 71 bpm (02/24/22:30:00) Respiratory Rate: 20 br/min (02/24/22:30:00) Systolic Blood Pressure: 91 mm Hg (02/24/22:30:00) Diastolic Blood Pressure: 58 mm Hg (02/24/22:30:00) Blood pressure sites: Arm, left (02/24/22:30:00) Mean Arterial Pressure: 69 mm Hg (02/24/22:30:00) Pulse Pressure: 33 mm Hg (02/24/22:30:00) Oxygen Saturation: 97 % (02/24/22:30:00) Mode of Delivery (Oxygen): Nasal cannula (02/24/22 11:30:00) Early Warning Score: 3 (02/24/22 12:35:06) ? Intake/Output? 02/11 23:13 02/24 07:00 02/23 07:00 02/22 07:00 02/21 07:00 ?? 02/24 13:49 02/24 13:49 02/24 06:59 02/23 06:59 02/22 06:59 Intake ?34085 ?515 ? 3290 ? 2000 ? 1860 Output ?15098 ?100 ? 1050 ? 2650 ? 2450 Net Total ? 7289 ?415 ? 2240 ? -650 ? -590 ? Urine Count ? 20 ?2 ?4 ?0 ?1 Diaper Count ?5 ?0 ?0 ?0 ?0 ? Physical Exam General Appearance:??Well appearing,??NAD, lying comfortably in bed sleeping but easily awakens HEENT: Moist mucous membranes, adentulous CV: RRR S1 and S2 heard with no M/R/G. Resp: ??Non-labored breathing. Breath sounds coarse bilaterally. Good air movement. GI: Soft. Nontender and nondistended. Normal bowel sounds present.?? Ext:?Warm and well perfused. No edema.?? Neuro:?Clear speech.??No facial droop.??Moving all extremities. Lines / Tubes: Peripheral IV in place.?? _ Inpatient Medications Medications (33) Active SCHEDULED: (19) Cefepime 2 Gm Inj (Cefepime Extended IVPB) ??2,000 mg, IVPB, Every 8 hours Clonazepam 0.5 mg Tablet (KlonoPIN 0.5 mg oral tablet) ??0.5 mg, G Tube, 2 times a day Clozapine 100 mg Tablet + Clozapine 25 mg Tablet (Clozapine Tablet) ??175 mg, G Tube, Daily at bedtime Clozapine 25 mg Tablet (Clozapine Tablet) ??50 mg, By Mouth, Daily in AM Enoxaparin 40 mg Inj (Enoxaparin Inj) ??40 mg 0.4 mL, Subcutaneous Injection, Daily Heparin Lock Flush 50 units / 5 mL (Heparin Flush 10 units/mL Inj) ??50 units 5 mL, IV Push, Daily Levothyroxine 100 mcg Tablet (levothyroxine 0.1 mg oral tablet) ??100 mcg, G Tube, Daily [facility] 300 mg Tablet (LITHium Tablet) ??300 mg, By Mouth, 2 times a day Miconazole Topical 2% Ointment (Miconazole 2% Topical Ointment) ??1 application, Topically, Every 12 hours NaCl 0.9% Flush 3ml (NaCL 0.9% Flush) ??3 mL, IV Push, Every 8 hours NaCl 0.9% Flush 3ml (NaCL 0.9% Flush) ??5 mL, IV Push, Daily Nystatin 100,000 units/mL Susp UD (Nystatin 100,000 Units/mL Liquid) ??400,000 units 4 mL, Swish and Spit, 4 times a day Polyethylene Glycol 17 Gm Powder (Polyethylene Glycol Powder) ??17 Gm 1 pack/packet, G Tube, 2 times a day Senna 8.6 mg / Docusate 50 mg tablet (Docusate/Senna Tablet) ??1 tablet, G Tube, 2 times a day Trazodone 50 mg Tablet (traZODone 50 mg [...] 40 mL, G Tube, Daily at bedtime Ziprasidone 80mg Capsule (Geodon 80 mg oral capsule) ??80 mg, G Tube, 2 times a day CONTINUOUS: (1) D5%LR (1000 mL) Cont IV 1,000 mL (D5%/LR 1,000 mL) ??1,000 mL, IV Infusion, 75 mL/hr PRN: (13) Acetaminophen 325 mg Tablet (Acetaminophen Tablet) ??650 mg, By Mouth, Every 4 hours Bisacodyl 10 mg Suppository (Bisacodyl Supp) ??10 mg 1 supp, Rectally, Daily Dextromethorphan-Guaifenesin 20 mg-200 mg/10 mL Liqu UD (Robitussin DM Liquid) ??10 mL, By Mouth, Every 4 hours Guaifenesin 200mg/10mL Syrup UD (GuaiFENEsin Liquid) ??200 mg 10 mL, By Mouth, Every 4 hours Heparin Lock Flush 50 units / 5 mL (Heparin Flush 10 units/mL Inj) ??50 units 5 mL, IV Push, Every hour Magnesium Hydroxide 8% Susp UD (Milk of Magnesia Liquid) ??30 mL, By Mouth, Daily Melatonin 3 mg Tablet (Melatonin Tablet) ??3 mg, By Mouth, Daily at bedtime MorPHINE 4 mg Inj Syringe (MorPHINE Inj) ??4 mg, IV Push Slowly, Every 5 minutes NaCl 0.9% Flush 3ml (NaCL 0.9% Flush) ??3 mL, IV Push, Every 8 hours NaCl 0.9% Flush 3ml (NaCL 0.9% Flush) ??5 mL, IV Push, Every hour Polyvinyl Alcohol 1.4% Opthalmic Solution/Artificial Tears (Artificial Tears 1.4%) ??2 drops, Eye, Left, Every 4 hours Simethicone 80 mg Chewable Tablet (Simethicone Tablet) ??80 mg, Chew, 3 times a day Trazodone 50 mg Tablet (traZODone 50 mg oral tablet) ??12.5 mg, G Tube, Every 6 hours ? 72 Hour Antibiotic History Active Antibiotics Calendar Day Last Administered First Administered Nystatin??400,000 units, 4 mL, Swish and Spit, 4 times a day ?2 02/24/2022 12:56 02/23/2022 13:09 Cefepime??2,000 mg, 33.33 mL/hr, IVPB, Every 8 hours ? 13 02/24/2022 12:55 02/12/2022 08:27 ? Tube Feedings Product: Water Route: by G-Tube Bolus Frequency: 5 times a day Last Rate: ? Results Recent Labs BLOOD COUNT & DIFF WBC 4.8 k/mm3 ()?? 02/24/2022 05:35 RBC 3.04 m/mm3 (Low)?? 02/24/2022 05:35 Hgb 9.7 Gm/dL (Low)?? 02/24/2022 05:35 Hct 31.7 % (Low)?? 02/24/2022 05:35 MCV 104.3 femtoliters (High)?? 02/24/2022 05:35 MCH 31.9 pg ()?? 02/24/2022 05:35 MCHC 30.6 g/dL (Low)?? 02/24/2022 05:35 Platelet Count 194 k/mm3 ()?? 02/24/2022 05:35 RDW-SD 52.8 femtoliters (High)?? 02/24/2022 05:35 MPV 12.3 femtoliters ()?? 02/24/2022 05:35 Nucleated RBC (Automated) 0.0 #/100 WBC'S ()?? 02/24/2022 05:35 Abs. NRBC 0.0 k/mm3 ()?? 02/24/2022 05:35 ?? CHEM GENERAL Sodium 145 mmol/L ()?? 02/24/2022 05:35 Potassium 4.4 mmol/L ()?? 02/24/2022 05:35 Chloride 109 mmol/L (High)?? 02/24/2022 05:35 Bicarbonate Level 27 mmol/L ()?? 02/24/2022 05:35 Anion Gap 9 ()?? 02/24/2022 05:35 Glucose Level 136 mg/dL (High)?? 02/24/2022 05:35 Glucose, POC 76 mg/dL ()?? 02/24/2022 11:54 BUN 27 mg/dL (High)?? 02/24/2022 05:35 Creatinine-Blood 0.7 mg/dL ()?? 02/24/2022 05:35 Estimated GFR Creatinine 105 ML/MIN/1.73 M2 ()?? 02/24/2022 05:35 Calcium 9.1 mg/dL ()?? 02/24/2022 05:35 Magnesium 2.1 mg/dL ()?? 02/24/2022 05:35 ?? TOXICOLOGY/TDM [facility] Level 0.5 mmol/L (Low)?? 02/23/2022 05:59 Valproic Level 46.4 mg/L (Low)?? 02/23/2022 05:59 ?? VIROLOGY COVID-19 by RT-PCR NEGATIVE ()?? 02/23/2022 17:15 ? Microbiology ?? Blood Culture?? Completed?? Source: Blood Body Site: ?? Collected Dt/Tm: 02/11/2022 21:40 Last Updated Dt/Tm: 02/11/2022 21:40 ?SPECIMEN DESCRIPTION : BLOOD LT ACSPECIAL REQUESTS : NONECULTURE : NO GROWTH 5 DAYS.REPORT STATUS : FINAL 02/16/2022 Blood Culture #2?? Completed?? Source: Blood Body Site: ?? Collected Dt/Tm: 02/11/2022 21:40 Last Updated Dt/Tm: 02/11/2022 21:40 ?SPECIMEN DESCRIPTION : BLOOD RT FOREARMSPECIAL REQUESTS : NONECULTURE : NO GROWTH 5 DAYS.REPORTSTATUS : FINAL 02/16/2022 COVID-19 (2019 Novel Coronavirus) PCR?? Completed?? Source: Nasal Body Site: Nose Collected Dt/Tm: 02/14/2022 19:55 Last Updated Dt/Tm: 02/15/2022 05:46 Blood Culture?? Completed?? Source: Blood Body Site: ?? Collected Dt/Tm: 02/17/2022 09:01 Last Updated Dt/Tm: 02/17/2022 09:01 ?SPECIMEN DESCRIPTION : BLOOD ??LHANDSPECIAL REQUESTS : NONECULTURE : NO GROWTH 5 DAYS.REPORT STATUS : FINAL 02/22/2022 Blood Culture #2?? Completed?? Source: Blood Body Site: ?? Collected Dt/Tm: 02/17/2022 09:01 Last Updated Dt/Tm: 02/17/2022 09:01 ?SPECIMEN DESCRIPTION : BLOOD RHANDSPECIAL REQUESTS : NONECULTURE : NO GROWTH 5 DAYS.REPORT STATUS : FINAL 02/22/2022 C. difficile Rapid Toxin Assay?? Completed?? Source: Stool Body Site: ?? Collected Dt/Tm: 02/17/2022 11:50 Last Updated Dt/Tm: 02/17/2022 20:57 COVID-19 (2019 Novel Coronavirus) PCR?? Completed?? Source: Nasal Body Site: Nose Collected Dt/Tm: 02/18/2022 11:15 Last Updated Dt/Tm: 02/18/2022 22:08 COVID-19 (2019 Novel Coronavirus) PCR?? Completed?? Source: Nasal Body Site: Nose Collected Dt/Tm: 02/21/2022 11:46 Last Updated Dt/Tm: 02/22/2022 02:22 ? 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 Course complicated??by severe constipation. ?? Chronic Constipation Stercoral Colitis Diarrhea Recent admission for stercoral colitis - ongoing stool burden on repeat CT x2 this admission Had diarrhea (C. diff negative) which was thought to be encopresis given ongoing stool burden KUB today reveals ongoing stool ball ?? Plan: - Start Golytely today (hold tube feeds) - Repeat KUB following completion - Tap water enema PRN - If difficulty clearing stool ball may consider barium enema ??? Aggressive multimodal bowel regimen on discharge ??? Continue to monitor stool output ?? 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 Plan: ??? Continue cefepime IV 2 g every 8 hours??via PICC??through Mar 11 ??? Follow up with ID on Mar 12 -??On discharge will need??weekly CBC w/ diff, Cr, BUN, ESR, CRP to be sent to ID office (fax below) - Will need interval CT abdomen and pelvis in 4 weeks ?OPAT Script ??Indication/s: Osteomyelitis ??Antimicrobial/s: Cefepime ??Planned duration: 4 weeks ??Start date: 02/12 ??End date: March 11 ??Vascular access: PICC line ??Monitoring labs (test/frequency): Weekly CBC with differential, creatinine, BUN, K, ESR, CRP ??Imaging needed before outpt f/u visit: Repeat scan CT abdomen pelvis in 4 weeks ??Suggested outpt f/u visit: Yes in 3 weeks ?? ID office: ? Hyper/Hypoactive delirium?? 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 Plan: - Delirium precautions, frequent reorientation, bed by window if possible, decreased evening time wakening - Changes to home psych medications decrease clozaril to 50m in the am and 175mg at bed time decrease Klonopin to 0.5mg BID ?? Hypernatremia??- Resolved Suspect 2/2 insensible losses in setting of acute illness Holding tube feeds to allow for Golytely? Plan: - Gtube free water flushes of 400ml every 6 hours - Repeat electrolytes in??AM - IV fluids for now? Quality metrics: Diet: Gastrostomy tube dependent:?TFeeds As ordered. N.p.o. Aspiration precaution DVT prophylaxis:??Lovenox.?? Code Status:?? DNR/DNI,?? Noninvasive ventilation??acceptable.?Palliative care involved GOC conversations with Guardian OMN:?? constipation Dispo: back to SNF with resolution of constipation Patients guardian called with update on 02/23 ?? La Gomez MD, PGY-4 Patient seen and discussed with Dr. Mcrae XR Abdomen AP * HUMAIRA Osman S: Jason Gilmore MD, V: VERIFY Event Display: Result: Authored Date: [id number] XR Abdomen AP 1 view INDICATION/CLINICAL QUESTION: Reason: Constipation; Clinical Question(s): Constipation; Assess for resolution of stool ball COMPARISON: 02/24/2022. FINDINGS: The previously moderate stool burden in the rectum has resolved. There is moderately distended urinary bladder projecting over the pelvis. Normal bowel gas pattern throughout the abdomen and pelvis seen. There is a gastrostomy tube projecting over the upper abdomen midline in location. No evidence of pneumoperitoneum. No organomegaly, masses or calcifications. No acute bone findings. There are mild degenerative changes involving the lower lumbosacral spine. Remodeling changes again noted involving the left acetabulum and iliac bone which could reflect a remote injury. IMPRESSION: Decreasing stool burden in the rectum with no evidence of small or large bowel distention seen. WSN: [id number] Ordering Physician: La Gomez Dictated By: Jason Logan MD, V Dictated Date/Time: 02/25/22 1:39 pm Reviewed By: Jason Logan MD, V Signed By: Jason Logan MD, V Signed Date/Time: 02/25/22 1:39 pm Transcribed By: CSB Transcribed Date/Time: 02/25/22 1:33 pm * Jacqui , CIS S: Jessica Mitchell MD: VERIFY Event Display: Result: Authored Date: [id number] XR Abdomen AP INDICATION: Reason: Constipation; Clinical Question(s): Constipation; Resolution of constipation. Age 61 years COMPARISON: 08/24/2021. Correlation is made with CT abdomen/pelvis dated 02/20/2022. FINDINGS: G-tube in place. No evidence of bowel obstruction or pneumoperitoneum. Formed stool in mildly distended rectum with caliber measuring 8.2 cm. Right hemiabdomen and pelvis were partially excluded. Degenerative changes in the spine and hip joints. IMPRESSION: Constipation with distended rectum. Please correlate for evidence of stercoral colitis. A critical result message (Bryan) has been communicated via the Ask The Doctor system on 02/24/2022 9:48 AM, Message ID [id number]. WSN: [id number] Ordering Physician: La Gomez Dictated By: Jessica Coronado MD Dictated Date/Time: 02/24/22 9:48 am Reviewed By: Jessica Coronado MD Signed By: Jessica Coronado MD Signed Date/Time: 02/24/22 9:48 am Transcribed By: MORENO Transcribed Date/Time: 02/24/22 9:45 am Portable XR Chest Views * HUMAIRA Osman S: TRANSCKenneth Cabrales MD: VERIFY Event Display: Result: Authored Date: [id number] AP upright portable chest dated February 17, 2022 at 0913 hours. Comparison films are from February 11, 2022. HISTORY: Shortness of breath. FINDINGS: The cardiac silhouette is within normal limits for size. Hilar and mediastinal structuresare unremarkable. The left lower lobe shows increased attenuation consistent with atelectasis or pneumonia and associated pleural effusion. Less significant is opacity at the right lower lobe also consistent with atelectasis or pneumonia and associated pleural effusion. IMPRESSION: No significant interval change on the left. Interval worsening of aeration at the right lung base consistent with atelectasis, pneumonia, pleural effusion, or any combination. Examination 94086. Thank you for allowing me to participate in the care of this patient. WSN: [id number] Ordering Physician: Tex Walters Dictated By: Kenneth Caraballo MD Dictated Date/Time: 02/17/22 10:44 a Reviewed By: Kenneth Caraballo MD Signed By: Kenneth Caraballo MD Signed Date/Time: 02/17/22 10:44 am Transcribed By: MORENO Transcribed Date/Time: 02/17/22 10:44 am * HUMAIRA Osman S: TRANSCJessica Wan MD: VERIFY Event Display: Result: Authored Date: [id number] Chest Portable Reason: Shortness of Breath; Clinical Question(s): Pneumonia COMPARISON: 07/24/2020. FINDINGS: LINES AND TUBES: None. LUNGS AND PLEURA: Linear opacities at the left lung base likely represent atelectasis. The right lung is clear. Normal pulmonary vascularity. No pleural effusion. No pneumothorax. HEART, MEDIASTINUM AND [place]: Heart is normal in size. Normal mediastinal and hilar contour. BONES AND SOFT TISSUES: No acute abnormality. IMPRESSION: No acute abnormality. WSN: [id number] Ordering Physician: Melissa Lee Dictated By: Jessica Coronado MD Dictated Date/Time: 02/11/22 10:04 p Reviewed By: Jessica Coronado MD Signed By: Jessica Coronado MD Signed Date/Time: 02/11/22 10:04 pm Transcribed By: MORENO Transcribed Date/Time: 02/11/22 10:03 pm US.doppler Lower extremity vein - bilateral * BHSPowerscribe , CIS S: TRANSCRIBE Chris Luna MD: VERIFY Event Display: Result: Authored Date: US Doppler Ext Lower Venous Bilat Reason: Other:; Unexplained fever; Clinical Question(s): Thrombosis COMPARISON: None IMAGING TECHNIQUE: Ultrasound of the veins from the groin through the calf was performed using grayscale, color, and spectral Doppler ultrasound assessing for complete compressibility and normal flowcharacteristics. FINDINGS: RIGHT LOWER EXTREMITY: Common femoral vein: Patent. No thrombosis. Femoral vein: Patent. No thrombosis. Popliteal vein: Patent. No thrombosis. Gastrocnemius veins: The visualized portions are patent without evidence of thrombosis. Peroneal veins: The visualized portions are patent without evidence of thrombosis. Posterior tibial veins: The visualized portions are patent without evidence of thrombosis. LEFT LOWER EXTREMITY: Common femoral vein: Patent. No thrombosis. Femoral vein: Patent. No thrombosis. Popliteal vein: Patent. No thrombosis. Gastrocnemius veins: The visualized portions are patent without evidence of thrombosis. Peroneal veins: The visualized portions are patent without evidence of thrombosis. Posterior tibial veins: The visualized portions are patent without evidence of thrombosis. OTHER FINDINGS: IMPRESSION: No evidence of deep venous thrombosis. WSN: [id number] Ordering Physician: La Gomez Dictated By: Chris Luna MD Dictated Date/Time: 02/18/22 9:25 pm Reviewed By: Chris Luna MD Signed By: Chris Luna MD Signed Date/Time: 02/18/22 9:25 pm Transcribed By: MORENO Transcribed Date/Time: 02/18/22 9:[address] Abdomen and Pelvis W contrast IV * [facility]SPowerscribe , HUMAIRA S: TRANSCRIBE William BEY, Agueda N: VERIFY Event Display: Result: Authored Date: [id number] CT Abd/Pelvis W/ IV Contrast Only Reason: Other:; F U left ischeal abcess; Clinical Question(s): Abscess; Order Comment: TECHNIQUE: Spiral CT through the abdomen and pelvis with IV contrast formatted in 3 planes. 100 cc of Omnipaque 300 was administered intravenously. This study was performed without oral contrast. Weight-based protocol using automatic tube modulation was used to optimize exposure parameters. CTDIvol Body: 17.00 mGy, DLP Body: 1006 mGy*cm. COMPARISON: CT abdomen and pelvis 02/12/2022. FINDINGS: [employer]ile Inspector Preflight View Findings, Lines and Tubes: Gastrostomy tube in stomach. Visualized Chest: Persistent patchy opacities at the lung bases, in the right middle lobe, and in the lingula, with increased consolidative opacity in the left lower lobe. Trace left pleural effusion. Diaphragm: Normal. Liver: Normal. Gallbladder: Cholelithiasis. Bile ducts: No biliary ductal dilation. Spleen: Upper normal size with no focal lesions.. Pancreas: Normal. Adrenal glands: Normal. Kidneys and ureters: No hydronephrosis, stones, or suspicious masses. Small hypodensities that are too small to characterize are noted, requiring no dedicated follow up. Septated left parapelvic cystagain noted. Bladder: Thickened trabeculated wall with multiple diverticula. Reproductive organs: Cystic foci in the central prostate. Stomach, small bowel, and large bowel: There is again a large stool burden in the colon with large amount of stool in the rectum which is distended up to approximately 3.8 cm, improved. There is improved rectal wall thickening. No bowel obstruction. Appendix: Normal. Peritoneum and retroperitoneum: No ascites or pneumoperitoneum. No omental or mesenteric lesions. Lymph nodes: No enlarged lymph nodes. Blood vessels: Mild vascular calcifications but no aneurysm. No evidence of venous thrombosis. Abdominal and pelvic wall: There has been decrease in size of the peripherally enhancing hypodensity adjacent to the left tissue tuberosity, now 3.6 x 1.9 cm, previously 4 x 3 cm. There are few scattered areas of subcutaneous gas in the anterior abdominal wall, probably injection sites. Bones: Remodeling changes again noted involving the left acetabulum and iliac bone which could reflect remote injury. IMPRESSION: Decrease in size of the abscess adjacent to the left fascial tuberosity. Worsening left lower lobe airspace disease suspicious for pneumonia. Improved stercoral colitis though there is still a large stool burden within the rectum. There are again cystic foci in the central prostate gland which probably reflect TURP defect. WSN: [id number] Ordering Physician: Tena Recinos Dictated By: Agueda Thomas MD Dictated Date/Time: 02/21/22 7:54 am Reviewed By: Agueda Thomas MD Signed By: Agueda Thomas MD Signed Date/Time: 02/21/22 7:54 am Transcribed By: MORENO Transcribed Date/Time: 02/21/22 7:41 am * [facility]SPowerscribe , CIS S: TRANSCRIBE Cliff BEY, Devrim: VERIFY Event Display: Result: Authored Date: [id number] CT Abd/Pelvis W/ IV Contrast Only Reason: sepsis,; Clinical Question(s): Abscess; ? fecal impaction colitis, L left ischial tuberosity infection abscess; Order Comment: TECHNIQUE: Spiral CT through the abdomen and pelvis with IV contrast formatted in 3 planes. 100 cc of Omnipaque 300 was administered intravenously. This study was performed without oral contrast. Weight-based protocol using automatic tube modulation was used to optimize exposure parameters. CTDIvol Body: 14.30 mGy, DLP Body: 889 mGy*cm. COMPARISON: 02/06/2022. FINDINGS: Missile Inspector Preflight View Findings, Lines and Tubes: G-tube terminates in the stomach lumen. Visualized Chest: Patchy opacities at the lung bases with interval worsening in the lower lobes andlingula. No pleural or pericardial effusion. Diaphragm: Normal. Liver: Normal. Gallbladder: Cholelithiasis without evidence of acute cholecystitis.. Bile ducts: No biliary ductal dilation. Spleen: Borderline splenic size measuring 13.2 cm in long axis. Pancreas: Normal. Adrenal glands: Normal. Kidneys and ureters: No hydronephrosis, stones, or suspicious masses. Mildly complex septated parapelvic cyst in the left kidney upper pole measures up to 4.4 cm. Additional subcentimeter hypodensities in both kidneys are too small to characterize by CT. Bladder: Severely trabeculated bladder wall with multiple diverticuli. Reproductive organs: Cystic foci in the central prostate gland are unchanged. The largest measures 2.2 cm. Stomach, small bowel, and large bowel: Persistent large stool burden throughout the colon. Transverse diameter of the rectum measures 9.2 cm, previously 9.3 cm. There is circumferential wall thickening in the rectum with perirectal fat stranding and trace amount of free fluid. No evidence of bowel obstruction. Appendix: Normal. Peritoneum and retroperitoneum: Trace free fluid in the pelvis. There is no pneumoperitoneum. No omental or mesenteric lesions. Lymph nodes: No enlarged lymph nodes. Blood vessels: Mild vascular calcifications but no aneurysm. No evidence of venous thrombosis. Abdominal and pelvic wall: Small foci of subcutaneous gas in the anterior abdominal wall, likely injection related. There is a peripherally enhancing irregular shaped hypodensity adjacent to the leftischial tuberosity, which measures 4 x 3 cm. Decreased from 4.4 x 3.5 cm previously. Bones: No acute abnormality. Bone remodeling in the left acetabulum and left iliac bone, likely sequela of remote injuries. IMPRESSION: 1. Persistent severe constipation and stercoral colitis in the rectosigmoid colon. 2. Worsening airspace disease in the lungs suggesting developing bronchopneumonia. 3. Slight interval decrease in size of the abscess adjacent to the left ischial tuberosity. 4. Cystic foci in the prostate gland could represent TURP defect but prostate abscesses cannot be excluded. 5. Additional stable chronic findings. A critical result message (Bryan) has been communicated via the Ask The Doctor system on 02/12/2022 6:00 PM, Message ID [id number]. WSN: [id number] Ordering Physician: Diana Frias Dictated By: Jessica Coronado MD Dictated Date/Time: 02/12/22 6:00 pm Reviewed By: Jessica Coronado MD Signed By: Jessica Coronado MD Signed Date/Time: 02/12/22 6:00 pm Transcribed By: MORENO Transcribed Date/Time: 02/12/22 5:46 pm Patient Care team information Care Team Personnel Name: Miroslava Batres Position: [facility] RN Member Role: Primary Care Nurse Name: Verónica Dougherty RN Position: [facility] RN Member Role: Primary Care Nurse Name: Jontahan Youssef RN Position: [facility] RN Supv Member Role: Primary Care Nurse Name: Lissette Joy RN Position: [facility] RN Member Role: Primary Care Nurse Name: Angelica Matthews Position: [facility] RN Member Role: Primary Care Nurse Name: Pat Fink RN Position: [facility] RN Member Role: Primary Care Nurse Name: Susan Lassiter RN Position: [facility] RN Member Role: Primary Care Nurse Name: Megan Emery RN Position: [facility] RN Member Role: Primary Care Nurse Name: Aliyah May Position: [facility] RN Member Role: Primary Care Nurse Name: Crystal Caballero RN Position: [facility] RN Member Role: Primary Care Nurse Name: Kristen Nunes RN Position: [facility] RN Member Role: Primary Care Nurse Name: Heather Corea RN Position: [facility] RN Member Role: Primary Care Nurse Name: Kalyani Chilel RN Position: [facility] RN Member Role: Primary Care Nurse Name: Yoselin Aragon RN Position: [facility] RN Member Role: Primary Care Nurse Name: Dolly Díaz MD Position: [facility] Outreach Member Role: PCP Address: Address: [address] [place] [address] Name: Rahul Ford RN Position: [facility] RN Member Role: Primary Care Nurse Name: Kei KUHN Attending Position: [facility] ED Medicine Name: Rahul Conrad RN Position: [facility] ED RN W/OE and Tasks Member Role: Patient Care Provider Name: Freda Mello RN Position: [facility] ED RN W/OE and Tasks Member Role: Patient Care Provider Name: Angle Viera Position: [facility] ED TA [facility] Name: Svitlana Garcia Position: [facility] ED [facility] Member Role: Proj Mgr Name: Campbell Varela Position: [facility] ED OA Charge Member Role: ED Associate Care Team Related Persons Name: JOHNCHAS GOULD Address: [address] [place] [address] Name: ANDREW LOPEZ Name: RAHUL HUNG Address: home [address] [place] [address]
[2022-10-18 03:40] VITALS: BP 98/59; PULSE 76; RESP 18; O2SAT 96
[2022-10-18 04:20] LABS: Lactic Acid 0.9 mmol/L (0.5-2.0)
[2022-10-18 04:25] LABS: Alanine Aminotransferase 10 U/L (0-40); Albumin Level 4.1 g/dL (3.5-5.0); Alkaline Phosphatase 81 U/L (39-117); Anion Gap 15 (12-20); Aspartate Amino Transferase 15 U/L (5-37); Bilirubin Direct 0.2 mg/dL (0.0-0.5); Bilirubin Total 0.5 mg/dL (0.0-1.0); Blood Urea Nitrogen 14 mg/dL (9-16); Calcium 9.9 mg/dL (8.4-10.2); Carbon Dioxide 23 mmol/L (22-29); Chloride 108 mmol/L (96-108); Creatinine Clr Calc Pharmacy 83.2; Estimated Glomerular Filt Rate > 60; Glucose Random 93 mg/dL (60-115); Lipase 28 U/L (8-78); Sodium 142 mmol/L (135-145); Total Protein 7.5 g/dL (6.5-8.0)
--- NOTE | 2022-10-18 04:37 | PC.NURSE ---
G-tube patent/intact. denies nausea at moment. resting comfortably, breathing easy/no distress. waiting for resutls. HOB elevated. no attempts out of bed. cont to monitor.
[2022-10-18 04:43] LABS: Eosinophils Percent Auto 0.2 % (0-4); Hematocrit 37.3 % (42.0-52.0); Hemoglobin 11.7 g/dl (14.0-18.0); Imm Gran Abs Auto 0.02 X10*3/uL (0.00-0.03); Imm Gran Pct Auto 0.3 % (0.0-0.4); Lymphocytes Absolute Auto 1.6 X10*3/uL (1.2-4.9); Lymphocytes Percent Auto 24.7 % (20-40); MANUAL DIFF FLAG SCAN; Mean Corpuscular HGB Conc 31.4 g/dl (31.0-36.0); Mean Corpuscular Volume 98.9 fL (80.0-98.0); Mean Platelet Volume 12.1 fL (9.4-12.4); Monocytes Absolute Auto 0.3 X10*3/uL (0.1-1.2); Monocytes Percent Auto 3.9 % (2-11); Neutrophils Absolute Auto 4.6 x10*3/uL (2.0-8.3); Neutrophils Percent Auto 70.9 % (45-73); PLT CLUMP 1; Red Blood Count 3.77 X10*6/uL (4.60-5.80); Red Cell Distribution Width 13.2 % (11.0-16.0); SCAN SMEAR FLAG 1; SLIDE REVIEW VERIFIED; White Blood Count 6.4 X10*3/uL (4.8-10.8)
[2022-10-18 05:00] VITALS: BP 90/50; PULSE 76; RESP 18; O2SAT 95
[2022-10-18 06:21] VITALS: BP 96/62; PULSE 78; RESP 17; TEMP 37.1; O2SAT 94
--- NOTE | 2022-10-18 06:30 | ED_ITS ---
HPI - General Adult General Chief complaint: General Medical Stated complaint: ?G-TUBE ISSUE,VOMITING FROM SNF PER EMS Time Seen by Provider: 10/18/22 06:26 Source: patient and EMS Mode of arrival: EMS Limitations: no limitations History of Present Illness HPI narrative: 62-year-old male came in from [facility] for evaluation of vomiting and aspiration pneumonia. Patient with G-tube that is in place, patient gets peroidic vomiting, patient had history of aspiration pneumonia and the [facility]. Related Data Home Medications Medication Instructions Recorded Confirmed acetaminophen 500 mg tablet 1,000 mg feeding tube TID 04/18/21 04/18/21 atorvastatin 10 mg tablet 1 tab feeding tube BEDTIME 04/18/21 04/18/21 atropine 1 % eye drops 2 drp sublingual DAILY@0500 04/18/21 04/18/21 cholecalciferol (vitamin D3) 125 50,000 unit feeding tube QMONTH 04/18/21 04/18/21 mcg (5,000 unit) tablet (Vitamin D3) clonazepam 1 mg tablet 1 tab feeding tube BID@1200,1800 04/18/21 04/18/21 clozapine 100 mg tablet 2.5 tab feeding tube BEDTIME 04/18/21 04/18/21 clozapine 25 mg tablet 1 tab feeding tube DAILY 04/18/21 04/18/21 erythromycin 5 mg/gram (0.5 %) eye 0.5 inch ophthalmic (eye) QID 04/18/21 04/18/21 ointment fluticasone propionate 50 1 spray intranasal DAILY@1200 04/18/21 04/18/21 mcg/actuation nasal spray,suspension levothyroxine 112 mcg tablet 1 tab feeding tube DAILY 04/18/21 04/18/21 lidocaine 5 % topical patch 1 patch topical DAILY 04/18/21 04/18/21 (Lidoderm) lithium carbonate 300 mg capsule 1 cap feeding tube BID 04/18/21 04/18/21 omeprazole magnesium 10 mg oral 20 mg feeding tube DAILY 04/18/21 04/18/21 suspension,delayed release (Prilosec) polyethylene glycol 3350 8.5 gram 8.5 g feeding tube Q OTHER DAY 04/18/21 04/18/21 oral powder packet sennosides 8.6 mg tablet (senna) 8.6 mg feeding tube DAILY@1200 04/18/21 04/18/21 trazodone 50 mg tablet 1 tab feeding tube BEDTIME 04/18/21 04/18/21 valacyclovir 500 mg tablet 1 tab feeding tube DAILY@1200 04/18/21 04/18/21 valproic acid (as sodium salt) 250 1,000 mg feeding tube DAILY 04/18/21 04/18/21 mg/5 mL oral solution valproic acid (as sodium salt) 250 2,000 mg feeding tube BEDTIME 04/18/21 0 04/18/21 mg/5 mL oral solution ziprasidone HCl 80 mg capsule 1 cap BIDWM 04/18/21 04/18/21 Previous Rx's Medication Instructions Recorded cefdinir 300 mg capsule 300 mg PO BID #14 caps 04/23/21 dexamethasone 6 mg tablet 6 mg feeding tube DAILY #4 tabs 04/23/21 (Decadron) amoxicillin 875 mg-potassium 1 tab PO Q12H #14 tabs 10/18/22 clavulanate 125 mg tablet clindamycin HCl 150 mg capsule 150 mg PO TID #20 caps 10/18/22 Allergies Allergy/AdvReac Type Severity Reaction Status Date / Time amoxicillin [From Augmentin] Allergy Unknown Verified 09/15/20 11:52 clavulanic acid Allergy Unknown Verified 09/15/20 11:52 [From Augmentin] fluoxetine [From Prozac] Allergy Unknown Verified 09/15/20 11:52 perphenazine Allergy Unknown Verified 09/15/20 11:52 shellfish derived Allergy Unknown Verified 09/15/20 11:52 Review of Systems Review of Systems: All other systems are reviewed and are negative Constitutional: Reports as per HPI and Reports no additional constitutional complaints Eyes: Reports as per HPI and Reports no additional eye complaints Reports system reviewed and no additional complaints, except as documented Cardiovascular: Reports as per HPI and Reports no additional cardiovascular complaints Respiratory: Reports as per HPI and Reports no additional respiratory complaints Gastrointestinal: Reports as per HPI and Reports no additional gastrointestinal complaints Genitourinary: Reports no additional female genitourinary complaints Musculoskeletal: Reports no additional musculoskeletal complaints Skin/Breast: Reports system reviewed and no additional complaints, except as docu Psychiatric: Reports no additional psychiatric complaints Endocrine: Reports no additional endocrine complaints Hematologic/Lymphatic: Reports no additional hematologic/lymphatic complaints Allergic/Immunologic: Reports no additional allergic/immunologic complaints Reports system reviewed and no additional complaints, except as documented and Reports Abnormal speech present [facility] Past Medical History Medical History Acute respiratory failure due to COVID-19 Bulimia COVID-19 Dementia Epilepsy Pneumonia Schizo-affective schizophrenia, chronic condition Sexually transmitted disease Social History Social History Household Members: Other Housing: Assisted Living Facility Do you presently have visiting nurse or other home services: Yes Patient Tobacco Use Status: Former Tobacco user Advance Directives: Yes Advance Directives Information Provided: Yes Advance Directives on File: No Advance Directives Date on File: 04/18/21 service: No Current occupational status: disabled Physical Exam ED Vital Signs: Vital Signs - 24 hr 10/18/22 02:32 10/18/22 03:40 10/18/22 05:00 Temperature 98.2 F Pulse Rate 82 76 76 Respiratory Rate 18 18 18 Blood Pressure 101/53 L 98/59 L 90/50 L Pulse Oximetry 98 96 95 Oxygen Delivery Method Room Air Room Air Room Air 10/18/22 06:21 Temperature 98.8 F Pulse Rate 78 Respiratory Rate 17 Blood Pressure 96/62 Pulse Oximetry 94 Oxygen Delivery Method Room Air BMI result Body Mass Index 24.3 Vital signs have been reviewed as appeared to be correct. Blood pressure normal. Heart rate normal. Respiration rate normal. Temperature normal. Oxygen saturation normal. Appearance: Alert. Oriented X3. No acute distress. Head: Normal external exam. Normocephalic. Atraumatic. No Bey signs noted. No raccoon eyes noted Eyes: PERRLA. EOMI. Conjunctiva and sclera normal. Eyelids normal. ENT: TM's Normal. Pharynx normal. Uvula midline. Moist mucous membranes. No trismus noted. No drooling noted. No muffled voice noted. Neck: Normal inspection. Neck supple. FROM. No adenopathy. Thyroid Normal. No meningeal signs. No neck mass noted. CVS: Normal heart rate and rhythm. Heart sound normal. No murmurs noted. Pulses normal throughout. Respiratory: No respiratory distress. Painless inspiration. Breath sounds normal. No wheezes/rales/rhonchi noted. Chest nontender. No accessory muscle usage noted or decreased air movement noted. Abdomen: Soft and nontende, G-tube in place and intact with aspiration of g astric contents. Bowel sounds normal in all 4 quadrants. No distention noted. No organomegaly noted. No visible injury noted. Back: No CVA tenderness. Full range of motion noted. Skin: Skin warm and dry. Normal skin color. Normal skin turgor. No rashes/lesions/lacerations noted. Extremities: No lower extremity edema. Extremities exhibit normal range of motion. Extremities nontender. Neuro: Oriented X 3. Cranial nerve exam: II-XII are grossly intact No motor deficit. No sensory deficit. Reflexes normal. Course Course Course Narrative: 62-year-old male came in for evaluation of possible aspiration pneumonia after vomiting, G-tube is in place in the ED, chest x-ray is questioning aspiration pneumonia patient is allergic to penicillin will start the patient on clindamycin. Medical Decision Making Differential Diagnosis Differential Diagnoses: The differential diagnosis associated with the presentation includes (Aspiration pneumonia, pleural effusion, pneumothorax, electrolyte abnormality, severe anemia.) Admission/Observation Consideration of admission/observation: Escalation of care including admission/observation considered Lab Data MDM Lab Attestation statement: I reviewed the patient's lab results. 10/18/22 04:00 10/18/22 04:00 Labs: Lab Results 10/18/22 10/18/22 10/18/22 Range/Units 04:00 04:00 04:00 WBC 6.4 (4.8-10.8) X10*3/uL RBC 3.77 L (4.60-5.80) X10*6/uL Hgb 11.7 L (14.0-18.0) g/dl Hct 37.3 L (42.0-52.0) % MCV 98.9 H (80.0-98.0) fL MCH 31.0 (27.0-33.0) pg MCHC 31.4 (31.0-36.0) g/dl RDW 13.2 (11.0-16.0) % Plt Count TNP MPV 12.1 (9.4-12.4) fL Immature Gran % (Auto) 0.3 (0.0-0.4) % Neut % (Auto) 70.9 (45-73) % Lymph % (Auto) 24.7 (20-40) % [place] % (Auto) 3.9 (2-11) % Eos % (Auto) 0.2 (0-4) % Baso % (Auto) 0.0 (0-2) % Lymph # (Auto) 1.6 (1.2-4.9) X10*3/uL [place] # (Auto) 0.3 (0.1-1.2) X10*3/uL Eos # (Auto) 0.0 (0.0-0.4) X10*3/uL Baso # (Auto) 0.0 (0.0-0.2) X10*3/uL Abs Immat Gran (auto) 0.02 (0.00-0.03) X10*3/uL Absolute Neuts (auto) 4.6 (2.0-8.3) x10*3/uL Absolute Nucleated RBC 0.000 (0.0-0.012) X10*3/uL Nucleated RBC % (auto) 0.0 (0.0-0.2) /100WBC Smear Tech's Comments VERIFIED Sodium 142 (135-145) mmol/L Potassium 4.0 (3.3-5.1) mmol/L Chloride 108 (96-108) mmol/L Carbon Dioxide 23 (22-29) mmol/L Anion Gap 15 (12-20) BUN 14 (9-16) mg/dL Creatinine 0.78 (0.5-1.4) mg/dL Estim Creat Clear Calc 83.2 Estimated GFR > 60 Random Glucose 93 (60-115) mg/dL Lactic Acid 0.9 (0.5-2.0) mmol/L Calcium 9.9 D (8.4-10.2) mg/dL Total Bilirubin 0.5 (0.0-1.0) mg/dL Direct Bilirubin 0.2 (0.0-0.5) mg/dL AST 15 (5-37) U/L ALT 10 (0-40) U/L Alkaline Phosphatase 81 (39-117) U/L Total Protein 7.5 (6.5-8.0) g/dL Albumin 4.1 (3.5-5.0) g/dL Lipase 28 (8-78) U/L Independent Interpretation I performed an independent interpretation of an: Plain X-Ray (Chest: Multifocal infiltrate) Radiology Impression Discussion of test interpretation with radiology: I have reviewed the radiologist's reading. (Streaky opacities in the lower lungs bilaterally could reflect multifocal infiltrate or aspiration in keeping with the provided history. ) Chronic Conditions Patient?s care impacted by: Other (G tube dependent) Discharge Plan Discharge Clinical Impression: Aspiration into respiratory tract Patient Disposition: Xfer [facility] Instructions: Aspiration Pneumonia (DC) Prescriptions: New amoxicillin-pot clavulanate 875-125 mg tablet 1 tab PO Q12H Qty: 14 0RF clindamycin HCl 150 mg capsule 150 mg PO TID Qty: 20 0RF No Action atorvastatin 10 mg tablet 1 tab feeding tube BEDTIME clonazepam 1 mg tablet 1 tab feeding tube BID@1200,1800 clozapine 25 mg tablet 1 tab feeding tube DAILY clozapine 100 mg tablet 2.5 tab feeding tube BEDTIME Prilosec 10 mg Susp,Delayed Release For Recon 20 mg feeding tube DAILY levothyroxine 112 mcg tablet 1 tab feeding tube DAILY lidocaine [Lidoderm] 5 % Adhesive Patch,Medicated 1 patch TOPICAL DAILY Rx Instructions: LT KNEE lithium carbonate 300 mg capsule 1 cap feeding tube BID trazodone 50 mg tablet 1 tab feeding tube BEDTIME valproic acid (as sodium salt) 250 mg/5 mL solution 1,000 mg feeding tube DAILY valproic acid (as sodium salt) 250 mg/5 mL solution 2,000 mg feeding tube BEDTIME cholecalciferol (vitamin D3) [Vitamin D3] 125 mcg (5,000 unit) Tablet 50,000 unit feeding tube QMONTH Rx Instructions: administer on of month ziprasidone HCl 80 mg capsule 1 cap BIDWM valacyclovir 500 mg tablet 1 tab feeding tube DAILY@1200 atropine 1 % drops 2 drp sublingual DAILY@0500 acetaminophen 500 mg Tablet 1,000 mg feeding tube TID polyethylene glycol 3350 8.5 gram Powder In Packet 8.5 g feeding tube Q OTHER DAY sennosides [senna] 8.6 mg Tablet 8.6 mg feeding tube DAILY@1200 erythromycin 5 mg/gram (0.5 %) Ointment 0.5 inch OPHTHALMIC (EYE) QID Rx Instructions: x 7 days fluticasone propionate 50 mcg/actuation [place],Suspension 1 spray INTRANASAL DAILY@1200 Rx Instructions: administer into each nostril dexamethasone [Decadron] 6 mg tablet 6 mg feeding tube DAILY Qty: 4 0RF cefdinir 300 mg capsule 300 mg PO BID Qty: 14 0RF
--- NOTE | 2022-10-18 07:01 | PC.NURSE ---
80cc of liquid into G-tube easily passed through with no effort. pt to be reassessed for tolerance. HOB remains elevated for aspiration precautions.
--- NOTE | 2022-10-18 07:17 | PC.NURSE ---
transport booked back to [facility], pharmacy called for clindamycin
[2022-10-18] MEDS: Clindamycin HCL 150 MG CAPSULE PO (08:14)
--- NOTE | 2022-10-18 12:34 | PHA.MEDREC ---
Pharmacy Consult ? Medication Reconciliation Pharmacy has completed the medication reconciliation. Med rec complete using list from [facility].
== END 2022-10-18 09:03 | disposition skilled nursing facility (03) ==
PROVIDERS: Emergency Provider Emergency Medicine
DX: T17.818A Gastric contents in other parts of respiratory tract causing other injury, initial encounter (principal); Z93.1 Gastrostomy status; Z88.1 Allergy status to other antibiotic agents; Z79.899 Other long term (current) drug therapy; Z87.891 Personal history of nicotine dependence
CPT/HCPCS: 36415; 71045; 80048; 80076; 83605; 83690; 85025; 87040; 99283; 99284

== ENCOUNTER 2022-11-17 08:52 | Emergency (ER) | payer MEDICARE, MEDICAID, SELFPAY ==
--- NOTE | ~2022-11-17 | XR_ITS ---
EXAMINATION: XR CHEST CLINICAL INFORMATION: Question aspiration COMPARISON: Chest radiograph from 10/18/2022 TECHNIQUE: Frontal view of the chest was obtained. FINDINGS: Redemonstration of streaky opacities in the bilateral lung bases may reflect atelectasis/scarring versus aspiration versus evolving infectious/inflammatory etiology, greatest along the right medial lung base. Trachea is midline. Cardiac mediastinal silhouette is stable. No large pleural effusion. Degenerative changes of the thoracolumbar spine. Soft tissues are unremarkable. XR/XR chest 1V IMPRESSION: Redemonstration of streaky opacities in the bilateral lung bases may reflect atelectasis/scarring versus aspiration versus evolving infectious/inflammatory etiology, greatest along the right medial lung base.
--- NOTE | ~2022-11-17 | CT_ITS ---
EXAMINATION: CT CHEST WITHOUT CONTRAST CLINICAL INFORMATION: Shortness of breath. Abnormal chest x-ray. COMPARISON: Previous chest x-ray from earlier the same day TECHNIQUE: Multidetector volumetric CT imaging of the chest was done. Axial MIP volume rendering provided. Sagittal and coronal reformatted images were obtained. This CT examination was performed using dose optimization techniques as appropriate, variously including the following: *Automated exposure control *Adjustment of mA and/or kV according to patient size (this includes techniques or standardized protocols for targeted exams where dose is matched to indication/reason for exam; i.e. extremities or head) *Use of iterative reconstruction technique DLP: 288 mGy-cm FINDINGS: MARKETING RECRUITER: LUNGS: There are small increased peribronchial nodules or areas of peribronchial increased attenuation at the lung bases in the right middle lobe, right lower lobe and left lower lobe. Probably represents airways disease or mild bronchopneumonia. Right middle lobe changes may be chronic as they appear similar to April 2021 exam. There is a 1 cm denser larger nodular density in the peripheral or subpleural left lower lobe axial image 46 series 2. This is new from April 2021 exam and may represent represent an infectious or inflammatory process has well. MEDIASTINUM: Small pericardial effusion. Normal heart size. Normal caliber thoracic aorta. Small mediastinal lymph nodes. No enlarged lymph nodes. CORONARY ARTERY CALCIFICATION: Moderate to severe PLEURA: There is no pleural effusion. No pleural mass or thickening. AXILLA: No lymphadenopathy. UPPER ABDOMEN: G-tube in the stomach. Gallstone. Partially visualized left renal cyst. No imaging follow-up recommended. OSSEOUS STRUCTURES: Degenerative changes of the spine. CT/CT chest wo IV con IMPRESSION: Bibasilar bronchopneumonia. Changes in the right middle lobe appears similar to April 2021 exam and may be chronic. Fleischner guidelines were followed.
[2022-11-17 09:03] VITALS: BP 110/60; BP 99/53; PULSE 88; PULSE 90; RESP 16; TEMP 37.4; O2SAT 98; BMI 19.4
--- NOTE | 2022-11-17 09:24 | PC.NURSE ---
pt CORIN from [facility] after eating one bite of a brownie pt reports he fed himself. pt is a G-tube feed only. facility RN also reported pt is more shakey then normal . sent pt in for concerns of ?aspiration or dislodging G tube. attempted to listen to pts lungs, pt unable to take deep breath in- he started to cough. VSS. outward appearance of G-tube appears intact.
[2022-11-17 09:26] VITALS: BP 100/62; PULSE 85; RESP 16; O2SAT 96
--- NOTE | 2022-11-17 09:29 | PC.NURSE ---
pt tranfer form in packet reported reason for transfer: vomiting, NPO drinking water from sink
--- NOTE | 2022-11-17 09:32 | PC.NURSE ---
call placed to [facility] 2x no answer from facility
--- NOTE | 2022-11-17 09:57 | ED.GENADULT ---
HPI - General Adult General Chief complaint: General Medical Stated complaint: vomiting, per ems Time Seen by Provider: 11/17/22 09:49 Source: patient and EMS Mode of arrival: EMS Limitations: no limitations and other (poor historian) History of Present Illness HPI narrative: This is a 62-year-old male history of dementia, schizoaffective disorder, anxiety, symptomatic neurogenic diabetes insipidus, hypothyroidism, diverticulosis presenting to the emergency department for cough status post eating something, patient has a G-tube in place and is NPO. According to patient he ate a few bites of Brownie however according to the note brought from the facility patient drink water out of the sink. Unable to tell me much of a story or answer an accurate review of systems. However patient coughing throughout my exam Related Data Home Medications Medication Instructions Recorded Confirmed acetaminophen 500 mg tablet 1,000 mg feeding tube TID 04/18/21 10/18/22 atorvastatin 10 mg tablet 1 tab feeding tube BEDTIME 04/18/21 10/18/22 atropine 1 % eye drops 2 drp sublingual DAILY@0500 04/18/21 10/18/22 cholecalciferol (vitamin D3) 125 50,000 unit feeding tube QMONTH 04/18/21 10/18/22 mcg (5,000 unit) tablet (Vitamin D3) clozapine 100 mg tablet 2.5 tab feeding tube BEDTIME 04/18/21 10/18/22 clozapine 25 mg tablet 3 tab feeding tube DAILY 04/18/21 10/18/22 lidocaine 5 % topical patch 1 patch topical DAILY 04/18/21 10/18/22 (Lidoderm) lithium carbonate 300 mg capsule 1 cap feeding tube BID 04/18/21 10/18/22 polyethylene glycol 3350 8.5 gram 17 g feeding tube BID 04/18/21 10/18/22 oral powder packet sennosides 8.6 mg tablet (senna) 8.6 mg feeding tube BID 04/18/21 10/18/22 trazodone 50 mg tablet 2 tab feeding tube BEDTIME 04/18/21 10/18/22 valacyclovir 500 mg tablet 1 tab feeding tube DAILY@1200 04/18/21 10/18/22 valproic acid (as sodium salt) 250 1,000 mg feeding tube DAILY 04/18/21 10/18/22 mg/5 mL oral solution valproic acid (as sodium salt) 250 2,000 mg feeding tube BEDTIME 04/18/21 10/18/22 mg/5 mL oral solution ziprasidone HCl 80 mg capsule 1 cap PO BIDWM 04/18/21 10/18/22 atropine 1 % eye drops 2 drp sublingual Q15M PRN 10/18/22 10/18/22 Secretions bisacodyl 10 mg rectal suppository 10 mg WI DAILY PRN Constipation 10/18/22 10/18/22 chlorhexidine gluconate 4 % 1 appl topical MOFR 10/18/22 10/18/22 topical liquid (Hibiclens) clonazepam 0.5 mg tablet 0.5 mg feeding tube BID 10/18/22 10/18/22 docusate sodium 50 mg/5 mL oral 100 mg feeding tube BID 10/18/22 10/18/22 liquid famotidine 40 mg tablet 40 mg feeding tube DAILY@0630 10/18/22 10/18/22 guaifenesin 100 mg/5 mL oral liquid 200 mg PO Q4H PRN Cough 10/18/22 10/18/22 heparin (porcine) 10 unit/mL in 50 unit IV Q12H 10/18/22 10/18/22 0.9 % sodium chloride intravenous kit hydrocortisone 2.5 % topical cream 1 appl topical TID PRN Itching 10/18/22 10/18/22 with perineal applicator (Procto-Med HC) levothyroxine 100 mcg tablet 100 mcg PO DAILY@0600 10/18/22 10/18/22 magnesium hydroxide 400 mg/5 mL 30 ml PO DAILY PRN Constipation 10/18/22 10/18/22 oral suspension (Milk of Magnesia) miconazole nitrate 2 % topical 1 appl topical BID 10/18/22 10/18/22 powder peg [id number] 1 2 drp ophthalmic (eye) QID 10/18/22 10/18/22 %-0.2 %-0.2 % eye drops (Artificial Tears ([id number])) phenylephrine HCl 0.25 % rectal 1 supp WI Q6H PRN Hemorrhoids 10/18/22 10/18/22 suppository sodium phosphates 19 gram-7 118 ml WI DAILY PRN Constipation 10/18/22 10/18/22 gram/118 mL enema (Fleet Enema) Previous Rx's Medication Instructions Recorded albuterol sulfate 90 mcg/actuation 2 inh inhalation Q4-6H PRN 11/17/22 breath activated powder inhaler shortness of breath or wheezing #1 ea azithromycin 250 mg tablet See Rx Instructions PO .COMPLEX #6 11/17/22 tabs doxycycline hyclate 100 mg capsule 100 mg PO BID 10 days #20 caps 11/17/22 Allergies Allergy/AdvReac Type Severity Reaction Status Date / Time amoxicillin [From Augmentin] Allergy Unknown Verified 09/15/20 11:52 clavulanic acid Allergy Unknown Verified 09/15/20 11:52 [From Augmentin] fluoxetine [From Prozac] Allergy Unknown Verified 09/15/20 11:52 perphenazine Allergy Unknown Verified 09/15/20 11:52 shellfish derived Allergy Unknown Verified 09/15/20 11:52 Review of Systems Review of Systems: Yes Unobtainable due to mental status PMFSH Past Medical History Attestation statement: The following information was validated with the patient. Source: old records reviewed and nursing notes reviewed Medical History Acute respiratory failure due to COVID-19 Bulimia COVID-19 Dementia Epilepsy Pneumonia Schizo-affective schizophrenia, chronic condition Sexually transmitted disease Social History Social History Household Members: Other Housing: Assisted Living Facility Do you presently have visiting nurse or other home services: Yes Alcohol intake: never Patient Tobacco Use Status: Former Tobacco user Use of substances other than those prescribed or required for medical reasons: No Advance Directives: Yes Advance Directives on File: Yes Advance Directives Date on File: 04/18/21 service: No Current occupational status: disabled Physical Exam ED Vital Signs: Vital Signs - 24 hr 11/17/22 09:03 11/17/22 09:26 11/17/22 10:31 Temperature 99.3 F Pulse Rate 88 85 90 Respiratory Rate 16 16 12 Blood Pressure 99/53 L 100/62 110/56 L Pulse Oximetry 98 96 95 Oxygen Delivery Method Room Air Room Air 11/17/22 14:07 Temperature Pulse Rate 89 Respiratory Rate 15 Blood Pressure 106/59 L Pulse Oximetry 95 Oxygen Delivery Method Room Air BMI result Body Mass Index 19.4 vss Appearance: Awake, not oriented to person, place, time or situation. Intermittently following simple commands Head: Normocephalic, atraumatic, no step-offs or deformities Eyes: Pupils equal, round and reactive to light.? CVS: Normal heart rate and rhythm.? Pulses normal.? Respiratory: No respiratory distress.? Breath sounds w/ crackles throughout.? Abdomen: Soft and nontender.? Skin: Skin warm and dry.? Normal skin color.? Normal skin turgor.? Extremities: No lower extremity edema.? No calf ttp. 5/5 strength to bilateral upper and lower extremities Neuro: Awake, not oriented to person, place, time or situation. Intermittently following simple commands Course Reevaluation(s) Reevaluation #1: CBC with elevated white blood cell count likely secondary to viral illness. Patient's chemistry with no acute findings requiring intervention, BUN elevated at 27 however patient tolerating p.o.. Lactic acid normal. BNP within normal limits. Patient is saturating 97-98% on room air. COVID negative. Chest x-ray showing redemonstration of streaky opacities in bilateral lung bases may reflect atelectasis/scarring versus aspiration versus a balding infection. CT nash w/ concerns w/ bibasilar bronchopneumonia. Will treat w/ doxy and azithro and dc patinet back to SNF. Likely aspirated while eating. Educated patient on diagnosis and treatment plan, answered all question, patient verbalizes understanding. At this time patient will be discharged home, advised to return with new or worsening symptoms. Educated on worrisome signs and symptoms and when to return. At this time I feel comfortable discharge home. Time: 14:33 Reevaluation #2: Received call from the lab the patient had 1 positive blood culture of Gram-negative rods. I reviewed the patient's chart, he did have a leukocytosis of 14.5 K. He was mildly hypertensive but was afebrile. I called over to his facility and spoke to his nurse, Ashleigh. Patient reports that he has not had any fevers since being discharged back to his facility. However I advised the patient return to the emergency department for further evaluation and management, likely admission for IV antibiotics due to the bacteremia Time: 23:01 Medical Decision Making Medical Decision Making [facility] Narrative: 1001 62-year-old male presents with cough status post eating something or drinking something by mouth, story unclear, patient poor historian. Coughing throughout my exam Physical exam significant for No respiratory distress.? Breath sounds w/ crackles throughout.? Concerns for possible aspiration pneumonia versus viral illness versus upper respiratory infection versus pneumonia. Unlikely PE, ACS, CHF. Plan labs, imaging. Differential Diagnosis Differential Diagnoses: The differential diagnosis associated with the presentation includes Concerns for possible aspiration pneumonia versus viral illness versus upper respiratory infection versus pneumonia. Unlikely PE, ACS, CHF. Admission/Observation Consideration of admission/observation: Escalation of care including admission/observation considered Lab Data MDM Lab Attestation statement: I reviewed the patient's lab results. 11/17/22 10:28 11/17/22 10:19 Labs: Lab Results 11/17/22 11/17/22 11/17/22 Range/Units 10:19 10:19 10:28 WBC 14.5 H (4.8-10.8) X10*3/uL RBC 3.44 L (4.60-5.80) X10*6/uL Hgb 10.6 L (14.0-18.0) g/dl Hct 34.2 L (42.0-52.0) % MCV 99.4 H (80.0-98.0) fL MCH 30.8 (27.0-33.0) pg MCHC 31.0 (31.0-36.0) g/dl RDW 14.1 (11.0-16.0) % Plt Count 220 D (160-400) X10*3/uL MPV 11.2 (9.4-12.4) fL Immature Gran % (Auto) 0.3 (0.0-0.4) % Neut % (Auto) 86.3 H (45-73) % Lymph % (Auto) 6.7 L (20-40) % [place] % (Auto) 6.6 (2-11) % Eos % (Auto) 0.0 (0-4) % Baso % (Auto) 0.1 (0-2) % Lymph # (Auto) 1.0 L (1.2-4.9) X10*3/uL [place] # (Auto) 1.0 (0.1-1.2) X10*3/uL Eos # (Auto) 0.0 (0.0-0.4) X10*3/uL Baso # (Auto) 0.0 (0.0-0.2) X10*3/uL Abs Immat Gran (auto) 0.04 H (0.00-0.03) X10*3/uL Absolute Neuts (auto) 12.5 H (2.0-8.3) x10*3/uL Absolute Nucleated RBC 0.000 (0.0-0.012) X10*3/uL Nucleated RBC % (auto) 0.0 (0.0-0.2) /100WBC Sodium 146 H (135-145) mmol/L Potassium 4.2 (3.3-5.1) mmol/L Chloride 113 H (96-108) mmol/L Carbon Dioxide 24 (22-29) mmol/L Anion Gap 13 (12-20) BUN 27 H (9-16) mg/dL Creatinine 1.04 (0.5-1.4) mg/dL Estim Creat Clear Calc 62.2 Estimated GFR > 60 POC Glucose (60-115) mg/dL Random Glucose 120 H (60-115) mg/dL Lactic Acid (0.5-2.0) mmol/L Calcium 9.5 (8.4-10.2) mg/dL Magnesium 3.1 H (1.6-2.6) mg/dL Total Bilirubin 0.2 (0.0-1.0) mg/dL AST 16 (5-37) U/L ALT 10 (0-40) U/L Alkaline Phosphatase 57 (39-117) U/L B-Natriuretic Peptide (<100) pg/mL Total Protein 7.0 (6.5-8.0) g/dL Albumin 3.5 (3.5-5.0) g/dL Lipase 19 (8-78) U/L COVID-19 (TR) Negative (Negative) COVID-19 Clin Com See Note 11/17/22 11/17/22 11/17/22 Range/Units 10:28 10:28 14:01 WBC (4.8-10.8) X10*3/uL RBC (4.60-5.80) X10*6/uL Hgb (14.0-18.0) g/dl Hct (42.0-52.0) % MCV (80.0-98.0) fL MCH (27.0-33.0) pg MCHC (31.0-36.0) g/dl RDW (11.0-16.0) % Plt Count (160-400) X10*3/uL MPV (9.4-12.4) fL Immature Gran % (Auto) (0.0-0.4) % Neut % (Auto) (45-73) % Lymph % (Auto) (20-40) % [place] % (Auto) (2-11) % Eos % (Auto) (0-4) % Baso % (Auto) (0-2) % Lymph # (Auto) (1.2-4.9) X10*3/uL [place] # (Auto) (0.1-1.2) X10*3/uL Eos # (Auto) (0.0-0.4) X10*3/uL Baso # (Auto) (0.0-0.2) X10*3/uL Abs Immat Gran (auto) (0.00-0.03) X10*3/uL Absolute Neuts (auto) (2.0-8.3) x10*3/uL Absolute Nucleated RBC (0.0-0.012) X10*3/uL Nucleated RBC % (auto) (0.0-0.2) /100WBC Sodium (135-145) mmol/L Potassium (3.3-5.1) mmol/L Chloride (96-108) mmol/L Carbon Dioxide (22-29) mmol/L Anion Gap (12-20) BUN (9-16) mg/dL Creatinine (0.5-1.4) mg/dL Estim Creat Clear Calc Estimated GFR POC Glucose 114 (60-115) mg/dL Random Glucose (60-115) mg/dL Lactic Acid 1.7 (0.5-2.0) mmol/L Calcium (8.4-10.2) mg/dL Magnesium (1.6-2.6) mg/dL Total Bilirubin (0.0-1.0) mg/dL AST (5-37) U/L ALT (0-40) U/L Alkaline Phosphatase (39-117) U/L B-Natriuretic Peptide 34 (<100) pg/mL Total Protein (6.5-8.0) g/dL Albumin (3.5-5.0) g/dL Lipase (8-78) U/L COVID-19 (TR) (Negative) COVID-19 Clin Com Independent Interpretation I performed an independent interpretation of an: CT Scan Radiology Impression Discussion of test interpretation with radiology: I have reviewed the radiologist's reading. Core Measures AMI core measures followed: Yes Measure exclusions: not indicated Critical Care Time Critical Care Time Critical Care Time: No Discharge Plan Discharge Clinical Impression: Pneumonia Patient Disposition: Home, Self-Care Instructions: Pneumonia (ED) Additional Instructions: Take your medications as prescribed. If you were prescribed antibiotics today, it is important that you take your medication to their entirety, do not skip any doses, do not finish them early. Follow-up with your primary care provider this week. Return to the emergency department with new or worsening symptoms. Such as fevers, chills, chest pain, shortness of breath, nausea, vomiting, dizziness, headache, vision changes, lethargy In case of emergency call 911 CT/CT chest wo IV con IMPRESSION: Bibasilar bronchopneumonia. Changes in the right middle lobe appears similar to April 2021 exam and may be chronic.? Prescriptions: New doxycycline hyclate 100 mg capsule 100 mg PO BID 10 Days Qty: 20 0RF azithromycin 250 mg tablet See Rx Instructions .ROUTE .COMPLEX Qty: 6 0RF Rx Instructions: For 250 mg dose pack: take 500 mg today (day 1), then 250 mg for 4 days (days 2-5) albuterol sulfate 90 mcg/actuation aerosol powdr breath activated 2 inh inhalation Q4-6H PRN (Reason: shortness of breath or wheezing) Qty: 1 0RF No Action atorvastatin 10 mg tablet 1 tab feeding tube BEDTIME clozapine 25 mg tablet 3 tab feeding tube DAILY clozapine 100 mg tablet 2.5 tab feeding tube BEDTIME lidocaine [Lidoderm] 5 % Adhesive Patch,Medicated 1 patch TOPICAL DAILY Rx Instructions: LT KNEE lithium carbonate 300 mg capsule 1 cap feeding tube BID Rx Instructions: crush and mix with 30 ml water trazodone 50 mg tablet 2 tab feeding tube BEDTIME valproic acid (as sodium salt) 250 mg/5 mL solution 1,000 mg feeding tube DAILY valproic acid (as sodium salt) 250 mg/5 mL solution 2,000 mg feeding tube BEDTIME cholecalciferol (vitamin D3) [Vitamin D3] 125 mcg (5,000 unit) Tablet 50,000 unit feeding tube QMONTH Rx Instructions: administer on ziprasidone HCl 80 mg capsule 1 cap PO BIDWM Rx Instructions: give via g tube valacyclovir 500 mg tablet 1 tab feeding tube DAILY@1200 atropine 1 % drops 2 drp sublingual DAILY@0500 acetaminophen 500 mg Tablet 1,000 mg feeding tube TID polyethylene glycol 3350 8.5 gram Powder In Packet 17 g feeding tube BID Rx Instructions: mix in 4 ounces of water via g tube sennosides [senna] 8.6 mg Tablet 8.6 mg feeding tube BID clonazepam 0.5 mg tablet 0.5 mg feeding tube BID atropine 1 % drops 2 drp sublingual Q15M PRN (Reason: Secretions) famotidine 40 mg tablet 40 mg feeding tube DAILY@0630 levothyroxine 100 mcg tablet 100 mcg PO DAILY@0600 Heparin Flush 10 unit/mL Kit 50 unit IV Q12H Rx Instructions: administer after IV drug administration as part of [facility] protocol magnesium hydroxide [Milk of Magnesia] 400 mg/5 mL Suspension 30 ml PO DAILY PRN (Reason: Constipation) hydrocortisone [Procto-Med HC] 2.5 % cream with perineal applicator 1 appl topical TID PRN (Reason: Itching) docusate sodium 50 mg/5 mL Liquid 100 mg feeding tube BID miconazole nitrate 2 % Powder 1 appl TOPICAL BID Rx Instructions: apply to ischial tuberosity guaifenesin 100 mg/5 mL Liquid 200 mg PO Q4H PRN (Reason: Cough) bisacodyl 10 mg Suppository 10 mg WI DAILY PRN (Reason: Constipation) Rx Instructions: if milk of magnesia is ineffective Fleet Enema 19-7 gram/118 mL Enema 118 ml WI DAILY PRN (Reason: Constipation) Rx Instructions: use if bisacodyl ineffective chlorhexidine gluconate [Hibiclens] 4 % Liquid 1 appl TOPICAL MOFR Rx Instructions: apply topically to scrotum Artificial Tears([id number]) 1-0.2-0.2 % Drops 2 drp OPHTHALMIC (EYE) QID Hemorrhoidal Suppository 0.25 % Suppository 1 supp WI Q6H PRN (Reason: Hemorrhoids) Referrals: RAHUL RICHEY [Primary Care Provider] - 2 days Stand Alone Forms: Work/School Release Interventions: ED Discharge Assessment Last Done: 11/17/22 17:04 Discharge Date/Time: 11/17/22 17:06
[2022-11-17 10:31] VITALS: BP 110/56; PULSE 90; RESP 12; O2SAT 95
[2022-11-17 10:33] LABS: MANUAL DIFF FLAG NO
[2022-11-17 10:35] LABS: Basophils Percent Auto 0.1 % (0-2); Hematocrit 34.2 % (42.0-52.0); Hemoglobin 10.6 g/dl (14.0-18.0); Imm Gran Abs Auto 0.04 X10*3/uL (0.00-0.03); Imm Gran Pct Auto 0.3 % (0.0-0.4); Lymphocytes Percent Auto 6.7 % (20-40); Mean Corpuscular Hemoglobin 30.8 pg (27.0-33.0); Mean Corpuscular Volume 99.4 fL (80.0-98.0); Mean Platelet Volume 11.2 fL (9.4-12.4); Monocytes Percent Auto 6.6 % (2-11); Neutrophils Absolute Auto 12.5 x10*3/uL (2.0-8.3); Neutrophils Percent Auto 86.3 % (45-73); Platelet Count 220 X10*3/uL (160-400); Red Blood Count 3.44 X10*6/uL (4.60-5.80); Red Cell Distribution Width 14.1 % (11.0-16.0); White Blood Count 14.5 X10*3/uL (4.8-10.8)
[2022-11-17 10:41] LABS: COVID-19 Test Negative (Negative); IDNOW Serial# 08D9AD1C
[2022-11-17 10:51] LABS: Alanine Aminotransferase 10 U/L (0-40); Albumin Level 3.5 g/dL (3.5-5.0); Alkaline Phosphatase 57 U/L (39-117); Anion Gap 13 (12-20); Aspartate Amino Transferase 16 U/L (5-37); Bilirubin Total 0.2 mg/dL (0.0-1.0); Blood Urea Nitrogen 27 mg/dL (9-16); Calcium 9.5 mg/dL (8.4-10.2); Carbon Dioxide 24 mmol/L (22-29); Chloride 113 mmol/L (96-108); Creatinine Clr Calc Pharmacy 62.2; Estimated Glomerular Filt Rate > 60; Glucose Random 120 mg/dL (60-115); Lipase 19 U/L (8-78); Magnesium 3.1 mg/dL (1.6-2.6); Potassium 4.2 mmol/L (3.3-5.1); Sodium 146 mmol/L (135-145)
[2022-11-17 11:02] LABS: B Type Natriuretic Peptide 34 pg/mL (<100); Lactic Acid 1.7 mmol/L (0.5-2.0)
[2022-11-17 14:05] LABS: Glucose, Whole Blood 114 mg/dL (60-115)
--- NOTE | 2022-11-17 14:05 | PC.NURSE ---
pt incontinent of urine - cleaned with linens changed
[2022-11-17 14:07] VITALS: BP 106/59; PULSE 89; RESP 15; O2SAT 95
== END 2022-11-17 17:06 | disposition home or self-care (01) ==
PROVIDERS: Physician Assistant; Emergency Provider Emergency Medicine; PCP Emergency Medicine
DX: J18.9 Pneumonia, unspecified organism (principal); Z20.822 Contact with and (suspected) exposure to COVID-19; Z20.828 Contact with and (suspected) exposure to other viral communicable diseases; Z79.899 Other long term (current) drug therapy
CPT/HCPCS: 36415; 71045; 71250; 80053; 82947; 83605; 83690; 83735; 83880; 85025; 87040; 87077; 87186; 87205; 87635; 99284

== ENCOUNTER 2022-11-18 00:07 | Inpatient (IN) | payer MEDICARE, MEDICAID, SELFPAY ==
[2022-11-18] VITALS (7 sets, daily range): BP systolic 100–158; BP diastolic 55–90; PULSE 86–94; RESP 16–20; TEMP 36.3–38; O2SAT 91–98; BMI 19.7
--- NOTE | 2022-11-18 00:25 | ED.RECABL ---
HPI - Recheck/Abnormal Lab/Rx General Chief Complaint: Recheck/Abnormal Lab/Rx Stated Complaint: abnormal labs Time Seen by Provider: 11/18/22 00:21 Source: EMS, old records reviewed and other Mode of arrival: EMS History of Present Illness HPI narrative: 62-year-old male brought in by EMS from [facility] due to a call from microbiology stating that patient's blood culture was growing Gram-negative rods, patient is a poor historian and on review of prior note when patient was seen here earlier in the day it appears that the discharge diagnosis was for pneumonia. Related Data Home Medications Medication Instructions Recorded Confirmed acetaminophen 500 mg tablet 1,000 mg feeding tube TID 04/18/21 10/18/22 atorvastatin 10 mg tablet 1 tab feeding tube BEDTIME 04/18/21 10/18/22 atropine 1 % eye drops 2 drp sublingual DAILY@0500 04/18/21 10/18/22 cholecalciferol (vitamin D3) 125 50,000 unit feeding tube QMONTH 04/18/21 10/18/22 mcg (5,000 unit) tablet (Vitamin D3) clozapine 100 mg tablet 2.5 tab feeding tube BEDTIME 04/18/21 10/18/22 clozapine 25 mg tablet 3 tab feeding tube DAILY 04/18/21 10/18/22 lidocaine 5 % topical patch 1 patch topical DAILY 04/18/21 10/18/22 (Lidoderm) lithium carbonate 300 mg capsule 1 cap feeding tube BID 04/18/21 10/18/22 polyethylene glycol 3350 8.5 gram 17 g feeding tube BID 04/18/21 10/18/22 oral powder packet sennosides 8.6 mg tablet (senna) 8.6 mg feeding tube BID 04/18/21 10/18/22 trazodone 50 mg tablet 2 tab feeding tube BEDTIME 04/18/21 10/18/22 valacyclovir 500 mg tablet 1 tab feeding tube DAILY@1200 04/18/21 10/18/22 valproic acid (as sodium salt) 250 1,000 mg feeding tube DAILY 04/18/21 10/18/22 mg/5 mL oral solution valproic acid (as sodium salt) 250 2,000 mg feeding tube BEDTIME 04/18/21 10/18/22 mg/5 mL oral solution ziprasidone HCl 80 mg capsule 1 cap PO BIDWM 04/18/21 10/18/22 atropine 1 % eye drops 2 drp sublingual Q15M PRN 10/18/22 10/18/22 Secretions bisacodyl 10 mg rectal suppository 10 mg NC DAILY PRN Constipation 10/18/22 10/18/22 chlorhexidine gluconate 4 % 1 appl topical MOFR 10/18/22 10/18/22 topical liquid (Hibiclens) clonazepam 0.5 mg tablet 0.5 mg feeding tube BID 10/18/22 10/18/22 docusate sodium 50 mg/5 mL oral 100 mg feeding tube BID 10/18/22 10/18/22 liquid famotidine 40 mg tablet 40 mg feeding tube DAILY@0630 10/18/22 10/18/22 guaifenesin 100 mg/5 mL oral liquid 200 mg PO Q4H PRN Cough 10/18/22 10/18/22 heparin (porcine) 10 unit/mL in 50 unit IV Q12H 10/18/22 10/18/22 0.9 % sodium chloride intravenous kit hydrocortisone 2.5 % topical cream 1 appl topical TID PRN Itching 10/18/22 10/18/22 with perineal applicator (Procto-Med HC) levothyroxine 100 mcg tablet 100 mcg PO DAILY@0600 10/18/22 10/18/22 magnesium hydroxide 400 mg/5 mL 30 ml PO DAILY PRN Constipation 10/18/22 10/18/22 oral suspension (Milk of Magnesia) miconazole nitrate 2 % topical 1 appl topical BID 10/18/22 10/18/22 powder peg [id number] 1 2 drp ophthalmic (eye) QID 10/18/22 10/18/22 %-0.2 %-0.2 % eye drops (Artificial Tears ([id number])) phenylephrine HCl 0.25 % rectal 1 supp NC Q6H PRN Hemorrhoids 10/18/22 10/18/22 suppository sodium phosphates 19 gram-7 118 ml NC DAILY PRN Constipation 10/18/22 10/18/22 gram/118 mL enema (Fleet Enema) Previous Rx's Medication Instructions Recorded albuterol sulfate 90 mcg/actuation 2 inh inhalation Q4-6H PRN 11/17/22 breath activated powder inhaler shortness of breath or wheezing #1 ea azithromycin 250 mg tablet See Rx Instructions PO .COMPLEX #6 11/17/22 tabs doxycycline hyclate 100 mg capsule 100 mg PO BID 10 days #20 caps 11/17/22 Allergies Allergy/AdvReac Type Severity Reaction Status Date / Time amoxicillin [From Augmentin] Allergy Unknown Verified 11/18/22 00:22 clavulanic acid Allergy Unknown Verified 11/18/22 00:22 [From Augmentin] fluoxetine [From Prozac] Allergy Unknown Verified 11/18/22 00:22 perphenazine Allergy Unknown Verified 11/18/22 00:22 shellfish derived Allergy Unknown Verified 11/18/22 00:22 Review of Systems Review of Systems: Pertinent positives and negatives as stated in HPI [facility] Past Medical History Source: nursing notes reviewed Medical History Acute respiratory failure due to COVID-19 Bulimia COVID-19 Dementia Epilepsy Pneumonia Schizo-affective schizophrenia, chronic condition Sexually transmitted disease Social History Social History Household Members: Other Housing: Assisted Living Facility Do you presently have visiting nurse or other home services: Yes Alcohol intake: never Patient Tobacco Use Status: Former Tobacco user Advance Directives: Yes Advance Directives on File: Yes Advance Directives Date on File: 04/18/21 service: No Current occupational status: disabled Physical Exam Vital Signs: Vital Signs: Last Vital Signs Temp 100.4 F 11/18/22 00:19 Pulse 93 11/18/22 02:20 Resp 16 11/18/22 02:20 BP 108/65 11/18/22 02:20 Pulse Ox 95 11/18/22 02:20 O2 Del Method Room Air 11/18/22 02:20 BMI result Body Mass Index 19.7 Medical Decision Making Medical Decision Making [facility] Narrative: 0020: 62-year-old male with history and clinical presentation of an earlier diagnosis of bibasilar bronchopneumonia and appears to be bacteremic. Will not repeat all lab work, but will obtain urine sample to ensure infection is not within the urine due to the gram-negative rods identified. However, it is possible that the infection is secondary to Haemophilus influenzae, Bordetella pertussis or Legionella pneumophila. I reviewed all investigations and urinalysis is significant for nitrite positive urine, hematuria. Antibiotics were ordered. Lactic acid-0.6. Antibiotics were also ordered. 0031: I discussed case with inpatient hospitalist who accepts admission. Differential Diagnosis Differential Diagnoses: The differential diagnosis associated with the presentation includes Please see the discussion above Admission/Observation Consideration of admission/observation: Escalation of care including admission/observation considered Please see the discussion above Consult Healthcare Provider Management of the patient was discussed with: Hospitalist Please see the discussion above Lab Data MDM Lab Attestation statement: I reviewed the patient's lab results. Please see the discussion above Labs: Lab Results 11/18/22 11/18/22 Range/Units 01:13 01:13 Lactic Acid 0.6 (0.5-2.0) mmol/L Urine Color Yellow Urine Appearance Turbid Urine pH 6.5 (5.0-9.0) Ur Specific [place] 1.015 (1.005-1.025) Urine Protein 100 (2+) H (Neg-Trace) mg/dL Urine Glucose (UA) Negative (Negative) mg/dL Urine Ketones Negative (Negative) mg/dL Urine Blood Small (1+) H (Negative) Urine Nitrite Negative (Negative) Ur Leukocyte Esterase Large (3+) H (Negative) Urine RBC 6-10 H (0-2) /HPF Urine WBC >50 H (0-5) /HPF Urine WBC Clumps Present Ur Squamous Epith Cells 0-2 (0-2) /HPF Urine Bacteria 4+ (None Seen) Hyaline Casts 11-20 (0-2) /LPF External Record Review External record reviewed: Outpatient record, Prior outpatient labs and Prior outpatient radiology Critical Care Time Critical Care Time Critical Care Time: Yes Total Critical Care Time: 30 Attestation: I personally attest to this time spent taking care of the patient. Discharge Plan Discharge Clinical Impression: Pneumonia, Bacteremia, Acute UTI Patient Disposition: Admitted As Inpatient
[2022-11-18 01:28] LABS: Appearance Urine Turbid; Color Urine Yellow; Glucose Urine UA Negative (Negative); Leukocyte Esterase Urine Large (3+) (Negative); Nitrite Urine Negative (Negative); PH 6.5 (5.0-9.0); Specific Gravity - Urine 1.015 (1.005-1.025); UMIC TRIGGER UACC YES; Urine Blood Small (1+) (Negative); Urine Ketones Negative (Negative); Urine Protein 100 (2+) mg/dL (Neg-Trace)
[2022-11-18 01:34] LABS: Lactic Acid 0.6 mmol/L (0.5-2.0)
[2022-11-18 01:37] LABS: Bacteria Urine 4+ (None Seen); Squamous Epithelial Cell Urine 0-2 /HPF (0-2); UACC Culture Trigger YES; WBC Clumps Urine Present; WBC Urine >50 /HPF (0-5)
--- NOTE | 2022-11-18 02:12 | PM.IMHP ---
History of Present Illness Date of Service: 11/18/22 Chief Complaint: Abnormal labs This is a 62-year-old male with pertinent history of seizure disorder, bed-bound and nonverbal with recurrent aspiration pneumonia status post PEG tube, mood disorder, mixed hyperlipidemia, recurrent UTI, dementia who was brought to the emergency department evaluation of bacteremia. Patient was seen earlier in the ER on the day of presentation and was sent home on p.o. antibiotics due to concerns for pneumonia. The facility was called as patient's blood cultures were positive for Gram-negative rods and he was brought back to the ER. Unable to obtain history from the patient as he is nonverbal. Patient is unable to follow commands. Unable to obtain review of systems. History obtained from ER provider and chart review. In the emergency department, urine concerning for UTI Review of Systems Review of Systems: Yes Unobtainable due to mental condition and Unobtainable due to mental status PMFSH Medical History Acute respiratory failure due to COVID-19 Bulimia COVID-19 Dementia Epilepsy Pneumonia Schizo-affective schizophrenia, chronic condition Sexually transmitted disease Pertinent family history: Unable to obtain Social History Household Members: Other Housing: Assisted Living Facility Do you presently have visiting nurse or other home services: Yes Alcohol intake: never Patient Tobacco Use Status: Former Tobacco user Advance Directives Date on File: 04/18/21 service: No Current occupational status: disabled Meds Allergies Allergy/AdvReac Type Severity Reaction Status Date / Time amoxicillin [From Augmentin] Allergy Unknown Verified 11/18/22 00:22 clavulanic acid Allergy Unknown Verified 11/18/22 00:22 [From Augmentin] fluoxetine [From Prozac] Allergy Unknown Verified 11/18/22 00:22 perphenazine Allergy Unknown Verified 11/18/22 00:22 shellfish derived Allergy Unknown Verified 11/18/22 00:22 Home Medications Medication Instructions Recorded Confirmed Last Taken Type acetaminophen 500 mg tablet 1,000 mg feeding tube TID 04/18/21 10/18/22 Unknown History atorvastatin 10 mg tablet 1 tab feeding tube BEDTIME 04/18/21 10/18/22 Unknown History atropine 1 % eye drops 2 drp sublingual DAILY@0500 04/18/21 10/18/22 Unknown History cholecalciferol (vitamin D3) 125 50,000 unit feeding tube QMONTH 04/18/21 10/18/22 10/02/22 History mcg (5,000 unit) tablet (Vitamin D3) clozapine 100 mg tablet 2.5 tab feeding tube BEDTIME 04/18/21 10/18/22 04/18/21 History clozapine 25 mg tablet 3 tab feeding tube DAILY 04/18/21 10/18/22 Unknown History lidocaine 5 % topical patch 1 patch topical DAILY 04/18/21 10/18/22 Unknown History (Lidoderm) lithium carbonate 300 mg capsule 1 cap feeding tube BID 04/18/21 10/18/22 Unknown History polyethylene glycol 3350 8.5 gram 17 g feeding tube BID 04/18/21 10/18/22 Unknown History oral powder packet sennosides 8.6 mg tablet (senna) 8.6 mg feeding tube BID 04/18/21 10/18/22 Unknown History trazodone 50 mg tablet 2 tab feeding tube BEDTIME 04/18/21 10/18/22 Unknown History valacyclovir 500 mg tablet 1 tab feeding tube DAILY@1200 04/18/21 10/18/22 Unknown History valproic acid (as sodium salt) 250 1,000 mg feeding tube DAILY 04/18/21 10/18/22 Unknown History mg/5 mL oral solution valproic acid (as sodium salt) 250 2,000 mg feeding tube BEDTIME 04/18/21 10/18/22 Unknown History mg/5 mL oral solution ziprasidone HCl 80 mg capsule 1 cap PO BIDWM 04/18/21 10/18/22 Unknown History atropine 1 % eye drops 2 drp sublingual Q15M PRN 10/18/22 10/18/22 Unknown History Secretions bisacodyl 10 mg rectal suppository 10 mg MT DAILY PRN Constipation 10/18/22 10/18/22 Unknown History chlorhexidine gluconate 4 % 1 appl topical MOFR 10/18/22 10/18/22 Unknown History topical liquid (Hibiclens) clonazepam 0.5 mg tablet 0.5 mg feeding tube BID 10/18/22 10/18/22 Unknown History docusate sodium 50 mg/5 mL oral 100 mg feeding tube BID 10/18/22 10/18/22 Unknown History liquid famotidine 40 mg tablet 40 mg feeding tube DAILY@0630 10/18/22 10/18/22 Unknown History guaifenesin 100 mg/5 mL oral liquid 200 mg PO Q4H PRN Cough 10/18/22 10/18/22 Unknown History heparin (porcine) 10 unit/mL in 50 unit IV Q12H 10/18/22 10/18/22 Unknown History 0.9 % sodium chloride intravenous kit hydrocortisone 2.5 % topical cream 1 appl topical TID PRN Itching 10/18/22 10/18/22 Unknown History with perineal applicator (Procto-Med HC) levothyroxine 100 mcg tablet 100 mcg PO DAILY@0600 10/18/22 10/18/22 Unknown History magnesium hydroxide 400 mg/5 mL 30 ml PO DAILY PRN Constipation 10/18/22 10/18/22 Unknown History oral suspension (Milk of Magnesia) miconazole nitrate 2 % topical 1 appl topical BID 10/18/22 10/18/22 Unknown History powder peg [id number] 1 2 drp ophthalmic (eye) QID 10/18/22 10/18/22 Unknown History %-0.2 %-0.2 % eye drops (Artificial Tears ([id number])) phenylephrine HCl 0.25 % rectal 1 supp MT Q6H PRN Hemorrhoids 10/18/22 10/18/22 Unknown History suppository sodium phosphates 19 gram-7 118 ml MT DAILY PRN Constipation 10/18/22 10/18/22 Unknown History gram/118 mL enema (Fleet Enema) Physical Exam Vital Signs and Narrative: Vital Signs: Last Vital Signs Temp 100.4 F 11/18/22 00:19 Pulse 86 11/18/22 00:19 Resp 20 11/18/22 00:19 BP 114/60 11/18/22 00:19 Pulse Ox 94 11/18/22 00:19 O2 Del Method Room Air 11/18/22 00:19 BMI result Body Mass Index 19.7 Middle-aged male lying in bed in no distress Neck supple, no JVD Regular rate and rhythm, S1-S2 heard Bilateral crackles Abdomen soft nontender, no guarding, no rigidity Patient is awake, not following commands, nonverbal No pedal edema Results Labs Labs: Laboratory Results - last 24 hr 11/18/22 11/18/22 01:13 01:13 Lactic Acid 0.6 Urine Color Yellow Urine Appearance Turbid Urine pH 6.5 Ur Specific [place] 1.015 Urine Protein 100 (2+) H Urine Glucose (UA) Negative Urine Ketones Negative Urine Blood Small (1+) H Urine Nitrite Negative Ur Leukocyte Esterase Large (3+) H Urine RBC 6-10 H Urine WBC >50 H Urine WBC Clumps Present Ur Squamous Epith Cells 0-2 Urine Bacteria 4+ Hyaline Casts 11-20 Assessment and Plan (1) Bacteremia: Status: Acute Plan This is a 62-year-old male with pertinent history of seizure disorder, bed-bound and nonverbal with recurrent aspiration pneumonia status post PEG tube, mood disorder, mixed hyperlipidemia, recurrent UTI, dementia who was brought to the emergency department evaluation of bacteremia. #. Sepsis due to Gram-negative bacteremia. Imaging with bilateral pneumonia and urine concerning for UTI. Will initiate empiric IV antibiotics. Resuscitated with IV crystalloids follow urine culture and blood culture. Lactic acid obtained #. Seizure disorder. Continue valproic acid through feeding tube #. History of severe oropharyngeal dysphagia. Patient on atropine drops to hold secretions. #. Hypothyroidism on Synthroid #. Dementia/mood disorder. Continued mood stabilizers #. History of cutaneous herpes. valtrex for prophylaxis at snf, continue DVT pptx, Lovenox DNR/DNI Admit as inpatient and will require two night minimum hospital stay for IV antibiotics Time Spent With Patient Time: Total time managing care of this patient today ____ minutes. Quality Stroke Does the patient have a stroke diagnosis?: No VTE Prior VTE?: No VTE Risk Level:: Medical - moderate - high VTE Device Contraindication: Treatment Not Indicated VTE Drug Contraindication: N/A - Med Ordered
[2022-11-18] MEDS: cefTRIAXone sodium 1 GM in 0.9 % Sodium Chloride 50 ML IV ×2 (03:01→23:08)
[2022-11-18] MEDS: 0.9 % Sodium Chloride 1,000 ML 999 ML IV (04:07)
[2022-11-18] MEDS: Azithromycin 500 MG in 0.9 % Sodium Chloride 250 ML 125 MG IV ×2 (04:08→23:38)
[2022-11-18 06:33] LABS: MANUAL DIFF FLAG NO
[2022-11-18 06:39] LABS: Imm Gran Abs Auto 0.04 X10*3/uL (0.00-0.03); Imm Gran Pct Auto 0.4 % (0.0-0.4); Lymphocytes Absolute Auto 0.8 X10*3/uL (1.2-4.9); Lymphocytes Percent Auto 8.4 % (20-40); Mean Corpuscular HGB Conc 30.3 g/dl (31.0-36.0); Mean Corpuscular Hemoglobin 31.1 pg (27.0-33.0); Mean Corpuscular Volume 102.7 fL (80.0-98.0); Mean Platelet Volume 11.8 fL (9.4-12.4); Monocytes Absolute Auto 0.6 X10*3/uL (0.1-1.2); Monocytes Percent Auto 6.1 % (2-11); Neutrophils Absolute Auto 8.3 x10*3/uL (2.0-8.3); Neutrophils Percent Auto 85.1 % (45-73); Platelet Count 143 X10*3/uL (160-400); Red Blood Count 2.57 X10*6/uL (4.60-5.80); Red Cell Distribution Width 14.4 % (11.0-16.0); White Blood Count 9.7 X10*3/uL (4.8-10.8)
[2022-11-18 07:25] LABS: Anion Gap 15 (12-20)
[2022-11-18 07:33] LABS: Hematocrit 26.4 % (42.0-52.0)
[2022-11-18 07:58] LABS: Blood Urea Nitrogen 16 mg/dL (9-16); Calcium 5.1 mg/dL (8.4-10.2); Carbon Dioxide 16 mmol/L (22-29); Chloride 130 mmol/L (96-108); Creatinine Clr Calc Pharmacy 121.4; Estimated Glomerular Filt Rate > 60; Glucose Random 66 mg/dL (60-115); Potassium 2.4 mmol/L (3.3-5.1); Sodium 159 mmol/L (135-145)
--- NOTE | 2022-11-18 08:15 | P.PNIM_ITS ---
Subjective Subjective Date of Service: 11/18/22 Interval History: confused Physical Exam Vital Signs: Vital Signs: Last Vital Signs Temp 97.6 F 11/18/22 07:56 Pulse 93 11/18/22 07:56 Resp 16 11/18/22 07:56 BP 158/68 H 11/18/22 07:56 Pulse Ox 92 11/18/22 07:56 O2 Del Method Room Air 11/18/22 04:00 BMI result Body Mass Index 19.7 alert, verbal, confused, frail, brown in place, peg in place Objective Data Active Medications Acetaminophen (Acetaminophen 325 Mg Tablet) 650 mg PO Q6H PRN PRN Reason: Pain, Mild (Pain Scale 1-3) Enoxaparin Sodium (Enoxaparin Sodium 40 Mg/0.4 Ml Syringe) 40 mg SUBCUT Q24H [facility] Ceftriaxone Sodium 1 gm/ (Sodium Chloride) 50 mls @ 100 mls/hr IV 2200 [facility] Last Infusion: 11/18/22 04:04 Dose: 0 mls/hr Documented By: MARIBEL Azithromycin 500 mg/ Sodium (Chloride) 250 mls @ 125 mls/hr IV 2200 [facility] Last Infusion: 11/18/22 06:08 Dose: 0 mls/hr Documented By: MARIBEL Melatonin (Melatonin 3 Mg Tablet) 6 mg PO BEDTIME PRN PRN Reason: Insomnia Ondansetron HCl (Ondansetron Hcl 4 Mg/2 Ml Vial) 4 mg IVPUSH Q8H PRN PRN Reason: Nausea and Vomiting Sodium Chloride (0.9 % Sodium Chloride Flush 3 Ml Syringe) 3 ml IVFLUSH QSHIFT [facility] Labs 11/18/22 05:47 11/18/22 05:47 Labs: Laboratory Results - last 24 hr 11/18/22 11/18/22 11/18/22 01:13 01:13 05:47 MCV 102.7 H MCH 31.1 MCHC 30.3 L RDW 14.4 Plt Count 143 L D MPV 11.8 Immature Gran % (Auto) 0.4 Neut % (Auto) 85.1 H Lymph % (Auto) 8.4 L [place] % (Auto) 6.1 Eos % (Auto) 0.0 Baso % (Auto) 0.0 Lymph # (Auto) 0.8 L [place] # (Auto) 0.6 Eos # (Auto) 0.0 Baso # (Auto) 0.0 Abs Immat Gran (auto) 0.04 H Absolute Neuts (auto) 8.3 Absolute Nucleated RBC 0.000 Nucleated RBC % (auto) 0.0 Anion Gap Estim Creat Clear Calc Estimated GFR Random Glucose Lactic Acid 0.6 Calcium Urine Color Yellow Urine Appearance Turbid Urine pH 6.5 Ur Specific [place] 1.015 Urine Protein 100 (2+) H Urine Glucose (UA) Negative Urine Ketones Negative Urine Blood Small (1+) H Urine Nitrite Negative Ur Leukocyte Esterase Large (3+) H Urine RBC 6-10 H Urine WBC >50 H Urine WBC Clumps Present Ur Squamous Epith Cells 0-2 Urine Bacteria 4+ Hyaline Casts 11-11/18/22 05:47 MCV MCH MCHC RDW Plt Count MPV Immature Gran % (Auto) Neut % (Auto) Lymph % (Auto) [place] % (Auto) Eos % (Auto) Baso % (Auto) Lymph # (Auto) [place] # (Auto) Eos # (Auto) Baso # (Auto) Abs Immat Gran (auto) Absolute Neuts (auto) Absolute Nucleated RBC Nucleated RBC % (auto) Anion Gap 15 Estim Creat Clear Calc 121.4 Estimated GFR > 60 Random Glucose 66 Lactic Acid Calcium 5.1 L* D Urine Color Urine Appearance Urine pH Ur Specific [place] Urine Protein Urine Glucose (UA) Urine Ketones Urine Blood Urine Nitrite Ur Leukocyte Esterase Urine RBC Urine WBC Urine WBC Clumps Ur Squamous Epith Cells Urine Bacteria Hyaline Casts Assessment and Plan (1) Bacteremia: Status: Acute Plan 62M PMH epilepsy, bed bound, dementia, severe dysphagia s/p PEG, hld, 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, schizoaffective disorder, sent in for gnr bacteremia sepsis due to GNR bacteremia - ?uti due to chornic indwelling brown, possible pneumonia rocephin, azithro follow up cultures electrolyte abnormallities - hypernatremia, hyopkalemia, hypocalcemia ?lab error, repeat labs, check albumin, magnesium if true likely due to diabetes insipidus - d5w, potassium, calcium supplement epilepsy antiepileptics dysphagia peg feeds, npo dementia stable schizoaffective disorder mood stabilizers dvt porphylaxis - lovenox DNR/DNI reason for continued hospitalization:awatiing cultures Time Spent With Patient Time: Total time managing care of this patient today ____ minutes. Quality Stroke Does the patient have a stroke diagnosis?: No VTE Prior VTE?: No VTE Risk Level:: Medical - moderate - high VTE Device Contraindication: Treatment Not Indicated VTE Drug Contraindication: N/A - Med Ordered
--- NOTE | 2022-11-18 08:36 | PHA.MEDREC ---
Pharmacy Consult ? Medication Reconciliation Medication List Obtain from the Physician Order list from [facility] has completed the medication reconciliation.
--- NOTE | 2022-11-18 09:43 | MHC.CM.PN ---
[facility] DELIVERED WHITE COPY TO BE MAILED TO [facility]. 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 WILL TRANSPORT VIA BLS ON DC. CM WILL CONTINUE TO FOLLOW FOR ANY CHANGE IN DC PLAN/NEEDS.
[2022-11-18] MEDS: 0.9 % Sodium Chloride Flush 3 ML SYRINGE IVFLUSH ×3 (10:09→22:20)
[2022-11-18 10:13] LABS: Alanine Aminotransferase 11 U/L (0-40); Albumin Level 3.6 g/dL (3.5-5.0); Alkaline Phosphatase 62 U/L (39-117); Anion Gap 14 (12-20); Aspartate Amino Transferase 17 U/L (5-37); Bilirubin Direct 0.2 mg/dL (0.0-0.5); Bilirubin Total 0.4 mg/dL (0.0-1.0); Blood Urea Nitrogen 27 mg/dL (9-16); Carbon Dioxide 26 mmol/L (22-29); Chloride 117 mmol/L (96-108); Creatinine Clr Calc Pharmacy 67.3; Estimated Glomerular Filt Rate > 60; Glucose Random 109 mg/dL (60-115); Magnesium 3.3 mg/dL (1.6-2.6); Potassium 4.6 mmol/L (3.3-5.1); Sodium 152 mmol/L (135-145); Total Protein 7.3 g/dL (6.5-8.0)
[2022-11-18] MEDS: Enoxaparin Sodium 40 MG/0.4 ML SYRINGE SUBCUT (10:14)
[2022-11-18] MEDS: Levothyroxine Sodium 100 MCG TABLET PO (10:14)
[2022-11-18] MEDS: Lithium Carbonate 300 MG CAPSULE G-TUBE ×2 (10:14→22:18)
[2022-11-18] MEDS: clonazePAM 0.5 MG TABLET G-TUBE ×2 (10:14→22:18)
--- NOTE | 2022-11-18 10:26 | MHC.CLN ---
NUTRITION CONSULT FOR TUBE FEEDING. PATIENT WITH G TUBE. RECOMMEND JEVITY 1.0 AT MAX GOAL RATE 75 ML PER HOUR, FREE WATER FLUSHES 300 ML Q 6 HOURS. PROVIDES 1908 KCALS (32.5 KCALS/KG); 80 G PROTEIN (1.4 G/KG); 1503+1200 ML FREE WATER FROM FORMULA AND TQFOP=3414 ML (46 ML/KG). PATIENT WITH TOSYKD=933. MONITOR LABS AND ADJUST FREE WATER NEEDED. SEE CLINICAL NUTRITION ASSESSMENT 11/18/22. PATIENT QUALIFIES MODERATELY MALNOURISHED.
[2022-11-18] MEDS: valACYclovir HCL 500 MG TABLET G-TUBE (13:53)
[2022-11-18] MEDS: Acetaminophen 325 MG TABLET 975 MG G-TUBE ×2 (13:53→22:18)
[2022-11-18] MEDS: Ziprasidone 80 MG CAPSULE PO (16:13)
[2022-11-18] MEDS: traZODone HCL 100 MG TABLET G-TUBE (22:17)
[2022-11-18] MEDS: cloZAPine 100 MG TABLET 200 MG G-TUBE (22:17)
[2022-11-18] MEDS: cloZAPine 25 MG TABLET G-TUBE (22:18)
[2022-11-18] MEDS: Famotidine 20 MG TABLET 40 MG G-TUBE (22:18)
[2022-11-18] MEDS: Atorvastatin Calcium 20 MG TABLET PO (22:18)
[2022-11-19 04:00] VITALS: BP 116/57; PULSE 83; RESP 18; TEMP 36.2; O2SAT 95
[2022-11-19] MEDS: Levothyroxine Sodium 100 MCG TABLET PO (06:07)
[2022-11-19 06:18] LABS: Hematocrit 36.6 % (42.0-52.0); Hemoglobin 11.3 g/dl (14.0-18.0); Mean Corpuscular HGB Conc 30.9 g/dl (31.0-36.0); Mean Corpuscular Hemoglobin 31.7 pg (27.0-33.0); Mean Corpuscular Volume 102.5 fL (80.0-98.0); Mean Platelet Volume 12.2 fL (9.4-12.4); Platelet Count 165 X10*3/uL (160-400); Red Blood Count 3.57 X10*6/uL (4.60-5.80); Red Cell Distribution Width 14.7 % (11.0-16.0); White Blood Count 9.5 X10*3/uL (4.8-10.8)
[2022-11-19 06:42] LABS: Alanine Aminotransferase 13 U/L (0-40); Albumin Level 3.3 g/dL (3.5-5.0); Alkaline Phosphatase 61 U/L (39-117); Anion Gap 13 (12-20); Aspartate Amino Transferase 20 U/L (5-37); Bilirubin Direct 0.1 mg/dL (0.0-0.5); Bilirubin Total 0.3 mg/dL (0.0-1.0); Blood Urea Nitrogen 25 mg/dL (9-16); Calcium 9.5 mg/dL (8.4-10.2); Carbon Dioxide 28 mmol/L (22-29); Chloride 117 mmol/L (96-108); Creatinine Clr Calc Pharmacy 71.2; Estimated Glomerular Filt Rate > 60; Glucose Fasting 115 mg/dL (60-99); Magnesium 3.3 mg/dL (1.6-2.6); Potassium 4.6 mmol/L (3.3-5.1); Sodium 153 mmol/L (135-145); Total Protein 6.9 g/dL (6.5-8.0)
[2022-11-19 07:22] VITALS: BP 115/67; PULSE 85; RESP 18; TEMP 36.1; O2SAT 94
[2022-11-19] MEDS: Lithium Carbonate 300 MG CAPSULE G-TUBE ×2 (09:02→20:25)
[2022-11-19] MEDS: cloZAPine 25 MG TABLET 75 MG G-TUBE (09:02)
[2022-11-19] MEDS: clonazePAM 0.5 MG TABLET G-TUBE ×2 (09:02→20:25)
[2022-11-19] MEDS: Acetaminophen 325 MG TABLET 975 MG G-TUBE ×3 (09:02→20:25)
[2022-11-19] MEDS: Enoxaparin Sodium 40 MG/0.4 ML SYRINGE SUBCUT (09:02)
[2022-11-19] MEDS: Ziprasidone 80 MG CAPSULE PO ×2 (09:02→16:17)
[2022-11-19] MEDS: 0.9 % Sodium Chloride Flush 3 ML SYRINGE IVFLUSH (09:03)
[2022-11-19] MEDS: Dextrose 5 % 1,000 ML 125 ML IVCONT ×2 (09:20→16:24)
--- NOTE | 2022-11-19 11:57 | P.CDIM_ITS ---
PROVIDER RESPONSE TEXT: To clarify, the appropriate diagnosis supported by the clinical indicators: Moderate malnutrition is/was present and is a clinical diagnosis (please include additional support i n the medical record) QUERY TEXT: PHYSICIAN'S DOCUMENTATION REQUEST Date of Query: 11/19/2022 11:49 AM EDT Patient Name: Frederick Davenport Admit Date: 11/18/2022 Dear Luciano Turner, A review of the medical record indicates additional documentation may be needed. Please review below and update the documentation accordingly. Documentation includes the diagnosis of Moderate malnutrition per Dietary note 11/18/20. Additional clinical indicators from the record include: Has PEG feeding tube, dysphagia BMI 19.7 To ensure the quality of the medical record, based on the above information and the recognized standa rd for malnutrition severity), could you please verify which of the following diagnoses best reflects the patient's nutri tional status. Moderate malnutrition is/was present and is a clinical diagnosis (please include additional support i n the medical record) No nutritional deficiency Other (explain)Clinically unable to determine (explain)Thank you, Mellisa Gerard RN Use of terms such as suspected, likely, concern for, or probable (associated with a specific diagnosi s that is being evaluated, monitored, or treated as if it exists) are acceptable and can be coded in the inpatient se tting, when documented at the time of discharge. Please use your independent medical judgment in providing your response. THIS QUERY IS PART OF THE PERMANENT MEDICAL RECORD
[2022-11-19] MEDS: valACYclovir HCL 500 MG TABLET G-TUBE (12:40)
[2022-11-19 15:00] VITALS: BP 108/63; PULSE 82; RESP 16; TEMP 36.5; O2SAT 95
[2022-11-19 20:00] VITALS: BP 102/63; PULSE 76; RESP 18; TEMP 36.1; O2SAT 96
[2022-11-19] MEDS: cloZAPine 100 MG TABLET 200 MG G-TUBE (20:25)
[2022-11-19] MEDS: Atorvastatin Calcium 20 MG TABLET PO (20:25)
[2022-11-19] MEDS: Famotidine 20 MG TABLET 40 MG G-TUBE (20:25)
[2022-11-19] MEDS: cloZAPine 25 MG TABLET G-TUBE (20:25)
[2022-11-19] MEDS: Melatonin 3 MG TABLET 6 MG PO (20:26)
[2022-11-19] MEDS: traZODone HCL 100 MG TABLET G-TUBE (20:26)
[2022-11-19] MEDS: cefTRIAXone sodium 1 GM in 0.9 % Sodium Chloride 50 ML IV (21:16)
[2022-11-19] MEDS: Azithromycin 500 MG in 0.9 % Sodium Chloride 250 ML 125 MG IV (21:56)
[2022-11-20] MEDS: Dextrose 5 % 1,000 ML 125 ML IVCONT ×2 (02:28→15:19)
[2022-11-20 03:29] VITALS: BP 103/57; PULSE 78; RESP 16; TEMP 36.1; O2SAT 94
[2022-11-20] MEDS: Levothyroxine Sodium 100 MCG TABLET PO (05:33)
[2022-11-20 06:37] LABS: Hematocrit 36.1 % (42.0-52.0); Hemoglobin 11.1 g/dl (14.0-18.0); Mean Corpuscular HGB Conc 30.7 g/dl (31.0-36.0); Mean Corpuscular Hemoglobin 30.9 pg (27.0-33.0); Mean Corpuscular Volume 100.6 fL (80.0-98.0); Mean Platelet Volume 12.5 fL (9.4-12.4); Platelet Count 183 X10*3/uL (160-400); Red Blood Count 3.59 X10*6/uL (4.60-5.80); Red Cell Distribution Width 14.9 % (11.0-16.0); White Blood Count 9.9 X10*3/uL (4.8-10.8)
[2022-11-20 06:50] LABS: Anion Gap 12 (12-20); Blood Urea Nitrogen 20 mg/dL (9-16); Calcium 9.2 mg/dL (8.4-10.2); Carbon Dioxide 26 mmol/L (22-29); Chloride 113 mmol/L (96-108); Creatinine Clr Calc Pharmacy 78.4; Estimated Glomerular Filt Rate > 60; Glucose Fasting 121 mg/dL (60-99); Potassium 4.2 mmol/L (3.3-5.1); Sodium 147 mmol/L (135-145)
[2022-11-20 07:27] VITALS: BP 121/66; PULSE 82; RESP 16; TEMP 36; O2SAT 98
[2022-11-20] MEDS: Enoxaparin Sodium 40 MG/0.4 ML SYRINGE SUBCUT (10:20)
[2022-11-20] MEDS: Sulfamethox/Trimeth 800/160 TABLET 1 TAB PO ×2 (10:21→20:19)
[2022-11-20] MEDS: Ziprasidone 80 MG CAPSULE PO ×2 (10:21→17:07)
[2022-11-20] MEDS: Lithium Carbonate 300 MG CAPSULE G-TUBE ×2 (10:21→20:20)
[2022-11-20] MEDS: cloZAPine 25 MG TABLET 75 MG G-TUBE (10:21)
[2022-11-20] MEDS: clonazePAM 0.5 MG TABLET G-TUBE (10:22)
[2022-11-20] MEDS: Acetaminophen 325 MG TABLET 975 MG G-TUBE ×3 (10:22→20:21)
--- NOTE | 2022-11-20 10:53 | MHC.CLN ---
F/U TOLERATING TUBE FEEDING AT MAX GOAL RATE. JEVITY 1.0 AT MAX GOAL RATE 75 ML PER HOUR, FREE WATER FLUSHES 300 ML Q 6 HOURS. PROVIDES 1908 KCALS (32.5 KCALS/KG); 80 G PROTEIN (1.4 G/KG); 1503+1200 ML FREE WATER FROM FORMULA AND GQPMY=5398 ML (46 ML/KG). SODIUM 9/6=800-MOFA BUT IMPROVED. MONITOR SODIUM AND ADJUST FREE WATER NEEDED. FOLLOW FOR TUBE FEED TOLERANCE, RESIDUALS AND LABS.
--- NOTE | 2022-11-20 11:28 | P.DS_ITS ---
DS: Providers Provider Date of Service: 11/21/22 Date of admission: 11/18/22 02:10 Primary care physician: RAHUL RICHEY Consults: 11/20/22 07:40 Consult to Infectious Diseases Routine Consulting Provider: [facility] Infectious Disease Reason for consultation: ESBL E.Coli infx DS: Diagnosis Discharge Diagnosis (1) Bacteremia: Status: Acute (2) ESBL (extended spectrum beta-lactamase) producing bacteria infection: Status: Acute (3) UTI (urinary tract infection): Status: Acute (4) Acute hypokalemia: Status: Acute (5) Acute hypernatremia: Status: Acute (6) Hypocalcemia: Status: Acute (7) Sepsis: Status: Acute DS: Summary Hospital Course Hospital Course: Admission note HPI This is a 62-year-old male with pertinent history of seizure disorder, bed-bound and nonverbal with recurrent aspiration pneumonia status post PEG tube, mood disorder, mixed hyperlipidemia, recurrent UTI, dementia who was brought to the emergency department evaluation of bacteremia.? Patient was seen earlier in the ER on the day of presentation and was sent home on p.o. antibiotics due to concerns for pneumonia.? The facility was called as patient's blood cultures were positive for Gram-negative rods and he was brought back to the ER.? Unable to obtain history from the patient as he is nonverbal.? Patient is unable to follow commands.? Unable to obtain review of systems.? History obtained from ER provider and chart review. In the emergency department, urine concerning for UTI. Hospital course The patient was admitted for evaluation of sepsis secondary to possible pneumonia and ESBL E.Coli bacteremia that were treated with IV antibiotics of Azithromycin and Ceftriaxone which were changed to Bactrim ds after discussing with ID specialist as blood and urine cultures grew ESBL Ecoli. CT chest showed bibasliar bronchopneumonia. remained on room air. He was noticed to have electrolyte abnormalities of hypernatremia, hyopkalemia, hypocalcemia which were confirmed, corrected and followed during the hospital stay. advised to increase free water intake between meals to 300cc with resolution of hypernatremia back to normal range. Continue antibiotic as prescribed through the G-tube Increase free water between meals to 300cc Q6 hours Time Spent with Patient Time attestation: Total time managing care of this patient today ____ minutes. Discharge coordination time: Greater than 30 minutes Quality: Safe Use of Opioids Does Pt have an Active Cancer Diagnosis on the Problem List?: No Quality: Stroke Does the patient have a stroke diagnosis?: No Physical Exam Vital Signs: Vital Signs: Last Vital Signs Temp 96.8 F 11/20/22 07:27 Pulse 82 11/20/22 07:27 Resp 16 11/20/22 07:27 BP 121/66 11/20/22 07:27 Pulse Ox 98 11/20/22 07:27 O2 Del Method Room Air 11/20/22 07:27 BMI result Body Mass Index 19.7 Const: Other: Constitutional : Awake, interactive, frail, not in distress Neck : Normal inspection, Supple Cardiovascular : RRR, no JVP, no lower extremity edema Respiratory : good bilateral air entry, no crackles, wheezes or rhonchi Gastrointestinal: soft, lax, Normal bowel sounds, Non tender, PEG clean Skin : Warm, Dry Urology: Ackerman in place Neurological : Alert & oriented to self only, No focal deficit DS: Data Data Completed and Pending Completed studies during hospitalization [Text1]: Procedures Introduction of Baricitinib into Mouth and Pharynx, External Approach, [facility] [employer] [facility] 6 (04/18/21) Labs on day of discharge: Laboratory Results - last 24 hr 11/20/22 11/20/22 05:39 05:39 WBC 9.9 RBC 3.59 L Hgb 11.1 L Hct 36.1 L MCV 100.6 H MCH 30.9 MCHC 30.7 L RDW 14.9 Plt Count 183 MPV 12.5 H Absolute Nucleated RBC 0.000 Nucleated RBC % (auto) 0.0 Sodium 147 H Potassium 4.2 Chloride 113 H Carbon Dioxide 26 Anion Gap 12 BUN 20 H Creatinine 0.79 Estim Creat Clear Calc 78.4 Estimated GFR > 60 Fasting Glucose 121 H Calcium 9.2 Discharge Plan Discharge Anticipated Discharge Date/Time: 11/20/22 11:18 Patient Disposition: Xfer SNF Discharge Diagnosis: ESBL E.Coli bacteremia Urine infection Pneumonia Referrals: RAHUL RICHEY [Primary Care Provider] - 1 Week Discharge Medications: New sulfamethoxazole-trimethoprim 800-160 mg Tablet 1 tab PO Q12H Qty: 27 0RF Continued lidocaine [Lidoderm] 5 % Adhesive Patch,Medicated 1 patch TOPICAL DAILY lithium carbonate 300 mg capsule 1 cap feeding tube BID Rx Instructions: crush and mix with 30 ml water trazodone 50 mg tablet 2 tab feeding tube BEDTIME valproic acid (as sodium salt) 250 mg/5 mL solution 1,000 mg feeding tube DAILY valproic acid (as sodium salt) 250 mg/5 mL solution 2,000 mg feeding tube BEDTIME ziprasidone HCl 80 mg capsule 1 cap PO BIDWM Rx Instructions: give via g tube valacyclovir 500 mg tablet 1 tab feeding tube DAILY@1200 atropine 1 % drops 2 drp sublingual DAILY PRN (Reason: Secretions) acetaminophen 500 mg Tablet 1,000 mg feeding tube TID polyethylene glycol 3350 8.5 gram Powder In Packet 17 g feeding tube BID Rx Instructions: mix in 4 ounces of water via g tube azithromycin 250 mg tablet See Rx Instructions .ROUTE .COMPLEX Qty: 6 0RF Rx Instructions: For 250 mg dose pack: take 500 mg today (day 1), then 250 mg for 4 days (days 2-5) START DATE WAS SECEDULE FOR atorvastatin 20 mg Tablet 20 mg PO BEDTIME Rx Instructions: ADM VIA G-TUBE clozapine 100 mg Tablet 200 mg PO BEDTIME Rx Instructions: TOTAL DOSE 250 MG sennosides [senna] 8.8 mg/5 mL Syrup 8.8 mg PO BID clozapine 25 mg Tablet 75 mg PO DAILY clozapine [Clozaril] 25 mg Tablet 25 mg PO BEDTIME Rx Instructions: TOTAL DOSE 250 MG chlorhexidine gluconate [Hibiclens] 4 % Liquid 1 appl TOPICAL MOFR Rx Instructions: APPLY TO SCROTUM DURING SHOWER IN THE MORNING sodium chloride 0.65 % Aerosol,[place] 2 spray INTRANASAL Q8H PRN (Reason: Dry Nasal Passages) alum-mag hydroxide-simeth 200-200-20 mg/5 mL Suspension 30 ml PO Q6H PRN (Reason: Stomach Upset) Rx Instructions: administer between meals and at bedtime cholecalciferol (vitamin D3) 1,250 mcg (50,000 unit) Tablet 1,250 mcg PO Q30D Patient Comments: GIVE AT BEDTIME ON THE 19 DAY THE MONTH artifi.tears(hypromellose)(PF) 1.7 % Drops With Applicator 2 drp OPHTHALMIC (EYE) Q6H PRN (Reason: Dry Eye(S)) albuterol sulfate 90 mcg/actuation aerosol powdr breath activated 2 inh inhalation Q4H PRN (Reason: shortness of breath or wheezing) clonazepam 0.5 mg tablet 0.5 mg feeding tube BID atropine 1 % drops 2 drp sublingual Q15M PRN (Reason: Secretions) famotidine 40 mg tablet 40 mg feeding tube BEDTIME levothyroxine 100 mcg tablet 100 mcg PO DAILY@0600 magnesium hydroxide [Milk of Magnesia] 400 mg/5 mL Suspension 30 ml PO DAILY PRN (Reason: Constipation) Rx Instructions: IF NO BM IN 3 DAYS docusate sodium 50 mg/5 mL Liquid 100 mg feeding tube BID miconazole nitrate 2 % Powder 1 appl TOPICAL BID Rx Instructions: apply to ischial tuberosity guaifenesin 100 mg/5 mL Liquid 200 mg PO Q4H PRN (Reason: Cough) bisacodyl 10 mg Suppository 10 mg OR DAILY PRN (Reason: Constipation) Rx Instructions: if milk of magnesia is ineffective phenylephrine HCl 0.25 % Suppository 1 supp OR Q6H PRN (Reason: Hemorrhoids) Discontinued doxycycline hyclate 100 mg capsule 100 mg PO BID 10 Days Qty: 20 0RF Rx Instructions: STOP DATE SCHEDULE FOR 11/27/22 Discharge Orders: Discharge Order (Routine); Ordered 11/21/22 Ordered By: Radha Cortés Diet: Tube feed Activity on Discharge: As tolerated Stand Alone Forms: Patient Portal Discharge page Care Plan Goals: Read below Health Concerns: Read below Plan of Treatment: Read below Assessment: You were admitted for evaluation of weakness. found to have electrolytes abnormalities and evidence of infection in your blood and urine treated with IV antibiotics with good response. Continue antibiotic as prescribed through the G-tube Increase free water between meals to 300cc Q6 hours
--- NOTE | 2022-11-20 11:34 | MHC.CM.PN ---
Addendum entered by Kaya Daniel RN 11/20/22 13:55: PER HOSPITALIST D/C CANCELLED AND WILL NEED To RECHECK LABS IN AM, ANTIC PT WILL D/C TOMORROW 11/21, CM WILL CONT TO FOLLOW. Original Note: PER HOSPITALIST PT IS MEDICALLY CLEARED FOR D/C BACK TO LTC AT [facility], CM CONTACTED PT'S GUARDIAN SAGAR GARNICAASH AT 11:28AM, SAGAR IS AGREEABLE TO D/C [facility] FOR BLS TRANSPORT.
[2022-11-20] MEDS: valACYclovir HCL 500 MG TABLET G-TUBE (12:22)
[2022-11-20 12:51] LABS: Anion Gap 12 (12-20); Blood Urea Nitrogen 21 mg/dL (9-16); Calcium 8.9 mg/dL (8.4-10.2); Carbon Dioxide 26 mmol/L (22-29); Chloride 113 mmol/L (96-108); Creatinine Clr Calc Pharmacy 78.4; Estimated Glomerular Filt Rate > 60; Glucose Random 127 mg/dL (60-115); Potassium 3.7 mmol/L (3.3-5.1); Sodium 147 mmol/L (135-145)
--- NOTE | 2022-11-20 13:34 | P.PNIM_ITS ---
Subjective Subjective Date of Service: 11/20/22 Interval History: Seen and evaluated this morning Feels comfortable confused Tube feed going well Hypernatremic Physical Exam Vital Signs: Vital Signs: Last Vital Signs Temp 96.8 F 11/20/22 07:27 Pulse 82 11/20/22 07:27 Resp 16 11/20/22 07:27 BP 121/66 11/20/22 07:27 Pulse Ox 98 11/20/22 07:27 O2 Del Method Room Air 11/20/22 07:27 BMI result Body Mass Index 19.7 Const: Other: Constitutional : Awake, interactive, frail, not in distress Neck : Normal inspection, Supple Cardiovascular : RRR, no JVP, no lower extremity edema Respiratory : good bilateral air entry, no crackles, wheezes or rhonchi Gastrointestinal: soft, lax, Normal bowel sounds, Non tender, PEG clean Skin : Warm, Dry Urology: Brown in place Neurological : Alert & oriented to self only, No focal deficit Objective Data Active Medications Acetaminophen (Acetaminophen 325 Mg Tablet) 650 mg PO Q6H PRN PRN Reason: Pain, Mild (Pain Scale 1-3) Acetaminophen (Acetaminophen 325 Mg Tablet) 975 mg G-TUBE TID COUNT INCLUDES THE [facility] Last Admin: 11/20/22 10:22 Dose: 975 mg Documented By: JEZ Atorvastatin Calcium (Atorvastatin Calcium 20 Mg Tablet) 20 mg PO BEDTIME [place] Last Admin: 11/19/22 20:25 Dose: 20 mg Documented By: PB Atropine Sulfate (Atropine Sulfate 1 % Ophth Erin 2 Ml Bottle) 2 drop SUBLINGUAL Q15M PRN PRN Reason: Secretions Atropine Sulfate (Atropine Sulfate 1 % Ophth Erin 2 Ml Bottle) 2 drop SUBLINGUAL DAILY PRN PRN Reason: Secretions Clonazepam (Clonazepam 0.5 Mg Tablet) 0.5 mg G-TUBE BID COUNT INCLUDES THE [facility] Last Admin: 11/20/22 10:22 Dose: 0.5 mg Documented By: JEZ Clozapine (Clozapine 100 Mg Tablet) 200 mg G-TUBE BEDTIME COUNT INCLUDES THE [facility] Last Admin: 11/19/22 20:25 Dose: 200 mg Documented By: PB Clozapine (Clozapine 25 Mg Tablet) 75 mg G-TUBE DAILY COUNT INCLUDES THE [facility] Last Admin: 11/20/22 10:21 Dose: 75 mg Documented By: JEZ Clozapine (Clozapine 25 Mg Tablet) 25 mg G-TUBE BEDTIME COUNT INCLUDES THE [facility] Last Admin: 11/19/22 20:25 Dose: 25 mg Documented By: PB Enoxaparin Sodium (Enoxaparin Sodium 40 Mg/0.4 Ml Syringe) 40 mg SUBCUT Q24H COUNT INCLUDES THE [facility] Last Admin: 11/20/22 10:20 Dose: 40 mg Documented By: JEZ Famotidine (Famotidine 20 Mg Tablet) 40 mg G-TUBE BEDTIME COUNT INCLUDES THE [facility] Last Admin: 11/19/22 20:25 Dose: 40 mg Documented By: PB Azithromycin 500 mg/ Sodium (Chloride) 250 mls @ 125 mls/hr IV 2200 COUNT INCLUDES THE [facility] Last Infusion: 11/19/22 23:57 Dose: 0 mls/hr Documented By: PB Dextrose (D5w) 1,000 mls @ 125 mls/hr IVCONT .Q8H COUNT INCLUDES THE [facility] Last Admin: 11/20/22 12:28 Dose: Not Given Documented By: JEZ Non-Admin Reason: patient being discharged Levothyroxine Sodium (Levothyroxine Sodium 100 Mcg Tablet) 100 mcg PO DAILY@0600 COUNT INCLUDES THE [facility] Last Admin: 11/20/22 05:33 Dose: 100 mcg Documented By: PB [place] Carbonate ([place] Carbonate 300 Mg Capsule) 300 mg G-TUBE BID COUNT INCLUDES THE [facility] Last Admin: 11/20/22 10:21 Dose: 300 mg Documented By: JEZ Melatonin (Melatonin 3 Mg Tablet) 6 mg PO BEDTIME PRN PRN Reason: Insomnia Last Admin: 11/19/22 20:26 Dose: 6 mg Documented By: PB Ondansetron HCl (Ondansetron Hcl 4 Mg/2 Ml Vial) 4 mg IVPUSH Q8H PRN PRN Reason: Nausea and Vomiting Sodium Chloride (0.9 % Sodium Chloride Flush 3 Ml Syringe) 3 ml IVFLUSH QSHIFT COUNT INCLUDES THE [facility] Last Admin: 11/20/22 10:23 Dose: Not Given Documented By: JEZ Non-Admin Reason: IV Running Trazodone HCl (Trazodone Hcl 100 Mg Tablet) 100 mg G-TUBE BEDTIME COUNT INCLUDES THE [facility] Last Admin: 11/19/22 20:26 Dose: 100 mg Documented By: PB Trimethoprim/Sulfamethoxazole (Sulfamethox/Trimeth 800/160 Tablet) 1 tab PO Q12H COUNT INCLUDES THE [facility] Last Admin: 11/20/22 10:21 Dose: 1 tab Documented By: JEZ Valacyclovir HCl (Valacyclovir Hcl 500 Mg Tablet) 500 mg G-TUBE DAILY@1200 COUNT INCLUDES THE [facility] Last Admin: 11/20/22 12:22 Dose: 500 mg Documented By: JEZ Valproic Acid (Valproic Acid (As Sodium Salt) 250 Mg/5 Ml Solution) 1,000 mg G- TUBE DAILY COUNT INCLUDES THE [facility] Last Admin: 11/20/22 10:23 Dose: 1,000 mg Documented By: JEZ Valproic Acid (Valproic Acid (As Sodium Salt) 250 Mg/5 Ml Solution) 2,000 mg G- TUBE BEDTIME COUNT INCLUDES THE [facility] Last Admin: 11/19/22 20:23 Dose: 2,000 mg Documented By: PB Ziprasidone (Ziprasidone 80 Mg Capsule) 80 mg PO BIDWM COUNT INCLUDES THE [facility] Last Admin: 11/20/22 10:21 Dose: 80 mg Documented By: JEZ Labs 11/20/22 05:39 11/20/22 11:51 Labs: Laboratory Results - last 24 hr 11/20/22 11/20/22 11/20/22 05:39 05:39 11:51 MCV 100.6 H MCH 30.9 MCHC 30.7 L RDW 14.9 Plt Count 183 MPV 12.5 H Absolute Nucleated RBC 0.000 Nucleated RBC % (auto) 0.0 Anion Gap 12 12 Estim Creat Clear Calc 78.4 78.4 Estimated GFR > 60 > 60 Random Glucose 127 H Fasting Glucose 121 H Calcium 9.2 8.9 Microbiology Microbiology Results: Microbiology 11/18/22 Unknown Urine Culture - Final Urine Catheterized - Brown Catheter Escherichia coli Assessment and Plan (1) Sepsis: Status: Acute (2) Hypocalcemia: Status: Acute (3) Acute hypernatremia: Status: Acute (4) Acute hypokalemia: Status: Acute (5) UTI (urinary tract infection): Status: Acute (6) ESBL (extended spectrum beta-lactamase) producing bacteria infection: Status: Acute Plan 62M PMH epilepsy, bed bound, dementia, severe dysphagia s/p PEG, hld, 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, schizoaffective disorder, sent in for gnr bacteremia sepsis due to ESBL E Coli bacteremia uti due to chornic indwelling brown, possible pneumonia dc issa prakashithdarrick start Bactrim follow up cultures ID consults electrolyte abnormallities hypernatremia, to start D5W hyopkalemia, hypocalcemia resolved epilepsy antiepileptics dysphagia peg feeds, npo dementia stable schizoaffective disorder mood stabilizers dvt porphylaxis - lovenox DNR/DNI reason for continued hospitalization:awatiing Hypernatremia correction Time Spent With Patient Time: Total time managing care of this patient today ____ minutes. Quality Stroke Does the patient have a stroke diagnosis?: No VTE Prior VTE?: No VTE Risk Level:: Medical - moderate - high VTE Device Contraindication: Treatment Not Indicated VTE Drug Contraindication: N/A - Med Ordered
[2022-11-20 15:04] VITALS: BP 114/62; PULSE 91; RESP 19; TEMP 35.9; O2SAT 92
--- NOTE | 2022-11-20 16:19 | PC.NURSE ---
unable to adm Geodon as ordered,capsule unablle to open,confirmed with pharmacy,pharmacist jake contact Dr. Cortés
--- NOTE | 2022-11-20 16:41 | P.CNID_ITS ---
History of Present Illness Data of Consult Service Date: 11/20/22 Requesting physician: Radha Cortés Primary Care Provider: RAHUL RICHEY Reason for consult: bacteremia He presents with weakness and some lethargy. Blood cultures shows E coli ESBl. He has indwelling Ackerman catheter. Review of Systems Review of Systems: Yes Unobtainable due to mental condition PMFSH Past Medical History Medical History Acute respiratory failure due to COVID-19 Bulimia COVID-19 Dementia Epilepsy Pneumonia Schizo-affective schizophrenia, chronic condition Sexually transmitted disease Social History Social History Household Members: Other Housing: Long-Term Do you presently have visiting nurse or other home services: Yes Unable to assess alcohol history related to: Unknown Alcohol intake: never Patient Tobacco Use Status: Former Tobacco user Advance Directives Date on File: 04/18/21 service: No Current occupational status: disabled Meds Allergies Allergy/AdvReac Type Severity Reaction Status Date / Time amoxicillin [From Augmentin] Allergy Unknown Verified 11/18/22 00:22 clavulanic acid Allergy Unknown Verified 11/18/22 00:22 [From Augmentin] fluoxetine [From Prozac] Allergy Unknown Verified 11/18/22 00:22 perphenazine Allergy Unknown Verified 11/18/22 00:22 shellfish derived Allergy Unknown Verified 11/18/22 00:22 Active Medications: Current Medications Acetaminophen (Acetaminophen 325 Mg Tablet) 650 mg PO Q6H PRN PRN Reason: Pain, Mild (Pain Scale 1-3) Acetaminophen (Acetaminophen 325 Mg Tablet) 975 mg G-TUBE TID [facility] Last Admin: 11/20/22 15:18 Dose: 975 mg Atorvastatin Calcium (Atorvastatin Calcium 20 Mg Tablet) 20 mg PO BEDTIME [facility] Last Admin: 11/19/22 20:25 Dose: 20 mg Atropine Sulfate (Atropine Sulfate 1 % Ophth Erin 2 Ml Bottle) 2 drop SUBLINGUAL Q15M PRN PRN Reason: Secretions Atropine Sulfate (Atropine Sulfate 1 % Ophth Erin 2 Ml Bottle) 2 drop SUBLINGUAL DAILY PRN PRN Reason: Secretions Clonazepam (Clonazepam 0.5 Mg Tablet) 0.5 mg G-TUBE BID [facility] Last Admin: 11/20/22 10:22 Dose: 0.5 mg Clozapine (Clozapine 100 Mg Tablet) 200 mg G-TUBE BEDTIME [facility] Last Admin: 11/19/22 20:25 Dose: 200 mg Clozapine (Clozapine 25 Mg Tablet) 75 mg G-TUBE DAILY [facility] Last Admin: 11/20/22 10:21 Dose: 75 mg Clozapine (Clozapine 25 Mg Tablet) 25 mg G-TUBE BEDTIME [place] Last Admin: 11/19/22 20:25 Dose: 25 mg Enoxaparin Sodium (Enoxaparin Sodium 40 Mg/0.4 Ml Syringe) 40 mg SUBCUT Q24H [place] Last Admin: 11/20/22 10:20 Dose: 40 mg Famotidine (Famotidine 20 Mg Tablet) 40 mg G-TUBE BEDTIME [place] Last Admin: 11/19/22 20:25 Dose: 40 mg Azithromycin 500 mg/ Sodium (Chloride) 250 mls @ 125 mls/hr IV 2200 [place] Last Infusion: 11/19/22 23:57 Dose: Infused Dextrose (D5w) 1,000 mls @ 125 mls/hr IVCONT .Q8H [place] Last Admin: 11/20/22 15:19 Dose: 125 mls/hr Dextrose (D5w) 1,000 mls @ 125 mls/hr IVCONT .Q8H [place] Stop: 11/20/22 22:00 Last Admin: 11/20/22 15:19 Dose: Not Given Levothyroxine Sodium (Levothyroxine Sodium 100 Mcg Tablet) 100 mcg PO DAILY@0600 [facility] Last Admin: 11/20/22 05:33 Dose: 100 mcg [place] Carbonate ([place] Carbonate 300 Mg Capsule) 300 mg G-TUBE BID [facility] Last Admin: 11/20/22 10:21 Dose: 300 mg Melatonin (Melatonin 3 Mg Tablet) 6 mg PO BEDTIME PRN PRN Reason: Insomnia Last Admin: 11/19/22 20:26 Dose: 6 mg Ondansetron HCl (Ondansetron Hcl 4 Mg/2 Ml Vial) 4 mg IVPUSH Q8H PRN PRN Reason: Nausea and Vomiting Sodium Chloride (0.9 % Sodium Chloride Flush 3 Ml Syringe) 3 ml IVFLUSH QSHIFT [facility] Last Admin: 11/20/22 10:23 Dose: Not Given Trazodone HCl (Trazodone Hcl 100 Mg Tablet) 100 mg G-TUBE BEDTIME [facility] Last Admin: 11/19/22 20:26 Dose: 100 mg Trimethoprim/Sulfamethoxazole (Sulfamethox/Trimeth 800/160 Tablet) 1 tab PO Q12H [facility] Last Admin: 11/20/22 10:21 Dose: 1 tab Valacyclovir HCl (Valacyclovir Hcl 500 Mg Tablet) 500 mg G-TUBE DAILY@1200 [facility] Last Admin: 11/20/22 12:22 Dose: 500 mg Valproic Acid (Valproic Acid (As Sodium Salt) 250 Mg/5 Ml Solution) 1,000 mg G- TUBE DAILY [facility] Last Admin: 11/20/22 10:23 Dose: 1,000 mg Valproic Acid (Valproic Acid (As Sodium Salt) 250 Mg/5 Ml Solution) 2,000 mg G- TUBE BEDTIME [facility] Last Admin: 11/19/22 20:23 Dose: 2,000 mg Ziprasidone (Ziprasidone 80 Mg Capsule) 80 mg PO BIDWM [facility] Last Admin: 11/20/22 10:21 Dose: 80 mg Home Medications Medication Instructions Recorded Confirmed Last Taken Type acetaminophen 500 mg tablet 1,000 mg feeding tube TID 04/18/21 11/18/22 Unknown History atropine 1 % eye drops 2 drp sublingual DAILY PRN 04/18/21 11/18/22 Unknown History Secretions lidocaine 5 % topical patch 1 patch topical DAILY 04/18/21 11/18/22 Unknown History (Lidoderm) lithium carbonate 300 mg capsule 1 cap feeding tube BID 04/18/21 11/18/22 Unknown History polyethylene glycol 3350 8.5 gram 17 g feeding tube BID 04/18/21 11/18/22 Unknown History oral powder packet trazodone 50 mg tablet 2 tab feeding tube BEDTIME 04/18/21 11/18/22 Unknown History valacyclovir 500 mg tablet 1 tab feeding tube DAILY@1200 04/18/21 11/18/22 Unknown History valproic acid (as sodium salt) 250 1,000 mg feeding tube DAILY 04/18/21 11/18/22 Unknown History mg/5 mL oral solution valproic acid (as sodium salt) 250 2,000 mg feeding tube BEDTIME 04/18/21 11/18/22 Unknown History mg/5 mL oral solution ziprasidone HCl 80 mg capsule 1 cap PO BIDWM 04/18/21 11/18/22 Unknown History atropine 1 % eye drops 2 drp sublingual Q15M PRN 10/18/22 11/18/22 Unknown History Secretions bisacodyl 10 mg rectal suppository 10 mg [place] DAILY PRN Constipation 10/18/22 11/18/22 Unknown History clonazepam 0.5 mg tablet 0.5 mg feeding tube BID 10/18/22 11/18/22 Unknown History docusate sodium 50 mg/5 mL oral 100 mg feeding tube BID 10/18/22 11/18/22 Unknown History liquid famotidine 40 mg tablet 40 mg feeding tube BEDTIME 10/18/22 11/18/22 Unknown History guaifenesin 100 mg/5 mL oral liquid 200 mg PO Q4H PRN Cough 10/18/22 11/18/22 Unknown History levothyroxine 100 mcg tablet 100 mcg PO DAILY@0600 10/18/22 11/18/22 Unknown History magnesium hydroxide 400 mg/5 mL 30 ml PO DAILY PRN Constipation 10/18/22 11/18/22 Unknown History oral suspension (Milk of Magnesia) miconazole nitrate 2 % topical 1 appl topical BID 10/18/22 11/18/22 Unknown History powder phenylephrine HCl 0.25 % rectal 1 supp [place] Q6H PRN Hemorrhoids 10/18/22 11/18/22 Unknown History suppository albuterol sulfate 90 mcg/actuation 2 inh inhalation Q4H PRN shortness 11/18/22 11/18/22 Unknown History breath activated powder inhaler of breath or wheezing aluminum-mag hydroxide-simethicone 30 ml PO Q6H PRN Stomach Upset 11/18/22 11/18/22 Unknown History 200 mg-200 mg-20 mg/5 mL oral susp artifi.tears(hypromellose)(PF) 1.7 2 drp ophthalmic (eye) Q6H PRN Dry 11/18/22 11/18/22 Unknown History % eye drops with applicator Eye(S) atorvastatin 20 mg tablet 20 mg PO BEDTIME 11/18/22 11/18/22 Unknown History chlorhexidine gluconate 4 % 1 appl topical MOFR 11/18/22 11/18/22 Unknown History topical liquid (Hibiclens) cholecalciferol (vitamin D3) 1,250 1,250 mcg PO Q30D 11/18/22 11/18/22 11/02/22 History mcg (50,000 unit) tablet clozapine 100 mg tablet 200 mg PO BEDTIME 11/18/22 11/18/22 Unknown History clozapine 25 mg tablet 75 mg PO DAILY 11/18/22 11/18/22 Unknown History clozapine 25 mg tablet (Clozaril) 25 mg PO BEDTIME 11/18/22 11/18/22 Unknown History sennosides 8.8 mg/5 mL oral syrup 8.8 mg PO BID 11/18/22 11/18/22 Unknown History (senna) sodium chloride 0.65 % nasal spray 2 spray intranasal Q8H PRN Dry 11/18/22 11/18/22 Unknown History aerosol Nasal Passages Physical Exam Vital Signs: Vital Signs: Last Vital Signs Temp 96.6 F L 11/20/22 15:04 Pulse 91 11/20/22 15:04 Resp 19 11/20/22 15:04 BP 114/62 11/20/22 15:04 Pulse Ox 92 11/20/22 15:04 O2 Del Method Room Air 11/20/22 15:04 BMI result Body Mass Index 19.7 Const: General: cooperative HEENT: Head: Yes normal to inspection Face and sinus: Yes normal facial exam Mouth: Normal oral and palatal mucosa present Teeth and gingiva: dentition normal Eyes: General: appearance normal, both eyes and all related structures Pupils: Equal, round and reactive pupils present Resp: Effort & Inspection: normal respiratory effort Cardio: Rate: regular rate Rhythm: regular rhythm GI: Palpation (GI): Soft to palpation and nontender : General: Yes no CVA tenderness Back/Spine/Pelvis: Back: no CVA tenderness Skin: General skin exam: no rashes or lesions noted Neuro: General: moves all extremities Cranial nerves: Yes Equal, round and reactive pupils present Extrem: General: Yes normal to inspection Psych: Other: confused Results Labs 11/20/22 05:39 11/20/22 11:51 Labs: Short CBC 11/20/22 Range/Units 05:39 WBC 9.9 (4.8-10.8) X10*3/uL Hgb 11.1 L (14.0-18.0) g/dl Hct 36.1 L (42.0-52.0) % Plt Count 183 (160-400) X10*3/uL BMP 11/20/22 11/20/22 05:39 11:51 Sodium 147 H 147 H Potassium 4.2 3.7 Chloride 113 H 113 H Carbon Dioxide 26 26 BUN 20 H 21 H Creatinine 0.79 0.79 Calcium 9.2 8.9 Microbiology Microbiology Results: Microbiology 11/18/22 Unknown Urine Catheterized - Ackerman Catheter Urine Culture - Final Escherichia coli Assessment and Plan (1) Sepsis: Status: Acute (2) UTI (urinary tract infection): Status: Acute (3) ESBL (extended spectrum beta-lactamase) producing bacteria infection: Status: Acute He has sepsis from this He has probable lowering valproic acid levels if use Merem or Ertapenem. Plan Po Bactrim for 14 days Follow Urology No PRASANTH-I with Bactrim. Time Spent With Patient Time: Total time managing care of this patient today ____ minutes.
--- NOTE | 2022-11-20 17:03 | PC.NURSE ---
OK to give Geodon as ordered per Dr Cortés
[2022-11-20 20:00] VITALS: BP 106/59; PULSE 93; RESP 18; TEMP 36.9; O2SAT 91
[2022-11-20] MEDS: Famotidine 20 MG TABLET 40 MG G-TUBE (20:19)
[2022-11-20] MEDS: cloZAPine 100 MG TABLET 200 MG G-TUBE (20:20)
[2022-11-20] MEDS: cloZAPine 25 MG TABLET G-TUBE (20:20)
[2022-11-20] MEDS: Atorvastatin Calcium 20 MG TABLET PO (20:20)
[2022-11-20 20:37] VITALS: O2SAT 94
[2022-11-20] MEDS: Azithromycin 500 MG in 0.9 % Sodium Chloride 250 ML 125 MG IV (21:41)
--- NOTE | 2022-11-20 21:48 | PC.NURSE ---
Held Trazodone and Klonomeryl leiva,patient is sleeping all afternoon,Dr. Connolly made aware
[2022-11-21] MEDS: Dextrose 5 % 1,000 ML 125 ML IVCONT ×2 (00:10→07:10)
[2022-11-21 03:02] VITALS: BP 112/65; PULSE 88; RESP 18; TEMP 36.7; O2SAT 92
[2022-11-21] MEDS: Levothyroxine Sodium 100 MCG TABLET PO (06:36)
[2022-11-21 07:26] LABS: Anion Gap 13 (12-20); Blood Urea Nitrogen 20 mg/dL (9-16); Calcium 8.9 mg/dL (8.4-10.2); Carbon Dioxide 25 mmol/L (22-29); Chloride 111 mmol/L (96-108); Creatinine Clr Calc Pharmacy 76.4; Estimated Glomerular Filt Rate > 60; Glucose Random 102 mg/dL (60-115); Potassium 4.5 mmol/L (3.3-5.1); Sodium 144 mmol/L (135-145)
[2022-11-21 07:51] VITALS: BP 117/65; PULSE 86; RESP 18; TEMP 37.6; O2SAT 96
[2022-11-21] MEDS: clonazePAM 0.5 MG TABLET G-TUBE (10:45)
[2022-11-21] MEDS: Enoxaparin Sodium 40 MG/0.4 ML SYRINGE SUBCUT (10:45)
[2022-11-21] MEDS: valACYclovir HCL 500 MG TABLET G-TUBE (10:45)
[2022-11-21] MEDS: Sulfamethox/Trimeth 800/160 TABLET 1 TAB PO (10:45)
[2022-11-21] MEDS: Ziprasidone 80 MG CAPSULE PO (10:45)
[2022-11-21] MEDS: Acetaminophen 325 MG TABLET 975 MG G-TUBE (10:46)
[2022-11-21] MEDS: cloZAPine 25 MG TABLET 75 MG G-TUBE (10:46)
[2022-11-21] MEDS: Lithium Carbonate 300 MG CAPSULE G-TUBE (10:46)
--- NOTE | 2022-11-21 10:53 | MHC.CM.PN ---
Addendum entered by Kaya Daniel RN 11/21/22 11:05: IMM TO BE DELIVERED TO [facility]IA CERTIFIED MAIL Original Note: PER HOSPITALIST PT NOW MEDICALLY CLEARED TO RETURN TO [facility] FOR BLS TRANSPORT AT 1:30PM.
== END 2022-11-21 13:57 | disposition short-term general hospital (02) | DRG 871 ==
LOC: HO.ED 01:10 → HO.EDOVER 02:13 → HO.S3 02:46
PROVIDERS: Internal Medicine; Admitting Provider Student in an Organized Health Care Education/Training Program; Emergency Provider Student in an Organized Health Care Education/Training Program; PCP Emergency Medicine; Visit Provider Student in an Organized Health Care Education/Training Program
DX: A41.51 Sepsis due to Escherichia coli [E. coli] (principal); J18.9 Pneumonia, unspecified organism; T83.511A Infection and inflammatory reaction due to indwelling urethral catheter, initial encounter; E87.0 Hyperosmolality and hypernatremia; E44.0 Moderate protein-calorie malnutrition; Z68.1 Body mass index [BMI] 19.9 or less, adult; Z16.12 Extended spectrum beta lactamase (ESBL) resistance; N39.0 Urinary tract infection, site not specified; G40.909 Epilepsy, unspecified, not intractable, without status epilepticus; R13.12 Dysphagia, oropharyngeal phase; F03.90 Unspecified dementia, unspecified severity, without behavioral disturbance, psychotic disturbance, mood disturbance, and anxiety; E03.9 Hypothyroidism, unspecified; E87.6 Hypokalemia; B00.9 Herpesviral infection, unspecified; E83.51 Hypocalcemia; Z74.01 Bed confinement status; Z79.890 Hormone replacement therapy; Z87.891 Personal history of nicotine dependence; Z79.899 Other long term (current) drug therapy
CPT/HCPCS: 36415; 71045; 71250; 80048; 80053; 80076; 81001; 82947; 83605; 83690; 83735; 83880; 85025; 85027; 87040; 87077; 87086; 87088; 87186; 87205; 87635; 99284; 99285; J0456; J0696; J1650

== ENCOUNTER → 2022-11-18 02:10 | Outpatient (BNV) | payer MEDICARE, MEDICAID, SELFPAY | PROVIDERS: Admitting Provider Student in an Organized Health Care Education/Training Program; Emergency Provider Student in an Organized Health Care Education/Training Program; PCP Emergency Medicine; Visit Provider Student in an Organized Health Care Education/Training Program | DX: A41.9 Sepsis, unspecified organism (principal); Z16.12 Extended spectrum beta lactamase (ESBL) resistance; E83.51 Hypocalcemia; E87.0 Hyperosmolality and hypernatremia; E87.6 Hypokalemia; N39.0 Urinary tract infection, site not specified | CPT/HCPCS: 99222; 99232; 99233; 99239 ==

== ENCOUNTER → 2022-11-18 02:10 | Outpatient (BNV) | payer MEDICARE, MEDICAID, SELFPAY | PROVIDERS: Admitting Provider Student in an Organized Health Care Education/Training Program; Emergency Provider Student in an Organized Health Care Education/Training Program; PCP Emergency Medicine; Visit Provider Internal Medicine | DX: A41.9 Sepsis, unspecified organism (principal); N39.0 Urinary tract infection, site not specified; A49.9 Bacterial infection, unspecified; Z16.12 Extended spectrum beta lactamase (ESBL) resistance | CPT/HCPCS: 99222 ==

== ENCOUNTER 2024-09-22 03:39 | Emergency (ER) | payer MEDICARE, MEDICAID, SELFPAY ==
[2024-09-22] VITALS (8 sets, daily range): BP systolic 123–137; BP diastolic 58–83; PULSE 79–94; RESP 12–16; TEMP 36.4–36.9; O2SAT 92–100; BMI 24.7
--- NOTE | ~2024-09-22 | XR_ITS ---
EXAMINATION: XR CHEST CLINICAL INFORMATION: dyspnea/sepsis COMPARISON: November 17, 2022 TECHNIQUE: Frontal view of the chest was obtained. FINDINGS: Pulmonary reticular pattern. No consolidation, pleural effusion or pneumothorax. Cardiomediastinal silhouette size is normal. S-shaped curvature of the thoracolumbar spine. Mild multilevel spondylosis. Degenerative changes in the shoulders. XR/XR chest 1V IMPRESSION: Chronic interstitial lung disease without acute airspace disease based upon x-ray. Electronically signed by: Scotty Munson MD 09/22/2024 07:39 AM EDT
--- NOTE | 2024-09-22 04:13 | ED.SOB ---
HPI - SOB/Dyspnea General Chief Complaint: Upper Respiratory Symptoms Stated Complaint: Diff breathing 88%RA, now 92% on 2L Time Seen by Provider: 09/22/24 04:12 Source: patient, EMS and RN notes reviewed Mode of arrival: EMS Limitations: other (Dementia) History of Present Illness ED Provider: Dr. Caitlyn Castañeda HPI Narrative: 62-year-old male history of dementia, schizoaffective disorder, anxiety, symptomatic neurogenic diabetes insipidus, hypothyroidism, diverticulosis presenting via EMS from the senior living where he is currently a resident with reported shortness of breath. Patient has a cough that is nonproductive though he sounds very wet. Was at 88% on room air for EMS and went up to 92% on 2 L nasal cannula oxygen. Patient complains of a cough? pain all over my body?. Reports he takes Tylenol 3 times a day but is unable to give much history other than this. Related Data Home Medications ?Medication ?Instructions ?Recorded ?Confirmed acetaminophen 500 mg tablet 1,000 mg feeding tube TID 04/18/21 11/18/22 atropine 1 % eye drops 2 drp sublingual DAILY PRN 04/18/21 11/18/22 Secretions lidocaine 5 % topical patch 1 patch topical DAILY 04/18/21 11/18/22 (Lidoderm) lithium carbonate 300 mg capsule 1 cap feeding tube BID 04/18/21 11/18/22 polyethylene glycol 3350 8.5 gram 17 g feeding tube BID 04/18/21 11/18/22 oral powder packet trazodone 50 mg tablet 2 tab feeding tube BEDTIME 04/18/21 11/18/22 valacyclovir 500 mg tablet 1 tab feeding tube DAILY@1200 04/18/21 11/18/22 valproic acid (as sodium salt) 250 1,000 mg feeding tube DAILY 04/18/21 11/18/22 mg/5 mL oral solution valproic acid (as sodium salt) 250 2,000 mg feeding tube BEDTIME 04/18/21 11/18/22 mg/5 mL oral solution ziprasidone HCl 80 mg capsule 1 cap PO BIDWM 04/18/21 11/18/22 atropine 1 % eye drops 2 drp sublingual Q15M PRN 10/18/22 11/18/22 Secretions bisacodyl 10 mg rectal suppository 10 mg MS DAILY PRN Constipation 10/18/22 11/18/22 clonazepam 0.5 mg tablet 0.5 mg feeding tube BID 10/18/22 11/18/22 docusate sodium 50 mg/5 mL oral 100 mg feeding tube BID 10/18/22 11/18/22 liquid famotidine 40 mg tablet 40 mg feeding tube BEDTIME 10/18/22 11/18/22 guaifenesin 100 mg/5 mL oral liquid 200 mg PO Q4H PRN Cough 10/18/22 11/18/22 levothyroxine 100 mcg tablet 100 mcg PO DAILY@0600 10/18/22 11/18/22 magnesium hydroxide 400 mg/5 mL 30 ml PO DAILY PRN Constipation 10/18/22 11/18/22 oral suspension (Milk of Magnesia) miconazole nitrate 2 % topical 1 appl topical BID 10/18/22 11/18/22 powder phenylephrine HCl 0.25 % rectal 1 supp MS Q6H PRN Hemorrhoids 10/18/22 11/18/22 suppository albuterol sulfate 90 mcg/actuation 2 inh inhalation Q4H PRN shortness 11/18/22 11/18/22 breath activated powder inhaler of breath or wheezing aluminum-mag hydroxide-simethicone 30 ml PO Q6H PRN Stomach Upset 11/18/22 11/18/22 200 mg-200 mg-20 mg/5 mL oral susp artifi.tears(hypromellose)(PF) 1.7 2 drp ophthalmic (eye) Q6H PRN Dry 11/18/22 11/18/22 % eye drops with applicator Eye(S) atorvastatin 20 mg tablet 20 mg PO BEDTIME 11/18/22 11/18/22 chlorhexidine gluconate 4 % 1 appl topical MOFR 11/18/22 11/18/22 topical liquid (Hibiclens) cholecalciferol (vitamin D3) 1,250 1,250 mcg PO Q30D 11/18/22 11/18/22 mcg (50,000 unit) tablet clozapine 100 mg tablet 200 mg PO BEDTIME 11/18/22 11/18/22 clozapine 25 mg tablet 75 mg PO DAILY 11/18/22 11/18/22 clozapine 25 mg tablet (Clozaril) 25 mg PO BEDTIME 11/18/22 11/18/22 sennosides 8.8 mg/5 mL oral syrup 8.8 mg PO BID 11/18/22 11/18/22 (senna) sodium chloride 0.65 % nasal spray 2 spray intranasal Q8H PRN Dry 11/18/22 11/18/22 aerosol Nasal Passages Previous Rx's ?Medication ?Instructions ?Recorded azithromycin 250 mg tablet See Rx Instructions PO .COMPLEX #6 11/17/22 tabs sulfamethoxazole 800 1 tab PO Q12H #27 tabs 11/20/22 mg-trimethoprim 160 mg tablet guaifenesin 100 mg/5 mL oral liquid 200 mg (10 mL) feeding tube Q4H 09/22/24 PRN congestion #473 mL Allergies Allergy/AdvReac Type Severity Reaction Status Date / Time amoxicillin (From Augmentin) Allergy Unknown Verified 09/22/24 04:42 clavulanic acid (From Allergy Unknown Verified 09/22/24 04:42 Augmentin) fluoxetine (From Prozac) Allergy Unknown Verified 09/22/24 04:42 perphenazine Allergy Unknown Verified 09/22/24 04:42 shellfish derived Allergy Unknown Verified 09/22/24 04:42 Review of Systems Review of Systems: Yes Unobtainable due to mental condition (dementia) [facility] Past Medical History Source: old records reviewed and nursing notes reviewed Medical History Acute respiratory failure due to COVID-19 Bulimia COVID-19 Dementia Epilepsy Pneumonia Schizo-affective schizophrenia, chronic condition Sexually transmitted disease Social History Social History Household Members: Other Housing: Residential Do you presently have visiting nurse or other home services: Yes Unable to assess alcohol history related to: Unknown Alcohol intake: never Patient Tobacco Use Status: Former Tobacco user Advance Directives: Yes Advance Directives on File: Yes Advance Directives Date on File: 04/18/21 service: No Current occupational status: disabled Physical Exam Vital Signs: Vital Signs: Last Vital Signs Temp 97.8 F 09/22/24 06:16 Pulse 86 09/22/24 06:16 Resp 12 09/22/24 06:16 BP 130/58 L 09/22/24 06:16 Pulse Ox 100 09/22/24 06:16 O2 Del Method Nasal Cannula 09/22/24 06:16 O2 Flow Rate 2 09/22/24 06:16 Oxygen Flow Rate 3 09/22/24 05:40 BMI result Body Mass Index 24.7 GENERAL: Chronically ill-appearing, moderate respiratory distress. SKIN: Pale, warm, dry, no rashes noted. HEENT: Normocephalic, atraumatic, no stridor, EOMI, edentulous. NECK: Soft, supple, full ROM, midline structures nontender, no step-offs, no deformities, no lymphadenopathy. CHEST: Heart regular rhythm, symmetric chest rise and fall. PULMONARY: Coarse lung sounds bilaterally, wet cough, diminished at the bases, moderate respiratory distress with poor air movement, no wheezes. ABDOMINAL: Soft, nondistended, nontender, quiet bowel sounds in all quadrants, PEG tube in place. : Deferred. MUSCULOSKELETAL: Normal tone, full range of motion, no deformities, no peripheral edema. NEURO: Alert and oriented to person, CN II through XII intact, no focal neurologic deficits. PSYCHIATRIC: Anxious affect, appropriate demeanor. Medications Administered Discontinued Medications Generic Name Dose Route Start Last Admin Trade Name Freq PRN Reason Stop Dose Admin Acetaminophen 1,000 mg in 100 mls @ 400 mls/hr 09/22/24 04:35 09/22/24 05:29 Ofirmev IV 09/22/24 04:49 Infused ONCE ONE Infusion Lactated Ringer's 2,340.54 mls @ 2,340.54 mls/hr 09/22/24 04:45 09/22/24 05:07 Lr 30 ml/kg infuse over 1 hr (2340.54 ml) 09/22/24 05:44 2,340.54 mls/hr IVCONT Administration .Q1H ONE Cefepime HCl 2 gm in 50 mls @ 100 mls/hr 09/22/24 04:45 09/22/24 05:47 Maxipime IV 09/22/24 05:14 Infused ONCE ONE Infusion Vancomycin HCl 2,000 mg in 500 mls @ 250 mls/hr 09/22/24 04:45 09/22/24 05:30 Vancomycin/Ns IV 09/22/24 06:44 250 mls/hr ONCE ONE Administration Medical Decision Making Medical Decision Making [facility] Narrative: Patient presents today with chief complaint of shortness of breath. Differential diagnosis includes, but is not limited to, upper respiratory infection, pneumonia, COPD exacerbation, asthma exacerbation, CHF, pneumothorax, pleural effusion, pulmonary embolism, ACS. Broad-based work-up will be initiated to evaluate for etiology of patient's symptoms. 7:52 a.m. Patient initially treated as sepsis protocol with antibiotics and fluids due to perceived potential fever, however, his rectal temperature is not elevated and his blood pressure and heart rate are normal. He did have an episode of hypoxia at the senior living down to 88%, however, the patient has had no further episodes here, oxygen level remains in the high 90s on room air. No further choking or gurgling sounds. He is requesting discharge back to the facility. I feel he is stable at this point for discharge. We will send back to the facility with guaifenesin for chest congestion. He is likely experiencing initial stages of a URI. No evidence of bacterial pneumonia or sepsis at this point. Differential Diagnosis Differential Diagnoses: The differential diagnosis associated with the presentation includes (As above) Admission/Observation Consideration of admission/observation: Escalation of care including admission/observation considered Lab Data MDM Lab Attestation statement: I reviewed the patient's lab results. 09/22/24 04:56 09/22/24 05:16 Labs: Lab Results 09/22/24 09/22/24 Range/Units 04:56 05:16 WBC 6.6 (4.8-10.8) X10*3/uL RBC 3.61 L (4.60-5.80) X10*6/uL Hgb 11.3 L (14.0-18.0) g/dl Hct 33.9 L (42.0-52.0) % MCV 93.9 (80.0-98.0) fL MCH 31.3 (27.0-33.0) pg MCHC 33.3 (31.0-36.0) g/dl RDW 14.3 (11.0-16.0) % Plt Count 174 (160-400) X10*3/uL MPV 11.9 (9.4-12.4) fL Immature Gran % (Auto) 0.5 H (0.0-0.4) % Neut % (Auto) 51.7 (45-73) % Lymph % (Auto) 37.7 (20-40) % [place] % (Auto) 7.5 (2-11) % Eos % (Auto) 2.1 (0-4) % Baso % (Auto) 0.5 (0-2) % Lymph # (Auto) 2.5 (1.2-4.9) X10*3/uL [place] # (Auto) 0.5 (0.1-1.2) X10*3/uL Eos # (Auto) 0.1 (0.0-0.4) X10*3/uL Baso # (Auto) 0.0 (0.0-0.2) X10*3/uL Abs Immat Gran (auto) 0.03 (0.00-0.03) X10*3/uL Absolute Neuts (auto) 3.4 (2.0-8.3) x10*3/uL Absolute Nucleated RBC 0.000 (0.0-0.012) X10*3/uL Nucleated RBC % (auto) 0.0 (0.0-0.2) /100WBC PT 10.4 L (10.9-12.4) SEC INR 0.9 (0.9-1.1) Sodium 143 (135-145) mmol/L Potassium 4.3 (3.3-5.1) mmol/L Chloride 108 (96-108) mmol/L Carbon Dioxide 26 (22-29) mmol/L Anion Gap 13 (12-20) BUN 14 (9-16) mg/dL Creatinine 0.95 (0.5-1.4) mg/dL Estim Creat Clear Calc 80.0 Estimated GFR > 60 Random Glucose 104 (60-115) mg/dL Lactic Acid 1.2 (0.5-2.0) mmol/L Calcium 8.8 (8.4-10.2) mg/dL Total Bilirubin 0.4 (0.0-1.0) mg/dL AST 14 (5-37) U/L ALT < 6 (0-40) U/L Alkaline Phosphatase 83 (39-117) U/L Total Protein 6.8 (6.5-8.0) g/dL Albumin 3.6 (3.5-5.0) g/dL Independent Interpretation I performed an independent interpretation of an: Plain X-Ray (Coarse lung markings, no obvious infiltrates) Radiology Impression Discussion of test interpretation with radiology: I have reviewed the radiologist's reading. Independent Historian Clinical information obtained from an independent historian. History obtained from or confirmed by: EMS External Record Review External record reviewed: Outpatient record (SNF paperwork) Prescription Management I considered prescription management with: Other (Guaifenesin) Chronic Conditions Patient?s care impacted by: Other (Dementia, bipolar disorder) Discharge Plan Discharge Clinical Impression: URI (upper respiratory infection), Chest congestion Patient Disposition: Xfer SNF Instructions: Upper Respiratory Infection (ED) Additional Instructions: Blood work and chest x-ray reassuring. Oxygen levels back to normal on room air. Suspect mucus plugging in the setting of chest congestion. Guaifenesin as needed q.4 hours for congestion. Return to the ER with any new or worsening symptoms including: Worsening oxygen levels, shortness of breath, altered mental status, any new symptoms that are concerning. Prescriptions: New guaifenesin 100 mg/5 mL liquid 200 mg feeding tube Q4H PRN (Reason: congestion) Qty: 473 0RF No Action lidocaine [Lidoderm] 5 % Adhesive Patch,Medicated 1 patch TOPICAL DAILY lithium carbonate 300 mg capsule 1 cap feeding tube BID Rx Instructions: crush and mix with 30 ml water trazodone 50 mg tablet 2 tab feeding tube BEDTIME valproic acid (as sodium salt) 250 mg/5 mL solution 1,000 mg feeding tube DAILY valproic acid (as sodium salt) 250 mg/5 mL solution 2,000 mg feeding tube BEDTIME ziprasidone HCl 80 mg capsule 1 cap PO BIDWM Rx Instructions: give via g tube valacyclovir 500 mg tablet 1 tab feeding tube DAILY@1200 atropine 1 % drops 2 drp sublingual DAILY PRN (Reason: Secretions) acetaminophen 500 mg Tablet 1,000 mg feeding tube TID polyethylene glycol 3350 8.5 gram Powder In Packet 17 g feeding tube BID Rx Instructions: mix in 4 ounces of water via g tube azithromycin 250 mg tablet See Rx Instructions .ROUTE .COMPLEX Qty: 6 0RF Rx Instructions: For 250 mg dose pack: take 500 mg today (day 1), then 250 mg for 4 days (days 2-5) START DATE WAS SECEDULE FOR atorvastatin 20 mg Tablet 20 mg PO BEDTIME Rx Instructions: ADM VIA G-TUBE clozapine 100 mg Tablet 200 mg PO BEDTIME Rx Instructions: TOTAL DOSE 250 MG sennosides [senna] 8.8 mg/5 mL Syrup 8.8 mg PO BID clozapine 25 mg Tablet 75 mg PO DAILY clozapine [Clozaril] 25 mg Tablet 25 mg PO BEDTIME Rx Instructions: TOTAL DOSE 250 MG chlorhexidine gluconate [Hibiclens] 4 % Liquid 1 appl TOPICAL MOFR Rx Instructions: APPLY TO SCROTUM DURING SHOWER IN THE MORNING sodium chloride 0.65 % Aerosol,[place] 2 spray INTRANASAL Q8H PRN (Reason: Dry Nasal Passages) alum-mag hydroxide-simeth 200-200-20 mg/5 mL Suspension 30 ml PO Q6H PRN (Reason: Stomach Upset) Rx Instructions: administer between meals and at bedtime cholecalciferol (vitamin D3) 1,250 mcg (50,000 unit) Tablet 1,250 mcg PO Q30D Patient Comments: GIVE AT BEDTIME ON THE 19 DAY THE MONTH artifi.tears(hypromellose)(PF) 1.7 % Drops With Applicator 2 drp OPHTHALMIC (EYE) Q6H PRN (Reason: Dry Eye(S)) albuterol sulfate 90 mcg/actuation aerosol powdr breath activated 2 inh inhalation Q4H PRN (Reason: shortness of breath or wheezing) sulfamethoxazole-trimethoprim 800-160 mg Tablet 1 tab PO Q12H Qty: 27 0RF clonazepam 0.5 mg tablet 0.5 mg feeding tube BID atropine 1 % drops 2 drp sublingual Q15M PRN (Reason: Secretions) famotidine 40 mg tablet 40 mg feeding tube BEDTIME levothyroxine 100 mcg tablet 100 mcg PO DAILY@0600 magnesium hydroxide [Milk of Magnesia] 400 mg/5 mL Suspension 30 ml PO DAILY PRN (Reason: Constipation) Rx Instructions: IF NO BM IN 3 DAYS docusate sodium 50 mg/5 mL Liquid 100 mg feeding tube BID miconazole nitrate 2 % Powder 1 appl TOPICAL BID Rx Instructions: apply to ischial tuberosity guaifenesin 100 mg/5 mL Liquid 200 mg PO Q4H PRN (Reason: Cough) bisacodyl 10 mg Suppository 10 mg MS DAILY PRN (Reason: Constipation) Rx Instructions: if milk of magnesia is ineffective phenylephrine HCl 0.25 % Suppository 1 supp MS Q6H PRN (Reason: Hemorrhoids) Print Language: Romansh
--- NOTE | 2024-09-22 04:45 | ECG_ITS ---
Test Reason : DYSPNEA Blood Pressure : */* mmHG Vent. Rate : 84 BPM Atrial Rate : 84 BPM P-R Int : 172 ms QRS Dur : 68 ms QT Int : 368 ms P-R-T Axes : 63 43 58 degrees QTcB Int : 434 ms Normal sinus rhythm Nonspecific ST abnormality Abnormal ECG When compared with ECG of 17-Apr-2021 23:52, Poor data quality in previous ECG Referred By: Caitlyn Castañeda Electronically Signed By: Jamin Deluca
[2024-09-22 05:04] LABS: Hematocrit 33.9 % (42.0-52.0); Hemoglobin 11.3 g/dl (14.0-18.0); Imm Gran Abs Auto 0.03 X10*3/uL (0.00-0.03); Imm Gran Pct Auto 0.5 % (0.0-0.4); Lymphocytes Absolute Auto 2.5 X10*3/uL (1.2-4.9); MANUAL DIFF FLAG NO; Mean Corpuscular HGB Conc 33.3 g/dl (31.0-36.0); Mean Corpuscular Hemoglobin 31.3 pg (27.0-33.0); Mean Corpuscular Volume 93.9 fL (80.0-98.0); NRBC Abs Auto 0.000 X10*3/uL (0.0-0.012); NRBC Pct Auto 0.0 /100WBC (0.0-0.2); Platelet Count 174 X10*3/uL (160-400); Red Blood Count 3.61 X10*6/uL (4.60-5.80); White Blood Count 6.6 X10*3/uL (4.8-10.8)
[2024-09-22 05:09] LABS: INTERNATIONAL NORM RATIO 0.9 (0.9-1.1); Prothrombin Time 10.4 SEC (10.9-12.4)
[2024-09-22] MEDS: cefEPime HCl/D5W 2 GM/50 ML PIGGYBACK IV (05:10)
[2024-09-22] MEDS: vancomycin/NS 2,000 MG/500 ML PLAST..BAG 250 MG IV (05:30)
[2024-09-22 05:34] LABS: Alanine Aminotransferase < 6 U/L (0-40); Albumin Level 3.6 g/dL (3.5-5.0); Alkaline Phosphatase 83 U/L (39-117); Anion Gap 13 (12-20); Aspartate Amino Transferase 14 U/L (5-37); Blood Urea Nitrogen 14 mg/dL (9-16); Calcium 8.8 mg/dL (8.4-10.2); Carbon Dioxide 26 mmol/L (22-29); Chloride 108 mmol/L (96-108); Creatinine Clr Calc Pharmacy 80.0; Estimated Glomerular Filt Rate > 60; Potassium 4.3 mmol/L (3.3-5.1); Sodium 143 mmol/L (135-145); Total Protein 6.8 g/dL (6.5-8.0)
--- NOTE | 2024-09-22 05:43 | PC.NURSE ---
Spoke with Tianna MICHAELS, from [facility] where resident resides, states that resident was found aspirating in his sleep and foaming out the mouth. Pt was suctioned prior to calling EMS, vital signs. RN also stated pt has had not any fevers, n/v/d, cp, sob, or any other symptoms of concern.
--- OUTSIDE RECORDS SUMMARY | 2024-09-22 06:30 | XMS_ITS | Clinical Summary ---
Author Organization [facility] Address [address] [place] [address] Phone Care Team Providers Care Pattern Developer Name Role Phone Chepe Pack Primary Care Provider [phone] Allergies Active Allergy Reactions Criticality Noted Date Comments Perphenazine 06/20/2023 Fluoxetine 06/20/2023 Shellfish-Derived Products 4 Medications atorvastatin (LIPITOR) 20 MG tablet Take 20 mg by mouth 1 (one) time each day Active clonazePAM (KlonoPIN) 0.5 MG tablet Take 0.5 mg by mouth in the morning and 0.5 mg in the evening. Active cloZAPine (CLOZARIL) 200 MG tablet Take 250 mg by mouth 1 (one) time each day Active cloZAPine (CLOZARIL) 25 MG tablet 75 mg by Per G Tube route 1 (one) time each day Active famotidine (PEPCID) 40 MG/5ML suspension Take 20 mg by mouth in the morning and 20 mg in the evening. Active levothyroxine (SYNTHROID, LEVOTHROID) 100 MCG tablet Take 100 mcg by mouth 1 (one) time each day Active LITHIUM CARBONATE ER PO Take 300 mg by mouth in the morning and 300 mg in the evening. Do not crush, chew, or split. 150 in the am. Active traZODone (DESYREL) 100 MG tablet 100 mg by Per G Tube route every night Active valACYclovir (VALTREX) 500 MG tablet 500 mg by Per G Tube route in the morning and 500 mg in the evening. Active valproic acid (DEPAKENE) 250 MG capsule 2,000 mg by Per G Tube route at bed time Active valproic acid (DEPAKENE) 250 MG capsule 1,000 mg by Per G Tube route 1 (one) time each day in the morning Active acetaminophen (TYLENOL) 325 MG tablet Take 325 mg by mouth every 6 (six) hours if needed for mild pain Active bisacodyl (FLEET) 10 MG/30ML enema Insert 10 mg into the rectum 1 (one) time Active docusate (COLACE) 50 MG/5ML liquid Take 100 mg by mouth in the morning and 100 mg in the evening. Active miconazole (MICOTIN) 2 % powder Apply topically 2 (two) times a day Active polyethylene glycol (GLYCOLAX) 17 g packet Take 17 g by mouth 1 (one) time each day Active sennosides (SENOKOT) 8.8 MG/5ML syrup by Per G Tube route every night Active Nutritional Supplements (ProSource) liquid Take by mouth Active ziprasidone (GEODON) 80 MG capsule Take 80 mg by mouth in the morning and 80 mg in the evening. Take with meals. Active Active Problems Problem Noted Date Diagnosed Date Dependence on enabling machine or device 025 Hypothyroidism 03/31/2024 Schizoaffective disorder 03/31/2024 Seizure 03/31/2024 Encounters Date Type Department Care Team Description 07/05/2024 Office Communication [facility] [address] [address] Anthony Sellers MD 06/25/2024 Office Communication [facility] [address] [address] Anthony Sellers MD from Last 3 Months Social History Tobacco Use Types Packs/Day Years Used Date Smoking Tobacco: Never Passive Smoke Exposure: Never Smokeless Tobacco: Never Alcohol Use Standard Drinks/Week Comments Never 0 (1 standard drink = 0.6 oz pur e alcohol) Sex and Gender Information Value Date Recorded Sex Assigned at Not on file Legal Sex Male 4:48 PM EST Gender Identity Not on file Sexual Orientation Not on file Last Filed Vital Signs Vital Sign Reading Time Taken Comments Blood Pressure 130/78 06/10/2024 3:10 PM EDT Pulse 78 06/10/2024 3:10 PM EDT Temperature - - Respiratory Rate - - Oxygen Saturation 99% 06/10/2024 3:10 PM EDT Inhaled Oxygen Concentration - - Weight 73.5 kg (162 lb) 06/10/2024 3:10 PM EDT Height - - Body Mass Index - - Plan of Treatment Upcoming Encounters Date Type Department Care Team (Late st Contact Info) Description 12/09/2024 2:00 PM EDT Office Visit [facility] [address] [place] [address] Anthony Sellers MD [address] [facility] [address] [place] [id number] Health Maintenance Due Date Last Done Comments Colorectal Cancer Screening: Annual FOBT 10/12/2007 Colorectal Cancer Screening: Colonoscopy 10/12/2007 Colorectal Cancer Screening: Sigmoidoscopy 10/12/2007 Pneumococcal Vaccine: 50+ Years (2 of 2 - PCV) 03/28/2008 03/28/2007 Influenza Vaccine (#1) 2024 4, 12/20/2019 Pneumococcal Vaccine: Peds ( 0 to 5 Years) and At-Risk Patients (6 to 49 Years) Discontinued 03/28/2007 Hepatitis B Vaccine Aged Out No longe r eligible based on patient's age to complete this topic Insurance Medicare Medicaid [place] Care Teams Pattern Developer Relationship Specialty Start Date End Date Chepe Pack [address] [place] [address] PCP - General 05/21/23
--- OUTSIDE RECORDS SUMMARY | 2024-09-22 06:30 | XMS_ITS | Encounter Summary ---
Author Organization [facility] Address [address] [place] [address] Care Team Providers Care Staying Machine Operator Name Role Phone Chepe Pack MD Primary Care Provider [phone] Encounter Details Date Type Department Care Team (Latest Contact Info) Description 04/13/[address] [facility] - Main Lab [address] [facility] [place] [place] [address] Chepe Pack MD [address], [place] [id number] Schizoaffective disorder, unspecified (CMS/HCC V24, CMS/HCC V28); Dementia in other diseases classified elsewhere, unspecified severity, with agitation (CMS/HCC V24, CMS/HCC V28); Type 2 diabetes mellitus without complications (CMS/HCC V24, CMS/HCC V28); Unspecified mood (affective) disorder (CMS/HCC V24) Social History Tobacco Use Types Packs/Day Years Used Date Smoking Tobacco: Never Assessed Sex and Gender Information Value Date Recorded Sex Assigned at Not on file Legal Sex Male 1:43 PM EST Gender Identity Not on file Sexual Orientation Not on file documented as of this encounter Plan of Treatment Not on file documented as of this encounter Procedures Procedure Name Priority Date/Time Associated Diagnosis Comments WBC COUNT WITH ABSOLUTE NEUTROPHIL Routine 04/14/2024 5:26 AM EST Schizoaffective disorder, unspecified Dementia in other diseases classified elsewhere, unspecified severity, with agitation (CMS/HCC) Type 2 diabetes mellitus without complications Unspecified mood (affective) disorder (CMS/HCC) BASIC METABOLIC PANEL Routine 04/14/2024 5:26 AM EST Schizoaffective disorder, unspecified Dementia in other diseases classified elsewhere, unspecified severity, with agitation (CMS/HCC) Type 2 diabetes mellitus without complications Unspecified mood (affective) disorder (CMS/HCC) documented in this encounter Results * Wbc count with absolute neutrophil (04/14/2024 5:26 AM EST) WBC 4.8 4.8 - 10.8 K/mcL LAB HEMETOLOGY METHOD 04/14/2024 11:00 AM EST [facility] Neutrophils Absolute 2.17 1.50 - 7.00 K/mcL LAB HEMETOLOGY METHOD 04/14/2024 11:00 AM EST [facility] Neutrophils Relative 45.1 % LAB HEMETOLOGY METHOD 04/14/2024 11:00 AM [facility] Blood Venous blood specimen / Unknown Venipuncture / Unknown 04/14/2024 5:26 AM EST 04/14/2024 9:36 AM EST us Chepe Pack MD LAB BLOOD ORDERABLES Final R esult [facility] [address] [place] [address], * (ABNORMAL) Basic metabolic panel (04/14/2024 5:26 AM EST) Sodium 142 133 - 145 mmol/L LAB CHEMISTRY METHOD 04/14/2024 12:11 PM [facility] Potassium 4.1 3.5 - 5.5 mmol/L LAB CHEMISTRY METHOD 04/14/2024 12:11 PM [facility] Chloride 110 96 - 110 mmol/L LAB CHEMISTRY METHOD 04/14/2024 12:11 PM [facility] CO2 26 21 - 32 mmol/L LAB CHEMISTRY METHOD 04/14/2024 12:11 PM [facility] Anion Gap 6 3 - 11 LAB CHEMISTRY METHOD 04/14/2024 12:11 PM EST [facility] Glucose 106(H) 70 - 100 mg/dL LAB CHEMISTRY METHOD 04/14/2024 12:11 PM [facility] BUN 22 5 - 25 mg/dL LAB CHEMISTRY METHOD 04/14/2024 12:11 PM [facility] Creatinine 0.78 0.70 - 1.30 mg/dL LAB CHEMISTRY METHOD 04/14/2024 12:11 PM [facility] eGFR 99 >=60 mL/min/1. 73m2 LAB CHEMISTRY METHOD 04/14/2024 12:11 PM [facility] Comment:Calculation based on the Chronic Kidney Disease Epidemiology Collaboration (CKD-EPI) equation refit without adjustment for race. BUN/Creatinine Ratio 28.2 LAB CHEMISTRY METHOD 04/14/2024 12:11 PM [facility] Calcium 8.3(L) 8.5 - 10.5 mg/dL LAB CHEMISTRY METHOD 04/14/2024 12:11 PM [facility] Blood Venous blood specimen / Unknown Venipuncture / Unknown 04/14/2024 5:26 AM EST 04/14/2024 9:39 AM EST Chepe Pack MD LAB BLOOD ORDERABLES Final R esult [facility] [address] [place] [address], documented in this encounter Visit Diagnoses Diagnosis Schizoaffective disorder, unspecified (CMS/HCC V24, [facility]/HCC V28) Dementia in other diseases classified elsewhere, unspecified severity, with agitation (CMS/HCC V24, CMS/HCC V28) Type 2 diabetes mellitus without complications (CMS/HCC V24, [facility] V28) Unspecified mood (affective) disorder ([facility] V24) documented in this encounter Care Teams Staying Machine Operator Relationship Specialty Start Date End Date Chepe Pack MD [address] [place] [id number] PCP - General Family Medicine 01/26/24 documented as of this encounter
--- OUTSIDE RECORDS SUMMARY | 2024-09-22 06:30 | XMS_ITS ---
Author Organization [facility] Care Team Providers Care Bonus Clerk Name Role Phone Chepe Pack Unavailable Unavailable Malinda Britt Unavailable Unavailable Maingi, Tonio MASOTTO-WAITA Unavailable Charo vailable Allergies and adverse reactions Code CodeSystem Substance Reaction Severity StartDate Concern Status shellfish derived Unknown 06/27/2020 act lalo Prozac Unknown 06/27/2020 active 8076 RXNORM perphenazine Unknown 06/27/2020 active Augmentin Unknown 06/27/2020 active Care Team Name Role Address Phone Organization Dates Chepe Pack PCP [address] [address], [place], [address], [place] (Office): : [facility] 04/07/2023 - present [facility], [place], [address], [place] (Fax): [facility] 04/07/2023 - present Tonio Ziegler [address], [place], [id number], [place] (Office): : [facility] 04/07/2023 - present Goals Section Goals Description Status Target Date Enhanced Barrier Precautions will be followed per protocol through my next review. Active 12/08/2024 I Will wear incontinence kirk ef every night to bed x90 days Active 12/08/2024 I will accept and respond po sitively to mood/behavioral supports related to perseverations d aily through next review. Active 12/08/2024 I will accept care with no m ore than 3 attempts through the next review. Active 12/08/2024 I will adhere to recommended process related to shopping orders. Active 12/08/2024 I will be able to discuss op enly with the facility criminal justice social worker any feelings or coping impairments I may be having related to my chronic medical condition, it's treatments and any impact on my psychosocial wellbeing through my next review. Active 025 I will be able to participat e in my daily life choices and care through next review Active 12/08/2024 I will be clean, well groome d, and will be dressed to maintain my dignity through next review. My ADLs will be met on a daily bases, with resident doing as much as possible for myself within limits of my medical conditions. Active 12/08/2024 I will be free from complica tions of cardiac problems through the review date. Active 12/08/2024 I will be free from s/sx of hypothyroidism through the review date. Active 12/08/2024 I will be free from self inf licted injury or harm through the next review. Active 12/08/2024 I will be free of s/sx of de lirium (changes in behavior, mood, cognitive function, communication, level of consciousness, restlessness) through the review date. Active 12/08/2024 I will be free of symptoms o f dehydration and maintain moist mucous membranes, good skin turgor. Active 12/08/2024 I will be maintained on the lowest, most effective dose of psychotropic medication through my next review. Active 12/08/2024 I will be redirected with mi nimal verbal cues if exhibiting socially inappropriate behavior towards others and will vent feeling in a non-confrontational manner through the next review. Active 12/08/2024 I will comply with mouth care at least daily thr ough review date. Active 12/08/2024 I will have a PHQ score of l ess than 10 (moderate depressive symptoms) when tested on my next quarterly review. Active I will have no adverse side effects of psychotropic medication use through my next review. Active 12/08/2024 I will have no complications related to SOB though the review date. Active 12/08/2024 I will have no complications with PEG tube placement thru next review. Active 12/08/2024 I will have no ill effects r elated to my choices through my next review. Active 12/08/2024 I will have no indications o f acute eye problems through the review date. Active 12/08/2024 I will maintain adequate nut ritional status as evidenced by maintaining weight within 5% of 182#, no s/sx of malnutrition, tolerating enteral feeding at goal rate daily through review date. Active 12/08/2024 I will not be misidentified. Active I will not sustain serious injury through the re view date. Active 12/08/2024 I will participate in activi ties that I enjoy and verbalize trust in the people who take care of me through next review. Active 12/08/2024 I will prioritize my clothin g purchase and request one clothing item each month on the facility shopping list. Active 025 I will remain free from inju ry related to seizure activity through review date. Active 12/08/2024 I will remain satisfied with my choice of long t erm residency Active 12/08/2024 I will tolerate my tube feedings through next re view. Active 12/08/2024 I will verbalize adequate re lief of pain or ability to cope with incompletely relieved pain through the review date. Active I will verbalize concerns/ i ssues to staff of choice through the next review. Active 12/08/2024 Nathan will accept and verbal ize feelings of support to manage and process losses/limitations and recognize strengths [id number] Active 12/08/2024 Nathan will adhere to care pl anning around shopping, mail, pencil-sharpening, etc., and accept practical and emotional support without acting on threats to protest [id number] Active 0 12/08/2024 Nathan will not steal anythin g from others or throw out good belongings x90 days Active 12/08/2024 Nathan will respond positivel y to staff efforts to reassure, redirect, and meet needs(minimizing agitation and verbal abuse) X 90 days Active 12/08/2024 My comfort will be maintained through my next re view. Active 12/08/2024 My needs will be met through staff assistance. A ctive 12/08/2024 My next quarterly MDS will n ot indicate the presence of physical or verbal behaviors for the 7 day lookback period. Active My safety will be maintained through the review date. Active 12/08/2024 My skin will remain intact through my next revie w. Active 12/08/2024 Resident Intake of Nutrients Will Meet Metabolic Needs Active 12/08/2024 Resident's Advanced Directiv es Wishes Will Be Known My advance directives will be followed through next review Active 2024 Resident's Skin Will Remain Intact through next review Active 12/08/2024 The resident will maintain i nvolvement in cognitive stimulation, social activities as desired through review date. Active 11/16 Functional Status Code Name Recorded Time Value Entered By Chair/dda-we-weatz transfer 09/21/2024 Not assessed nmathieu Does the resident use a wheelchair and/or scooter? 09/21/2024 Yes (qualifier value) nmathieu Eating 09/21/2024 Not assessed nmathieu Indicate the type of wheelchair or scooter used 09/21/2024 Manual wheelchair (physical object) nmathieu Lower body dressing 09/21/2024 Not assessed nmathieu Lying to sitting on side of bed 09/21/2024 Not assessed nmathieu Oral hygiene 09/21/2024 Not assessed nmathieu Personal hygiene 09/21/2024 Substantial/maximal assi stance nmathieu Picking up object 09/21/2024 Not assessed nmathieu Putting on/taking off footwear 09/21/2024 Not assess ed nmathieu Roll left and right 09/21/2024 Substantial/maximal a ssistance nmathieu Shower/bathe self 09/20/2024 Substantial/maximal ass istance [email or web address] Sit to lying 09/21/2024 Not assessed nmathieu Sit to stand 09/21/2024 Not assessed nmathieu Toilet transfer 09/21/2024 Not assessed nmathieu Toileting hygiene 09/21/2024 Substantial/maximal ass istance nmathieu Upper body dressing 09/21/2024 Not assessed nmathieu Walk 10 feet 09/21/2024 Not assessed nmathieu Walk 150 feet 09/21/2024 Not assessed nmathieu Wheel 50 feet with two turns 09/21/2024 Not assessed nmathieu Immunizations Immunization Status Vaccine Details Vaccine Code CodeSystem Date Notes Influenza completed Influenza, high-dose, split virus, quadrivalent, injectable, preservative free lotNumber: [id number] expiry: 08/14/2024 Mfg: Afluria Given 0.5 ml Left Deltoid intramuscularly 197 CVX created date: 4 consent date: 4 administe red date: 4 Educated by on 11/11/2023 COVID-19 Pfizer Booster completed SARS-COV-2 (COVID-19) vaccine, mRNA, spike protein, LNP, preservative free, 30 mcg/0.3mL dose lotNumber: [id number] expiry: 11/20/2024 Mfg: Comirnaty Given 0.3 ml Right Deltoid intramuscularly 208 CVX created date: 5 administe red date: 5 FLU completed influenza virus vaccine, unspecified formulation 88 CVX created date: 4 administe red date: 4 FLU completed influenza virus vaccine, unspecified formulation 88 CVX created date: 4 administe red date: 4 FLU completed influenza virus vaccine, unspecified formulation expiry: 09/13/2021 Mfg: [employer] Given 0.5 ml Left Deltoid intramuscularly 88 CVX created date: 4 administe red date: 3 Resident received Influenza Vaccine Flucelvax this shift. Lot [id number] Exp. 09/14/23 FLU completed influenza virus vaccine, unspecified formulation expiry: 09/13/2021 Mfg: [employer] Given 0.5 ml Left Deltoid intramuscularly 88 CVX created date: 4 administe red date: 2 Resident received flu vaccination this shift. Lot # [id number] FLU completed influenza virus vaccine, unspecified formulation expiry: 09/13/2021 Mfg: [employer] 88 CVX created date: 4 administe red date: 1 FLU completed influenza virus vaccine, unspecified formulation 88 CVX created date: 4 administe red date: 0 PneumoPCV completed Pneumococcal Conjugate, unspecified formulation 152 CVX created date: 4 administe red date: 3 PCV23 PneumoPPV completed pneumococcal polysaccharide vaccine, 23 valent expiry: 09/13/2021 Mfg: [employer]ed Given 0.5 ml Right Deltoid intramuscularly 33 CVX created date: 4 administe red date: 3 [id number] [id number] exp. 03/09 RSV completed Respiratory syncytial virus (RSV), mRNA, injectable, preservative free expiry: 07/15/2024 Mfg: [employer], Mango DSP Given 0.5 ml Left Deltoid intramuscularly 326 CVX created date: 4 administe red date: 4 Lot# [id number] Exp. date 06/08 COVID-19 completed SARS-COV-2 (COVID-19) vaccine, mRNA, spike protein, LNP, preservative free, 50 mcg/0.5 mL dose lotNumber: [id number] expiry: 10/27/2023 Mfg: [employer] Given 0.5 ml Left Deltoid intramuscularly 312 CVX created date: 4 consent date: administe red date: 4 Nathan gave consent. Covid injection given with no complication. He verbalized understanding and consent for immunization. COVID-19 completed SARS-COV-2 (COVID-19) vaccine, UNSPECIFIED expiry: 06/02/2023 Mfg: [employer] Given 0.5 ml Right Deltoid intramuscularly 213 CVX created date: 4 administe red date: 3 Lot# [id number] xp. 07/01/23 COVID-19 completed SARS-COV-2 (COVID-19) vaccine, UNSPECIFIED expiry: 05/15/2020 Mfg: Getui Given 0.3 ml Left Deltoid intramuscularly 213 CVX created date: 4 administe red date: 2 Received Bivalent booster this shift. Lot [id number] COVID-19 completed SARS-COV-2 (COVID-19) vaccine, UNSPECIFIED expiry: 05/15/2020 Mfg: Getui 213 CVX created date: 4 administe red date: 2 Resident received pfizer covid-19 vaccination booster #2 this shift. right deltoid COVID-19 completed SARS-COV-2 (COVID-19) vaccine, UNSPECIFIED 213 CVX created date: 4 administe red date: 1 Pfizer Exp 01/14/2021 COVID-19 completed SARS-COV-2 (COVID-19) vaccine, UNSPECIFIED 213 CVX created date: 4 administe red date: 1 COVID-19 completed SARS-COV-2 (COVID-19) vaccine, UNSPECIFIED 213 CVX created date: 4 administe red date: 1 ZOSTER completed zoster vaccine, unspecified formulation 188 CVX created date: 4 administe red date: 9 ZOSTER completed zoster vaccine, unspecified formulation 188 CVX created date: 4 administe red date: 9 PPD Step 2 of 2 completed created date: 4 administe red date: 8 [id number] COVID completed SARS-COV-2 (COVID-19) vaccine, mRNA, spike protein, LNP, preservative free, claritza-sucrose, 30 mcg/0.3 mL dose lotNumber: [id number] expiry: 06/12/2024 Mfg: Dawna Given 0.3 ml Right Deltoid intramuscularly 309 CVX created date: 4 consent date: 4 administe red date: 4 Medications Section Medication Name Status Code CodeSystem Dose Route Frequency Admin Type Sig Text Start Date End Date Valacyclovir HCl Tab 500 MG active 318145 RXNORM 1 tablet Oral one time a day Routine Give 1 tablet via G-Tube one time a day relate d to Herpes viral infect ion, unspec ified (B00.9 ) 2023 - Hibiclens External Solution 4 % active 061180 RXNORM n/a n/a Topical one time a day Routine Apply to SCROTU M topica lly one time a day every Fri, Fri relate d to Diaper dermat itis (L22) 1 applic ator(s ) topica l 12 Hour Day Shift Friday & Friday .-->TO SCROTU M WITH SHOWER S ON FRIDAY AND Friday - Levothyroxine Sodium Tab 100 MCG active 859847 RXNORM 1 tablet Oral one time a day Routine Give 1 tablet via G-Tube one time a day relate d to Hypoth yroidi sm, unspec ified (E03.9 ) 2023 - Docusate Sodium Liquid 150 MG/15ML active 775571 9 RXNORM 10 ml Oral two times a day Routine Give 10 ml via G-Tube two times a day relate d to Consti pation , unspec ified (K59.0 0) 2023 - Miconazole Nitrate Powder 2 % active n/a n/a Topical two times a day Routine Apply to ISCHIA L TUBERO SITY topica lly two times a day relate d to Candid iasis of skin and nail (B37.2 ) 2023 - Ziprasidone HCl Cap 80 MG active 419652 RXNORM 80 mg Oral two times a day Routine Give 80 mg via G-Tube two times a day relate d to Schizo affect lalo disord er, unspec ified (F25.9 ) 2023 - Bisacodyl Laxative Suppository 10 MG active 297556 RXNORM 1 suppos itory Rectal as needed PRN Insert 1 suppos itory rectal ly as needed for consti pation daily. If MOM ineffe ctive 2023 - Naloxone HCl Injection Solution 0.4 MG/ML active 658685 9 RXNORM 1 ml Intramu scular as needed PRN Inject 1 ml intram uscula rly as needed for suspec eleonora opioid overdo se may repeat in 2-3 minute s if no revers al effect is noted. Signs of overdo se may includ e pinpoi nt pupils , resp. depres rasta or diffic ult arousi ng reside nt. Call 911-Up date 2023 - Naloxone HCl Nasal Liquid 4 MG/0.1ML active 278372 9 RXNORM 1 spray in nostril as needed PRN 1 spray in nostri l as needed for suspec eleonora opioid overdo se may repeat in 2-3 minute s if no revers al effect is noted. Signs of overdo se may includ e pinpoi nt pupils , resp. depres rasta or diffic ult arousi ng reside nt. Call 911-Up date 2023 - EPINEPHrine Injection Solution Auto-injector 0.3 MG/0.3ML active 608782 5 RXNORM 0.3 ml Intramu scular as needed PRN Inject 0.3 ml intram uscula rly as needed for Anaphy laxis may repeat in 3-5 minute s for 2 doses 2023 - Polyethylene Glycol 3350 Oral Powder 17 GM/SCOOP active 974895 RXNORM 1 scoop Oral one time a day Routine Give 1 scoop via G-Tube one time a day relate d to Consti pation , unspec ified (K59.0 0) Give with 8 0z of fluid 2023 - cloZAPine Oral Tablet 100 MG active 950681 RXNORM 1 tablet Oral one time a day Routine Give 1 tablet via G-Tube one time a day relate d to SCHIZO AFFECT LALO DISORD ER, UNSPEC IFIED (F25.9 ) 2023 - Sennosides Syrup 8.8 MG/5ML active 818717 RXNORM 10 ml Oral one time a day Routine Give 10 ml via G-Tube one time a day relate d to Consti pation , unspec ified (K59.0 0) 2023 - Clozapine Tab 50 MG active 126706 RXNORM 1 tablet Oral one time a day Routine Give 1 tablet via G-Tube one time a day relate d to Schizo affect lalo disord er, unspec ified (F25.9 ) 250 MG Total Dose) bedtim e daily. -->KENNETH E WITH 200 MG TABLET . Route: gastro stomy tube 2023 - Trazodone HCl Tab 100 MG active 064876 RXNORM 100 mg Oral one time a day Routine Give 100 mg via G-Tube one time a day relate d to Major depres sive disord er, recurr ent, unspec ified (F33.9 ) 2023 - Famotidine Tab 40 MG active 670129 RXNORM 40 mg Oral one time a day Routine Give 40 mg via G-Tube one time a day relate d to Gastro -esoph ageal reflux diseas e withou t esopha gitis (K21.9 ) 2023 - Clozapine Tab 200 MG active 619886 RXNORM 1 tablet Oral one time a day Routine Give 1 tablet via G-Tube one time a day relate d to Schizo affect lalo disord er, unspec ified (F25.9 ) Admini ster 1 tablet (s) gastro stomy tube (250 mg Total Dose) bedtim e daily. -->KENNETH E WITH 50 MG TABLET 2023 - Atorvastatin Calcium Tab 20 MG (Base Equivalent) active 312898 RXNORM 1 tablet Oral one time a day Routine Give 1 tablet via G-Tube one time a day relate d to Hyperl ipidem ia, unspec ified (E78.5 ) 2023 - Voltaren Arthritis Pain External Gel 1 % aborted 592929 RXNORM n/a n/a Topical as needed PRN Apply to both knees topica lly every 6 hours as needed for OA -- APPLY 4 GRAMS. relate d to UNSPEC IFIED OSTEOA RTHRIT IS, UNSPEC IFIED SITE (M19.9 0) 09/03 Milk of Magnesia Suspension 1200 MG/15ML active 719579 RXNORM 30 ml Oral as needed PRN Give 30 ml via G-Tube as needed for consti pation daily. If no BM in 3 days. Discon tinue if on dialys is 2023 - Valproic Acid Oral Solution 250 MG/5ML active 15 ml Oral one time a day Routine Give 15 ml via G-Tube one time a day relate d to EPILEP SY, UNSPEC IFIED, NOT INTRAC TABLE, WITHOU T STATUS EPILEP TICUS (G40.9 09) 2024 - Valproic Acid Oral Solution 250 MG/5ML active 20 ml Oral at bedtime Routine Give 20 ml via G-Tube at bedtim e relate d to EPILEP SY, UNSPEC IFIED, NOT INTRAC TABLE, WITHOU T STATUS EPILEP TICUS (G40.9 09) 2024 - Lidocaine Pain Relief External Patch 4 % active n/a n/a Topical one time a day Routine Apply to left kneee topica lly one time a day for Pain relate d to UNILAT ERAL PRIMAR Y OSTEOA RTHRIT IS, LEFT KNEE (M17.1 2) Apply one patch daily and remove after 12 hours 2024 - clonazePAM Oral Tablet 0.5 MG active 897305 RXNORM 1 tablet Oral two times a day Routine Give 1 tablet via G-Tube two times a day relate d to ANXIET Y DISORD ER, UNSPEC IFIED (F41.9 ) 2024 - Acetaminophen Oral Tablet 325 MG aborted 920715 RXNORM 3 tablet Oral three times a day Routine Give 3 tablet via G-Tube three times a day relate d to UNSPEC IFIED OSTEOA RTHRIT IS, UNSPEC IFIED SITE (M19.9 0) Total dose of 975 mg 08/27 Acetaminophen Oral Solution 160 MG/5ML active 541161 RXNORM 30 ml Oral three times a day Routine Give 30 ml via G-Tube three times a day relate d to UNSPEC IFIED OSTEOA RTHRIT IS, UNSPEC IFIED SITE (M19.9 0) Total dose 960 mg. Not to exceed 3000 mg in 24 hours. 2024 - PredniSONE Tablet aborted 40 millig alma Oral one time a day Routine Give 40 millig alma by mouth one time a day for gout flare for 5 Days 08/30 predniSONE Oral Solution 5 MG/5ML complete d 863000 RXNORM 40 mg Oral one time a day Routine Give 40 mg via G-Tube one time a day for gout flare for 5 Days 09/05 Clindamycin HCl Oral Capsule 300 MG aborted 771402 RXNORM 1 capsul e Oral three times a day Routine Give 1 capsul e via G-Tube three times a day for Pneumo sancho 09/01 Clindamycin HCl Oral Capsule 300 MG complete d 611373 RXNORM 1 capsul e Oral three times a day Routine Give 1 capsul e via G-Tube three times a day for Pneumo sancho for 7 Days 09/09 Mental Status Section Date Assessment Total Score Description 08/29/2024 BIMS 10 moderate cognit lalo impairment CAM 2 Delirium indica eleonora PHQ-9 06 mild depression 06/06/2024 BIMS 06 severe cognitiv e impairment CAM 4 Delirium indica eleonora Problems Problem # Description Date of onset Resolved Date Code CodeSystem Concern Status 1 UNSPECIFIED DEMENTIA, MODERATE, WITH AGITATION [address] active 2 DEMENTIA IN OTHER DISEASES CLASSIFIED ELSEWHERE, UNSPECIFIED SEVERITY, WITH MOOD DISTURBANCE [address] active 3 DYSPHAGIA, UNSPECIFIED [address] active 4 OTHER SPECIFIED HEALTH STATUS [address] active 5 NEUROSYPHILIS, UNSPECIFIED [address] active 6 HYPO-OSMOLALITY AND HYPONATREMIA [address] active 7 OTHER SPECIFIED ABNORMAL FINDINGS OF BLOOD CHEMISTRY [address] active 8 DIAPER DERMATITIS [address] active 9 PERSONAL HISTORY OF PNEUMONIA (RECURRENT) [address] active 10 UNSPECIFIED PROTEIN-CALORIE MALNUTRITION [address] active 11 PNEUMONIA, UNSPECIFIED ORGANISM 024 07/09/[address] completed 12 WEAKNESS 024 05/28/[address] completed 13 HYPOCALCEMIA 023 04/06/[address] completed 14 HYPOKALEMIA 023 04/06/[address] completed 15 HYPOTHERMIA, NOT ASSOCIATED WITH LOW ENVIRONMENTAL TEMPERATURE 023 04/06/[address] completed 16 HYPOXEMIA 023 04/06/[address] completed 17 OTHER ESCHERICHIA COLI [E. COLI] THE CAUSE OF DISEASES CLASSIFIED ELSEWHERE 023 01/15/[address] completed 18 CANDIDIASIS OF SKIN AND NAIL [address] active 19 DRY EYE SYNDROME OF BILATERAL LACRIMAL GLANDS [address] active 20 SUPERFICIAL MYCOSIS, UNSPECIFIED [address] active 21 UNSPECIFIED OSTEOARTHRITIS, UNSPECIFIED SITE [address] active 22 DISTURBANCES OF SALIVARY SECRETION [address] active 23 UNSPECIFIED HEMORRHOIDS [address] active 24 ACUTE RESPIRATORY DISTRESS 022 04/12/[address] completed 25 ALTERED MENTAL STATUS, UNSPECIFIED 022 04/12/[address] completed 26 CANDIDAL STOMATITIS 022 04/12/[address] completed 27 CUTANEOUS ABSCESS OF BUTTOCK 022 04/12/[address] completed 28 ENCOUNTER FOR ADJUSTMENT AND MANAGEMENT OF VASCULAR ACCESS DEVICE 022 04/12/[address] completed 29 HYPEROSMOLALITY AND HYPERNATREMIA 022 04/12/[address] completed 30 HYPOTENSION, UNSPECIFIED 022 04/12/[address] completed 31 OTHER SPECIFIED NONINFECTIVE GASTROENTERITIS AND COLITIS 022 04/12/[address] completed 32 SEPSIS, UNSPECIFIED ORGANISM 022 04/12/[address] completed 33 DEMENTIA IN OTHER DISEASES CLASSIFIED ELSEWHERE, UNSPECIFIED SEVERITY, WITH AGITATION [address] active 34 UNSPECIFIED DEMENTIA, MODERATE, WITH MOOD DISTURBANCE 778685365003001 SNOMED CT active 35 PERSONAL HISTORY OF COVID-[address] active 36 METABOLIC ENCEPHALOPATHY 022 05/15/[address] completed 37 URINARY TRACT INFECTION, SITE NOT SPECIFIED 022 05/15/[address] completed 38 ACUTE RESPIRATORY FAILURE WITH HYPOXIA 05/15/[address] completed 39 PNEUMONIA DUE TO SARS-ASSOCIATED CORONAVIRUS 022 05/01/[address] completed 40 UNSPECIFIED ACUTE CONJUNCTIVITIS, BILATERAL 022 05/01/[address] completed 41 COVID-19 022 05/01/[address] completed 42 UNSPECIFIED ATHEROSCLEROSIS OF [place] ARTERIES OF EXTREMITIES, BILATERAL LEGS [address] active 43 PRESSURE-INDUCED DEEP TISSUE DAMAGE OF SACRAL REGION 021 09/19/[address] completed 44 SUICIDAL IDEATIONS [address] active 45 OTHER HAMMER TOE(S) (ACQUIRED), UNSPECIFIED FOOT [address] active 46 TINEA UNGUIUM [address] active 47 UNSPECIFIED ATHEROSCLEROSIS OF [place] ARTERIES OF EXTREMITIES, UNSPECIFIED EXTREMITY [address] active 48 BACTEREMIA 021 09/02/[address] completed 49 DISCITIS, UNSPECIFIED, SITE UNSPECIFIED 021 09/02/[address] completed 50 FEVER, UNSPECIFIED 021 09/02/[address] completed 51 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[place], LUMBAR REGION 021 09/02/[address] completed 52 OSTEOMYELITIS, UNSPECIFIED 021 09/02/[address] completed 53 PNEUMONITIS DUE TO INHALATION OF FOOD AND VOMIT 09/02/[address] completed 54 PRESENCE OF OTHER VASCULAR IMPLANTS AND GRAFTS 09/02/[address] completed 55 UNSPECIFIED CONVULSIONS 83399139 SNOM[address] CT active 56 UNSPECIFIED DEMENTIA, UNSPECIFIED SEVERITY, WITHOUT BEHAVIORAL DISTURBANCE, PSYCHOTIC DISTURBANCE, MOOD DISTURBANCE, AND ANXIETY 09/04/[address] completed 57 MYOPIA, BILATERAL [address] active [address] active 59 REGULAR ASTIGMATISM, BILATERAL [address] active 60 MUSCLE WEAKNESS (GENERALIZED) 04/12/[address] completed 61 NEED FOR ASSISTANCE WITH PERSONAL CARE 06052754934693786 SNOMED CT active 62 UNSPECIFIED ABNORMALITIES OF GAIT AND MOBILITY 06/05/[address] completed 63 AGE-RELATED NUCLEAR CATARACT, BILATERAL [address] active 64 ALLERGIC RHINITIS, UNSPECIFIED [address] active 65 ANEMIA, UNSPECIFIED [address] active 66 ANOGENITAL HERPESVIRAL INFECTION, UNSPECIFIED 199192087 SNOMED CT active 67 ANXIETY DISORDER, UNSPECIFIED 395763209 SNOMED CT active 68 CHARCOT'S JOINT, UNSPECIFIED SITE [id number] SNOMED CT active 69 CONSTIPATION, UNSPECIFIED [address] active 70 DEMENTIA IN OTHER DISEASES CLASSIFIED ELSEWHERE WITH BEHAVIORAL DISTURBANCE 12/15/[id number] completed 71 DEMENTIA IN OTHER DISEASES CLASSIFIED ELSEWHERE, UNSPECIFIED SEVERITY, WITH BEHAVIORAL DISTURBANCE 12/15/[id number] completed 72 DIVERTICULOSIS OF LARGE INTESTINE WITHOUT PERFORATION OR ABSCESS WITHOUT BLEEDING 84576031 SNOMED CT active 73 DRY MOUTH, UNSPECIFIED [address] active 74 DYSPHAGIA, OROPHARYNGEAL PHASE [address] active 75 ENCOUNTER FOR ATTENTION TO GASTROSTOMY [address] active 76 EPILEPSY, UNSPECIFIED, NOT INTRACTABLE, WITHOUT STATUS EPILEPTICUS [address] active 77 ESOPHAGITIS, UNSPECIFIED WITHOUT BLEEDING [address] active 78 FUNCTIONAL URINARY INCONTINENCE [address] active 79 GASTRO-ESOPHAGEAL REFLUX DISEASE WITHOUT ESOPHAGITIS [address] active 80 GASTROSTOMY STATUS [address] active 81 HERPESVIRAL INFECTION, UNSPECIFIED [address] active 82 HYPERLIPIDEMIA, UNSPECIFIED [address] active 83 HYPOTHYROIDISM, UNSPECIFIED [address] active 84 MAJOR DEPRESSIVE DISORDER, RECURRENT, UNSPECIFIED [address] active 85 NEPHROGENIC DIABETES INSIPIDUS [address] active 86 ORTHOSTATIC HYPOTENSION [address] active 87 OTHER FRONTOTEMPORAL NEUROCOGNITIVE DISORDER [address] active 88 OTHER SPECIFIED ACQUIRED DEFORMITIES OF UNSPECIFIED LOWER LEG [address] active 89 PERIANAL VENOUS THROMBOSIS [address] active 90 PERSONAL HISTORY OF DISEASES OF THE BLOOD AND BLOOD-FORMING ORGANS AND CERTAIN DISORDERS INVOLVING THE IMMUNE MECHANISM [address] active 91 PERSONAL HISTORY OF OTHER DISEASES OF THE DIGESTIVE SYSTEM [address] active 92 SCHIZOAFFECTIVE DISORDER, UNSPECIFIED [address] active 93 SYMPTOMATIC NEUROSYPHILIS, UNSPECIFIED [address] active 94 UNILATERAL PRIMARY OSTEOARTHRITIS, LEFT KNEE [address] active 95 UNSPECIFIED CATARACT [address] active 96 UNSPECIFIED MOOD [AFFECTIVE] DISORDER [address] active 97 VITAMIN D DEFICIENCY, UNSPECIFIED [address] active Reason for Referral No Reasons for Referral Entered Social History Social History Observation Description Start Date End Date Code Code System Current Smoking Status Tobacco smoking consumption unknown 426970331 SNOMED CT Sex Assigned At Male 1960 33795-5 [facility] Gender Identity Vital Signs Code Code System Vitals Name Values and Units Timing Information 29533-3 [facility] Pain Level Value=0.0 09/21/2024 9279-1 [facility] Respiratory Rate Value=18.0 Units=/m in 09/21/2024 8867-4 [facility] Heart rate Value=90.0 Units=/min 10/2024 90635-2 [facility] O2 % dC Oximetry Value=94.0 Units= % 09/21/2024 26705-6 [facility] Weight Ormlx=520.2 Units=Lbs 09/2024 8462-4 [facility] Blood Pressure-Diastolic Value=72 Un its=mmHg 09/03/2024 8480-6 [facility] Blood Pressure-Systolic Mjjag=719 Un its=mmHg 09/03/2024 8310-5 [facility] Body Temperature Value=97.8 Units= F 09/03/2024 8302-2 [facility] Height Value=65.0 Units=Inches 08/24/2024
--- NOTE | 2024-09-22 09:15 | MHC.EDTECH ---
Patient removed [place] [facility]. patient urinated a large amount,queta care given and bed linen changed, RN assisted. Patient had 50MLS in bag,(yellow in color)
--- NOTE | 2024-09-22 10:19 | PC.NURSE ---
2x call [facility] without answer. DC packet given to EMS, verbal instructions provided too
== END 2024-09-22 10:20 | disposition skilled nursing facility (03) ==
PROVIDERS: Emergency Provider Emergency Medicine
DX: J06.9 Acute upper respiratory infection, unspecified (principal); R06.02 Shortness of breath; R09.89 Other specified symptoms and signs involving the circulatory and respiratory systems; R05.9 Cough, unspecified; R11.0 Nausea; R94.31 Abnormal electrocardiogram [ECG] [EKG]; M79.10 Myalgia, unspecified site; Z79.899 Other long term (current) drug therapy; Z87.891 Personal history of nicotine dependence
CPT/HCPCS: 36415; 71045; 80053; 83605; 85025; 85610; 87040; 93005; 96361; 96365; 96366; 96367; 96375; 99285; J0131; J0692; J3373; J7120

== ENCOUNTER → 2024-09-22 04:45 | Outpatient (BNV) | payer MEDICARE, MEDICAID, SELFPAY | PROVIDERS: Emergency Provider Emergency Medicine; Visit Provider Radiology Diagnostic Radiology | DX: J84.9 Interstitial pulmonary disease, unspecified (principal) | CPT/HCPCS: 71045 ==

== ENCOUNTER → 2024-09-22 04:45 | Outpatient (BNV) | payer MEDICARE, MEDICAID, SELFPAY | PROVIDERS: Emergency Provider Emergency Medicine; Visit Provider Internal Medicine Cardiovascular Disease | DX: R94.31 Abnormal electrocardiogram [ECG] [EKG] (principal); R06.00 Dyspnea, unspecified | CPT/HCPCS: 93010 ==